=== PATIENT | female | born 1955 | race Caucasian/White ===

== ENCOUNTER 2019-02-06 11:51 | Inpatient (IN) | payer MEDICARE, MEDICAID ==
[~2019-02-06] VITALS: Ht 152.4 cm; Wt 55.0 kg
[2019-02-06 11:56] VITALS: Ht 152.4 cm; Wt 55.0 kg
[2019-02-06] MEDS ORDERED: ASPIRIN 325 MG TAB PO ONE (13:30)
[2019-02-06] MEDS ORDERED: ONDANSETRON 4 MG INJ IV PRN ×2 (14:00→16:00)
[2019-02-06] MEDS ORDERED: ACETAMINOPHEN 325 MG TAB PO PRN ×2 (14:00→16:00)
[2019-02-06] MEDS ORDERED: INSULIN LISPRO 100 UNIT/ML VIAL SC ONE (14:00)
--- NOTE | 2019-02-06 14:09 | ERD ---
ER Documentation Chief Complaint Chief Complaint lt arm weakness x 2 days h/o previous stroke with lt side weakness HPI Patient is a 64-year-old female with stroke, hypertension, and diabetes who presents with left arm weakness. She started with new left arm weakness which started yesterday morning at 7 AM. The symptoms have been constant. She denies pain. She has no fevers. She says that she does have a primary doctor. She has had no treatment as of yet. Upon review of old medical records this is the patient's first visit to the emergency department. ROS All systems reviewed and are negative except as per history of present illness. Allergies Allergies: Coded Allergies: No Known Allergy (Unverified , 02/06/19) PMhx/Soc History of Surgery: No Anesthesia Reaction: No Hx Neurological Disorder: No Hx Respiratory Disorders: No Hx Cardiac Disorders: Yes (HTN) Hx Psychiatric Problems: No Hx Miscellaneous Medical Probl: Yes (DM) Hx Alcohol Use: No Hx Substance Use: No Hx Tobacco Use: No Smoking Status: Never smoker FmHx Family History: diabetes Physical Exam Vitals Vital Signs Date Temp Pulse Resp B/P (MAP) Pulse Ox O2 O2 Flow FiO2 Time Delivery Rate 02/06/19 98.1 86 18 189/74 98 11:56 (112) Physical Exam Const: No acute distress Head: Atraumatic Eyes: Normal Conjunctiva ENT: Normal External Ears, Nose and Mouth. Neck: Full range of motion. No meningismus. Resp: Clear to auscultation bilaterally Cardio: Regular rate and rhythm, no murmurs Abd: Soft, non tender, non distended. Normal bowel sounds Skin: No petechiae or rashes Back: No midline or flank tenderness Ext: No cyanosis, or edema Neur: Awake and alert, left arm weakness with pronator drift, unable to broodmare barn groom on the left compared to the right, cranial nerves II through XII are intact, no slurred speech Psych: Normal Mood and Affect Result Diagram: 02/06/19 1244 02/06/19 1244 Results 24 hrs Laboratory Tests Test 02/06/19 12:44 White Blood Count 5.4 10^3/ul Red Blood Count 4.43 10^6/ul Hemoglobin 13.9 g/dl Hematocrit 39.6 % Mean Corpuscular Volume 89.4 fl Mean Corpuscular Hemoglobin 31.4 pg Mean Corpuscular Hemoglobin Concent 35.1 g/dl Red Cell Distribution Width 12.4 % Platelet Count 179 10^3/UL Mean Platelet Volume 10.4 fl Immature Granulocytes % 0.200 % Neutrophils % 60.0 % Lymphocytes % 31.6 % Monocytes % 6.3 % Eosinophils % 1.3 % Basophils % 0.6 % Nucleated Red Blood Cells % 0.0 /100WBC Immature Granulocytes # 0.010 10^3/ul Neutrophils # 3.3 10^3/ul Lymphocytes # 1.7 10^3/ul Monocytes # 0.3 10^3/ul Eosinophils # 0.1 10^3/ul Basophils # 0.0 10^3/ul Nucleated Red Blood Cells # 0.0 10^3/ul Prothrombin Time 12.5 Sec Prothrombin Time Ratio 1.0 INR International Normalized Ratio 0.92 Activated Partial Thromboplast Time 26.9 Sec Sodium Level 135 mmol/L Potassium Level 4.7 mmol/L Chloride Level 100 mmol/L Carbon Dioxide Level 27 mmol/L Anion Gap 8 Blood Urea Nitrogen 23 mg/dl Creatinine 0.76 mg/dl Est Glomerular Filtrat Rate mL/min > 60 mL/min Glucose Level 572 mg/dl Hemoglobin A1c 13.9 % Calcium Level 10.0 mg/dl Troponin I 0.043 ng/ml Triglycerides Level 328 mg/dl Cholesterol Level 243 mg/dl LDL Cholesterol, Calculated 129 mg/dl HDL Cholesterol 48 mg/dl Cholesterol/HDL Ratio 5.0 RATIO Current Medications Medications Dose Sig/More[place] Start Time Status Last (Trade) Ordered Route PRN Stop Time Admin Dose Reason Admin Aspirin 325 mg ONCE ONCE 02/06/19 DC 02/06/19 (Aspirin) PO 13:30 02/06/19 13:25 13:31 Insulin 20 unit ONCE ONCE 02/06/19 DC Human SC 14:00 02/06/19 Lispro 14:02 (Humalog) Ondansetron 4 mg ER BRIDGE 02/06/19 HCl (Zofran PRN IV 14:00 02/07/19 Inj) NAUSEA/VOMITI 13:59 NG 650 mg ER BRIDGE 02/06/19 Acetaminophen PRN PO 14:00 02/07/19 (Tylenol .MILD PAIN 13:59 Tab) 1-3 OR TEMP Procedures/MDM EKG, MONITORS, & DIAGNOSTIC IMAGING: EKG: I reviewed and interpreted a 12-lead EKG. Rhythm: Normal sinus rhythm Ectopy: None Arrhythmia: None Intervals: No abnormalities ST segments: No elevations or depressions T waves: No contiguous inversions Interpretation: No acute cardiac ischemia Chest x-ray: I reviewed and interpreted a 1 view of the chest Mediastinum: No enlargement Cardiac silhouette: No cardiomegaly Airspace: Clear lung tomlin bilaterally without evidence of pneumothorax Bones: No evidence of fracture Interpretation: No acute cardiopulmonary process CT Brain: Study was read by radiology LAB INTERPRETATION: Showed hyperglycemia but no signs of diabetic ketoacidosis. The patient was given Humalog subcu. MEDICAL DECISION MAKING: Patient is a 64-year-old female who presents with acute stroke. She is outside the window for TPA as her symptoms started yesterday morning at 7 AM. She is outside the window for interventional procedure as her symptoms are more than 24 hours old. The patient will be given aspirin after she passes a swallow evaluation. The patient will be admitted to the panel team. Stroke assessment and timing: Last Known Well Time (LKWT): 7 AM yesterday February 05 NIHSS: Performed by nursing TPA decision-making: Not a TPA candidate as the patient is more then 24 hours from onset of symptoms Interventional decision-making: Not an interventional candidate as the patient is greater than 24 hours from onset of symptoms Critical Care Note: Total time: 35 excluding all billable procedures. Indication/Organ System Threat: Acute neurologic deficit and stroke code activation that requires emergent evaluation and assessment to prevent neurologic compromising collapse. I spent the above amount of critical care time with the patient, not including billable procedures. This included chart review, consultations, repeat bedside evaluations, and titration of appropriate medications to prevent cardiopulmonary or respiratory collapse. I kept the patient and/or family informed of laboratory and diagnostic imaging results throughout the emergency room course. DISPOSITION PLAN: Admit to team as the patient is self-pay. Departure Diagnosis: Primary Impression: Stroke CVA mechanism: unspecified Qualified Codes: I63.9 - Cerebral infarction, unspecified Additional Impressions: Acute weakness Hyperglycemia Condition: FELI Renae MD Feb 06, 2019 14:09
[2019-02-06] MEDS ORDERED: GLUCAGON 1 MG INJ IM PRN (16:00)
[2019-02-06] MEDS ORDERED: GLUCOSE GEL 15 GRAM TUBE PO PRN ×2 (16:00)
[2019-02-06] MEDS ORDERED: GLUCOSE GEL 15 GRAM TUBE BUCCAL PRN (16:00)
[2019-02-06] MEDS ORDERED: NACL 0.9% 3 ML SYG IV SCH (16:00)
[2019-02-06] MEDS ORDERED: DEXTROSE 50% 50 ML SYRINGE IV PRN ×2 (16:00)
--- NOTE | 2019-02-06 16:05 | HP ---
Date/Time of Note Date/Time of Note DATE: 02/06/19 TIME: 15:47 Assessment/Plan VTE Prophylaxis SCD applied (from Nsg): Yes Pharmacological prophylaxis: NA/contraindicated Pharm contraindication: low risk/ambulating Lines/Catheters IV Catheter Type (from Nrsg): [place] Assessment/Plan Assessment/Plan 64 yo woman with insulin-dependent diabetes and HTN presents with acute stroke #Acute stroke - It's concerning that she had a stroke so soon after stroke in January 15. - Will get records from [facility] - For now, repeat MRI brain + MRA head and neck and carotid duplex. - RPR, TSH, lipid panel - Cont aspirin and statin. - Will try to determine which neurologist saw her at [facility]. Otherwise will consult Dr. Cerda - , PT, OT. - Permissive HTN 48 hours after stroke then tomorrow will start her losartan. #HTN - Permissive HTN 48 hours after stroke then tomorrow will start her losartan. #IDDM - Was on insulin until a month ago, then stopped and placed on metformin and glipizide. - Will start ISS and glargine, titrate as needed. DVT: SCDs GI: None Result Diagram: 02/06/19 1244 02/06/19 1244 HPI/ROS Admit Date/Time Admit Date/Time 06 February 2019 Hx of Present Illness Ms. Cuello is a pleasant 64 yo woman who presents with acute onset L arm weakness and L sided facial droop. She was in her usual state of health until January 15, when she had R sided facial droop and difficulty speaking. Presented to [facility] where she was diagnosed with acute stroke. Started on aspirin and atorvastatin. She had been on insulin for diabetes but this was stopped and switched to metformin. She was told there was a blockage in one of the arteries in her neck which caused the stroke. Symptoms normalized and she was discharged. Then, yesterday at 7 am, 1 day prior to admission, she woke up with severe L arm weakness. She was unable to wash her face or hold her toothbrush. Unclear why she waited so long to present to the hospital. Her sister also noticed mild L facial droop (previously was R sided). The patient reports compliance with all medications. In the ED, patient was hypertensive to 189/74, otherwise vitals unremarkable. Labs notable for hyperglycemia to [address] to 135. CT head showed multiple R sided infarcts. ROS She denies fever, chills, night sweats, weight loss, fatigue, recent acute vision changes, headaches, dysphagia, odynophagia, neck pain, chest p ain/pressure/palpitations, dyspnea, cough, nausea, vomiting, abdominal pain, diarrhea, constipation, melena, dysuria, hematuria. PMH/Family/Social Past Medical History Stroke in January 2019 Insulin-dependent diabetes (off insulin for 1 month) Medications Current Medications Ondansetron HCl (Zofran Inj) 4 mg ER BRIDGE PRN IV NAUSEA/VOMITING; Start 02/06/19 at 14:00; Stop 02/07/19 at 13:59 Acetaminophen (Tylenol Tab) 650 mg ER BRIDGE PRN PO .MILD PAIN 1-3 OR TEMP; Start 02/06/19 at 14:00; Stop 02/07/19 at 13:59 IV Flush (NS 3 ml) 3 ml PER PROTOCOL IV ; Start 02/06/19 at 16:00 Ondansetron HCl (Zofran Inj) 4 mg Q6H PRN IV NAUSEA/VOMITING; Start 02/06/19 at 16:00 Acetaminophen (Tylenol Tab) 650 mg Q6H PRN PO .PAIN 1-3 OR TEMP; Start 02/06/19 at 16:00 Atorvastatin Calcium (Lipitor) 40 mg HS PO ; Start 02/06/19 at 21:00; Status UNV Aspirin (Aspirin) 81 mg DAILY PO ; Start 02/07/19 at 09:00; Status UNV Coded Allergies: No Known Allergy (Unverified , 02/06/19) Social History Alcohol Use: none Smoking Status: Current every day smoker (2 cigs per day for 18 years. ) Drug Use: none Exam/Review of Systems Vital Signs Vitals Vital Signs Date Temp Pulse Resp B/P (MAP) Pulse Ox O2 O2 Flow FiO2 Time Delivery Rate 02/06/19 98.1 86 18 189/74 98 11:56 (112) Exam Exam Gen: Well developed elderly woman in no acute distress. Eyes: PERRL, EOMI, no icterus HEENT: Moist mucous membranes, clear oropharynx Neck: Supple, no lymphadenopathy Card: Regular rate and rhythm, no murmurs Chest: nontender Pulm: Clear to auscultation bilaterally Abd: Soft, nontender, nondistended. No palpable hepatosplenomegaly Ext: No cyanosis/clubbing/edema. Good peripheral pulses. NEURO CN: Mild left mouth droop and flatting L nasolabial fold. L eye unaffected. No dysarthria or hoarseness. Tongue midline. Sensation to light touch equal bilaterally. Hearing to finger rub intact bilaterally. Head turn and shoulder shrug equal bilaterally. Motor: L shoulder abduction and adduction both 3/5. L elbow flexion 5/5, extension 4/5. Biotech Production Specialist strength is 3/5. R arm and both lower extremities are 5/5 strength throughout. Sensation: L arm diminished sensation to light touch. Coordination: not assessed Gait: Not assessed. JULIANA FRAUSTO MD Feb 06, 2019 16:01
[2019-02-06 16:30] VITALS: PULSE 81
[2019-02-06 17:44] VITALS: BP 160/74; PULSE 80; RESP 18
[2019-02-06] MEDS: INSULIN ASPART [NOVOLOG] 3 ML PEN SC SCH ×2 (17:55→21:00)
[2019-02-06 19:52] VITALS: BP 147/66; PULSE 80; RESP 18
[2019-02-06] MEDS ORDERED: INSULIN GLARGINE [LANTus] (100 UNITS/ML) SYG SC SCH (20:00)
[2019-02-06 20:08] VITALS: PULSE 79
[2019-02-06 23:28] VITALS: BP 145/62; RESP 18
[2019-02-06] MEDS: ATORVASTATIN 40 MG TAB PO SCH (23:44)
[2019-02-07] VITALS (12 sets, daily range): BP systolic 142–166; BP diastolic 67–82; PULSE 77–86; RESP 18–20
[2019-02-07] MEDS: ACCU-CHEK XX SCH (02:00)
[2019-02-07] MEDS: ASPIRIN 81 MG TAB PO SCH (08:09)
[2019-02-07] MEDS: INSULIN ASPART [NOVOLOG] 3 ML PEN SC SCH ×4 (08:28→21:10)
--- NOTE | 2019-02-07 14:49 | PN ---
Date/Time of Note Date/Time of Note DATE: 02/07/19 TIME: 14:31 Assessment/Plan VTE Prophylaxis Risk score (from [facility]0 risk: 3 SCD applied (from [facility]): Yes Pharmacological prophylaxis: heparin Lines/Catheters IV Catheter Type (from [facility]): Peripheral IV Assessment/Plan Assessment/Plan 1. Patchy infarcts involving the right centrum semiovale/echevarria radiata white matter, and right parietal / occipital lobes, aspirin, lipitor, PT/OT, neurology consult, order echo 2. DM, HbA1c 13, increase lantus, ISS 3. HTN 4. DVT prophylaxis: heparin Result Diagram: 02/07/19 0634 02/07/19 0634 Results 24hrs Laboratory Tests Test 02/06/19 14:54 02/06/19 15:10 02/06/19 15:42 02/06/19 17:30 Bedside Glucose 539 *H 460 *H 133 Urine Color YELLOW Urine Clarity SLIGHTLY CLOUDY A Urine pH 6.0 Urine Specific 1.020 [place] Urine Ketones NEGATIVE Urine Nitrite NEGATIVE Urine Bilirubin NEGATIVE Urine Urobilinogen NEGATIVE Urine Leukocyte TRACE A Esterase Urine Microscopic 2 RBC Urine Microscopic 11 H WBC Urine Squamous FEW Epithelial Cells Urine Bacteria FEW A Urine Hemoglobin NEGATIVE Urine Glucose 3+ H Urine Total NEGATIVE Protein Test 02/06/19 21:15 02/07/19 02:51 02/07/19 06:34 02/07/19 06:52 Bedside Glucose 142 393 H 310 H White Blood Count 6.4 Red Blood Count 3.78 L Hemoglobin 11.7 L Hematocrit 33.4 L Mean Corpuscular 88.4 Volume Mean Corpuscular 31.0 Hemoglobin Mean Corpuscular 35.0 Hemoglobin Concent Red Cell 12.2 Distribution Width Platelet Count 154 Mean Platelet 10.6 H Volume Immature 0.200 Granulocytes % Neutrophils % 57.7 Lymphocytes % 33.3 Monocytes % 7.2 Eosinophils % 1.3 Basophils % 0.3 Nucleated Red 0.0 Blood Cells % Immature 0.010 Granulocytes # Neutrophils # 3.7 Lymphocytes # 2.1 Monocytes # 0.5 Eosinophils # 0.1 Basophils # 0.0 Nucleated Red 0.0 Blood Cells # Sodium Level 136 Potassium Level 4.1 Chloride Level 102 Carbon Dioxide 29 Level Anion Gap 5 Blood Urea 26 H Nitrogen Creatinine 0.85 Est Glomerular > 60 Filtrat Rate mL/min Glucose Level 280 #H Calcium Level 9.6 Phosphorus Level 3.8 Magnesium Level 1.9 Total Bilirubin 0.5 Direct Bilirubin 0.00 Indirect Bilirubin 0.5 Aspartate Amino 24 Transf (AST/SGOT) Alanine 18 Aminotransferase ( ALT/SGPT) Alkaline 78 Phosphatase Total Protein 6.0 L Albumin 3.2 L Globulin 2.80 Albumin/Globulin 1.14 Ratio Triglycerides 227 H Level Cholesterol Level 200 LDL Cholesterol, 115 Calculated HDL Cholesterol 40 Cholesterol/HDL 5.0 Ratio Thyroid 1.150 Stimulating Hormone (TSH) Test 02/07/19 08:08 02/07/19 11:42 Bedside Glucose 283 H 293 H Exam/Review of Systems Exam Vitals Vital Signs Date Temp Pulse Resp B/P (MAP) Pulse Ox O2 O2 Flow FiO2 Time Delivery Rate 02/07/19 77 12:01 02/07/19 98.1 20 162/72 93 Room Air 11:52 (102) Intake and Output 02/06/19 02/06/19 02/07/19 1414:59 22:59 06:59 IntakeIntake Total 300 ml BalanceBalance 300 ml Constitutional: alert, oriented, well developed Psych: no complaints, nl mood/affect Head: normocephalic, atraumatic Eyes: nl conjunctiva, EOMI, nl lids ENMT: nl external ears & nose, nl lips & teeth, nl nasal mucosa & septum Neck: supple, non-tender Respiratory: clear to auscultation, normal air movement; No congested cough, No crackles/rales, No diminished breath sounds, No intercostal retraction, No labored breathing, No respirations, No tactile fremitus, No wheezing, No other Cardiovascular: regular rate and rhythm, nl pulses Gastrointestinal: soft, nl liver, spleen, non-tender Musculoskeletal: nl extremities to inspection Extremities: normal pulses; No calf tenderness, No cyanosis, No clubbing, No edema, No pitting pedal edema, No palpable cord, No tenderness, No other Neurological: EXTRUDER OPERATOR II-XII intact, nl mental status, nl speech, other (LUE 4/5) Results Results 24hrs Laboratory Tests Test 02/06/19 14:54 02/06/19 15:10 02/06/19 15:42 02/06/19 17:30 Bedside Glucose 539 *H 460 *H 133 Urine Color YELLOW Urine Clarity SLIGHTLY CLOUDY A Urine pH 6.0 Urine Specific 1.020 [place] Urine Ketones NEGATIVE Urine Nitrite NEGATIVE Urine Bilirubin NEGATIVE Urine Urobilinogen NEGATIVE Urine Leukocyte TRACE A Esterase Urine Microscopic 2 RBC Urine Microscopic 11 H WBC Urine Squamous FEW Epithelial Cells Urine Bacteria FEW A Urine Hemoglobin NEGATIVE Urine Glucose 3+ H Urine Total NEGATIVE Protein Test 02/06/19 21:15 02/07/19 02:51 02/07/19 06:34 02/07/19 06:52 Bedside Glucose 142 393 H 310 H White Blood Count 6.4 Red Blood Count 3.78 L Hemoglobin 11.7 L Hematocrit 33.4 L Mean Corpuscular 88.4 Volume Mean Corpuscular 31.0 Hemoglobin Mean Corpuscular 35.0 Hemoglobin Concent Red Cell 12.2 Distribution Width Platelet Count 154 Mean Platelet 10.6 H Volume Immature 0.200 Granulocytes % Neutrophils % 57.7 Lymphocytes % 33.3 Monocytes % 7.2 Eosinophils % 1.3 Basophils % 0.3 Nucleated Red 0.0 Blood Cells % Immature 0.010 Granulocytes # Neutrophils # 3.7 Lymphocytes # 2.1 Monocytes # 0.5 Eosinophils # 0.1 Basophils # 0.0 Nucleated Red 0.0 Blood Cells # Sodium Level 136 Potassium Level 4.1 Chloride Level 102 Carbon Dioxide 29 Level Anion Gap 5 Blood Urea 26 H Nitrogen Creatinine 0.85 Est Glomerular > 60 Filtrat Rate mL/min Glucose Level 280 #H Calcium Level 9.6 Phosphorus Level 3.8 Magnesium Level 1.9 Total Bilirubin 0.5 Direct Bilirubin 0.00 Indirect Bilirubin 0.5 Aspartate Amino 24 Transf (AST/SGOT) Alanine 18 Aminotransferase ( ALT/SGPT) Alkaline 78 Phosphatase Total Protein 6.0 L Albumin 3.2 L Globulin 2.80 Albumin/Globulin 1.14 Ratio Triglycerides 227 H Level Cholesterol Level 200 LDL Cholesterol, 115 Calculated HDL Cholesterol 40 Cholesterol/HDL 5.0 Ratio Thyroid 1.150 Stimulating Hormone (TSH) Test 02/07/19 08:08 02/07/19 11:42 Bedside Glucose 283 H 293 H Medications Medication Current Medications IV Flush (NS 3 ml) 3 ml PER PROTOCOL IV ; Start 02/06/19 at 16:00 Ondansetron HCl (Zofran Inj) 4 mg Q6H PRN IV NAUSEA/VOMITING; Start 02/06/19 at 16:00 Acetaminophen (Tylenol Tab) 650 mg Q6H PRN PO .PAIN 1-3 OR TEMP; Start 02/06/19 at 16:00 Atorvastatin Calcium (Lipitor) 40 mg HS PO Last administered on 02/06/19at 23:44; Admin Dose 40 MG; Start 02/06/19 at 21:00 Aspirin (Aspirin) 81 mg DAILY PO Last administered on 02/07/19at 08:09; Admin Dose 81 MG; Start 02/07/19 at 09:00 Diagnostic Test (Pha) (Accu-Chek) 1 ea 02 XX ; Start 02/07/19 at 02:00 Insulin Glargine (Lantus) 15 units DAILY@2000 SC Last administered on 02/07/19at 01:45; Admin Dose 15 UNITS; Start 02/06/19 at 20:00 Insulin Aspart (Novolog Insulin Pen) NOVOLOG *MODERATE* ALGORITHM WITH MEALS BEDTIME SC Last administered on 02/07/19at 11:46; Admin Dose 8 UNIT; Start 02/06/19 at 17:55 Miscellaneous Information 1 ea NOTE XX ; Start 02/06/19 at 16:00 Glucose (Glutose) 15 gm Q15M PRN PO DECREASED GLUCOSE; Start 02/06/19 at 16:00 Glucose (Glutose) 22.5 gm Q15M PRN PO DECREASED GLUCOSE; Start 02/06/19 at 16:00 Dextrose (D50w Syringe) 25 ml Q15M PRN IV DECREASED GLUCOSE; Start 02/06/19 at 16:00 Dextrose (D50w Syringe) 50 ml Q15M PRN IV DECREASED GLUCOSE; Start 02/06/19 at 16:00 Glucagon (Glucagen) 1 mg Q15M PRN IM DECREASED GLUCOSE; Start 02/06/19 at 16:00 Glucose (Glutose) 15 gm Q15M PRN BUCCAL DECREASED GLUCOSE; Start 02/06/19 at 16:00 JULIUS HO MD Feb 07, 2019 14:41
--- NOTE | 2019-02-07 15:13 | CONS ---
Assessment/Plan Assessment/Plan Hospital Course 64 F c/ recent R hemispheric strokes and multiple cerebrovascular risk factors including severe R ICA stenosis...who presents for evaluation of L hemiparesis. She presented identically to [facility] weeks ago...but was lost to vascular surgical followup and noncompliant w/ medical management in the interval.. MRI brain is notable for enhancing R hemispheric infarcts...suggesting subacute disease.. P: Resume asa, plavix and lipitor for secondary prevention Vascular surgery follow up Medical management and supportive care per primary Will follow Consultation Date/Type/Reason Admit Date/Time 06 February 2019 Type of Consult Neurology Reason for Consultation L facial/L sided weakness Requesting Provider: JULIUS HO MD Date/Time of Note DATE: 02/07/19 TIME: 14:58 Hx of Present Illness 64 yo F with hx of recent stroke in 01/2019, HTN, DM, and multiple other comorbidities who presented to the ED for evaluation of L arm weakness/L facial droop. History was obtained from pt, HCP, chart review and medical records from [facility]. The pt previously presented to [facility] on 01/15/19 for evaluation of L sided weakness. She was noted to have a L facial droop at the time, which she was unaware of. During the course of her hospitalization, her L sided symptoms completely resolved. Her medical workup at the time (see imaging reports in objective section) revealed extensive R hemispheric infarcts, and severe R ICA/CCA stenosis. She was seen by a vascular surgeon at the time who recommended a R CEA 7-10 days post-hospitalization. She was then discharged from the hospital on ASA/Plavix/Lipitor. She now presents again for evaluation of L arm weakness and L facial droop. States that the sx have been going on x 1 week. She endorses L face/arm weakness. Denies other sx currently. She states that she has been noncompliant with her medications following [facility] as she could not afford them. Also has not been checking her blood sugar at home. Did not follow up with the vascular surgeon regarding plans for CEA. It is additionally elsewhere noted: Hx of Present Illness Ms. Cuello is a pleasant 64 yo woman who presents with acute onset L arm weakness and L sided facial droop. She was in her usual state of health until January 15, when she had R sided facial droop and difficulty speaking. Presented to [facility] where she was diagnosed with acute stroke. Started on aspirin and atorvastatin. She had been on insulin for diabetes but this was stopped and switched to metformin. She was told there was a blockage in one of the arteries in her neck which caused the stroke. Symptoms normalized and she was discharged. Then, yesterday at 7 am, 1 day prior to admission, she woke up with severe L arm weakness. She was unable to wash her face or hold her toothbrush. Unclear why she waited so long to present to the hospital. Her sister also noticed mild L facial droop (previously was R sided). The patient reports compliance with all medications. In the ED, patient was hypertensive to 189/74, otherwise vitals unremarkable. Labs notable for hyperglycemia to [address] hypon[address] to 135. CT head showed multiple R sided infarcts. Exam/Review of Systems Exam Vitals Vital Signs Date Temp Pulse Resp B/P (MAP) Pulse Ox O2 O2 Flow FiO2 Time Delivery Rate 02/07/19 77 12:01 02/07/19 98.1 20 162/72 93 Room Air 11:52 (102) Intake and Output 02/06/19 02/06/19 02/07/19 1414:59 22:59 06:59 IntakeIntake Total 300 ml BalanceBalance 300 ml Exam PE: Gen Appearance: No Apparent Distress HEENT: Normocephalic Cardiovascular: Regular rate Lungs: Clear bilaterally Abdomen: Soft Extremities: Dry NE: The patient was alert and oriented. Language was normal. Fund of knowledge was normal. Pupils were equal and reactive to light. There was no afferent pupillary defect. Visual tomlin were normal. Funduscopic examination was limited. Extra-ocular movements were full. Ptosis was absent. There was no nystagmus. Facial sensation was normal. Face was asymmetric with diminished activation on the L. Hearing was intact. Palate movements were normal. Neck strength was normal. Shoulder strength was weak on the L There was normal tongue bulk and speed of movement. Tone was normal. Muscle bulk was normal. I did not see fasciculations. Arms and legs were weak on the L Vibration sensation was normal. Temperature and pinprick sensation was normal. Rapid alternating movements were normal. There was no dysmetria. There was no intention tremor. Gait was deferred due to bedrest. Arm and leg reflexes were 2+ and symmetric. Lockwood's sign was absent. Plantar responses were flexor. Results Result Diagram: 02/07/19 0634 02/07/19 0634 Results 24hrs Laboratory Tests Test 02/06/19 15:10 02/06/19 15:42 02/06/19 17:30 02/06/19 21:15 Urine Color YELLOW Urine Clarity SLIGHTLY CLOUDY A Urine pH 6.0 Urine Specific 1.020 [place] Urine Ketones NEGATIVE Urine Nitrite NEGATIVE Urine Bilirubin NEGATIVE Urine Urobilinogen NEGATIVE Urine Leukocyte TRACE A Esterase Urine Microscopic 2 RBC Urine Microscopic 11 H WBC Urine Squamous FEW Epithelial Cells Urine Bacteria FEW A Urine Hemoglobin NEGATIVE Urine Glucose 3+ H Urine Total NEGATIVE Protein Bedside Glucose 460 *H 133 142 Test 02/07/19 02:51 02/07/19 06:34 02/07/19 06:52 02/07/19 08:08 Bedside Glucose 393 H 310 H 283 H White Blood Count 6.4 Red Blood Count 3.78 L Hemoglobin 11.7 L Hematocrit 33.4 L Mean Corpuscular 88.4 Volume Mean Corpuscular 31.0 Hemoglobin Mean Corpuscular 35.0 Hemoglobin Concent Red Cell 12.2 Distribution Width Platelet Count 154 Mean Platelet 10.6 H Volume Immature 0.200 Granulocytes % Neutrophils % 57.7 Lymphocytes % 33.3 Monocytes % 7.2 Eosinophils % 1.3 Basophils % 0.3 Nucleated Red 0.0 Blood Cells % Immature 0.010 Granulocytes # Neutrophils # 3.7 Lymphocytes # 2.1 Monocytes # 0.5 Eosinophils # 0.1 Basophils # 0.0 Nucleated Red 0.0 Blood Cells # Sodium Level 136 Potassium Level 4.1 Chloride Level 102 Carbon Dioxide 29 Level Anion Gap 5 Blood Urea 26 H Nitrogen Creatinine 0.85 Est Glomerular > 60 Filtrat Rate mL/min Glucose Level 280 #H Calcium Level 9.6 Phosphorus Level 3.8 Magnesium Level 1.9 Total Bilirubin 0.5 Direct Bilirubin 0.00 Indirect Bilirubin 0.5 Aspartate Amino 24 Transf (AST/SGOT) Alanine 18 Aminotransferase ( ALT/SGPT) Alkaline 78 Phosphatase Total Protein 6.0 L Albumin 3.2 L Globulin 2.80 Albumin/Globulin 1.14 Ratio Triglycerides 227 H Level Cholesterol Level 200 LDL Cholesterol, 115 Calculated HDL Cholesterol 40 Cholesterol/HDL 5.0 Ratio Thyroid 1.150 Stimulating Hormone (TSH) Test 02/07/19 11:42 Bedside Glucose 293 H Imaging Imaging MRI brain (3/11/19, [facility]): IMPRESSION: 1. Redemonstrated early subacute right gangliocapsular lacunar infarct involving the anterior caudate body with mild local mass effect partly effacing the right lateral ventricle. 2. Redemonstrated adjacent early subacute infarct involving the right posterior frontal cortex, subcortical white matter and echevarria radiata in MCA branch distribution. 3. Multiple additional scattered punctate acute/early subacute infarcts involving the right frontal, parietal and occipital cortex as well as the right frontal and parietal periventricular and deep white matter in MCA distribution. 4. Otherwise mild chronic small vessel ischemic changes. 5. No midline shift nor herniation. CTA H/N (01/16/19, [facility]): IMPRESSION: 1. Moderate atherosclerotic calcification involving the posterior right carotid bulb/proximal ICA with 60-70% luminal narrowing by NASCET criteria. 2. Otherwise, normal CTA of the neck. No evidence of aneurysm, hemodynamically significant stenosis or dissection. 3. Moderate to severe stenosis involving the proximal right M1 segment with 70- 80% luminal narrowing, with associated multiple collateral vessels. There is filling of the M2 and 3 branches within the right sylvian fissure. No focal occlusion is seen at this time. 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 4. Moderate atherosclerotic calcification of the supraclinoid right internal carotid artery with 50-60% luminal narrowing in this region. 5. No evidence of filling defect, aneurysm or vascular malformation. 6. No acute intracranial abnormality. No intracranial hemorrhage, mass lesion or hydrocephalous. Number 7. Stable well-circumscribed hypodensity involving the right caudate/sub insular white matter, which may be related to infarct, age indeterminate. MRI is recommended for further evaluation. Echocardiogram (01/15/19; [facility]): Conclusion: 1. Normal left ventricular systolic function. 2. Ejection fraction 55%. 3. Trace mitral regurgitation. 4. Large A wave consistent with diastolic dysfunction. 5. Normal pulmonary pressure at 25 MRI, MRA H/N (02/07/19; [facility]): IMPRESSION: 1. Patchy areas of infarction involving the right MCA distribution, with patchy infarcts involving the right centrum semiovale/echevarria radiata white matter, a prominent wedge-shaped infarct in the right parietal lobe measuring 3.8 x 0.8 cm and patchy infarcts in the right parietal / occipital lobes. No evidence of hemorrhagic conversion at this time. There is enhancement of the infarcts, suggesting a late acute/early subacute age of infarcts. Given the distribution of findings, this may be related to a combination of thromboembolic infarcts with possible superimposed watershed distribution infarcts. 2. Moderate thrombus/atherosclerotic plaque involving the proximal right M1 segment, with trace amount of contrast seen traversing the thrombosed segment, with concern raised for high-grade stenosis in this region. Correlation with cerebral angiogram is recommended. 3. No intracranial hemorrhage, enhancing mass lesion or hydrocephalous. 4. Normal MRA of the neck with and without contrast. No aneurysm, dissection or hemodynamically significant stenosis. 5. Baseline of mild peripheral and central cerebral volume loss. 6. Baseline of mild to moderate punctate and patchy periventricular and subcortical white matter lesions, likely related to chronic microangiopathic changes. 7. 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 Medications Medication Current Medications IV Flush (NS 3 ml) 3 ml PER PROTOCOL IV ; Start 02/06/19 at 16:00 Ondansetron HCl (Zofran Inj) 4 mg Q6H PRN IV NAUSEA/VOMITING; Start 02/06/19 at 16:00 Acetaminophen (Tylenol Tab) 650 mg Q6H PRN PO .PAIN 1-3 OR TEMP; Start 02/06/19 at 16:00 Atorvastatin Calcium (Lipitor) 40 mg HS PO Last administered on 02/06/19at 23:44; Admin Dose 40 MG; Start 02/06/19 at 21:00 Aspirin (Aspirin) 81 mg DAILY PO Last administered on 02/07/19at 08:09; Admin Dose 81 MG; Start 02/07/19 at 09:00 Diagnostic Test (Pha) (Accu-Chek) 1 ea 02 XX ; Start 02/07/19 at 02:00 Insulin Aspart (Novolog Insulin Pen) NOVOLOG *MODERATE* ALGORITHM WITH MEALS BEDTIME SC Last administered on 02/07/19at 11:46; Admin Dose 8 UNIT; Start 02/06/19 at 17:55 Miscellaneous Information 1 ea NOTE XX ; Start 02/06/19 at 16:00 Glucose (Glutose) 15 gm Q15M PRN PO DECREASED GLUCOSE; Start 02/06/19 at 16:00 Glucose (Glutose) 22.5 gm Q15M PRN PO DECREASED GLUCOSE; Start 02/06/19 at 16:00 Dextrose (D50w Syringe) 25 ml Q15M PRN IV DECREASED GLUCOSE; Start 02/06/19 at 16:00 Dextrose (D50w Syringe) 50 ml Q15M PRN IV DECREASED GLUCOSE; Start 02/06/19 at 16:00 Glucagon (Glucagen) 1 mg Q15M PRN IM DECREASED GLUCOSE; Start 02/06/19 at 16:00 Glucose (Glutose) 15 gm Q15M PRN BUCCAL DECREASED GLUCOSE; Start 02/06/19 at 16:00 Insulin Glargine (Lantus) 18 units DAILY@2000 SC ; Start 02/07/19 at 20:00 Heparin Sodium (Porcine) (Heparin (5000 Units/1ml)) 5,000 unit BID SC ; Start 02/07/19 at 16:00 Past Medical History reviewed Home Meds Unable to Obtain Active Prescriptions or Reported Meds Medications Current Medications IV Flush (NS 3 ml) 3 ml PER PROTOCOL IV ; Start 02/06/19 at 16:00 Ondansetron HCl (Zofran Inj) 4 mg Q6H PRN IV NAUSEA/VOMITING; Start 02/06/19 at 16:00 Acetaminophen (Tylenol Tab) 650 mg Q6H PRN PO .PAIN 1-3 OR TEMP; Start 02/06/19 at 16:00 Atorvastatin Calcium (Lipitor) 40 mg HS PO Last administered on 02/06/19at 23:44; Admin Dose 40 MG; Start 02/06/19 at 21:00 Aspirin (Aspirin) 81 mg DAILY PO Last administered on 02/07/19at 08:09; Admin Dose 81 MG; Start 02/07/19 at 09:00 Diagnostic Test (Pha) (Accu-Chek) 1 ea 02 XX ; Start 02/07/19 at 02:00 Insulin Aspart (Novolog Insulin Pen) NOVOLOG *MODERATE* ALGORITHM WITH MEALS BEDTIME SC Last administered on 02/07/19at 11:46; Admin Dose 8 UNIT; Start 02/06/19 at 17:55 Miscellaneous Information 1 ea NOTE XX ; Start 02/06/19 at 16:00 Glucose (Glutose) 15 gm Q15M PRN PO DECREASED GLUCOSE; Start 02/06/19 at 16:00 Glucose (Glutose) 22.5 gm Q15M PRN PO DECREASED GLUCOSE; Start 02/06/19 at 16:00 Dextrose (D50w Syringe) 25 ml Q15M PRN IV DECREASED GLUCOSE; Start 02/06/19 at 16:00 Dextrose (D50w Syringe) 50 ml Q15M PRN IV DECREASED GLUCOSE; Start 02/06/19 at 16:00 Glucagon (Glucagen) 1 mg Q15M PRN IM DECREASED GLUCOSE; Start 02/06/19 at 16:00 Glucose (Glutose) 15 gm Q15M PRN BUCCAL DECREASED GLUCOSE; Start 02/06/19 at 16:00 Insulin Glargine (Lantus) 18 units DAILY@2000 SC ; Start 02/07/19 at 20:00 Heparin Sodium (Porcine) (Heparin (5000 Units/1ml)) 5,000 unit BID SC ; Start 02/07/19 at 16:00 Allergies: Coded Allergies: No Known Allergy (Unverified , 02/06/19) Past Surgical History reviewed Social History reviewed Alcohol Use: none Smoking Status: Former smoker Drug Use: none NOAH RODARTE NP Feb 07, 2019 15:09 YULI FLORES Feb 07, 2019 16:57
[2019-02-07] MEDS: HEPARIN 5,000 UNIT/1 ML VIAL SC SCH (16:45)
[2019-02-07] MEDS ORDERED: INSULIN GLARGINE [LANTus] (100 UNITS/ML) SYG SC SCH (20:00)
[2019-02-07] MEDS: ATORVASTATIN 40 MG TAB PO SCH (21:08)
[2019-02-08] VITALS (12 sets, daily range): BP systolic 109–186; BP diastolic 55–79; PULSE 71–82; RESP 16–20
[2019-02-08] MEDS: HEPARIN 5,000 UNIT/1 ML VIAL SC SCH ×3 (01:08→20:32)
[2019-02-08] MEDS: ACCU-CHEK XX SCH (02:00)
--- NOTE | 2019-02-08 07:15 | CONS ---
Assessment/Plan Assessment/Plan Hospital Course 64 F c/ recent R hemispheric strokes and multiple cerebrovascular risk factors including severe R ICA stenosis...who presents for evaluation of L hemiparesis. She presented identically to [facility] weeks ago...but was lost to vascular surgical followup and noncompliant w/ medical management in the interval.. MRI brain is notable for enhancing R hemispheric infarcts...suggesting subacute disease.. P: Resume asa, plavix and lipitor for secondary prevention Vascular surgery follow up Medical management and supportive care per primary Will follow Consultation Date/Type/Reason Admit Date/Time Feb 06, 2019 at 14:01 Type of Consult Neurology Reason for Consultation weakness Requesting Provider: JULIUS HO MD Date/Time of Note DATE: 02/08/19 TIME: 07:15 24 HR Interval Summary Free Text/Dictation Continues acute care Exam Vital Signs Vitals Vital Signs Date Temp Pulse Resp B/P (MAP) Pulse Ox O2 O2 Flow FiO2 Time Delivery Rate 02/08/19 71 04:28 02/08/19 98.3 18 152/75 97 03:35 (100) 02/07/19 Room Air 16:11 Intake and Output 02/07/19 02/07/19 02/08/19 1515:00 23:00 07:00 IntakeIntake Total 600 ml BalanceBalance 600 ml Exam PE: Gen Appearance: No Apparent Distress HEENT: Normocephalic Cardiovascular: Regular rate Abdomen: Soft Extremities: Dry NE: The patient was alert and oriented. Language was normal. Fund of knowledge was adequate. Pupils were equal and reactive to light. There was no afferent pupillary defect. Visual tomlin were normal. Funduscopic examination was limited. Extra-ocular movements were full. Ptosis was absent. There was no nystagmus. Facial sensation was normal. Face was symmetric with normal strength. Hearing was intact. Palate movements were normal. Neck strength was normal. There was normal tongue bulk and speed of movement. Tone was normal. Muscle bulk was normal. I did not see fasciculations. Arms and legs were mildly weak in the right arm > leg Vibration sensation was normal. Temperature and pinprick sensation was normal. Rapid alternating movements were normal. There was no dysmetria. There was no intention tremor. Gait was deferred due to bedrest. Arm and leg reflexes were symmetric. Lockwood's sign was absent. Plantar responses were flexor. YULI FLORES Feb 08, 2019 07:15
[2019-02-08] MEDS: INSULIN ASPART [NOVOLOG] 3 ML PEN SC SCH ×4 (07:59→20:32)
[2019-02-08] MEDS: ASPIRIN 81 MG TAB PO SCH (08:37)
--- NOTE | 2019-02-08 16:10 | PN ---
Date/Time of Note Date/Time of Note DATE: 02/08/19 TIME: 16:06 Assessment/Plan VTE Prophylaxis Risk score (from Ns)>0 risk: 4 SCD applied (from Ns): Yes Pharmacological prophylaxis: heparin Lines/Catheters IV [facility] [place] Assessment/Plan Assessment/Plan 1. Patchy infarcts involving the right centrum semiovale/echevarria radiata white matter, and right parietal / occipital lobes, aspirin, lipitor, PT/OT, neurology consult, order echo 2. DM, HbA1c 13, increase lantus, ISS 3. HTN, lisinopril 4. DVT prophylaxis: heparin 5. Acute rehab eval Result Diagram: 02/08/19 0732 02/08/19 0732 Results 24hrs Laboratory Tests Test 02/07/19 16:41 02/07/19 20:15 02/08/19 01:55 02/08/19 07:32 Bedside Glucose 243 H 233 H 158 White Blood Count 6.3 Red Blood Count 3.90 L Hemoglobin 12.3 Hematocrit 34.4 L Mean Corpuscular Volume 88.2 Mean Corpuscular 31.5 Hemoglobin Mean Corpuscular 35.8 Hemoglobin Concent Red Cell Distribution 12.3 Width Platelet Count 168 Mean Platelet Volume 11.0 H Immature Granulocytes % 0.200 Neutrophils % 51.1 Lymphocytes % 39.1 Monocytes % 7.7 Eosinophils % 1.3 Basophils % 0.6 Nucleated Red Blood 0.0 Cells % Immature Granulocytes # 0.010 Neutrophils # 3.2 Lymphocytes # 2.5 Monocytes # 0.5 Eosinophils # 0.1 Basophils # 0.0 Nucleated Red Blood 0.0 Cells # Sodium Level 137 Potassium Level 3.7 Chloride Level 100 Carbon Dioxide Level 29 Anion Gap 8 Blood Urea Nitrogen 25 H Creatinine 0.89 Est Glomerular Filtrat > 60 Rate mL/min Glucose Level 170 # Calcium Level 9.4 Test 02/08/19 07:56 02/08/19 11:32 Bedside Glucose 194 246 H Subjective 24 Hr Interval Summary Free Text/Dictation left arm stronger Exam/Review of Systems Exam Vitals Vital Signs Date Temp Pulse Resp B/P (MAP) Pulse Ox O2 O2 Flow FiO2 Time Delivery Rate 02/08/19 98.7 82 20 186/79 97 Room Air 15:15 (114) Intake and Output 02/07/19 02/07/19 02/08/19 1515:00 23:00 07:00 IntakeIntake Total 600 ml BalanceBalance 600 ml Constitutional: alert, oriented, well developed Psych: no complaints, nl mood/affect Head: normocephalic, atraumatic Eyes: nl conjunctiva, EOMI, nl lids, PERRL ENMT: nl external ears & nose, nl lips & teeth, nl nasal mucosa & septum Neck: supple, non-tender Respiratory: clear to auscultation, normal air movement; No congested cough, No crackles/rales, No diminished breath sounds, No intercostal retraction, No labored breathing, No respirations, No tactile fremitus, No wheezing, No other Cardiovascular: regular rate and rhythm, nl pulses; No bruits, No diastolic murmur, No edema, No gallop, No irregular rhythm, No jugular venous distention (JVD), No murmurs/extra sounds, No rub, No systolic murmur, No S3, No S4, No other Gastrointestinal: soft, nl liver, spleen, non-tender; No ascites, No bowel sounds, No distended, No firm, No hepatomegaly, No mass, No rebound or guarding, No splenomegaly, No surgical scars, No tender, No other Musculoskeletal: nl extremities to inspection Extremities: normal pulses; No calf tenderness, No cyanosis, No clubbing, No edema, No pitting pedal edema, No palpable cord, No tenderness, No other Neurological: MOLDING PLASTERER II-XII intact, nl mental status, nl speech Skin: other (LUE 3/5) Results Results 24hrs Laboratory Tests Test 02/07/19 16:41 02/07/19 20:15 02/08/19 01:55 02/08/19 07:32 Bedside Glucose 243 H 233 H 158 White Blood Count 6.3 Red Blood Count 3.90 L Hemoglobin 12.3 Hematocrit 34.4 L Mean Corpuscular Volume 88.2 Mean Corpuscular 31.5 Hemoglobin Mean Corpuscular 35.8 Hemoglobin Concent Red Cell Distribution 12.3 Width Platelet Count 168 Mean Platelet Volume 11.0 H Immature Granulocytes % 0.200 Neutrophils % 51.1 Lymphocytes % 39.1 Monocytes % 7.7 Eosinophils % 1.3 Basophils % 0.6 Nucleated Red Blood 0.0 Cells % Immature Granulocytes # 0.010 Neutrophils # 3.2 Lymphocytes # 2.5 Monocytes # 0.5 Eosinophils # 0.1 Basophils # 0.0 Nucleated Red Blood 0.0 Cells # Sodium Level 137 Potassium Level 3.7 Chloride Level 100 Carbon Dioxide Level 29 Anion Gap 8 Blood Urea Nitrogen 25 H Creatinine 0.89 Est Glomerular Filtrat > 60 Rate mL/min Glucose Level 170 # Calcium Level 9.4 Test 02/08/19 07:56 02/08/19 11:32 Bedside Glucose 194 246 H Medications Medication Current Medications IV Flush (NS 3 ml) 3 ml PER PROTOCOL IV ; Start 02/06/19 at 16:00 Ondansetron HCl (Zofran Inj) 4 mg Q6H PRN IV NAUSEA/VOMITING; Start 02/06/19 at 16:00 Acetaminophen (Tylenol Tab) 650 mg Q6H PRN PO .PAIN 1-3 OR TEMP; Start 02/06/19 at 16:00 Atorvastatin Calcium (Lipitor) 40 mg HS PO Last administered on 02/07/19at 21:08; Admin Dose 40 MG; Start 02/06/19 at 21:00 Aspirin (Aspirin) 81 mg DAILY PO Last administered on 02/08/19at 08:37; Admin Dose 81 MG; Start 02/07/19 at 09:00 Diagnostic Test (Pha) (Accu-Chek) 1 ea 02 XX ; Start 02/07/19 at 02:00 Insulin Aspart (Novolog Insulin Pen) NOVOLOG *MODERATE* ALGORITHM WITH MEALS BEDTIME SC Last administered on 02/08/19at 11:36; Admin Dose 6 UNIT; Start 02/06/19 at 17:55 Miscellaneous Information 1 ea NOTE XX ; Start 02/06/19 at 16:00 Glucose (Glutose) 15 gm Q15M PRN PO DECREASED GLUCOSE; Start 02/06/19 at 16:00 Glucose (Glutose) 22.5 gm Q15M PRN PO DECREASED GLUCOSE; Start 02/06/19 at 16:00 Dextrose (D50w Syringe) 25 ml Q15M PRN IV DECREASED GLUCOSE; Start 02/06/19 at 16:00 Dextrose (D50w Syringe) 50 ml Q15M PRN IV DECREASED GLUCOSE; Start 02/06/19 at 16:00 Glucagon (Glucagen) 1 mg Q15M PRN IM DECREASED GLUCOSE; Start 02/06/19 at 16:00 Glucose (Glutose) 15 gm Q15M PRN BUCCAL DECREASED GLUCOSE; Start 02/06/19 at 16:00 Insulin Glargine (Lantus) 18 units DAILY@2000 SC Last administered on 02/07/19at 20:00; Admin Dose 18 UNITS; Start 02/07/19 at 20:00 Heparin Sodium (Porcine) (Heparin (5000 Units/1ml)) 5,000 unit BID SC Last administered on 02/08/19at 08:47; Admin Dose 5,000 UNIT; Start 02/07/19 at 16:00 Lisinopril (Zestril) 20 mg DAILY PO ; Start 02/08/19 at 16:30; Status JULIUS DOAN MD Feb 08, 2019 16:10
[2019-02-08] MEDS: CLOPIDOGREL 75 MG TAB PO SCH (16:25)
[2019-02-08] MEDS: LISINOPRIL 20 MG TAB PO SCH (16:25)
[2019-02-08] MEDS: ATORVASTATIN 40 MG TAB PO SCH (20:19)
--- NOTE | 2019-02-08 20:23 | RADRPT ---
Echocardiogram Report Patient Name: TAYLOR MCNEIL LUZPatient ID: [id number] : 1955 (64y 1m)Study Date: 02/08/2019 8:39:31 AM Gender: FAccession #: [id number] Tech: Camden Mello [facility] Location: 509-A Ref.Physician: JULIUS HO Height(Cm): BSA: Weight(Kg): Quality: AdequateAccount #: Procedures: Echocardiographic Report: Transthoracic echocardiogram with complete 2D, M-Mode, and doppler examination. Indications: Stroke. Measurements: 2D/M Mode Doppler Measurement Value Normal Range Measurement Value Normal Range LVIDd 2D 3.8 [ 3.8 - 5.2 ] cm AV Peak Noah 1.2 [ 100.0 - 170.0 ] cm/sec LVIDs 2D 2.6 [ 2.2 - 3.5 ] cm AV Peak PG 6.0 [ 2.0 - 9.0 ] mmHg LVPWd 2D 1.1 [ 0.6 - 0.9 ] cm LVOT Peak Noah 0.8 [ 70.0 - 110.0 ] cm/sec IVSd 2D 1.1 [ 0.6 - 0.9 ] cm LVOT Peak PG 3.0 [ 2.0 - 6.0 ] mmHg AoR Diam 2D 2.5 [ 2.3 - 3.1 ] cm MV E Peak Noah 0.8 [ 60.0 - 130.0 ] cm/sec EDV 2D 63.9 [ 46.0 - 106.0 ] ml MV A Peak Noah 1.0 [ 100.0 - 120.0 ] cm/sec ESV 2D 25.3 [ 14.0 - 42.0 ] ml MV E/A 0.7 [ 0.8 - 1.5 ] ratio EF 2D 60.4 [ 54.0 - 74.0 ] percent MV Decel Time 176 [ 104 - 258 ] msec LA Dimen 2D 2.7 [ 2.7 - 3.8 ] cm Lat E` Noah 0.1 [ 10.0 - 15.0 ] cm/sec Lateral E/E` 12.4 [ 1.0 - 2.0 ] ratio MV E/A 0.7 [ 0.8 - 1.5 ] ratio TR Peak Noah 2.0 [ 100.0 - 280.0 ] cm/sec TR Peak PG 16.0 mmHg RVSP 19.0 [ 10.0 - 36.0 ] mmHg Findings: Left Ventricle: Normal left ventricular systolic function. Normal left ventricular cavity size. Left ventricular wall thickness upper limits of normal. Ejection fraction is visually estimated at 60 %. Tissue Doppler/Mitral Doppler indices are consistent with impaired relaxation (Stage I diastolic dysfunction). Right Ventricle: Normal right ventricular size. Normal right ventricular systolic function. Left Atrium: The left atrium is normal in size. Right Atrium: The right atrium is normal in size. Mitral Valve: Mild mitral leaflet calcification. Mild mitral annular calcification. Trace mitral regurgitation. Aortic Valve: No hemodynamically significant aortic stenosis by doppler. Aortic cusps appear mildly calcified. Tricuspid Valve: Normal appearance of the tricuspid valve. Estimated peak PA systolic pressure 19 mmHg. There is trace tricuspid regurgitation. Pulmonic Valve: Pulmonic valve not well visualized. Pericardium: Normal pericardium with no significant pericardial effusion. Aorta: Normal aortic root. IVC: Normal size and normal respiratory collapse consistent with normal right atrial pressure. Conclusions: Borderline left ventricular hypertrophy with normal systolic function. Grade 1 diastolic dysfunction. Trace mitral and tricuspid regurgitation with normal pulmonary pressures. Electronically Signed By: Radha Low 2019-02-08 20:21:48 PDT
[2019-02-08] MEDS: INSULIN GLARGINE [LANTus] (100 UNITS/ML) SYG SC SCH (20:32)
[2019-02-09] VITALS (11 sets, daily range): BP systolic 127–191; BP diastolic 58–81; PULSE 71–85; RESP 16–22
[2019-02-09] MEDS: ACCU-CHEK XX SCH (02:00)
--- NOTE | 2019-02-09 07:00 | CONS ---
Assessment/Plan Assessment/Plan Hospital Course 64 F c/ recent R hemispheric strokes and multiple cerebrovascular risk factors including severe R ICA stenosis...who presents for evaluation of L hemiparesis. She presented identically to [facility] weeks ago...but was lost to vascular surgical followup and noncompliant w/ medical management in the interval.. MRI brain is notable for enhancing R hemispheric infarcts...suggesting subacute disease.. P: Resume asa, plavix and lipitor for secondary prevention Vascular surgery follow up when able Medical management and supportive care per primary Will follow clinically Consultation Date/Type/Reason Admit Date/Time Feb 06, 2019 at 14:01 Type of Consult Neurology Reason for Consultation weakness Requesting Provider: JULIUS HO MD Date/Time of Note DATE: 02/09/19 TIME: 07:00 24 HR Interval Summary Free Text/Dictation Continues acute care Exam Vital Signs Vitals Vital Signs Date Temp Pulse Resp B/P (MAP) Pulse Ox O2 O2 Flow FiO2 Time Delivery Rate 02/09/19 71 04:00 02/09/19 97.6 16 128/58 95 03:20 (81) 02/08/19 Room Air 15:15 Intake and Output 02/08/19 02/08/19 02/09/19 1515:00 23:00 07:00 IntakeIntake Total 800 ml 200 ml BalanceBalance 800 ml 200 ml Exam PE: Gen Appearance: No Apparent Distress HEENT: Normocephalic Cardiovascular: Regular rate Abdomen: Soft Extremities: Dry NE: The patient was alert and oriented. Language was normal. Fund of knowledge was adequate. Pupils were equal and reactive to light. There was no afferent pupillary defect. Visual tomlin were normal. Funduscopic examination was limited. Extra-ocular movements were full. Ptosis was absent. There was no nystagmus. Facial sensation was normal. Face was symmetric with normal strength. Hearing was intact. Palate movements were normal. Neck strength was normal. There was normal tongue bulk and speed of movement. Tone was normal. Muscle bulk was normal. I did not see fasciculations. Arms and legs were mildly weak in the right arm and leg Vibration sensation was normal. Temperature and pinprick sensation was normal. Rapid alternating movements were normal. There was no dysmetria. There was no intention tremor. Gait was deferred due to bedrest. Arm and leg reflexes were symmetric. Lockwood's sign was absent. Plantar responses were flexor. YULI FLORES Feb 09, 2019 07:00 NOAH RODARTE NP Feb 09, 2019 14:58
[2019-02-09] MEDS: INSULIN ASPART [NOVOLOG] 3 ML PEN SC SCH ×4 (07:58→20:46)
[2019-02-09] MEDS: ASPIRIN 81 MG TAB PO SCH (08:23)
[2019-02-09] MEDS: CLOPIDOGREL 75 MG TAB PO SCH (08:23)
[2019-02-09] MEDS: LISINOPRIL 20 MG TAB PO SCH (08:23)
[2019-02-09] MEDS: HEPARIN 5,000 UNIT/1 ML VIAL SC SCH ×2 (08:27→20:46)
[2019-02-09] MEDS: AMLODIPINE 10 MG TAB PO SCH (11:56)
[2019-02-09] MEDS ORDERED: INSULIN GLARGINE [LANTus] (100 UNITS/ML) SYG SC ONE (12:00)
--- NOTE | 2019-02-09 13:02 | PN ---
Date/Time of Note Date/Time of Note DATE: 02/09/19 TIME: 12:58 Assessment/Plan VTE Prophylaxis Risk score (from Ns)>0 risk: 3 SCD applied (from Ns): Yes Pharmacological prophylaxis: heparin Lines/Catheters IV [facility] [place] Assessment/Plan Assessment/Plan 1. Patchy infarcts involving the right centrum semiovale/echevarria radiata white matter, and right parietal / occipital lobes, aspirin, lipitor, PT/OT, neurosurgery consult 2. DM, HbA1c 13, increase lantus 3. HTN, lisinopril, increase norvasc 4. DVT prophylaxis: heparin Result Diagram: 02/09/19 0735 02/09/19 0735 Results 24hrs Laboratory Tests Test 02/08/19 17:05 02/08/19 20:17 02/09/19 01:53 02/09/19 07:35 Bedside Glucose 264 H 214 159 White Blood Count 5.6 Red Blood Count 3.82 L Hemoglobin 11.9 L Hematocrit 34.2 L Mean Corpuscular Volume 89.5 Mean Corpuscular 31.2 Hemoglobin Mean Corpuscular 34.8 Hemoglobin Concent Red Cell Distribution 12.2 Width Platelet Count 165 Mean Platelet Volume 10.9 H Immature Granulocytes % 0.200 Neutrophils % 47.5 Lymphocytes % 42.6 Monocytes % 7.8 Eosinophils % 1.4 Basophils % 0.5 Nucleated Red Blood 0.0 Cells % Immature Granulocytes # 0.010 Neutrophils # 2.7 Lymphocytes # 2.4 Monocytes # 0.4 Eosinophils # 0.1 Basophils # 0.0 Nucleated Red Blood 0.0 Cells # Sodium Level 137 Potassium Level 3.8 Chloride Level 104 Carbon Dioxide Level 28 Anion Gap 5 Blood Urea Nitrogen 27 H Creatinine 0.74 Est Glomerular Filtrat > 60 Rate mL/min Glucose Level 169 Calcium Level 9.5 Test 02/09/19 07:52 02/09/19 11:25 Bedside Glucose 192 262 H Subjective 24 Hr Interval Summary Free Text/Dictation left arm weakness Exam/Review of Systems Exam Vitals Vital Signs Date Temp Pulse Resp B/P (MAP) Pulse Ox O2 O2 Flow FiO2 Time Delivery Rate 02/09/19 81 12:51 02/09/19 175/78 12:50 (110) 02/09/19 98.6 22 96 Room Air 11:34 Intake and Output 02/08/19 02/08/19 02/09/19 1414:59 22:59 06:59 IntakeIntake Total 800 ml 200 ml BalanceBalance 800 ml 200 ml Constitutional: alert, oriented, well developed Psych: no complaints, nl mood/affect Head: normocephalic, atraumatic Eyes: nl conjunctiva, EOMI, nl lids ENMT: nl external ears & nose, nl lips & teeth, nl nasal mucosa & septum Neck: supple, non-tender Respiratory: clear to auscultation, normal air movement; No congested cough, No crackles/rales, No diminished breath sounds, No intercostal retraction, No labored breathing, No respirations, No tactile fremitus, No wheezing, No other Cardiovascular: regular rate and rhythm, nl pulses; No bruits, No diastolic murmur, No edema, No gallop, No irregular rhythm, No jugular venous distention (JVD), No murmurs/extra sounds, No rub, No systolic murmur, No S3, No S4, No other Gastrointestinal: soft, nl liver, spleen, non-tender Musculoskeletal: nl extremities to inspection Extremities: normal pulses; No calf tenderness, No cyanosis, No clubbing, No edema, No pitting pedal edema, No palpable cord, No tenderness, No other Neurological: RETORT LOAD EXPEDITER II-XII intact, nl mental status, nl speech, other (RUE 3/5) Results Results 24hrs Laboratory Tests Test 02/08/19 17:05 02/08/19 20:17 02/09/19 01:53 02/09/19 07:35 Bedside Glucose 264 H 214 159 White Blood Count 5.6 Red Blood Count 3.82 L Hemoglobin 11.9 L Hematocrit 34.2 L Mean Corpuscular Volume 89.5 Mean Corpuscular 31.2 Hemoglobin Mean Corpuscular 34.8 Hemoglobin Concent Red Cell Distribution 12.2 Width Platelet Count 165 Mean Platelet Volume 10.9 H Immature Granulocytes % 0.200 Neutrophils % 47.5 Lymphocytes % 42.6 Monocytes % 7.8 Eosinophils % 1.4 Basophils % 0.5 Nucleated Red Blood 0.0 Cells % Immature Granulocytes # 0.010 Neutrophils # 2.7 Lymphocytes # 2.4 Monocytes # 0.4 Eosinophils # 0.1 Basophils # 0.0 Nucleated Red Blood 0.0 Cells # Sodium Level 137 Potassium Level 3.8 Chloride Level 104 Carbon Dioxide Level 28 Anion Gap 5 Blood Urea Nitrogen 27 H Creatinine 0.74 Est Glomerular Filtrat > 60 Rate mL/min Glucose Level 169 Calcium Level 9.5 Test 02/09/19 07:52 02/09/19 11:25 Bedside Glucose 192 262 H Medications Medication Current Medications IV Flush (NS 3 ml) 3 ml PER PROTOCOL IV ; Start 02/06/19 at 16:00 Ondansetron HCl (Zofran Inj) 4 mg Q6H PRN IV NAUSEA/VOMITING; Start 02/06/19 at 16:00 Acetaminophen (Tylenol Tab) 650 mg Q6H PRN PO .PAIN 1-3 OR TEMP; Start 02/06/19 at 16:00 Atorvastatin Calcium (Lipitor) 40 mg HS PO Last administered on 02/08/19at 20:19; Admin Dose 40 MG; Start 02/06/19 at 21:00 Aspirin (Aspirin) 81 mg DAILY PO Last administered on 02/09/19at 08:23; Admin Dose 81 MG; Start 02/07/19 at 09:00 Diagnostic Test (Pha) (Accu-Chek) 1 ea 02 XX ; Start 02/07/19 at 02:00 Insulin Aspart (Novolog Insulin Pen) NOVOLOG *MODERATE* ALGORITHM WITH MEALS BEDTIME SC Last administered on 02/09/19at 11:34; Admin Dose 8 UNIT; Start 02/06/19 at 17:55 Miscellaneous Information 1 ea NOTE XX ; Start 02/06/19 at 16:00 Glucose (Glutose) 15 gm Q15M PRN PO DECREASED GLUCOSE; Start 02/06/19 at 16:00 Glucose (Glutose) 22.5 gm Q15M PRN PO DECREASED GLUCOSE; Start 02/06/19 at 16:00 Dextrose (D50w Syringe) 25 ml Q15M PRN IV DECREASED GLUCOSE; Start 02/06/19 at 16:00 Dextrose (D50w Syringe) 50 ml Q15M PRN IV DECREASED GLUCOSE; Start 02/06/19 at 16:00 Glucagon (Glucagen) 1 mg Q15M PRN IM DECREASED GLUCOSE; Start 02/06/19 at 16:00 Glucose (Glutose) 15 gm Q15M PRN BUCCAL DECREASED GLUCOSE; Start 02/06/19 at 16:00 Heparin Sodium (Porcine) (Heparin (5000 Units/1ml)) 5,000 unit BID SC Last administered on 02/09/19 08:27; Admin Dose 5,000 UNIT; Start 02/07/19 at 16:00 Lisinopril (Zestril) 20 mg DAILY PO Last administered on 02/09/19 08:23; Admin Dose 20 MG; Start 02/08/19 at 16:30 Insulin Glargine (Lantus) 22 units DAILY@2000 SC Last administered on 02/08/19at 20:32; Admin Dose 22 UNITS; Start 02/08/19 at 20:00 Clopidogrel Bisulfate (plaVIX) 75 mg DAILY PO Last administered on 02/09/19 08:23; Admin Dose 75 MG; Start 02/08/19 at 16:30 Amlodipine Besylate (Norvasc) 10 mg DAILY PO Last administered on 02/09/19 11:56; Admin Dose 10 MG; Start 02/09/19 at 12:00 JULIUS HO MD Feb 09, 2019 13:02
--- NOTE | 2019-02-09 15:25 | CONS ---
DATE OF ADMISSION: 02/06/2019 DATE OF CONSULTATION: 02/09/2019 TYPE OF CONSULTATION: Vascular. REFERRING PHYSICIAN: Brian Ho MD REASON FOR CONSULTATION: Evaluate for carotid stenosis and recent stroke. HISTORY OF PRESENT ILLNESS: This is a very pleasant 64-year-old woman. She is a current smoker. Mariela barakat is hypertensive and diabetic. She was transferred from [facility] several days ago with a stroke. She had a previous stroke about a month prior. She had imaging workup. She has a right intracranial internal carotid stenosis, not in the extracranial stenosis and an M1 branch, but otherw ise the extracranial carotids are widely patent. She is still smoking. She came in with left arm we akness, a little bit of expressive aphasia and left-sided facial droop. She has been on aspirin and atorvastatin. She has no trouble with lower extremity weakness or discoordination. She is able to w alk. Dr. Ho asked me to evaluate her from vascular standpoint. PAST MEDICAL HISTORY: Significant for diabetes, hypertension, recurrent stroke. MEDICATIONS: Consist of: 1. Amlodipine. 2. Insulin. 3. Zestril. 4. Plavix. 5. Lantus. 6. Subcutaneous heparin. 7. Aspirin. 8. Lipitor. 9. NovoLog. 10. Zofran. 11. Tylenol. PAST SURGICAL HISTORY: She denies having any surgeries in the past. SOCIAL HISTORY: She is a current every day smoker. She denies any alcohol or drug abuse. FAMILY HISTORY: Negative for history of stroke. REVIEW OF SYSTEMS: She currently denies any chest pain, shortness of breath, nausea, vomiting, diarr hea. No fever, no chills, no recent weight gain or weight loss. She complains of weakness in the le ft arm. She does have some trouble finding words. She understands everything and is able to talk bu t slowly. She responds appropriately, but she definitely has some expressive aphasia. PHYSICAL EXAMINATION: GENERAL: She is an elderly woman. She speaks [place] fluently. VITAL SIGNS: She has been afebrile. She has been hypertensive permissively. Her blood pressure is 175/78, heart rate 85, respiratory rate 22, she is 96% sat on room air. PERIPHERAL VASCULAR: She has 2+ carotid, radial and brachial pulses bilaterally. LUNGS: Clear. HEART: Regular rate and rhythm. ABDOMEN: Soft, nontender, nondistended. EXTREMITIES: She has 2+ femoral, popliteal and DP pulses bilaterally. Feet are warm, pink and well perfused. IMAGING STUDIES: I reviewed all of her imaging studies. She had carotid duplex scan and MRA of the neck and intracranial. There is no extracranial disease whatsoever. They are widely patent by duple x and on MRA. There is severe stenosis in the right M1 segment of the intracranial carotid. This is not a surgical lesion. There is no bleed. There is clear evidence of stroke in the right brain. IMPRESSION AND PLAN: She was sent from [place] with report of having had an extracranial caroti d stenosis. I do not see that on this neck MRA or the carotid duplex. She clearly has had a stroke. Given this history, I am going to order CT angiogram of the neck just to make sure we are not dandre ng something. She clearly had a stroke. She clearly has some clot up in the brain. Neurology has s een her, but so far from this imaging, I do not see anything that would be accessible surgically. I am going to order a CT angiogram to be done today and I will follow up afterwards. There is signific ant carotid stenosis and she would certainly be a candidate for carotid endarterectomy. I will discu ss that with her after the CT angiogram. Dictated By: JULIANA DEE/ELISE Conf#: [id number] DID#: [id number] CC: YULI FLORES; JULIANA FRAUSTO MD; JULIOCESAR GALLO MD; CHERRI EMERY; KIMBERLY MENSAH MD; BRIAN HO MD; NELY OSWALD MD;*EndCC*
[2019-02-09] MEDS: ATORVASTATIN 40 MG TAB PO SCH (20:39)
[2019-02-09] MEDS: INSULIN GLARGINE [LANTus] (100 UNITS/ML) SYG SC SCH (20:46)
[2019-02-10] VITALS (10 sets, daily range): BP systolic 102–162; BP diastolic 52–71; PULSE 83–99; RESP 18–22
[2019-02-10] MEDS: ACCU-CHEK XX SCH (02:00)
--- NOTE | 2019-02-10 07:48 | CONS ---
Assessment/Plan Assessment/Plan Hospital Course 64 F c/ recent R hemispheric strokes and multiple cerebrovascular risk factors including severe R ICA stenosis...who presents for evaluation of L hemiparesis. She presented identically to [facility] weeks ago...but was lost to vascular surgical followup and noncompliant w/ medical management in the interval.. MRI brain is notable for enhancing R hemispheric infarcts...suggesting subacute disease.. Moderate to severe R cervical ICA stenosis noted on OSH CTA imaging is not appreciated on current MRA neck/CTA neck P: Appreciate vascular surgery impression Continue asa, plavix and lipitor for secondary prevention for 3 months, with plan to transition to plavix and lipitor daily thereafter Other medical management and supportive care per primary Neurologically cleared for discharge Consultation Date/Type/Reason Admit Date/Time Feb 06, 2019 at 14:01 Type of Consult Neurology Reason for Consultation weakness Requesting Provider: JULIUS HO MD Date/Time of Note DATE: 02/10/19 TIME: 07:46 24 HR Interval Summary Free Text/Dictation Continues acute care. Exam Vital Signs Vitals Vital Signs Date Temp Pulse Resp B/P (MAP) Pulse Ox O2 O2 Flow FiO2 Time Delivery Rate 02/10/19 97.8 89 22 102/53 96 Room Air 07:18 (69) Intake and Output 02/09/19 02/09/19 02/10/19 1515:00 23:00 07:00 IntakeIntake Total 830 ml 750 ml BalanceBalance 830 ml 750 ml Exam PE: Gen Appearance: No Apparent Distress HEENT: Normocephalic Cardiovascular: Regular rate Abdomen: Soft Extremities: Dry NE: The patient was alert and oriented. Language was normal. Fund of knowledge was adequate. Pupils were equal and reactive to light. There was no afferent pupillary defect. Visual tomlin were normal. Funduscopic examination was limited. Extra-ocular movements were full. Ptosis was absent. There was no nystagmus. Facial sensation was normal. Face was symmetric with normal strength. Hearing was intact. Palate movements were normal. Neck strength was normal. There was normal tongue bulk and speed of movement. Tone was normal. Muscle bulk was normal. I did not see fasciculations. Arms and legs were mildly weak in the right arm and leg Vibration sensation was normal. Temperature and pinprick sensation was normal. Rapid alternating movements were normal. There was no dysmetria. There was no intention tremor. Gait was deferred due to bedrest. Arm and leg reflexes were symmetric. Lockwood's sign was absent. Plantar respons es were flexor. YULI FLORES Feb 10, 2019 07:48 NOAH RODARTE NP Feb 10, 2019 12:37
[2019-02-10] MEDS: INSULIN ASPART [NOVOLOG] 3 ML PEN SC SCH ×2 (07:55→12:00)
--- NOTE | 2019-02-10 08:05 | QN ---
Documentation Comment CTA neck reviewed - there is no significant extracranial carotid stenosis despite previous outside report, R proximal ICA < 50% calcified plaque with no ulceration or irregularity. No indication for surgical intervention at this time. She has intracranial carotid disease - medical management with ASA /Plavix and high dose statin is warranted. I counseled her regarding the need for smoking cessation. She would benefit from acute rehab if available. - I am available if there are any further vascular issues - she can f/u with me in the office to follow the R ICA disease with carotid duplex scan again in 6 months JULIANA HERR MD Feb 10, 2019 08:05
[2019-02-10] MEDS: LISINOPRIL 20 MG TAB PO SCH (08:08)
[2019-02-10] MEDS: ASPIRIN 81 MG TAB PO SCH (08:09)
[2019-02-10] MEDS: CLOPIDOGREL 75 MG TAB PO SCH (08:09)
[2019-02-10] MEDS: AMLODIPINE 10 MG TAB PO SCH (08:09)
[2019-02-10] MEDS: HEPARIN 5,000 UNIT/1 ML VIAL SC SCH (08:18)
[2019-02-10] MEDS ORDERED: Insulin Glargine SC (14:04)
[2019-02-10] MEDS ORDERED: LISI-471 PO (14:04)
[2019-02-10] MEDS ORDERED: ATOR40TA68 PO (14:04)
[2019-02-10] MEDS ORDERED: NOVO3I SC (14:04)
[2019-02-10] MEDS ORDERED: AMLO-147 PO (14:04)
[2019-02-10] MEDS ORDERED: CLOP75TA28 PO (14:04)
[2019-02-10] MEDS ORDERED: ASPI-831 PO (14:04)
--- NOTE | 2019-02-10 14:14 | DS ---
Date/Time of Note Date/Time of Note DATE: 02/10/19 TIME: 14:05 Discharge Summary Admission/Discharge Info Admit Date/Time Feb 06, 2019 at 14:01 Discharge Date/Time Discharge Diagnosis 1. Patchy infarcts involving the right centrum semiovale/echevarria radiata white m atter, and right parietal / occipital lobes, aspirin, lipitor, PT/OT 2. DM, HbA1c 13, better controlled on insulins 3. HTN, controlled 4. Less and 50% stenosis origin right ICA, 50 - 69% stenosis distal supraclinoid right ICA, and Short segmental greater than 70% stenosis proximal right M1 segment, aggressive medical management Patient Condition: Stable Procedures PROCEDURE: MR Brain with and without contrast, MRA brain with and without contrast, MRA neck with and without contrast. CLINICAL INDICATION: Altered mental status, suspected infarct TECHNIQUE: An MRI of the brain was performed with and without contrast utilizing the following sequences: Sagittal T1 weighted, sagittal FLAIR, axial T1, axial FLAIR, axial T2 weighted, axial diffusion weighted (EPI technique [id number]), axial ADC mapping, and post contrast axial and coronal T1 weighted, and axial FLAIR. MRA head: 3-D [id number] imaging through the cerebral vasculature with and without contrast utilizing MIP reconstructions. MRA neck: An MRA of the major cervical arteries was performed with and without contrast utilizing axial 2D time of flight. Source and MIPPED images were reviewed. 10 cc of ProHance was given intravenously without complication. Images were reviewed on a high-resolution PACS workstation. DICOM Images are available. COMPARISON: CT head 02/06/2019 FINDINGS: MRI brain: Diffusion weighted sequences demonstrate patchy areas of infarction involving the paramedian right centrum semiovale white matter. There is a prominent diffusion restriction involving the right parietal lobe measuring 3.8 x 0.82 cm. There are smaller punctate areas of diffusion restriction in the right parietal / occipital lobes. Postcontrast images demonstrate enhancement involving the regions of diffusion restriction, suggesting late acute/early subacute infarcts. There is The patchy infarcts involving the right centrum semiovale white matter may be due to a combination of thromboembolic and watershed infarcts. There is no evidence of hemorrhagic conversion on the GRE/T1 sequences at this time. The left cerebral hemisphere and brainstem demonstrate no evidence of infarct. There is no intracranial hemorrhage, extra-axial fluid collection, mass lesion, midline shift or hydrocephalous. There is a baseline of mild prominence of the cerebral sulci, lateral and third ventricles. There is a baseline of mild to moderate punctate and patchy periventricular and subcortical T2 / FLAIR signal hyperintensities, likely re lated to chronic microangiopathic changes. Normal flow voids are visible the proximal intracranial arteries and dural sinuses, indicating patency. The midline structures are intact. No abnormal contrast enhancement is seen in the left cerebral hemisphere or brainstem. The paranasal sinuses, mastoid air cells and middle ear cavities are normally aerated. The orbits, calvarium and extracranial soft tissues are normal in appearance. MRA head: Anterior circulation: The petrous and cavernous segments of the internal carotid arteries are normal in appearance. The supraclinoid internal carotid arteries are normal in appearance. There is a moderate amount of atherosclerotic plaque/thrombus at the origin of the right middle cerebral artery with moderate to severe luminal narrowing and a trace amount of contrast seen within the central portion of the thrombus (axial series image 135), with flow seen into the distal M1 segment. The left middle and bilateral anterior cerebral arteries as well as their branches are normal. The anterior communicating artery is patent. 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 Posterior circulation: The left vertebral artery is dominant. The basilar artery and its branches are normal in appearance. The posterior cerebral arteries are normal in appearance. There is no aneurysm, hemodynamically significant stenosis or vascular malformation. MRA neck: The common carotid arteries are patent and normal in caliber. The carotid bulbs appear normal, and no hemodynamically significant stenosis is evident within either internal carotid artery. The cervical segments of the internal carotid arteries are normal in appearance. The vertebral arteries are patent and normal in caliber bilaterally. The left vertebral artery is dominant. There is no evidence of vascular stenosis, dissection, aneurysm or occlusion. The visualized neck soft tissues are unremarkable. IMPRESSION: 1. Patchy areas of infarction involving the right MCA distribution, with patchy infarcts involving the right centrum semiovale/echevarria radiata white matter, a prominent wedge-shaped infarct in the right parietal lobe measuring 3.8 x 0.8 cm and patchy infarcts in the right parietal / occipital lobes. No evidence of h emorrhagic conversion at this time. There is enhancement of the infarcts, suggesting a late acute/early subacute age of infarcts. Given the distribution of findings, this may be related to a combination of thromboembolic infarcts with possible superimposed watershed distribution infarcts. 2. Moderate thrombus/atherosclerotic plaque involving the proximal right M1 segment, with trace amount of contrast seen traversing the thrombosed segment, with concern raised for high-grade stenosis in this region. Correlation with cerebral angiogram is recommended. 3. No intracranial hemorrhage, enhancing mass lesion or hydrocephalous. 4. Normal MRA of the neck with and without contrast. No aneurysm, dissection or hemodynamically significant stenosis. 5. Baseline of mild peripheral and central cerebral volume loss. 6. Baseline of mild to moderate punctate and patchy periventricular and subco rtical white matter lesions, likely related to chronic microangiopathic changes. 7. 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 The above findings were discussed with Patient's Nurse Missy by telephone on 02/07/2019 10:06:51 AM, who will inform the physician. Measurements of cervical internal carotid artery stenosis were performed according to NASCET criteria, using distal ICA diameter as the denominator for stenosis measurement. RPTAT: [id number] .Ellis Melton MD, MD Date Time Electronically viewed and signed by .Ellis Melton MD, MD on 02/07/2019 10:17 .S/ CC: JULIANA FRAUSTO MD PROCEDURE: CTA Neck. CLINICAL INDICATION: 64 ml female. Stroke. Carotid stenosis. TECHNIQUE: The study was performed utilizing a multi-slice multidetector CT scanner. Direct spiral 0.625 mm high resolution axial sections were obtained through the neck with the use of nonionic intravenous contrast material. Coronal and sagittal as well as maximal intensity projection reformations were obtained. 3-D images were made. NASCET criteria were utilized and measuring stenoses. One or more the following does reduction techniques were utilized: Automated exposure control, adjustment of the mA/ or kV according to patient's size, or use of iterative reconstruction technique. The images were reviewed on a PACS workstation. The CTDIvol is 31.08 mGy and the DLP is 318.82 mGycm. CONTRAST: 95 cc Omnipaque 350 IV COMPARISON: MR brain 02/06/2019. MR angiogram neck 02/06/2019. Carotid Doppler 02/06/2019. FINDINGS: Aortic arch and great vessels: The aortic arch and great vessel origins are not included in the field of view. Normal right common carotid artery origin. Anterior circulation: Contrast opacifies the left and right common, internal and external carotid arteries. Less than 50% stenosis origin right ICA due to calcified plaque. Right internal carotid artery measures 3.8 mm. Left internal carotid artery measures 3.3 mm. Posterior circulation: Contrast opacifies the left and right vertebral renaldo alfredo. The left vertebral artery is dominant.. No hemodynamically significant stenosis at the vertebral artery origins. No dissection flap identified. Additional findings: 50 - 69% stenosis distal supraclinoid right ICA due to calcified plaque. Short segmental greater than 70% stenosis proximal right M1 segment. IMPRESSION: 1. Less and 50% stenosis origin right ICA. 2. 50 - 69% stenosis distal supraclinoid right ICA. 3. Short segmental greater than 70% stenosis proximal right M1 segment. Findings discussed with the patient's nurse, Valente, at [facility] by the undersigned at 1840 hours P S T. RPTAT: HLRS Physician Deven Date Time Electronically viewed and signed by Physician Deven on 02/09/2019 18:42 RS/ CC: JULIANA HERR MD [phone] Echocardiogram Report Patient Name: TAYLOR MCNEIL LUZ : 4 (64y 1m) Study Date: 02/08/2019 8:39:31 AM Gender: F Tech: Camden Mello [facility] Location: 509 Ref.Physician: JULIUS HO Height(Cm): BSA: Weight(Kg): Quality: Adequate Account #: Procedures: Echocardiographic Report: Transthoracic echocardiogram with complete 2D, M-Mode, and doppler examination. Indications: Stroke. Measurements: 2D/M Mode Doppler Measurement Value Normal Range Measurement Value Normal Range LVIDd 2D 3.8 [ 3.8 - 5.2 ] cm AV Peak Noah 1.2 [ 100.0 - 170.0 ] cm/sec LVIDs 2D 2.6 [ 2.2 - 3.5 ] cm AV Peak PG 6.0 [ 2.0 - 9.0 ] mmHg LVPWd 2D 1.1 [ 0.6 - 0.9 ] cm LVOT Peak Noah 0.8 [ 70.0 - 110.0 ] cm/sec IVSd 2D 1.1 [ 0.6 - 0.9 ] cm LVOT Peak PG 3.0 [ 2.0 - 6.0 ] mmHg AoR Diam 2D 2.5 [ 2.3 - 3.1 ] cm MV E Peak Noah 0.8 [ 60.0 - 130.0 ] cm/sec EDV 2D 63.9 [ 46.0 - 106.0 ] ml MV A Peak Noah 1.0 [ 100.0 - 120.0 ] cm/sec ESV 2D 25.3 [ 14.0 - 42.0 ] ml MV E/A 0.7 [ 0.8 - 1.5 ] ratio EF 2D 60.4 [ 54.0 - 74.0 ] percent MV Decel Time 176 [ 104 - 258 ] msec LA Dimen 2D 2.7 [ 2.7 - 3.8 ] cm Lat E` Noah 0.1 [ 10.0 - 15.0 ] cm/sec Lateral E/E` 12.4 [ 1.0 - 2.0 ] ratio MV E/A 0.7 [ 0.8 - 1.5 ] ratio TR Peak Noah 2.0 [ 100.0 - 280.0 ] cm/sec TR Peak PG 16.0 mmHg RVSP 19.0 [ 10.0 - 36.0 ] mmHg Findings: Left Ventricle: Normal left ventricular systolic function. Normal left ventricular cavity size. Left ventricular wall thickness upper limits of normal. Ejection fraction is visually estimated at 60 %. Tissue Doppler/Mitral Doppler indices are consistent with impaired relaxation (Stage I diastolic dysfunction). Right Ventricle: Normal right ventricular size. Normal right ventricular systolic function. Left Atrium: The left atrium is normal in size. Right Atrium: The right atrium is normal in size. Mitral Valve: Mild mitral leaflet calcification. Mild mitral annular calcification. Trace mitral regurgitation. Aortic Valve: No hemodynamically significant aortic stenosis by doppler. Aortic cusps appear mildly calcified. Tricuspid Valve: Normal appearance of the tricuspid valve. Estimated peak PA systolic pressure 19 mmHg. There is trace tricuspid regurgitation. Pulmonic Valve: Pulmonic valve not well visualized. Pericardium: Normal pericardium with no significant pericardial effusion. Aorta: Normal aortic root. IVC: Normal size and normal respiratory collapse consistent with normal right atrial pressure. Conclusions: Borderline left ventricular hypertrophy with normal systolic function. Grade 1 diastolic dysfunction. Trace mitral and tricuspid regurgitation with normal pulmonary pressures. Electronically Signed By: Radha Low 2019-02-08 20:21:48 PDT Hospital Course 64 yo F with hx of recent stroke in 01/2019, HTN, DM, and multiple other comorbidities who presented to the ED for evaluation of L arm weakness/L facial droop. The pt previously presented to [facility] on 01/15/19 for evaluation of L sided weakness. She was noted to have a L facial droop at the time, which she was unaware of. During the course of her hospitalization, her L sided symptoms completely resolved. Her medical workup at the time (see imaging reports in objective section) revealed extensive R hemispheric infarcts, and severe R ICA/CCA stenosis. She was seen by a vascular surgeon at the time who recommended a R CEA 7-10 days post-hospitalization. She was then discharged from the hospital on ASA/Plavix/Lipitor. She now presents again for evaluation of L arm weakness and L facial droop. S tates that the sx have been going on x 1 week. She endorses L face/arm weakness. Denies other sx currently. She states that she has been noncompliant with her medications following discharge as she could not afford them. Also has not been checking her blood sugar at home. The weakness on left upper extremity and facial drooping on left are slightly improving. Patient will follow up with PT and OT. MRI brain and MRA brain with Patchy areas of infarction involving the right MCA distribution, with patchy infarcts involving the right centrum semiovale/echevarria radiata white matter, a prominent wedge-shaped infarct in the right parietal lobe measuring 3.8 x 0.8 cm and patchy infarcts in the right parietal / occipital lobes. No evidence of hemorrhagic conversion at this time. There is enhancement of the infarcts, suggesting a late acute/early subacute age of infarcts. Given the distribution of findings, this may be related to a combination of thromboembolic infarcts with possible superimposed watershed distribution infarcts. There is moderate thrombus/atherosclerotic plaque involving the proximal right M1 segment, with trace amount of contrast seen traversing the thrombosed segment, with concern raised for high-grade stenosis in this region. CTA neck reported as less and 50% stenosis origin right ICA. 50 - 69% stenosis distal supraclinoid right ICA. Short segmental greater than 70% stenosis proximal right M1 segment. No vascular intervention needed per vascular surgeon. Patient is getting aggressive medical management. Home Meds Active Scripts Insulin Aspart* (Novolog Insulin Pen*) 100 Unit/Ml Soln, 0 UNIT SC WITH MEALS BEDTIME for 30 Days Prov:JULIUS HO MD 02/10/19 [Insulin Glargine] 100 UNITS/ML SOLN No Conflict Check, 22 UNITS SC DAILY@1999 for 30 Days Prov:JULIUS HO MD 02/10/19 Aspirin (Aspirin) 81 Mg Chew, 81 MG PO DAILY for 30 Days, TAB Prov:JULIUS HO MD 02/10/19 Lisinopril* (Lisinopril*) 20 Mg Tablet, 20 MG PO DAILY for 30 Days, TAB Prov:JULIUS HO MD 02/10/19 Atorvastatin* (Atorvastatin*) 40 Mg Tablet, 40 MG PO HS for 30 Days, TAB Prov:JULIUS HO MD 02/10/19 Amlodipine Besylate* (Amlodipine Besylate*) 10 Mg Tablet, 10 MG PO DAILY for 30 Days, TAB Prov:JULIUS HO MD 02/10/19 Clopidogrel Bisulfate (Clopidogrel) 75 Mg Tablet, 75 MG PO DAILY for 30 Days, TAB Prov:JULIUS HO MD 02/10/19 Follow-up Plan PCP and neurology in one week Primary Care Provider Di Perez Pending Labs Laboratory Tests Test 02/09/19 17:37 02/09/19 20:21 02/10/19 02:08 02/10/19 08:08 Bedside 184 198 131 75 Glucose mg/dL (70-220) mg/dL (70-220) mg/dL (70-220) mg/dL (70-220) Test 02/10/19 11:56 Bedside 194 Glucose mg/dL (70-220) JULIUS HO MD Feb 10, 2019 14:14
== END 2019-02-10 17:15 | DRG 65 ==
LOC: E/R 11:51 → TEL 14:01 → VRC 02-10 17:15
PROVIDERS: ADMIT Internal Medicine; ATTEND Internal Medicine
DX: I63.9 Cerebral infarction, unspecified (principal); G81.94 Hemiplegia, unspecified affecting left nondominant side; E11.65 Type 2 diabetes mellitus with hyperglycemia; I10 Essential (primary) hypertension; I65.21 Occlusion and stenosis of right carotid artery; R29.810 Facial weakness; F17.210 Nicotine dependence, cigarettes, uncomplicated; Z79.82 Long term (current) use of aspirin; Z79.4 Long term (current) use of insulin; Z79.02 Long term (current) use of antithrombotics/antiplatelets; Z91.14 Patient's other noncompliance with medication regimen; Z86.73 Personal history of transient ischemic attack (TIA), and cerebral infarction without residual deficits
CPT/HCPCS: 36415; 70450; 70498; 70546; 70549; 70553; 71045; 80048; 80053; 80061; 80307; 81001; 82962; 83036; 83735; 84100; 84443; 84484; 85025; 85610; 85730; 86592; 92610; 93005; 93306; 93880; 97110; 97162; 97167; 97530; 97535; J1644; J1815

== ENCOUNTER 2019-02-10 17:17 | Inpatient (IN) | payer MEDICARE, MEDICAID ==
[~2019-02-10] VITALS: Ht 152.4 cm; Wt 58.6 kg
[~2019-02-10 17:17] MED LIST: AMLO-147 PO; ASPI-831 PO; ATOR40TA68 PO; CLOP75TA28 PO; Insulin Glargine SC; LISI-471 PO; NOVO3I SC
[2019-02-10 17:30] VITALS: BP 124/57; PULSE 95; RESP 18
[2019-02-10 18:23] VITALS: Ht 152.4 cm; Wt 58.6 kg
[2019-02-10] MEDS ORDERED: PENDING SANTYL ORDER FOR WOUND CARE XX PRN (18:30)
[2019-02-10] MEDS ORDERED: ACETAMINOPHEN 325 MG TAB PO PRN ×2 (18:30→20:30)
[2019-02-10] MEDS ORDERED: BISACODYL 10 MG SUPP PR PRN (18:30)
[2019-02-10] MEDS ORDERED: LACTULOSE 30ML CUP PO PRN (18:30)
[2019-02-10] MEDS ORDERED: MAGNESIUM HYDROXIDE 30ML CUP PO PRN (18:30)
[2019-02-10 19:33] VITALS: BP 169/70; PULSE 94; RESP 18
[2019-02-10] MEDS ORDERED: GLUCAGON 1 MG INJ IM PRN (21:00)
[2019-02-10] MEDS ORDERED: GLUCOSE GEL 15 GRAM TUBE PO PRN ×2 (21:00)
[2019-02-10] MEDS ORDERED: DEXTROSE 50% 50 ML SYRINGE IV PRN ×2 (21:00)
[2019-02-10] MEDS ORDERED: ATORVASTATIN 40 MG TAB PO SCH (21:00)
[2019-02-10] MEDS ORDERED: GLUCOSE GEL 15 GRAM TUBE BUCCAL PRN (21:00)
[2019-02-10] MEDS: Insulin NOVOLOG SS MODERATE Algorithm (SS with meals and bedtime) SC SCH (21:55)
[2019-02-10] MEDS: SENNA TAB PO SCH (21:57)
[2019-02-10] MEDS: DOCUSATE SODIUM 100 MG CAP PO SCH (21:57)
[2019-02-10] MEDS: INSULIN GLARGINE [LANTus] (100 UNITS/ML) SYG SC SCH (21:57)
[2019-02-11 02:00] VITALS: BP 132/68; PULSE 88; RESP 18
[2019-02-11] MEDS: ACCUCHECK AT 2AM (Patients on SS coverage) XX SCH (02:00)
[2019-02-11] MEDS ORDERED: ACCU-CHEK XX SCH (02:00)
[2019-02-11 07:00] VITALS: BP 157/67; PULSE 54; RESP 16
[2019-02-11] MEDS: Insulin NOVOLOG SS MODERATE Algorithm (SS with meals and bedtime) SC SCH ×4 (07:35→20:31)
[2019-02-11] MEDS ORDERED: LISINOPRIL 20 MG TAB PO SCH (09:00)
[2019-02-11] MEDS: DOCUSATE SODIUM 100 MG CAP PO SCH ×2 (09:34→20:30)
[2019-02-11] MEDS: CLOPIDOGREL 75 MG TAB PO SCH (09:34)
[2019-02-11] MEDS: ASPIRIN 81 MG TAB PO SCH (09:34)
[2019-02-11] MEDS: AMLODIPINE 10 MG TAB PO SCH (09:35)
--- NOTE | 2019-02-11 10:47 | HP ---
Date/Time of Note Date/Time of Note DATE: 02/11/19 TIME: 10:41 Assessment/Plan VTE Prophylaxis Risk score (from Ns)>0 risk: 3 SCD applied (from Ns): Yes Pharmacological prophylaxis: heparin Assessment/Plan Problems: (1) Acute CVA (cerebrovascular accident) Onset Date: ~ 02/06/2019 Status: Acute Comment: Recuperating nicely and going through the right acute rehabilitation protocol starting now. Maximal preventive medical therapy including antiplatelet agents (2) Essential hypertension Status: Chronic Comment: For the diabetes increase the dosing on the MONIKA inhibitor. If she develops cough will transition to an angiotensin II receptor donta (3) Grade I diastolic dysfunction Status: Chronic Comment: Under control blood pressure (4) Hyperlipidemia Status: Chronic Comment: Maximal dose statin therapy and use fish oil also Qualifiers: Hyperlipidemia type: mixed hyperlipidemia Qualified Codes: E78.2 - Mixed hyperlipidemia (5) Diabetes mellitus type 2 in nonobese Status: Chronic Comment: Purely insulin based protocol she actually has very good glycemic con trol. Keep a careful eye on this. (6) Tobacco abuse Status: Chronic Comment: Strongly counseled (7) Stenosis of intracranial portions of right internal carotid artery Status: Chronic Comment: Noted. Result Diagram: 02/11/1981802/11/19818 Results 24hrs Laboratory Tests Test 02/10/19 21:53 02/11/19 02:25 02/11/19 04:40 02/11/19 08:17 Bedside Glucose 294 H 146 80 Urine Color YELLOW Urine Clarity CLOUDY A Urine pH 5.0 Urine Specific [place] 1.011 Urine Ketones NEGATIVE Urine Nitrite NEGATIVE Urine Bilirubin NEGATIVE Urine Urobilinogen NEGATIVE Urine Leukocyte Esterase 3+ H Urine Microscopic RBC 8 H Urine Microscopic WBC 54 H Urine Squamous FEW Epithelial Cells Urine Bacteria FEW A Urine Mucus MANY A Urine Yeast (Budding) FEW A Urine Hemoglobin 1+ H Urine Glucose 3+ H Urine Total Protein NEGATIVE Test 02/11/19 08:19 White Blood Count 6.3 Red Blood Count 4.04 L Hemoglobin 12.6 Hematocrit 35.9 L Mean Corpuscular Volume 88.9 Mean Corpuscular 31.2 Hemoglobin Mean Corpuscular 35.1 Hemoglobin Concent Red Cell Distribution 12.4 Width Platelet Count 174 Mean Platelet Volume 10.4 Immature Granulocytes % 0.200 Neutrophils % 47.7 Lymphocytes % 41.1 Monocytes % 9.8 Eosinophils % 0.6 Basophils % 0.6 Nucleated Red Blood 0.0 Cells % Immature Granulocytes # 0.010 Neutrophils # 3.0 Lymphocytes # 2.6 Monocytes # 0.6 Eosinophils # 0.0 Basophils # 0.0 Nucleated Red Blood 0.0 Cells # Sodium Level 138 Potassium Level 3.8 Chloride Level 100 Carbon Dioxide Level 31 Anion Gap 7 Blood Urea Nitrogen 18 Creatinine 0.75 Est Glomerular Filtrat > 60 Rate mL/min Glucose Level 78 Calcium Level 10.1 Total Bilirubin 0.8 Direct Bilirubin 0.00 Indirect Bilirubin 0.8 Aspartate Amino 36 Transf (AST/SGOT) Alanine 25 Aminotransferase (ALT/SG PT) Alkaline Phosphatase 93 Total Protein 7.1 Albumin 3.7 Globulin 3.40 H Albumin/Globulin Ratio 1.08 CC: JULIANA HERR MD; JULIOCESAR GALLO; YULI FLORES ; HPI/ROS Admit Date/Time Admit Date/Time Feb 10, 2019 at 17:37 Hx of Present Illness 64-year-old female admitted to the acute rehabilitation unit after recurrent CVA. Has risk factors for vascular disease which include mixed hyperlipidemia; essential hypertension; diabetes mellitus type 2 of 25 years duration; and smoking. Apparently she had had a cerebrovascular issue January 15 at [facility]. She was discharged but readmitted here on February 06 for a new event. Workup is demonstrated some atherosclerotic disease of the carotid arteries of the neck but the primary issue is intracranial. Because of this vascular surgery recommends maximal medical therapy. She is stable at L transferred to the acute rehabilitation unit. Please note her A1c at the time of admission was above 13. ROS Constitutional: no complaints (No fevers chills or sweats) Eyes: no complaints (A recent ophthalmologic evaluation) ENT: no complaints Respiratory: no complaints Cardiovascular: no complaints Gastrointestinal: no complaints Genitourinary: no complaints Musculoskeletal: no complaints Neurologic: other (Recent weakness) Endocrine: no complaints (Polyuria has resolved) PMH/Family/Social Past Medical History Medical History: diabetes (Type II previously on oral agents), high cholesterol (Hyperlipidemia), hypertension, other (Cerebrovascular accidents x2) Medications Outpatient medications prior to admission included glipizide; metformin; atorvastatin; losartan. She reports that she did not ever have a medicine that induce a cough Current Medications Docusate Sodium (Colace) 100 mg BID PO Last administered on 02/11/19at 09:34; Admin Dose 100 MG; Start 02/10/19 at 21:00 Senna (Senokot) 1 tab HS PO Last administered on 02/10/19 21:57; Admin Dose 1 TAB; Start 02/10/19 at 21:00 Magnesium Hydroxide (Milk Of Mag) 30 ml BID PRN PO CONSTIPATION; Start 02/10/19 at 18:30 Lactulose (Enulose) 20 gm DAILY PRN PO CONSTIPATION; Start 02/10/19 at 18:30 Bisacodyl (Dulcolax Supp) 10 mg DAILY PRN GA CONSTIPATION; Start 02/10/19 at 18:30 Acetaminophen (Tylenol Tab) 650 mg Q4H PRN PO PAIN; Start 02/10/19 at 18:30 Miscellaneous Information (Pending [facility] Order For Wound Care) This patient priest... PRN PRN XX WOUND CARE; Start 02/10/19 at 18:30 Acetaminophen (Tylenol Tab) 650 mg Q6H PRN PO .PAIN 1-3 OR TEMP; Start 02/10/19 at 20:30 Atorvastatin Calcium (Lipitor) 40 mg HS PO Last administered on 02/10/19 21:57; Admin Dose 40 MG; Start 02/10/19 at 21:00 Aspirin (Aspirin) 81 mg DAILY PO Last administered on 02/11/19 09:34; Admin Dose 81 MG; Start 02/11/19 at 09:00 Clopidogrel Bisulfate (plaVIX) 75 mg DAILY PO Last administered on 02/11/19 09:34; Admin Dose 75 MG; Start 02/11/19 at 09:00 Amlodipine Besylate (Norvasc) 10 mg DAILY PO Last administered on 02/11/19 09:35; Admin Dose 10 MG; Start 02/11/19 at 09:00 Insulin Aspart (Novolog Insulin Pen) (Adult SC Insulin - Moder... WITH MEALS BEDTIME SC Last administered on 02/10/19 21:55; Admin Dose 3 UNIT; Start 02/10/19 at 21:00 Diagnostic Test (Pha) (Accu-Chek) 1 ea 02 XX ; Start 02/11/19 at 02:00 Insulin Glargine (Lantus) 22 units DAILY@2000 SC Last administered on 02/10/19 21:57; Admin Dose 22 UNITS; Start 02/10/19 at 21:30 Lisinopril (Zestril) 20 mg DAILY PO Last administered on 02/11/19at 09:37; Admin Dose 20 MG; Start 02/11/19 at 09:00 Miscellaneous Information 1 ea NOTE XX ; Start 02/10/19 at 21:00 Glucose (Glutose) 15 gm Q15M PRN PO DECREASED GLUCOSE; Start 02/10/19 at 21:00 Glucose (Glutose) 22.5 gm Q15M PRN PO DECREASED GLUCOSE; Start 02/10/19 at 21:00 Dextrose (D50w Syringe) 25 ml Q15M PRN IV DECREASED GLUCOSE; Start 02/10/19 at 21:00 Dextrose (D50w Syringe) 50 ml Q15M PRN IV DECREASED GLUCOSE; Start 02/10/19 at 21:00 Glucagon (Glucagen) 1 mg Q15M PRN IM DECREASED GLUCOSE; Start 02/10/19 at 21:00 Glucose (Glutose) 15 gm Q15M PRN BUCCAL DECREASED GLUCOSE; Start 02/10/19 at 2 1:00 Coded Allergies: No Known Allergy (Unverified , 02/06/19) Past Surgical History Past Surgical Hx: other (Status post bilateral cataract extraction) Family History Significant Family History: diabetes, hypertension Social History Alcohol Use: none Smoking Status: Former smoker (Quit when she was admitted to the hospital for the stroke) Drug Use: none Exam/Review of Systems Vital Signs Vitals Vital Signs Date Temp Pulse Resp B/P (MAP) Pulse Ox O2 O2 Flow FiO2 Time Delivery Rate 02/11/19 98.5 54 16 157/67 96 Room Air 07:00 (97) Intake and Output 02/10/19 02/10/19 02/11/19 1515:00 23:00 07:00 IntakeIntake Total 200 ml 550 ml BalanceBalance 200 ml 550 ml Exam Constitutional: alert, oriented Head: normocephalic, atraumatic Eyes: nl conjunctiva, EOMI, nl lids, nl sclera, PERRL Neck: supple, non-tender Respiratory: clear to auscultation, normal air movement Cardiovascular: regular rate and rhythm, nl pulses Gastrointestinal: soft, nl liver, spleen, non-tender Extremities: normal pulses Skin: nl EBONY Ivey MD Feb 11, 2019 10:47
--- NOTE | 2019-02-11 11:15 | HP ---
DATE OF ADMISSION: 02/10/2019 REFERRING PHYSICIAN: Dr. Lay, internal medicine. CONSULTANTS: Dr. Herr, vascular surgery, Dr. Cerda, neurology. CHIEF COMPLAINT: Left-sided weakness, difficulty walking. HISTORY OF PRESENT ILLNESS: This patient is a 64-year-old right-handed female who presented t o [facility] on 02/06/2019 for progressive left-sided weakness. Of note, the patie nt was at outside facility [facility] on 01/15/2019 where she was seen for some left-sided weakness. Sensory and neurological symptoms resolved. She was found to have some significant cereb rovascular stenosis. She was actually being considered for a right carotid endarterectomy. She was discharged on aspirin and Plavix and she represents to [facility] on 02/06/2019 wit h progressive left-sided weakness once again. The patient has had vascular studies, showing a right M1 segment thrombosis/plaque along with significant stenosis and also right internal carotid artery s tenosis. The patient has been seen by Dr. Herr, vascular surgery. She likely will be a candidate f or right carotid endarterectomy in the near term. The patient is currently on Plavix along with aspi rin. She denies any changes in her speech. She says her left-sided strength is slowly improving. H er arm is weaker than her leg. Other issues include, on admission she had a blood sugar greater than 500. Her blood sugars have slowly been under control; being followed by internal medicine. She is on scheduled insulin sliding scale. Patient was completely independent prior to recent events withou t the use of assistive equipment, living with family. She was initiated on out of bed activities on the medical/surgical unit and found to have a significant decline in her premorbid functional level. She was evaluated for acute rehab, deemed an appropriate candidate, meeting all CMS guidelines. She is now transferred for definitive rehabilitation procedures. It should be noted, her MRI of the bra in showed multiple right-sided ischemic infarcts, including the parietal occipital lobes. FUNCTIONAL HISTORY: Prior to recent events, she was independent with all mobility and ADLs without t he use of assistive equipment. PAST MEDICAL HISTORY: Type 2 diabetes, hypertension, osteoarthritis, obesity. CURRENT MEDICATIONS: 1. Aspirin. 2. Plavix. 3. Norvasc. 4. Zestril. 5. Lantus insulin. 6. Colace. 7. Senokot. 8. Lipitor. 9. Insulin sliding scale. 10. MOM p.r.n. 11. Tylenol p.r.n. SOCIAL HISTORY: The patient lives with family, single level residence couple of stairs. The initial plan is to return back home with family. REVIEW OF SYSTEMS: CARDIOVASCULAR: Denies chest pain, palpitations. PULMONARY: No shortness of breath, cough. MUSCULOSKELETAL: She has arthralgias in bilateral shoulders, hips, knees. GASTROINTESTINAL: Denies constipation, diarrhea. GENITOURINARY: Denies dysuria or frequency. NEUROLOGIC: She states she has some left-sided weakness, arm greater than leg. She has had some imp rovement. FAMILY HISTORY: Noncontributory. PHYSICAL EXAMINATION: VITAL SIGNS: Temperature is 98.5, respirations 18, pulse is 88, BP 132/68. LUNGS: Clear to auscultation bilaterally. COR: Normal heart sounds. No murmurs, rubs, or gallops. ABDOMEN: Soft, nontender. EXTREMITIES: No clubbing, cyanosis, edema. Homans test is negative. NEUROLOGIC: Cranial nerves II through XII she has a left central facial droop. Her speech is fluent . She follows simple multistep commands. She is alert and oriented x3. Motor strength right upper and lower extremity 5-/5, left upper extremity, elbow and shoulder approximately 4- to 4/5. Distally wrist 1 to 2/5, dental professional is trace to 1/5. Left lower extremity appears to be at least 4- to 4/5. Dynamic balance is poor. CURRENT FUNCTIONAL LEVEL: Upper extremity dressing, minimal assistance lower extremity dressing, max imal assistance bed mobility, transfers and gait are at supervised/ minimum assist levels with use of a front-wheel walker. LAB RESULTS: Urinalysis came back with 54 WBCs, a few bacteria. REHAB IMPAIRMENT CATEGORY: Neurological disorder/stroke. ETIOLOGIC DIAGNOSIS: Right CVA, ischemic infarct involving the parietal occipital lobes in a right-h anded patient. MEDICAL AND REHABILITATION COMORBIDITIES: 1. 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 2. Type 2 diabetes. 3. Hypertension. 4. Right-sided cerebrovascular stenosis. 5. Hypertension. 6. Osteoarthritis. 7. Urinary tract infection. 8. Obesity. FUNCTIONAL DEFICITS: 1. Impaired mobility including bed mobility, transfers, sitting balance, standing balance, endurance , strength, gait, stairs. 2. Impaired ADLs including self-care activities, bathing, dressing, hygiene, toileting. 3. Impaired bowel and bladder status. 4. Impaired functional endurance, strength and safety. POTENTIAL REHABILITATION AND MEDICAL COMPLICATIONS: 1. Extension of stroke. 2. Deep venous thrombosis. 3. Urinary retention. 4. Postural hypotension. 5. Decubitus ulcer. 6. Falls. 7. Diabetes out of control. 8. Urinary retention. 9. Postural hypertension. FUNCTIONAL BARRIERS TO DISCHARGE: 1. Impaired mobility. 2. Impaired ADLs. 3. Impaired safety. 4. Impaired bowel and bladder status. RECOMMENDATIONS AND DISCUSSION: This patient had a significant decline in functional skills, status post right cerebrovascular accident with left hemiparesis, impaired mobility, ADLs, bowel and bladder . She does indeed meet acute inpatient rehabilitation criteria including able to tolerate 3 hours of therapy a day, 5 days per week with a reasonable prognosis for significant functional recovery in a reasonable time frame. Given the patient's global functional deficits, she requires the intensity of an acute rehabilitation program to optimize her function, decrease her length of stay and increase h er likelihood of returning home. Also given the patient's multiple medical comorbidities, she is at risk for medical complications outlined above. Given these circumstances, my opinion as a board-cert ified physical medicine rehabilitation construction specialist, it is reasonable and necessary for this patient's rehabilitation procedures to be performed on an acute rehabilitation unit for daily physician oversig ht, management and care. These needs cannot be met safely at a lower level of care such an extended care facility. This patient will benefit from interdisciplinary coronary rehabilitation program here at [facility] under the care, supervision, direction, daily oversight by board-cer tified physical medicine rehabilitation construction specialist for the followin. Therapeutic interventions of good physical therapy, occupational therapy 5 days per week for a to henry of 900 minutes per week for the following: Physical therapy, bed mobility, transfers, sitting ba manuel, standing balance, endurance, strength, gait, stairs. Occupational therapy, ADLs, adaptive equi pment needs, energy conservation techniques, body mechanics, safety, endurance. 2. 24-hour rehabilitation nursing care for carryover of all mobility and ADL skills, facilitate out of bed to a chair as much as possible, maintain cardiopulmonary compliance, rehabilitation nursing al so for bowel and bladder training, maintain skin integrity, optimize p.o. intake. 3. Rehabilitation social worker school support, adjustment counseling, disposition planning. 4. Continue close medical management for the following: A. Stroke prophylaxis with aspirin and Plavix. B. Right-sided significant cerebrovascular stenosis, was seen by Dr. Herr, vascular surgery. Wi ll likely need a carotid endarterectomy in the near term. C. Type 2 diabetes. She had some diabetes out of control prior to admission. We will continue w ith likely glycemic agents. Continue to monitor the patient's blood sugar. Continue diabetic diet. D. Urinary tract infection. Start the patient on p.o. Cipro 500 mg p.o. q.12 hours x7 days. FUNCTIONAL GOALS: 1. Modified independent in mobility skills including bed mobility, transfers, gait, gait with use of a single-point cane. 2. Supervise all ADL skills including bathing, dressing, hygiene, toileting. 3. Increase functional endurance, strength and safety. 4. Continent of bowel and bladder. 5. Family training with all therapeutic disciplines. DISPOSITION PLAN: Back home. ESTIMATED LENGTH OF STAY FOR PROCEDURES: Will be 14 days post acute rehabilitation needs will likely include home health physical therapy, occupational therapy and nursing. REHABILITATION PROGNOSIS: Good. Please note I personally performed this patient's rehabilitation history and physical status post adm ission evaluation. Patient with a reasonable prognosis for significant functional recovery in a reas onable time frame, agreeable to participate with acute rehabilitation program. Since initial screeni ng, the patient's functional levels and medical status are essentially unchanged. Dictated By: DOROTEO MCKEON MD RG/NTS Conf#: [id number] DID#: [id number] CC: JULIANA HERR MD; MINDI MCKEON MD; YULI CERDA;*EndCC*
[2019-02-11] MEDS: CIPROFLOXACIN 500 MG TAB GTB SCH ×2 (12:55→18:06)
[2019-02-11 14:00] VITALS: BP 140/64; PULSE 81; RESP 18
[2019-02-11] MEDS: ATORVASTATIN 40 MG TAB PO SCH (20:31)
[2019-02-11] MEDS: INSULIN GLARGINE [LANTus] (100 UNITS/ML) SYG SC SCH (20:32)
[2019-02-11] MEDS: FISH OIL 1,000 MG CAP PO SCH (20:32)
[2019-02-11] MEDS: SENNA TAB PO SCH (20:38)
[2019-02-11 20:42] VITALS: BP 149/69; PULSE 85; RESP 18
[2019-02-11] MEDS: LISINOPRIL 20 MG TAB PO SCH (20:43)
[2019-02-12] MEDS: ACCUCHECK AT 2AM (Patients on SS coverage) XX SCH (01:58)
[2019-02-12 02:56] VITALS: BP 96/52; PULSE 73; RESP 18
[2019-02-12] MEDS: CIPROFLOXACIN 500 MG TAB GTB SCH ×2 (06:12→17:55)
[2019-02-12 07:00] VITALS: BP 104/52; PULSE 65; RESP 17
[2019-02-12] MEDS: Insulin NOVOLOG SS MODERATE Algorithm (SS with meals and bedtime) SC SCH ×4 (07:51→21:22)
--- NOTE | 2019-02-12 08:11 | PN ---
Date/Time of Note Date/Time of Note DATE: 02/12/19 TIME: 08:09 Subjective AWAKE ALERT, GREAT FIRST DAY ON REHAB Objective Vital Signs Date Temp Pulse Resp B/P (MAP) Pulse Ox O2 O2 Flow FiO2 Time Delivery Rate 02/12/19 98.5 73 18 96/52 (67) 94 Room Air 02:56 Intake and Output 02/11/19 02/11/19 02/12/19 1414:59 22:59 06:59 IntakeIntake Total 740 ml OutputOutput Total 200 ml 200 ml BalanceBalance 540 ml -200 ml Exam LUNGS CTA COR RRR LUE PROX 02/10, DISTAL 1-2/5, LLE /5 CLOF XT AND GIAT MIN A Results/Medications Result Diagram: 02/11/1981802/11/19818 Results 24 hrs Laboratory Tests Test 02/11/19 08:17 02/11/19 08:19 02/11/19 12:18 02/11/19 18:05 Bedside Glucose 80 272 H 189 White Blood Count 6.3 Red Blood Count 4.04 L Hemoglobin 12.6 Hematocrit 35.9 L Mean Corpuscular Volume 88.9 Mean Corpuscular 31.2 Hemoglobin Mean Corpuscular 35.1 Hemoglobin Concent Red Cell Distribution 12.4 Width Platelet Count 174 Mean Platelet Volume 10.4 Immature Granulocytes % 0.200 Neutrophils % 47.7 Lymphocytes % 41.1 Monocytes % 9.8 Eosinophils % 0.6 Basophils % 0.6 Nucleated Red Blood 0.0 Cells % Immature Granulocytes # 0.010 Neutrophils # 3.0 Lymphocytes # 2.6 Monocytes # 0.6 Eosinophils # 0.0 Basophils # 0.0 Nucleated Red Blood 0.0 Cells # Sodium Level 138 Potassium Level 3.8 Chloride Level 100 Carbon Dioxide Level 31 Anion Gap 7 Blood Urea Nitrogen 18 Creatinine 0.75 Est Glomerular Filtrat > 60 Rate mL/min Glucose Level 78 Calcium Level 10.1 Total Bilirubin 0.8 Direct Bilirubin 0.00 Indirect Bilirubin 0.8 Aspartate Amino 36 Transf (AST/SGOT) Alanine 25 Aminotransferase (ALT/SG PT) Alkaline Phosphatase 93 Total Protein 7.1 Albumin 3.7 Globulin 3.40 H Albumin/Globulin Ratio 1.08 Test 02/11/19 20:27 02/12/19 01:56 02/12/19 07:40 Bedside Glucose 214 149 143 Medications Current Medications Docusate Sodium (Colace) 100 mg BID PO Last administered on 02/11/19 20:30; Admin Dose 100 MG; Start 02/10/19 at 21:00 Senna (Senokot) 1 tab HS PO Last administered on 02/11/19 20:38; Admin Dose 1 TAB; Start 02/10/19 at 21:00 Magnesium Hydroxide (Milk Of Mag) 30 ml BID PRN PO CONSTIPATION; Start 02/10/19 at 18:30 Lactulose (Enulose) 20 gm DAILY PRN PO CONSTIPATION; Start 02/10/19 at 18:30 Bisacodyl (Dulcolax Supp) 10 mg DAILY PRN ID CONSTIPATION; Start 02/10/19 at 18:30 Acetaminophen (Tylenol Tab) 650 mg Q4H PRN PO PAIN; Start 02/10/19 at 18:30 Miscellaneous Information (Pending [facility] Order For Wound Care) This patient priest... PRN PRN XX WOUND CARE; Start 02/10/19 at 18:30 Acetaminophen (Tylenol Tab) 650 mg Q6H PRN PO .PAIN 1-3 OR TEMP; Start 02/10/19 at 20:30 Aspirin (Aspirin) 81 mg DAILY PO Last administered on 02/11/19 09:34; Admin Dose 81 MG; Start 02/11/19 at 09:00 Clopidogrel Bisulfate (plaVIX) 75 mg DAILY PO Last administered on 02/11/19 09:34; Admin Dose 75 MG; Start 02/11/19 at 09:00 Amlodipine Besylate (Norvasc) 10 mg DAILY PO Last administered on 02/11/19 09:35; Admin Dose 10 MG; Start 02/11/19 at 09:00 Insulin Aspart (Novolog Insulin Pen) (Adult SC Insulin - Moder... WITH MEALS BEDTIME SC Last administered on 02/12/19 07:51; Admin Dose 2 UNIT; Start 02/10/19 at 21:00 Diagnostic Test (Pha) (Accu-Chek) 1 ea 02 XX ; Start 02/11/19 at 02:00 Insulin Glargine (Lantus) 22 units DAILY@2000 SC Last administered on 02/11/19at 20:32; Admin Dose 22 UNITS; Start 02/10/19 at 21:30 Miscellaneous Information 1 ea NOTE XX ; Start 02/10/19 at 21:00 Glucose (Glutose) 15 gm Q15M PRN PO DECREASED GLUCOSE; Start 02/10/19 at 21:00 Glucose (Glutose) 22.5 gm Q15M PRN PO DECREASED GLUCOSE; Start 02/10/19 at 21:00 Dextrose (D50w Syringe) 25 ml Q15M PRN IV DECREASED GLUCOSE; Start 02/10/19 at 21:00 Dextrose (D50w Syringe) 50 ml Q15M PRN IV DECREASED GLUCOSE; Start 02/10/19 at 21:00 Glucagon (Glucagen) 1 mg Q15M PRN IM DECREASED GLUCOSE; Start 02/10/19 at 21:00 Glucose (Glutose) 15 gm Q15M PRN BUCCAL DECREASED GLUCOSE; Start 02/10/19 at 21:00 Atorvastatin Calcium (Lipitor) 80 mg HS PO Last administered on 02/11/19at 20:31; Admin Dose 80 MG; Start 02/11/19 at 21:00 Lisinopril (Zestril) 20 mg BID PO Last administered on 02/11/19at 20:43; Admin Dose 20 MG; Start 02/11/19 at 21:00 Fish Oil (Fish Oil) 2,000 mg BID PO Last administered on 02/11/19at 20:32; Admin Dose 2,000 MG; Start 02/11/19 at 21:00 Ciprofloxacin (Cipro) 500 mg BID@18 GTB Last administered on 02/12/19at 06:12; Admin Dose 500 MG; Start 02/11/19 at 12:00; Stop 02/18/19 at 18:01 Assessment/Plan Additional Assessment/Plan 1. Ischemic right CVA involving parietal occipital lobes.CONT PLAVIX/ASA. CONT THERAPEUTIC INTERVENTIONS 2. Type 2 diabetes. 3. Hypertension.MAINTAIN SBP 130-160 POST CVA 4. Right-sided cerebrovascular stenosis. 5. Hypertension. 6. Osteoarthritis. 7. Urinary tract infection.DAY 2/7 OF PO CIPRO 8. Obesity. DOROTEO MCKEON MD Feb 12, 2019 08:11
[2019-02-12] MEDS: DOCUSATE SODIUM 100 MG CAP PO SCH ×2 (08:39→21:18)
[2019-02-12] MEDS: LISINOPRIL 20 MG TAB PO SCH ×2 (08:40→21:19)
[2019-02-12] MEDS: AMLODIPINE 10 MG TAB PO SCH (08:40)
[2019-02-12] MEDS: CLOPIDOGREL 75 MG TAB PO SCH (08:40)
[2019-02-12] MEDS: FISH OIL 1,000 MG CAP PO SCH ×2 (08:40→21:18)
[2019-02-12] MEDS: ASPIRIN 81 MG TAB PO SCH (08:40)
--- NOTE | 2019-02-12 12:45 | PN ---
Date/Time of Note Date/Time of Note DATE: 02/12/19 TIME: 12:42 Assessment/Plan VTE Prophylaxis Risk score (from Ns)>0 risk: 3 SCD applied (from [facility]): No SCD contraindicated: low risk/ambulating Pharmacological prophylaxis: heparin Lines/Catheters Urinary Cath still in place: No Assessment/Plan Problems: (1) Acute CVA (cerebrovascular accident) Onset Date: ~ 02/06/2019 Status: Acute Comment: Going through the acute rehabilitation protocol and progressing slowly (2) CVA (cerebral vascular accident) Onset Date: ~ 01/15/2019 Status: Chronic Comment: Stable at this time. Qualifiers: CVA mechanism: stenosis Precerebral and cerebral artery: middle cerebral artery Laterality of affected vessel: right Qualified Codes: I63.511 - Cerebral infarction due to unspecified occlusion or stenosis of right middle cerebral artery (3) Stenosis of intracranial portions of right internal carotid artery Status: Chronic Comment: As above. Maximum risk factor modification (4) Diabetes mellitus type 2 in nonobese Status: Chronic Comment: In a controlled setting with a controlled diet and controlled administration of the medications the patient has reasonable blood sugar control. We will try and simplify the regimen to make this move there especially for postprandial control. (5) Essential hypertension Status: Chronic Comment: Patient is tolerating the higher dose of the MONIKA inhibitor. This allows us to reduce the dosage of the dihydropyridine calcium channel donta which is not as beneficial in this setting. The goal here is to try and get her off of that and use more MONIKA inhibitor (6) Grade I diastolic dysfunction Status: Chronic Comment: Adequate blood pressure control (7) Hyperlipidemia Status: Chronic Comment: Dose statin therapy Qualifiers: Hyperlipidemia type: mixed hyperlipidemia Qualified Codes: E78.2 - Mixed hyperlipidemia Result Diagram: 02/11/19 0819 02/11/19 0819 Results 24hrs Laboratory Tests Test 02/11/19 18:05 02/11/19 20:27 02/12/19 01:56 02/12/19 07:40 Bedside Glucose 189 214 149 143 Test 02/12/19 11:57 Bedside Glucose 207 Subjective 24 Hr Interval Summary Free Text/Dictation She reports she is doing about the same. Constitutional: no complaints Respiratory: no complaints Cardiovascular: no complaints Gastrointestinal: no complaints Neurologic: other (Eft arm weakness) Exam/Review of Systems Exam Vitals Vital Signs Date Temp Pulse Resp B/P (MAP) Pulse Ox O2 O2 Flow FiO2 Time Delivery Rate 02/12/19 98.0 65 17 104/52 97 Room Air 07:00 (69) Intake and Output 02/11/19 02/11/19 02/12/19 1515:00 23:00 07:00 IntakeIntake Total 740 ml OutputOutput Total 200 ml 200 ml BalanceBalance 540 ml -200 ml Exam That her blood pressure prior to receiving the dose of amlodipine is 145/68. The nurse did not give today's dosage of amlodipine as were adjusting the dosage. Constitutional: alert, oriented Neck: supple, non-tender Respiratory: clear to auscultation, normal air movement Cardiovascular: regular rate and rhythm, nl pulses Results Results 24hrs Laboratory Tests Test 02/11/19 18:05 02/11/19 20:27 02/12/19 01:56 02/12/19 07:40 Bedside Glucose 189 214 149 143 Test 02/12/19 11:57 Bedside Glucose 207 Medications Medication Current Medications Docusate Sodium (Colace) 100 mg BID PO Last administered on 02/12/19at 08:39; Admin Dose 100 MG; Start 02/10/19 at 21:00 Senna (Senokot) 1 tab HS PO Last administered on 02/11/19at 20:38; Admin Dose 1 TAB; Start 02/10/19 at 21:00 Magnesium Hydroxide (Milk Of Mag) 30 ml BID PRN PO CONSTIPATION; Start 02/10/19 at 18:30 Lactulose (Enulose) 20 gm DAILY PRN PO CONSTIPATION; Start 02/10/19 at 18:30 Bisacodyl (Dulcolax Supp) 10 mg DAILY PRN DE CONSTIPATION; Start 02/10/19 at 18:30 Acetaminophen (Tylenol Tab) 650 mg Q4H PRN PO PAIN; Start 02/10/19 at 18:30 Miscellaneous Information (Pending [facility] Order For Wound Care) This patient priest... PRN PRN XX WOUND CARE; Start 02/10/19 at 18:30 Acetaminophen (Tylenol Tab) 650 mg Q6H PRN PO .PAIN 1-3 OR TEMP; Start 02/10/19 at 20:30 Aspirin (Aspirin) 81 mg DAILY PO Last administered on 02/12/19at 08:40; Admin Dose 81 MG; Start 02/11/19 at 09:00 Clopidogrel Bisulfate (plaVIX) 75 mg DAILY PO Last administered on 02/12/19at 08:40; Admin Dose 75 MG; Start 02/11/19 at 09:00 Insulin Aspart (Novolog Insulin Pen) (Adult SC Insulin - Moder... WITH MEALS BEDTIME SC Last administered on 02/12/19at 12:03; Admin Dose 4 UNIT; Start 02/10/19 at 21:00 Diagnostic Test (Pha) (Accu-Chek) 1 ea 02 XX ; Start 02/11/19 at 02:00 Miscellaneous Information 1 ea NOTE XX ; Start 02/10/19 at 21:00 Glucose (Glutose) 15 gm Q15M PRN PO DECREASED GLUCOSE; Start 02/10/19 at 21:00 Glucose (Glutose) 22.5 gm Q15M PRN PO DECREASED GLUCOSE; Start 02/10/19 at 21:00 Dextrose (D50w Syringe) 25 ml Q15M PRN IV DECREASED GLUCOSE; Start 02/10/19 at 21:00 Dextrose (D50w Syringe) 50 ml Q15M PRN IV DECREASED GLUCOSE; Start 02/10/19 at 21:00 Glucagon (Glucagen) 1 mg Q15M PRN IM DECREASED GLUCOSE; Start 02/10/19 at 21:00 Glucose (Glutose) 15 gm Q15M PRN BUCCAL DECREASED GLUCOSE; Start 02/10/19 at 21:00 Atorvastatin Calcium (Lipitor) 80 mg HS PO Last administered on 02/11/19at 20:31; Admin Dose 80 MG; Start 02/11/19 at 21:00 Lisinopril (Zestril) 20 mg BID PO Last administered on 02/12/19at 08:40; Admin Dose 20 MG; Start 02/11/19 at 21:00 Fish Oil (Fish Oil) 2,000 mg BID PO Last administered on 02/12/19at 08:40; Admin Dose 2,000 MG; Start 02/11/19 at 21:00 Ciprofloxacin (Cipro) 500 mg BID@18 GTB Last administered on 02/12/19at 06:12; Admin Dose 500 MG; Start 02/11/19 at 12:00; Stop 02/18/19 at 11:59 Amlodipine Besylate (Norvasc) 2.5 mg DAILY PO ; Start 02/13/19 at 09:00; Status UNV Insulin Glargine (Lantus) 20 units DAILY@2000 SC ; Start 02/12/19 at 20:00; Status UNV Metformin HCl (Glucophage) 500 mg WITH DINNER PO ; Start 02/12/19 at 17:35; Status UNV Diagnostic Test (Pha) (Accu-Chek) 1 ea AC MEALS AND BEDTIME XX ; Start 02/12/19 at 17:05; Status UNV EBONY SU MD Feb 12, 2019 12:45
[2019-02-12 14:00] VITALS: BP 128/58; PULSE 84; RESP 18
[2019-02-12] MEDS: metFORMIN 500 MG TAB PO SCH (17:54)
[2019-02-12] MEDS: ACCU-CHEK XX SCH ×2 (17:59→21:00)
[2019-02-12 20:00] VITALS: BP 121/58; PULSE 85; RESP 18
[2019-02-12] MEDS: SENNA TAB PO SCH (21:18)
[2019-02-12] MEDS: ATORVASTATIN 40 MG TAB PO SCH (21:18)
[2019-02-12] MEDS: INSULIN GLARGINE [LANTus] (100 UNITS/ML) SYG SC SCH (21:20)
[2019-02-13 02:00] VITALS: BP 114/65; PULSE 72; RESP 18
[2019-02-13] MEDS: ACCUCHECK AT 2AM (Patients on SS coverage) XX SCH (02:00)
[2019-02-13] MEDS: CIPROFLOXACIN 500 MG TAB GTB SCH (06:30)
[2019-02-13 07:00] VITALS: BP 112/61; PULSE 91; RESP 18
[2019-02-13] MEDS: ACCU-CHEK XX SCH ×4 (07:59→21:55)
[2019-02-13] MEDS: Insulin NOVOLOG SS MODERATE Algorithm (SS with meals and bedtime) SC SCH ×4 (07:59→20:24)
[2019-02-13] MEDS ORDERED: AMLODIPINE 10 MG TAB PO SCH (09:00)
[2019-02-13] MEDS: FISH OIL 1,000 MG CAP PO SCH ×2 (09:00→20:24)
[2019-02-13] MEDS: CLOPIDOGREL 75 MG TAB PO SCH (09:56)
[2019-02-13] MEDS: LISINOPRIL 20 MG TAB PO SCH ×2 (09:56→20:25)
[2019-02-13] MEDS: ASPIRIN 81 MG TAB PO SCH (09:57)
[2019-02-13] MEDS: DOCUSATE SODIUM 100 MG CAP PO SCH ×2 (09:57→20:24)
[2019-02-13 14:00] VITALS: BP 126/59; PULSE 87; RESP 18
--- NOTE | 2019-02-13 15:00 | PN ---
Date/Time of Note Date/Time of Note DATE: 02/13/19 TIME: 14:59 Assessment/Plan VTE Prophylaxis Risk score (from Ns)>0 risk: 3 SCD applied (from [facility] [place]): Yes Pharmacological prophylaxis: NA/contraindicated Pharm contraindication: low risk/ambulating, other (on asa/plavix) Lines/Catheters Urinary Cath still in place: No Assessment/Plan Hospital Course SUBJECTIVE:Doing well...No acute distress.. no fevers or chills overnight. OBJECTIVE: Vital signs-see below PHYSICAL EXAM: Constitutional: Well-developed, well-nourished, not in acute distress. HEENT: Head atraumatic and normocephalic. Eyes: Extraocular muscles intact. Anicteric sclerae. Pupils equal bilaterally, reactive to light. NECK: Supple without lymph node. CHEST: Clear and good breath sounds equally. No wheezing. No rhonchi. HEART: S1, S2. Regular rate and rhythm. ABDOMEN: Soft, nontender. Bowel sounds were present. EXTREMITIES: Full range of motion in all the extremities. No cyanosis, clubbing or edema. NEUROLOGIC: Alert and oriented x3. No focal deficit. No sensory deficit. PSYCHOSOCIAL: In a good mood. No signs of depression. INTEGUMENTARY: Moist mucous membranes. Good skin turgor, intact. ASSESSMENT AND PLAN: 1. Acute CVA (cerebrovascular accident) -Continue rehabilitation -Aspirin/statin 2. Stenosis of intracranial portions of right internal carotid artery =As above. Maximum risk factor modification 3.Diabetes mellitus type 2 in nonobese -Stable. Continue current management. 4.Essential hypertension -Blood pressure well controlled on ingrid inhibitors. At this time, discontinue amlodipine to prevent hypotension. 5.Hyperlipidemia -On statin therapy 6. E. coli UTI. -Discontinue Cipro as this is resistant to the organism. Will treat with 7 days of Macrobid. DVT prophylaxis: On aspirin/Plavix. SCDs while in bed. Patient was seen in collaboration with Dr. Loya Result Diagram: 02/11/1981802/11/19818 Results 24hrs Laboratory Tests Test 02/12/19 17:52 02/12/19 21:15 02/13/19 01:59 02/13/19 05:55 Bedside Glucose 270 H 235 H 178 Hemoglobin A1c 12.9 H Test 02/13/19 07:56 02/13/19 12:19 Bedside Glucose 156 204 Exam/Review of Systems Exam Vitals Vital Signs Date Temp Pulse Resp B/P (MAP) Pulse Ox O2 O2 Flow FiO2 Time Delivery Rate 02/13/19 98.0 91 18 112/61 97 Room Air 07:00 (78) Intake and Output 02/12/19 02/12/19 02/13/19 1515:00 23:00 07:00 IntakeIntake Total 600 ml 200 ml BalanceBalance 600 ml 200 ml Results Results 24hrs Laboratory Tests Test 02/12/19 17:52 02/12/19 21:15 02/13/19 01:59 02/13/19 05:55 Bedside Glucose 270 H 235 H 178 Hemoglobin A1c 12.9 H Test 02/13/19 07:56 02/13/19 12:19 Bedside Glucose 156 204 Medications Medication Current Medications Docusate Sodium (Colace) 100 mg BID PO Last administered on 02/13/19 09:57; Admin Dose 100 MG; Start 02/10/19 at 21:00 Senna (Senokot) 1 tab HS PO Last administered on 02/12/19at 21:18; Admin Dose 1 TAB; Start 02/10/19 at 21:00 Magnesium Hydroxide (Milk Of Mag) 30 ml BID PRN PO CONSTIPATION; Start 02/10/19 at 18:30 Lactulose (Enulose) 20 gm DAILY PRN PO CONSTIPATION; Start 02/10/19 at 18:30 Bisacodyl (Dulcolax Supp) 10 mg DAILY PRN [place] CONSTIPATION; Start 02/10/19 at 18:30 Acetaminophen (Tylenol Tab) 650 mg Q4H PRN PO PAIN; Start 02/10/19 at 18:30 [facility] This patient priest... PRN PRN XX WOUND CARE; Start 02/10/19 at 18:30 Acetaminophen (Tylenol Tab) 650 mg Q6H PRN PO .PAIN 1-3 OR TEMP; Start 02/10/19 at 20:30 Aspirin (Aspirin) 81 mg DAILY PO Last administered on 02/13/19at 09:57; Admin Dose 81 MG; Start 02/11/19 at 09:00 Clopidogrel Bisulfate (plaVIX) 75 mg DAILY PO Last administered on 02/13/19at 09:56; Admin Dose 75 MG; Start 02/11/19 at 09:00 Insulin Aspart (Novolog Insulin Pen) (Adult SC Insulin - Moder... WITH MEALS BEDTIME SC Last administered on 02/13/19at 12:20; Admin Dose 4 UNIT; Start 02/10/19 at 21:00 Diagnostic Test (Pha) (Accu-Chek) 1 ea 02 XX ; Start 02/11/19 at 02:00 Miscellaneous Information 1 ea NOTE XX ; Start 02/10/19 at 21:00 Glucose (Glutose) 15 gm Q15M PRN PO DECREASED GLUCOSE; Start 02/10/19 at 21:00 Glucose (Glutose) 22.5 gm Q15M PRN PO DECREASED GLUCOSE; Start 02/10/19 at 21:00 Dextrose (D50w Syringe) 25 ml Q15M PRN IV DECREASED GLUCOSE; Start 02/10/19 at 21:00 Dextrose (D50w Syringe) 50 ml Q15M PRN IV DECREASED GLUCOSE; Start 02/10/19 at 21:00 Glucagon (Glucagen) 1 mg Q15M PRN IM DECREASED GLUCOSE; Start 02/10/19 at 21:00 Glucose (Glutose) 15 gm Q15M PRN BUCCAL DECREASED GLUCOSE; Start 02/10/19 at 21:00 Atorvastatin Calcium (Lipitor) 80 mg HS PO Last administered on 02/12/19at 21:18; Admin Dose 80 MG; Start 02/11/19 at 21:00 Lisinopril (Zestril) 20 mg BID PO Last administered on 02/13/19 09:56; Admin Dose 20 MG; Start 02/11/19 at 21:00 Fish Oil (Fish Oil) 2,000 mg BID PO Last administered on 02/12/19 21:18; Admin Dose 2,000 MG; Start 02/11/19 at 21:00 Ciprofloxacin (Cipro) 500 mg BID@ GTB Last administered on 02/13/19 06:30; Admin Dose 500 MG; Start 02/11/19 at 12:00; Stop 02/18/19 at 11:59 Amlodipine Besylate (Norvasc) 2.5 mg DAILY PO Last administered on 02/13/19 09:57; Admin Dose 2.5 MG; Start 02/13/19 at 09:00 Insulin Glargine (Lantus) 20 units DAILY@2000 SC Last administered on 02/12/19at 21:20; Admin Dose 20 UNITS; Start 02/12/19 at 20:00 Metformin HCl (Glucophage) 500 mg WITH DINNER PO Last administered on 02/12/19at 17:54; Admin Dose 500 MG; Start 02/12/19 at 17:35 Diagnostic Test (Pha) (Accu-Chek) 1 ea AC MEALS AND BEDTIME XX Last administered on 02/13/19at 12:22; Admin Dose 1 EA; Start 02/12/19 at 17:05 NANCY GLEASON NP Feb 13, 2019 15:00
[2019-02-13] MEDS: metFORMIN 500 MG TAB PO SCH (17:32)
[2019-02-13] MEDS: INSULIN GLARGINE [LANTus] (100 UNITS/ML) SYG SC SCH (20:23)
[2019-02-13] MEDS: NITROFURANTOIN (SR) 100 MG CAP PO SCH (20:24)
[2019-02-13] MEDS: SENNA TAB PO SCH (20:24)
[2019-02-13] MEDS: ATORVASTATIN 40 MG TAB PO SCH (20:25)
[2019-02-13 20:34] VITALS: BP 141/61; PULSE 83; RESP 18
[2019-02-14 02:00] VITALS: BP 136/63; PULSE 83; RESP 18
[2019-02-14] MEDS: ACCUCHECK AT 2AM (Patients on SS coverage) XX SCH (02:43)
[2019-02-14 07:30] VITALS: BP 109/55; PULSE 89; RESP 20
[2019-02-14] MEDS: Insulin NOVOLOG SS MODERATE Algorithm (SS with meals and bedtime) SC SCH ×4 (07:35→21:51)
[2019-02-14] MEDS: ACCU-CHEK XX SCH ×4 (07:46→21:53)
[2019-02-14] MEDS: NITROFURANTOIN (SR) 100 MG CAP PO SCH ×2 (08:45→21:52)
[2019-02-14] MEDS: CLOPIDOGREL 75 MG TAB PO SCH (08:46)
[2019-02-14] MEDS: DOCUSATE SODIUM 100 MG CAP PO SCH ×2 (08:46→21:52)
[2019-02-14] MEDS: FISH OIL 1,000 MG CAP PO SCH ×2 (08:46→21:52)
[2019-02-14] MEDS: LISINOPRIL 20 MG TAB PO SCH ×2 (08:46→21:53)
[2019-02-14] MEDS: ASPIRIN 81 MG TAB PO SCH (08:47)
[2019-02-14 14:00] VITALS: BP 142/67; PULSE 88; RESP 18
--- NOTE | 2019-02-14 14:04 | PN ---
Date/Time of Note Date/Time of Note DATE: 02/14/19 TIME: 14:04 Objective Vital Signs Date Temp Pulse Resp B/P (MAP) Pulse Ox O2 O2 Flow FiO2 Time Delivery Rate 02/14/19 98.4 89 20 109/55 97 Room Air 07:30 (73) Intake and Output 02/13/19 02/13/19 02/14/19 1515:00 23:00 07:00 IntakeIntake Total 800 ml OutputOutput Total 600 ml 600 ml 300 ml BalanceBalance -600 ml 200 ml -300 ml Exam INTERDISCIPLINARY TEAM CONFERENCE Physical Exam: Pulm-cta Abd-soft BOWEL- Cont BLADDER-Cont SKIN- intact OT- DRESSING-min BATHING-min TOILETING-min PT- BED MOBILITY-min TRANSFERS-min AMBULATION-min 100 feet SPEECH- COGNITION-sba A/P- Interdisciplinary team conference held today. Please see interdisciplinary sheet. Working toward d.c. on 02/22 with post discharge follow up of physical therapy, occupational therapy. Results/Medications Result Diagram: 02/11/1981802/11/19818 Results 24 hrs Laboratory Tests Test 02/13/19 17:12 02/13/19 20:17 02/14/19 02:11 02/14/19 07:45 Bedside Glucose 216 231 H 136 98 Test 02/14/19 11:59 Bedside Glucose 182 Medications Current Medications Docusate Sodium (Colace) 100 mg BID PO Last administered on 02/14/19at 08:46; Admin Dose 100 MG; Start 02/10/19 at 21:00 Senna (Senokot) 1 tab HS PO Last administered on 02/13/19at 20:24; Admin Dose 1 TAB; Start 02/10/19 at 21:00 Magnesium Hydroxide (Milk Of Mag) 30 ml BID PRN PO CONSTIPATION; Start 02/10/19 at 18:30 Lactulose (Enulose) 20 gm DAILY PRN PO CONSTIPATION; Start 02/10/19 at 18:30 Bisacodyl (Dulcolax Supp) 10 mg DAILY PRN [place] CONSTIPATION; Start 02/10/19 at 18:30 Acetaminophen (Tylenol Tab) 650 mg Q4H PRN PO PAIN; Start 02/10/19 at 18:30 Miscellaneous Information (Pending [facility] Order For Wound Care) This patient priest... PRN PRN XX WOUND CARE; Start 02/10/19 at 18:30 Acetaminophen (Tylenol Tab) 650 mg Q6H PRN PO .PAIN 1-3 OR TEMP; Start 02/10/19 at 20:30 Aspirin (Aspirin) 81 mg DAILY PO Last administered on 02/14/19at 08:47; Admin Dose 81 MG; Start 02/11/19 at 09:00 Clopidogrel Bisulfate (plaVIX) 75 mg DAILY PO Last administered on 02/14/19 08 :46; Admin Dose 75 MG; Start 02/11/19 at 09:00 Insulin Aspart (Novolog Insulin Pen) (Adult SC Insulin - Moder... WITH MEALS BEDTIME SC Last administered on 02/14/19 12:03; Admin Dose 4 UNIT; Start at 21:00 Diagnostic Test (Pha) (Accu-Chek) 1 ea 02 XX Last administered on 02/14/19at 02:43; Admin Dose 1 EA; Start 02/11/19 at 02:00 Miscellaneous Information 1 ea NOTE XX ; Start 02/10/19 at 21:00 Glucose (Glutose) 15 gm Q15M PRN PO DECREASED GLUCOSE; Start 02/10/19 at 21:00 Glucose (Glutose) 22.5 gm Q15M PRN PO DECREASED GLUCOSE; Start 02/10/19 at 21:00 Dextrose (D50w Syringe) 25 ml Q15M PRN IV DECREASED GLUCOSE; Start 02/10/19 at 21:00 Dextrose (D50w Syringe) 50 ml Q15M PRN IV DECREASED GLUCOSE; Start 02/10/19 at 21:00 Glucagon (Glucagen) 1 mg Q15M PRN IM DECREASED GLUCOSE; Start 02/10/19 at 21:00 Glucose (Glutose) 15 gm Q15M PRN BUCCAL DECREASED GLUCOSE; Start 02/10/19 at 21:00 Atorvastatin Calcium (Lipitor) 80 mg HS PO Last administered on 02/13/19at 20:25; Admin Dose 80 MG; Start 02/11/19 at 21:00 Lisinopril (Zestril) 20 mg BID PO Last administered on 02/14/19 08:46; Admin Dose 20 MG; Start 02/11/19 at 21:00 Fish Oil (Fish Oil) 2,000 mg BID PO Last administered on 02/14/19 08:46; Admin Dose 2,000 MG; Start 02/11/19 at 21:00 Insulin Glargine (Lantus) 20 units DAILY@2000 SC Last administered on 02/13/19 20:23; Admin Dose 20 UNITS; Start 02/12/19 at 20:00 Metformin HCl (Glucophage) 500 mg WITH DINNER PO Last administered on 02/13/19 17:32; Admin Dose 500 MG; Start 02/12/19 at 17:35 Diagnostic Test (Pha) (Accu-Chek) 1 ea AC MEALS AND BEDTIME XX Last administered on 02/14/19 12:00; Admin Dose 1 EA; Start 02/12/19 at 17:05 Nitrofurantoin Macrocrystals (Macrobid) 100 mg BID PO Last administered on 02/14/19 08:45; Admin Dose 100 MG; Start 02/13/19 at 21:00; Stop 02/20/19 at 20:59 Ondansetron HCl (Zofran Odt) 8 mg Q6H PRN ODT NAUSEA; Start 02/14/19 at 11:30 MINDI MCKEON MD Feb 14, 2019 14:04
--- NOTE | 2019-02-14 14:12 | PN ---
Date/Time of Note Date/Time of Note DATE: 02/14/19 TIME: 14:10 Assessment/Plan VTE Prophylaxis Risk score (from Nsg)>0 risk: 3 SCD applied (from Ns): Yes Pharmacological prophylaxis: NA/contraindicated Pharm contraindication: low risk/ambulating Lines/Catheters Urinary Cath still in place: No Assessment/Plan Hospital Course SUBJECTIVE:no acute distress.had some nausea this morning which is now improved. OBJECTIVE: Vital signs-see below PHYSICAL EXAM: Constitutional: Well-developed, well-nourished, not in acute distress. HEENT: Head atraumatic and normocephalic. Eyes: Extraocular muscles intact. Anicteric sclerae. Pupils equal bilaterally, reactive to light. NECK: Supple without lymph node. CHEST: Clear and good breath sounds equally. No wheezing. No rhonchi. HEART: S1, S2. Regular rate and rhythm. ABDOMEN: Soft, nontender. Bowel sounds were present. EXTREMITIES: Full range of motion in all the extremities. No cyanosis, clubbing or edema. NEUROLOGIC: Alert and oriented x3. No focal deficit. No sensory deficit. PSYCHOSOCIAL: In a good mood. No signs of depression. INTEGUMENTARY: Moist mucous membranes. Good skin turgor, intact. ASSESSMENT AND PLAN: 1. Acute CVA (cerebrovascular accident) -Continue rehabilitation -Aspirin/statin 2. 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 Maximum risk factor modification 3.Diabetes mellitus type 2 in nonobese -Stable. Continue current management. 4.Essential hypertension -Blood pressure well controlled on ingrid inhibitors. At this time, discontinue amlodipine to prevent hypotension. 5.Hyperlipidemia -On statin therapy 6. E. coli UTI. -on appropriate agent DVT prophylaxis: On aspirin/Plavix. SCDs while in bed. Patient was seen in collaboration with Dr. Loya Result Diagram: 02/11/1981802/11/19818 Results 24hrs Laboratory Tests Test 02/13/19 17:12 02/13/19 20:17 02/14/19 02:11 02/14/19 07:45 Bedside Glucose 216 231 H 136 98 Test 02/14/19 11:59 Bedside Glucose 182 Exam/Review of Systems Exam Vitals Vital Signs Date Temp Pulse Resp B/P (MAP) Pulse Ox O2 O2 Flow FiO2 Time Delivery Rate 02/14/19 98.4 89 20 109/55 97 Room Air 07:30 (73) Intake and Output 02/13/19 02/13/19 02/14/19 1515:00 23:00 07:00 IntakeIntake Total 800 ml OutputOutput Total 600 ml 600 ml 300 ml BalanceBalance -600 ml 200 ml -300 ml Results Results 24hrs Laboratory Tests Test 02/13/19 17:12 02/13/19 20:17 02/14/19 02:11 02/14/19 07:45 Bedside Glucose 216 231 H 136 98 Test 02/14/19 11:59 Bedside Glucose 182 Medications Medication Current Medications Docusate Sodium (Colace) 100 mg BID PO Last administered on 02/14/19 08:46; Admin Dose 100 MG; Start 02/10/19 at 21:00 Senna (Senokot) 1 tab HS PO Last administered on 02/13/19 20:24; Admin Dose 1 TAB; Start 02/10/19 at 21:00 Magnesium Hydroxide (Milk Of Mag) 30 ml BID PRN PO CONSTIPATION; Start 02/10/19 at 18:30 Lactulose (Enulose) 20 gm DAILY PRN PO CONSTIPATION; Start 02/10/19 at 18:30 Bisacodyl (Dulcolax Supp) 10 mg DAILY PRN [place] CONSTIPATION; Start 02/10/19 at 18:30 Acetaminophen (Tylenol Tab) 650 mg Q4H PRN PO PAIN; Start 02/10/19 at 18:30 [facility]isc[facility] Information [facility] This patient priest... PRN PRN XX WOUND CARE; Start 02/10/19 at 18:30 Acetaminophen (Tylenol Tab) 650 mg Q6H PRN PO .PAIN 1-3 OR TEMP; Start 02/10/19 at 20:30 Aspirin (Aspirin) 81 mg DAILY PO Last administered on 02/14/19at 08:47; Admin Dose 81 MG; Start 02/11/19 at 09:00 Clopidogrel Bisulfate (plaVIX) 75 mg DAILY PO Last administered on 02/14/19 08:46; Admin Dose 75 MG; Start 02/11/19 at 09:00 Insulin Aspart (Novolog Insulin Pen) (Adult SC Insulin - Moder... WITH MEALS BEDTIME SC Last administered on 02/14/19at 12:03; Admin Dose 4 UNIT; Start 02/10/19 at 21:00 Diagnostic Test (Pha) (Accu-Chek) 1 ea 02 XX Last administered on 02/14/19at 02:43; Admin Dose 1 EA; Start 02/11/19 at 02:00 Miscellaneous Information 1 ea NOTE XX ; Start 02/10/19 at 21:00 Glucose (Glutose) 15 gm Q15M PRN PO DECREASED GLUCOSE; Start 02/10/19 at 21:00 Glucose (Glutose) 22.5 gm Q15M PRN PO DECREASED GLUCOSE; Start 02/10/19 at 21:00 Dextrose (D50w Syringe) 25 ml Q15M PRN IV DECREASED GLUCOSE; Start 02/10/19 at 21:00 Dextrose (D50w Syringe) 50 ml Q15M PRN IV DECREASED GLUCOSE; Start 02/10/19 at 21:00 Glucagon (Glucagen) 1 mg Q15M PRN IM DECREASED GLUCOSE; Start 02/10/19 at 21:00 Glucose (Glutose) 15 gm Q15M PRN BUCCAL DECREASED GLUCOSE; Start 02/10/19 at 21:00 Atorvastatin Calcium (Lipitor) 80 mg HS PO Last administered on 02/13/19 20:25; Admin Dose 80 MG; Start 02/11/19 at 21:00 Lisinopril (Zestril) 20 mg BID PO Last administered on 02/14/19 08:46; Admin Dose 20 MG; Start 02/11/19 at 21:00 Fish Oil (Fish Oil) 2,000 mg BID PO Last administered on 02/14/19 08:46; Admin Dose 2,000 MG; Start 02/11/19 at 21:00 Insulin Glargine (Lantus) 20 units DAILY@2000 SC Last administered on 02/13/19 20:23; Admin Dose 20 UNITS; Start 02/12/19 at 20:00 Metformin HCl (Glucophage) 500 mg WITH DINNER PO Last administered on 02/13/19 17:32; Admin Dose 500 MG; Start 02/12/19 at 17:35 Diagnostic Test (Pha) (Accu-Chek) 1 ea AC MEALS AND BEDTIME XX Last adminis tered on 02/14/19at 12:00; Admin Dose 1 EA; Start 02/12/19 at 17:05 Nitrofurantoin Macrocrystals (Macrobid) 100 mg BID PO Last administered on 02/14/19at 08:45; Admin Dose 100 MG; Start 02/13/19 at 21:00; Stop 02/20/19 at 20:59 Ondansetron HCl (Zofran Odt) 8 mg Q6H PRN ODT NAUSEA; Start 02/14/19 at 11:30 NANCY GLEASON NP Feb 14, 2019 14:12
[2019-02-14] MEDS: metFORMIN 500 MG TAB PO SCH (17:23)
[2019-02-14 20:00] VITALS: BP 139/63; PULSE 85; RESP 18
[2019-02-14] MEDS: INSULIN GLARGINE [LANTus] (100 UNITS/ML) SYG SC SCH (21:49)
[2019-02-14] MEDS: SENNA TAB PO SCH (21:52)
[2019-02-14] MEDS: ATORVASTATIN 40 MG TAB PO SCH (21:52)
[2019-02-15 02:00] VITALS: BP 136/68; PULSE 78; RESP 18
[2019-02-15] MEDS: ACCUCHECK AT 2AM (Patients on SS coverage) XX SCH (02:21)
[2019-02-15 07:30] VITALS: BP 158/72; PULSE 84; RESP 20
[2019-02-15] MEDS: Insulin NOVOLOG SS MODERATE Algorithm (SS with meals and bedtime) SC SCH ×4 (07:35→21:00)
[2019-02-15] MEDS: ACCU-CHEK XX SCH ×4 (07:45→21:00)
[2019-02-15] MEDS: ONDANSETRON (ODT) 4 MG TAB ODT PRN (08:42)
[2019-02-15] MEDS: FISH OIL 1,000 MG CAP PO SCH ×2 (08:43→20:36)
[2019-02-15] MEDS: NITROFURANTOIN (SR) 100 MG CAP PO SCH ×2 (08:43→20:35)
[2019-02-15] MEDS: LISINOPRIL 20 MG TAB PO SCH ×2 (08:43→20:36)
[2019-02-15] MEDS: ASPIRIN 81 MG TAB PO SCH (08:43)
[2019-02-15] MEDS: CLOPIDOGREL 75 MG TAB PO SCH (08:43)
[2019-02-15] MEDS: DOCUSATE SODIUM 100 MG CAP PO SCH ×2 (08:43→20:36)
--- NOTE | 2019-02-15 12:39 | PN ---
Date/Time of Note Date/Time of Note DATE: 02/15/19 TIME: 12:38 Assessment/Plan VTE Prophylaxis Risk score (from Nsg)>0 risk: 3 SCD applied (from Ns): Yes Pharmacological prophylaxis: NA/contraindicated Pharm contraindication: low risk/ambulating, other (asa/plavix) Lines/Catheters Urinary Cath still in place: No Assessment/Plan Hospital Course SUBJECTIVE:no acute distress. OBJECTIVE: Vital signs-see below PHYSICAL EXAM: Constitutional: Well-developed, well-nourished, not in acute distress. HEENT: Head atraumatic and normocephalic. Eyes: Extraocular muscles intact. Anicteric sclerae. Pupils equal bilaterally, reactive to light. NECK: Supple without lymph node. CHEST: Clear and good breath sounds equally. No wheezing. No rhonchi. HEART: S1, S2. Regular rate and rhythm. ABDOMEN: Soft, nontender. Bowel sounds were present. EXTREMITIES: Full range of motion in all the extremities. No cyanosis, clubbing or edema. NEUROLOGIC: Alert and oriented x3. No focal deficit. No sensory deficit. PSYCHOSOCIAL: In a good mood. No signs of depression. INTEGUMENTARY: Moist mucous membranes. Good skin turgor, intact. ASSESSMENT AND PLAN: 1. Acute CVA (cerebrovascular accident) -Continue rehabilitation -Aspirin/statin 2. 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 Maximum risk factor modification 3.Diabetes mellitus type 2 in nonobese -Stable. Continue current management. 4.Essential hypertension -Blood pressure well controlled on ingrid inhibitors. At this time, discontinue amlodipine to prevent hypotension. 5.Hyperlipidemia -On statin therapy 6. E. coli UTI. -on appropriate agent DVT prophylaxis: On aspirin/Plavix. SCDs while in bed. Patient was seen in collaboration with Dr. Loya Result Diagram: 02/11/1981802/11/19818 Results 24hrs Laboratory Tests Test 02/14/19 17:20 02/14/19 21:49 02/15/19 02:17 02/15/19 07:43 Bedside Glucose 177 250 H 139 106 Test 02/15/19 11:57 Bedside Glucose 140 Exam/Review of Systems Exam Vitals Vital Signs Date Temp Pulse Resp B/P (MAP) Pulse Ox O2 O2 Flow FiO2 Time Delivery Rate 02/15/19 98.5 84 20 158/72 96 Room Air 07:30 (100) Intake and Output 02/14/19 02/14/19 02/15/19 1515:00 23:00 07:00 IntakeIntake Total 200 ml 760 ml BalanceBalance 200 ml 760 ml Results Results 24hrs Laboratory Tests Test 02/14/19 17:20 02/14/19 21:49 02/15/19 02:17 02/15/19 07:43 Bedside Glucose 177 250 H 139 106 Test 02/15/19 11:57 Bedside Glucose 140 Medications Medication Current Medications Docusate Sodium (Colace) 100 mg BID PO Last administered on 02/15/19 08:43; Admin Dose 100 MG; Start 02/10/19 at 21:00 Senna (Senokot) 1 tab HS PO Last administered on 02/14/19 21:52; Admin Dose 1 TAB; Start 02/10/19 at 21:00 Magnesium Hydroxide (Milk Of Mag) 30 ml BID PRN PO CONSTIPATION; Start 02/10/19 at 18:30 Lactulose (Enulose) 20 gm DAILY PRN PO CONSTIPATION; Start 02/10/19 at 18:30 Bisacodyl (Dulcolax Supp) 10 mg DAILY PRN [place] CONSTIPATION; Start 02/10/19 at 18:30 Acetaminophen (Tylenol Tab) 650 mg Q4H PRN PO PAIN; Start 02/10/19 at 18:30 Miscellaneous Information (Pending [facility] Order For Wound Care) This patient priest... PRN PRN XX WOUND CARE; Start 02/10/19 at 18:30 Acetaminophen (Tylenol Tab) 650 mg Q6H PRN PO .PAIN 1-3 OR TEMP; Start 02/10/19 at 20:30 Aspirin (Aspirin) 81 mg DAILY PO Last administered on 02/15/19 08:43; Admin Dose 81 MG; Start 02/11/19 at 09:00 Clopidogrel Bisulfate (plaVIX) 75 mg DAILY PO Last administered on 02/15/19 08:43; Admin Dose 75 MG; Start 02/11/19 at 09:00 Insulin Aspart (Novolog Insulin Pen) (Adult SC Insulin - Moder... WITH MEALS BEDTIME SC Last administered on 02/14/19at 21:51; Admin Dose 2 UNIT; Start 02/10/19 at 21:00 Diagnostic Test (Pha) (Accu-Chek) 1 ea 02 XX Last administered on 02/15/19at 02:21; Admin Dose 1 EA; Start 02/11/19 at 02:00 Miscellaneous Information 1 ea NOTE XX ; Start 02/10/19 at 21:00 Glucose (Glutose) 15 gm Q15M PRN PO DECREASED GLUCOSE; Start 02/10/19 at 21:00 Glucose (Glutose) 22.5 gm Q15M PRN PO DECREASED GLUCOSE; Start 02/10/19 at 21:00 Dextrose (D50w Syringe) 25 ml Q15M PRN IV DECREASED GLUCOSE; Start 02/10/19 at 21:00 Dextrose (D50w Syringe) 50 ml Q15M PRN IV DECREASED GLUCOSE; Start 02/10/19 at 21:00 Glucagon (Glucagen) 1 mg Q15M PRN IM DECREASED GLUCOSE; Start 02/10/19 at 21:00 Glucose (Glutose) 15 gm Q15M PRN BUCCAL DECREASED GLUCOSE; Start 02/10/19 at 21:00 Atorvastatin Calcium (Lipitor) 80 mg HS PO Last administered on 02/14/19at 21:52; Admin Dose 80 MG; Start 02/11/19 at 21:00 Lisinopril (Zestril) 20 mg BID PO Last administered on 02/15/19 08:43; Admin Dose 20 MG; Start 02/11/19 at 21:00 Fish Oil (Fish Oil) 2,000 mg BID PO Last administered on 02/15/19 08:43; Admin Dose 2,000 MG; Start 02/11/19 at 21:00 Insulin Glargine (Lantus) 20 units DAILY@2000 SC Last administered on 02/14/19 21:49; Admin Dose 20 UNITS; Start 02/12/19 at 20:00 Metformin HCl (Glucophage) 500 mg WITH DINNER PO Last administered on 02/14/19 17:23; Admin Dose 500 MG; Start 02/12/19 at 17:35 Diagnostic Test (Pha) (Accu-Chek) 1 ea AC MEALS AND BEDTIME XX Last administered on 02/15/19 11:59; Admin Dose 1 EA; Start 02/12/19 at 17:05 Nitrofurantoin Macrocrystals (Macrobid) 100 mg BID PO Last administered on 02/15/19 08:43; Admin Dose 100 MG; Start 02/13/19 at 21:00; Stop 02/20/19 at 20:59 Ondansetron HCl (Zofran Odt) 8 mg Q6H PRN ODT NAUSEA Last administered on 02/15/19 08:42; Admin Dose 8 MG; Start 02/14/19 at 11:30 NANCY GLEASON NP Feb 15, 2019 12:39
--- NOTE | 2019-02-15 13:52 | PN ---
Date/Time of Note Date/Time of Note DATE: 02/15/19 TIME: 13:52 Subjective Doing well Objective Vital Signs Date Temp Pulse Resp B/P (MAP) Pulse Ox O2 O2 Flow FiO2 Time Delivery Rate 02/15/19 98.5 84 20 158/72 96 Room Air 07:30 (100) Intake and Output 02/14/19 02/14/19 02/15/19 1414:59 22:59 06:59 IntakeIntake Total 200 ml 760 ml BalanceBalance 200 ml 760 ml Exam pulm-cta cga ambulation 100 feet Results/Medications Result Diagram: 02/11/1981802/11/19818 Results 24 hrs Laboratory Tests Test 02/14/19 17:20 02/14/19 21:49 02/15/19 02:17 02/15/19 07:43 Bedside Glucose 177 250 H 139 106 Test 02/15/19 11:57 Bedside Glucose 140 Medications Current Medications Docusate Sodium (Colace) 100 mg BID PO Last administered on 02/15/19at 08:43; Admin Dose 100 MG; Start 02/10/19 at 21:00 Senna (Senokot) 1 tab HS PO Last administered on 02/14/19at 21:52; Admin Dose 1 TAB; Start 02/10/19 at 21:00 Magnesium Hydroxide (Milk Of Mag) 30 ml BID PRN PO CONSTIPATION; Start 02/10/19 at 18:30 Lactulose (Enulose) 20 gm DAILY PRN PO CONSTIPATION; Start 02/10/19 at 18:30 Bisacodyl (Dulcolax Supp) 10 mg DAILY PRN [place] CONSTIPATION; Start 02/10/19 at 18:30 Acetaminophen (Tylenol Tab) 650 mg Q4H PRN PO PAIN; Start 02/10/19 at 18:30 Miscellaneous Information (Pending Santyl Order For Wound Care) This patient priest... PRN PRN XX WOUND CARE; Start 02/10/19 at 18:30 Acetaminophen (Tylenol Tab) 650 mg Q6H PRN PO .PAIN 1-3 OR TEMP; Start 02/10/19 at 20:30 Aspirin (Aspirin) 81 mg DAILY PO Last administered on 02/15/19at 08:43; Admin Dose 81 MG; Start 02/11/19 at 09:00 Clopidogrel Bisulfate (plaVIX) 75 mg DAILY PO Last administered on 02/15/19 08:43; Admin Dose 75 MG; Start 02/11/19 at 09:00 Insulin Aspart (Novolog Insulin Pen) (Adult SC Insulin - Moder... WITH MEALS BEDTIME SC Last administered on 02/14/19 21:51; Admin Dose 2 UNIT; Start 02/10/19 at 21:00 Diagnostic Test (Pha) (Accu-Chek) 1 ea 02 XX Last administered on 02/15/19 02:21; Admin Dose 1 EA; Start 02/11/19 at 02:00 Miscellaneous Information 1 ea NOTE XX ; Start 02/10/19 at 21:00 Glucose (Glutose) 15 gm Q15M PRN PO DECREASED GLUCOSE; Start 02/10/19 at 21:00 Glucose (Glutose) 22.5 gm Q15M PRN PO DECREASED GLUCOSE; Start 02/10/19 at 21:00 Dextrose (D50w Syringe) 25 ml Q15M PRN IV DECREASED GLUCOSE; Start 02/10/19 at 21:00 Dextrose (D50w Syringe) 50 ml Q15M PRN IV DECREASED GLUCOSE; Start 02/10/19 at 21:00 Glucagon (Glucagen) 1 mg Q15M PRN IM DECREASED GLUCOSE; Start 02/10/19 at 21:00 Glucose (Glutose) 15 gm Q15M PRN BUCCAL DECREASED GLUCOSE; Start 02/10/19 at 21 :00 Atorvastatin Calcium (Lipitor) 80 mg HS PO Last administered on 02/14/19 21:52; Admin Dose 80 MG; Start 02/11/19 at 21:00 Lisinopril (Zestril) 20 mg BID PO Last administered on 02/15/19 08:43; Admin Dose 20 MG; Start 02/11/19 at 21:00 Fish Oil (Fish Oil) 2,000 mg BID PO Last administered on 02/15/19 08:43; Admin Dose 2,000 MG; Start 02/11/19 at 21:00 Insulin Glargine (Lantus) 20 units DAILY@2000 SC Last administered on 02/14/19 21:49; Admin Dose 20 UNITS; Start 02/12/19 at 20:00 Metformin HCl (Glucophage) 500 mg WITH DINNER PO Last administered on 02/14/19 17:23; Admin Dose 500 MG; Start 02/12/19 at 17:35 Diagnostic Test (Pha) (Accu-Chek) 1 ea AC MEALS AND BEDTIME XX Last administer ed on 02/15/19at 11:59; Admin Dose 1 EA; Start 02/12/19 at 17:05 Nitrofurantoin Macrocrystals (Macrobid) 100 mg BID PO Last administered on 02/15/19at 08:43; Admin Dose 100 MG; Start 02/13/19 at 21:00; Stop 02/20/19 at 20:59 Ondansetron HCl (Zofran Odt) 8 mg Q6H PRN ODT NAUSEA Last administered on 02/06 at 08:42; Admin Dose 8 MG; Start 02/14/19 at 11:30 Assessment/Plan Additional Assessment/Plan Rehab- 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 Continue interdisciplinary rehab Type 2 diabetes. Hypertension. Right-sided cerebrovascular stenosis. Hypertension. Osteoarthritis. Urinary tract infection. Obesity. MINDI MCKEON MD Feb 15, 2019 13:52
[2019-02-15 14:00] VITALS: BP 150/66; PULSE 84; RESP 20
[2019-02-15] MEDS: metFORMIN 500 MG TAB PO SCH (17:24)
[2019-02-15 20:01] VITALS: BP 138/67; PULSE 88; RESP 18
[2019-02-15] MEDS: SENNA TAB PO SCH (20:36)
[2019-02-15] MEDS: ATORVASTATIN 40 MG TAB PO SCH (20:36)
[2019-02-15] MEDS: INSULIN GLARGINE [LANTus] (100 UNITS/ML) SYG SC SCH (20:37)
--- NOTE | 2019-02-15 22:43 | CONS ---
DATE OF ADMISSION: 02/10/2019 DATE OF CONSULTATION: 02/15/2019 TYPE OF CONSULTATION: Psychological. REFERRING PHYSICIAN: Mindi Perez MD CONSULTING PSYCHOLOGIST: Stephen Rico, PhD REASON FOR CONSULTATION: This consultation was requested by Dr. Hiren Perez in order to evaluate t he cognitive and emotional functioning of this patient related to her present medical condition. HISTORY OF PRESENT ILLNESS: The patient is a 64-year-old female. She presented to the hospital on 0 02/06/2019 for progressive left-sided weakness. The patient was found to have some significant cerebr ovascular stenosis. The patient has had a vascular study showing a right NM segment thrombosis/plaqu e along with significant stenosis in the right internal carotid arteries. Overall, the patient was t hen cleared medically and [facility] The patient's MRI of the brain did show multiple right-sided ischemic infarcts within the par ietal occipital lobe. FAMILY AND SOCIAL HISTORY: The patient lives in an apartment with her daughter, her son-in-law, her grandson; other goal, the patient does want to return there after discharge. MEDICATIONS: The patient is currently not on any psychotropic medications. SUBSTANCE USE: The patient reports that she does not smoke. The patient reports that she does not u se alcohol or other drugs. MENTAL STATUS EXAMINATION: APPEARANCE: The patient was seen in her wheelchair. She appears to be of average height and weight. The patient did state that she was left-handed. Report chart stated she is right-handed. It is no t clear exactly which hand she uses most. BEHAVIOR: The patient was cooperative during the consultation. The patient speaks mainly [place], a nd consultation was completed mainly in [place], although she did speak some [place] and with a combi nation of [place] and [place]. MOOD AND AFFECT: The patient's mood appeared to be slightly depressed. Affect does appear to be sli ghtly anxious. PERCEPTION: The patient reports no hallucinations or delusions. The patient was alert to person, pl ingrid, situation and time. MEMORY AND COGNITION: The patient's memory and cognition appear to be basically intact, able to marcus mber recent and remote events. She was able to name the hospital. The patient was able to say the m onth and the year. The patient was able to say the president of [place] does not remember is, cannot remember who the governor is, but she did say the mayor of the city is. The patient was able to spell the word "bert" go backwards accurately. The patient was able to do 1 serial-7 subtraction from 100 and made an error and could not correct. Overall, given her present medical situation, her cognitive abilities appear to be adequate at the present time. INTELLIGENCE: Intelligence appears to fall in the average range. INSIGHT: Fair. JUDGMENT: Fair. THOUGHT CONTENT: The patient is concerned about her present medical condition. The patient does wan t to recover and return to her previous level of functioning. DISCUSSION: The patient can likely benefit from some cognitive/behavioral psychotherapy while she is on the unit. Psychotherapy would focus on her underlying level of anxiety about her medical problem s as well as her overall mood. 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 Thank you very much, Dr. Hiren Perez, for referring this individual. Please do not hesitate to janie jaffe if you have additional questions. Dictated By: STEPHEN RICO PHD RK/ELISE Conf#: [id number] DID#: [id number] CC: MINDI PEREZ MD;*EndCC*
[2019-02-16] MEDS: ACCUCHECK AT 2AM (Patients on SS coverage) XX SCH (02:00)
[2019-02-16 02:08] VITALS: BP 127/70; PULSE 77; RESP 18
[2019-02-16 07:00] VITALS: BP 162/67; PULSE 80; RESP 18
[2019-02-16] MEDS: Insulin NOVOLOG SS MODERATE Algorithm (SS with meals and bedtime) SC SCH ×4 (07:35→21:19)
[2019-02-16] MEDS: ACCU-CHEK XX SCH ×4 (07:56→21:21)
[2019-02-16] MEDS: ASPIRIN 81 MG TAB PO SCH (08:39)
[2019-02-16] MEDS: CLOPIDOGREL 75 MG TAB PO SCH (08:39)
[2019-02-16] MEDS: DOCUSATE SODIUM 100 MG CAP PO SCH ×2 (08:39→21:20)
[2019-02-16] MEDS: NITROFURANTOIN (SR) 100 MG CAP PO SCH ×2 (08:39→21:20)
[2019-02-16] MEDS: LISINOPRIL 20 MG TAB PO SCH ×2 (08:42→21:20)
[2019-02-16] MEDS: FISH OIL 1,000 MG CAP PO SCH ×2 (08:42→21:20)
--- NOTE | 2019-02-16 10:49 | PN ---
Date/Time of Note Date/Time of Note DATE: 02/16/19 TIME: 10:48 Subjective No new complaints Objective Vital Signs Date Temp Pulse Resp B/P (MAP) Pulse Ox O2 O2 Flow FiO2 Time Delivery Rate 02/16/19 97.5 80 18 162/67 98 Room Air 07:00 (98) Intake and Output 02/15/19 02/15/19 02/16/19 1515:00 23:00 07:00 IntakeIntake Total 200 ml 460 ml 180 ml BalanceBalance 200 ml 460 ml 180 ml Exam pulm-cta sba 150 feet Results/Medications Results 24 hrs Laboratory Tests Test 02/15/19 11:57 02/15/19 17:22 02/15/19 20:34 02/16/19 07:56 Bedside Glucose 140 205 155 80 Medications Current Medications Docusate Sodium (Colace) 100 mg BID PO Last administered on 02/16/19 08:39; Admin Dose 100 MG; Start 02/10/19 at 21:00 Senna (Senokot) 1 tab HS PO Last administered on 02/15/19at 20:36; Admin Dose 1 TAB; Start 02/10/19 at 21:00 Magnesium Hydroxide (Milk Of Mag) 30 ml BID PRN PO CONSTIPATION; Start 02/10/19 at 18:30 Lactulose (Enulose) 20 gm DAILY PRN PO CONSTIPATION; Start 02/10/19 at 18:30 Bisacodyl (Dulcolax Supp) 10 mg DAILY PRN [place] CONSTIPATION; Start 02/10/19 at 18:30 Acetaminophen (Tylenol Tab) 650 mg Q4H PRN PO PAIN; Start 02/10/19 at 18:30 Miscellaneous Information (Pending Santyl Order For Wound Care) This patient priest... PRN PRN XX WOUND CARE; Start 02/10/19 at 18:30 Acetaminophen (Tylenol Tab) 650 mg Q6H PRN PO .PAIN 1-3 OR TEMP; Start 02/10/19 at 20:30 Aspirin (Aspirin) 81 mg DAILY PO Last administered on 02/16/19at 08:39; Admin Dose 81 MG; Start 02/11/19 at 09:00 Clopidogrel Bisulfate (plaVIX) 75 mg DAILY PO Last administered on 02/16/19 08:39; Admin Dose 75 MG; Start 02/11/19 at 09:00 Insulin Aspart (Novolog Insulin Pen) (Adult SC Insulin - Moder... WITH MEALS BEDTIME SC Last administered on 02/15/19 17:29; Admin Dose 4 UNIT; Start 02/10/19 at 21:00 Diagnostic Test (Pha) (Accu-Chek) 1 ea 02 XX Last administered on 02/15/19 02:21; Admin Dose 1 EA; Start 02/11/19 at 02:00 Miscellaneous Information 1 ea NOTE XX ; Start 02/10/19 at 21:00 Glucose (Glutose) 15 gm Q15M PRN PO DECREASED GLUCOSE; Start 02/10/19 at 21:00 Glucose (Glutose) 22.5 gm Q15M PRN PO DECREASED GLUCOSE; Start 02/10/19 at 21:00 Dextrose (D50w Syringe) 25 ml Q15M PRN IV DECREASED GLUCOSE; Start 02/10/19 at 21:00 Dextrose (D50w Syringe) 50 ml Q15M PRN IV DECREASED GLUCOSE; Start 02/10/19 at 21:00 Glucagon (Glucagen) 1 mg Q15M PRN IM DECREASED GLUCOSE; Start 02/10/19 at 21:00 Glucose (Glutose) 15 gm Q15M PRN BUCCAL DECREASED GLUCOSE; Start 02/10/19 at 21:00 Atorvastatin Calcium (Lipitor) 80 mg HS PO Last administered on 02/15/19 20:36; Admin Dose 80 MG; Start 02/11/19 at 21:00 Lisinopril (Zestril) 20 mg BID PO Last administered on 02/16/19 08:42; Admin Dose 20 MG; Start 02/11/19 at 21:00 Fish Oil (Fish Oil) 2,000 mg BID PO Last administered on 02/16/19 08:42; Admin Dose 2,000 MG; Start 02/11/19 at 21:00 Insulin Glargine (Lantus) 20 units DAILY@2000 SC Last administered on 02/15/19 20:37; Admin Dose 20 UNITS; Start 02/12/19 at 20:00 Metformin HCl (Glucophage) 500 mg WITH DINNER PO Last administered on 02/15/19 17:24; Admin Dose 500 MG; Start 02/12/19 at 17:35 Diagnostic Test (Pha) (Accu-Chek) 1 ea AC MEALS AND BEDTIME XX Last administered on 02/16/19at 07:56; Admin Dose 1 EA; Start 02/12/19 at 17:05 Nitrofurantoin Macrocrystals (Macrobid) 100 mg BID PO Last administered on 02/16/19at 08:39; Admin Dose 100 MG; Start 02/13/19 at 21:00; Stop 02/20/19 at 20:59 Ondansetron HCl (Zofran Odt) 8 mg Q6H PRN ODT NAUSEA Last administered on 02/15/19at 08:42; Admin Dose 8 MG; Start 02/14/19 at 11:30 Assessment/Plan Additional Assessment/Plan Rehab- 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 Steady functional gains, continue rehab Type 2 diabetes. Hypertension. Right-sided cerebrovascular stenosis. Hypertension. Osteoarthritis. Urinary tract infection. Obesity. MINDI MCKEON MD Feb 16, 2019 10:49
--- NOTE | 2019-02-16 13:04 | PN ---
Date/Time of Note Date/Time of Note DATE: 02/16/19 TIME: 13:03 Assessment/Plan VTE Prophylaxis Risk score (from Nsg)>0 risk: 3 SCD applied (from Ns): Yes Pharmacological prophylaxis: NA/contraindicated Pharm contraindication: low risk/ambulating Lines/Catheters Urinary Cath still in place: No Assessment/Plan Hospital Course SUBJECTIVE:no acute distress. OBJECTIVE: Vital signs-see below PHYSICAL EXAM: Constitutional: Well-developed, well-nourished, not in acute distress. HEENT: Head atraumatic and normocephalic. Eyes: Extraocular muscles intact. Anicteric sclerae. Pupils equal bilaterally, reactive to light. NECK: Supple without lymph node. CHEST: Clear and good breath sounds equally. No wheezing. No rhonchi. HEART: S1, S2. Regular rate and rhythm. ABDOMEN: Soft, nontender. Bowel sounds were present. EXTREMITIES: Full range of motion in all the extremities. No cyanosis, clubbing or edema. NEUROLOGIC: Alert and oriented x3. No focal deficit. No sensory deficit. PSYCHOSOCIAL: In a good mood. No signs of depression. INTEGUMENTARY: Moist mucous membranes. Good skin turgor, intact. ASSESSMENT AND PLAN: 1. Acute CVA (cerebrovascular accident) -Continue rehabilitation -Aspirin/statin 2. 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 Maximum risk factor modification 3.Diabetes mellitus type 2 in nonobese -Stable. Continue current management. 4.Essential hypertension -Needs more control. Continue MONIKA inhibitors and will add low-dose amlodipine. 5.Hyperlipidemia -On statin therapy 6. E. coli UTI. -on appropriate agent DVT prophylaxis: On aspirin/Plavix. SCDs while in bed. Patient was seen in collaboration with Dr. Loya Results 24hrs Laboratory Tests Test 02/15/19 17:22 02/15/19 20:34 02/16/19 07:56 02/16/19 12:00 Bedside Glucose 205 155 80 219 Exam/Review of Systems Exam Vitals Vital Signs Date Temp Pulse Resp B/P (MAP) Pulse Ox O2 O2 Flow FiO2 Time Delivery Rate 02/16/19 97.5 80 18 162/67 98 Room Air 07:00 (98) Intake and Output 02/15/19 02/15/19 02/16/19 1515:00 23:00 07:00 IntakeIntake Total 200 ml 460 ml 180 ml BalanceBalance 200 ml 460 ml 180 ml Results Results 24hrs Laboratory Tests Test 02/15/19 17:22 02/15/19 20:34 02/16/19 07:56 02/16/19 12:00 Bedside Glucose 205 155 80 219 Medications Medication Current Medications Docusate Sodium (Colace) 100 mg BID PO Last administered on 02/16/19 08:39; Admin Dose 100 MG; Start 02/10/19 at 21:00 Senna (Senokot) 1 tab HS PO Last administered on 02/15/19 20:36; Admin Dose 1 TAB; Start 02/10/19 at 21:00 Magnesium Hydroxide (Milk Of Mag) 30 ml BID PRN PO CONSTIPATION; Start 02/10/19 at 18:30 Lactulose (Enulose) 20 gm DAILY PRN PO CONSTIPATION; Start 02/10/19 at 18:30 Bisacodyl (Dulcolax Supp) 10 mg DAILY PRN [place] CONSTIPATION; Start 02/10/19 at 18:30 Acetaminophen (Tylenol Tab) 650 mg Q4H PRN PO PAIN; Start 02/10/19 at 18:30 Miscellaneous Information (Pending [facility] Order For Wound Care) This patient priest... PRN PRN XX WOUND CARE; Start 02/10/19 at 18:30 Acetaminophen (Tylenol Tab) 650 mg Q6H PRN PO .PAIN 1-3 OR TEMP; Start 02/10/19 at 20:30 Aspirin (Aspirin) 81 mg DAILY PO Last administered on 02/16/19 08:39; Admin Dose 81 MG; Start 02/11/19 at 09:00 Clopidogrel Bisulfate (plaVIX) 75 mg DAILY PO Last administered on 02/16/19 08:39; Admin Dose 75 MG; Start 02/11/19 at 09:00 Insulin Aspart (Novolog Insulin Pen) (Adult SC Insulin - Moder... WITH MEALS BEDTIME SC Last administered on 02/16/19 12:14; Admin Dose 4 UNIT; Start at 21:00 Diagnostic Test (Pha) (Accu-Chek) 1 ea 02 XX Last administered on 02/15/19 02:21; Admin Dose 1 EA; Start 02/11/19 at 02:00 Miscellaneous Information 1 ea NOTE XX ; Start 02/10/19 at 21:00 Glucose (Glutose) 15 gm Q15M PRN PO DECREASED GLUCOSE; Start 02/10/19 at 21:00 Glucose (Glutose) 22.5 gm Q15M PRN PO DECREASED GLUCOSE; Start 02/10/19 at 21:00 Dextrose (D50w Syringe) 25 ml Q15M PRN IV DECREASED GLUCOSE; Start 02/10/19 at 21:00 Dextrose (D50w Syringe) 50 ml Q15M PRN IV DECREASED GLUCOSE; Start 02/10/19 at 21:00 Glucagon (Glucagen) 1 mg Q15M PRN IM DECREASED GLUCOSE; Start 02/10/19 at 21:00 Glucose (Glutose) 15 gm Q15M PRN BUCCAL DECREASED GLUCOSE; Start 02/10/19 at 21:00 Atorvastatin Calcium (Lipitor) 80 mg HS PO Last administered on 02/15/19 20:36; Admin Dose 80 MG; Start 02/11/19 at 21:00 Lisinopril (Zestril) 20 mg BID PO Last administered on 02/16/19 08:42; Admin Dose 20 MG; Start 02/11/19 at 21:00 Fish Oil (Fish Oil) 2,000 mg BID PO Last administered on 02/16/19 08:42; Admin Dose 2,000 MG; Start 02/11/19 at 21:00 Insulin Glargine (Lantus) 20 units DAILY@2000 SC Last administered on 02/15/19 20:37; Admin Dose 20 UNITS; Start 02/12/19 at 20:00 Metformin HCl (Glucophage) 500 mg WITH DINNER PO Last administered on 02/15/19 17:24; Admin Dose 500 MG; Start 02/12/19 at 17:35 Diagnostic Test (Pha) (Accu-Chek) 1 ea AC MEALS AND BEDTIME XX Last administered on 02/16/19 12:17; Admin Dose 1 EA; Start 02/12/19 at 17:05 Nitrofurantoin Macrocrystals (Macrobid) 100 mg BID PO Last administered on 08:39; Admin Dose 100 MG; Start 02/13/19 at 21:00; Stop 02/20/19 at 20:59 Ondansetron HCl (Zofran Odt) 8 mg Q6H PRN ODT NAUSEA Last administered on 02/15/19at 08:42; Admin Dose 8 MG; Start 02/14/19 at 11:30 NANCY GLEASON NP Feb 16, 2019 13:04
[2019-02-16] MEDS: AMLODIPINE 2.5 MG TAB PO SCH (13:54)
[2019-02-16 13:57] VITALS: BP 161/91; PULSE 84
[2019-02-16 14:00] VITALS: BP 177/90; PULSE 82; RESP 18
[2019-02-16] MEDS: metFORMIN 500 MG TAB PO SCH (17:38)
[2019-02-16 20:43] VITALS: BP 138/66; PULSE 85; RESP 18
[2019-02-16] MEDS: INSULIN GLARGINE [LANTus] (100 UNITS/ML) SYG SC SCH (21:19)
[2019-02-16] MEDS: SENNA TAB PO SCH (21:20)
[2019-02-16] MEDS: ATORVASTATIN 40 MG TAB PO SCH (21:20)
[2019-02-17] MEDS: ACCUCHECK AT 2AM (Patients on SS coverage) XX SCH (02:29)
[2019-02-17 03:00] VITALS: BP 139/66; PULSE 79; RESP 18
[2019-02-17 07:00] VITALS: BP 147/69; PULSE 69; RESP 18
[2019-02-17] MEDS: Insulin NOVOLOG SS MODERATE Algorithm (SS with meals and bedtime) SC SCH ×4 (07:35→20:55)
[2019-02-17] MEDS: ACCU-CHEK XX SCH ×4 (08:13→21:04)
[2019-02-17] MEDS: FISH OIL 1,000 MG CAP PO SCH ×2 (09:36→20:55)
[2019-02-17] MEDS: ASPIRIN 81 MG TAB PO SCH (09:36)
[2019-02-17] MEDS: NITROFURANTOIN (SR) 100 MG CAP PO SCH ×2 (09:36→20:54)
[2019-02-17] MEDS: DOCUSATE SODIUM 100 MG CAP PO SCH ×2 (09:36→20:55)
[2019-02-17] MEDS: CLOPIDOGREL 75 MG TAB PO SCH (09:36)
[2019-02-17] MEDS: LISINOPRIL 20 MG TAB PO SCH ×2 (09:37→20:57)
[2019-02-17] MEDS: AMLODIPINE 2.5 MG TAB PO SCH (09:38)
--- NOTE | 2019-02-17 10:56 | PN ---
Date/Time of Note Date/Time of Note DATE: 02/17/19 TIME: 10:55 Subjective Patient comfortable Objective Vital Signs Date Temp Pulse Resp B/P (MAP) Pulse Ox O2 O2 Flow FiO2 Time Delivery Rate 02/17/19 98.7 69 18 147/69 98 Room Air 07:00 (95) Intake and Output 02/16/19 02/16/19 02/17/19 1515:00 23:00 07:00 IntakeIntake Total 1200 ml 240 ml OutputOutput Total 600 ml 250 ml BalanceBalance 600 ml -10 ml Exam pulm-cta cga ambulation Results/Medications Results 24 hrs Laboratory Tests Test 02/16/19 12:00 02/16/19 17:37 02/16/19 21:16 02/17/19 02:26 Bedside Glucose 219 230 H 224 H 121 Test 02/17/19 08:12 Bedside Glucose 128 Medications Current Medications Docusate Sodium (Colace) 100 mg BID PO Last administered on 02/17/19at 09:36; Admin Dose 100 MG; Start 02/10/19 at 21:00 Senna (Senokot) 1 tab HS PO Last administered on 02/16/19at 21:20; Admin Dose 1 TAB; Start 02/10/19 at 21:00 Magnesium Hydroxide (Milk Of Mag) 30 ml BID PRN PO CONSTIPATION; Start 02/10/19 at 18:30 Lactulose (Enulose) 20 gm DAILY PRN PO CONSTIPATION; Start 02/10/19 at 18:30 Bisacodyl (Dulcolax Supp) 10 mg DAILY PRN [place] CONSTIPATION; Start 02/10/19 at 1 8:30 Acetaminophen (Tylenol Tab) 650 mg Q4H PRN PO PAIN; Start 02/10/19 at 18:30 Miscellaneous Information (Pending Santyl Order For Wound Care) This patient priest... PRN PRN XX WOUND CARE; Start 02/10/19 at 18:30 Acetaminophen (Tylenol Tab) 650 mg Q6H PRN PO .PAIN 1-3 OR TEMP; Start 02/10/19 at 20:30 Aspirin (Aspirin) 81 mg DAILY PO Last administered on 02/17/19at 09:36; Admin Dose 81 MG; Start 02/11/19 at 09:00 Clopidogrel Bisulfate (plaVIX) 75 mg DAILY PO Last administered on 02/17/19at 09:36; Admin Dose 75 MG; Start 02/11/19 at 09:00 Insulin Aspart (Novolog Insulin Pen) (Adult SC Insulin - Moder... WITH MEALS BEDTIME SC Last administered on 02/16/19 21:19; Admin Dose 2 UNIT; Start 02/10/19 at 21:00 Diagnostic Test (Pha) (Accu-Chek) 1 ea 02 XX Last administered on 02/17/19at 02:29; Admin Dose 1 EA; Start 02/11/19 at 02:00 Miscellaneous Information 1 ea NOTE XX ; Start 02/10/19 at 21:00 Glucose (Glutose) 15 gm Q15M PRN PO DECREASED GLUCOSE; Start 02/10/19 at 21:00 Glucose (Glutose) 22.5 gm Q15M PRN PO DECREASED GLUCOSE; Start 02/10/19 at 21:00 Dextrose (D50w Syringe) 25 ml Q15M PRN IV DECREASED GLUCOSE; Start 02/10/19 at 21:00 Dextrose (D50w Syringe) 50 ml Q15M PRN IV DECREASED GLUCOSE; Start 02/10/19 at 21:00 Glucagon (Glucagen) 1 mg Q15M PRN IM DECREASED GLUCOSE; Start 02/10/19 at 21:00 Glucose (Glutose) 15 gm Q15M PRN BUCCAL DECREASED GLUCOSE; Start 02/10/19 at 21:00 Atorvastatin Calcium (Lipitor) 80 mg HS PO Last administered on 02/16/19at 21:20; Admin Dose 80 MG; Start 02/11/19 at 21:00 Lisinopril (Zestril) 20 mg BID PO Last administered on 02/17/19 09:37; Admin Dose 20 MG; Start 02/11/19 at 21:00 Fish Oil (Fish Oil) 2,000 mg BID PO Last administered on 02/17/19 09:36; Admin Dose 2,000 MG; Start 02/11/19 at 21:00 Insulin Glargine (Lantus) 20 units DAILY@2000 SC Last administered on 02/16/19 21:19; Admin Dose 20 UNITS; Start 02/12/19 at 20:00 Metformin HCl (Glucophage) 500 mg WITH DINNER PO Last administered on 02/16/19at 17:38; Admin Dose 500 MG; Start 4/7/19 at 17:35 Diagnostic Test (Pha) (Accu-Chek) 1 ea AC MEALS AND BEDTIME XX Last administered on 02/17/19 08:13; Admin Dose 1 EA; Start 02/12/19 at 17:05 Nitrofurantoin Macrocrystals (Macrobid) 100 mg BID PO Last administered on 02/17/19 09:36; Admin Dose 100 MG; Start 02/13/19 at 21:00; Stop 02/20/19 at 20:59 Ondansetron HCl (Zofran Odt) 8 mg Q6H PRN ODT NAUSEA Last administered on 02/15/19 08:42; Admin Dose 8 MG; Start 02/14/19 at 11:30 Amlodipine Besylate (Norvasc) 2.5 mg DAILY PO Last administered on 02/17/19 09:38; Admin Dose 2.5 MG; Start 02/16/19 at 13:30 Assessment/Plan Additional Assessment/Plan Rehab- 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 Continue rehab treatment plan Type 2 diabetes. Hypertension. Right-sided cerebrovascular stenosis. Hypertension. Osteoarthritis. Urinary tract infection. Obesity. MINDI MCKEON MD Feb 17, 2019 10:56
--- NOTE | 2019-02-17 10:57 | PN ---
Date/Time of Note Date/Time of Note DATE: 02/17/19 TIME: 10:56 Subjective Patient comfortable Objective Vital Signs Date Temp Pulse Resp B/P (MAP) Pulse Ox O2 O2 Flow FiO2 Time Delivery Rate 02/17/19 98.7 69 18 147/69 98 Room Air 07:00 (95) Intake and Output 02/16/19 02/16/19 02/17/19 1515:00 23:00 07:00 IntakeIntake Total 1200 ml 240 ml OutputOutput Total 600 ml 250 ml BalanceBalance 600 ml -10 ml Exam pulm-cta abd-soft cga ambulation Results/Medications Results 24 hrs Laboratory Tests Test 02/16/19 12:00 02/16/19 17:37 02/16/19 21:16 02/17/19 02:26 Bedside Glucose 219 230 H 224 H 121 Test 02/17/19 08:12 Bedside Glucose 128 Medications Current Medications Docusate Sodium (Colace) 100 mg BID PO Last administered on 02/17/19at 09:36; A dmin Dose 100 MG; Start 02/10/19 at 21:00 Senna (Senokot) 1 tab HS PO Last administered on 02/16/19at 21:20; Admin Dose 1 TAB; Start 02/10/19 at 21:00 Magnesium Hydroxide (Milk Of Mag) 30 ml BID PRN PO CONSTIPATION; Start 02/10/19 at 18:30 Lactulose (Enulose) 20 gm DAILY PRN PO CONSTIPATION; Start 02/10/19 at 18:30 Bisacodyl (Dulcolax Supp) 10 mg DAILY PRN [place] CONSTIPATION; Start 02/10/19 at 18:30 Acetaminophen (Tylenol Tab) 650 mg Q4H PRN PO PAIN; Start 02/10/19 at 18:30 Miscellaneous Information (Pending [facility] Order For Wound Care) This patient priest... PRN PRN XX WOUND CARE; Start 02/10/19 at 18:30 Acetaminophen (Tylenol Tab) 650 mg Q6H PRN PO .PAIN 1-3 OR TEMP; Start 02/10/19 at 20:30 Aspirin (Aspirin) 81 mg DAILY PO Last administered on 02/17/19at 09:36; Admin Dose 81 MG; Start 02/11/19 at 09:00 Clopidogrel Bisulfate (plaVIX) 75 mg DAILY PO Last administered on 02/17/19 09:36; Admin Dose 75 MG; Start 02/11/19 at 09:00 Insulin Aspart (Novolog Insulin Pen) (Adult SC Insulin - Moder... WITH MEALS BEDTIME SC Last administered on 02/16/19 21:19; Admin Dose 2 UNIT; Start 02/10/19 at 21:00 Diagnostic Test (Pha) (Accu-Chek) 1 ea 02 XX Last administered on 02/17/19at 02:29; Admin Dose 1 EA; Start 02/11/19 at 02:00 Miscellaneous Information 1 ea NOTE XX ; Start 02/10/19 at 21:00 Glucose (Glutose) 15 gm Q15M PRN PO DECREASED GLUCOSE; Start 02/10/19 at 21:00 Glucose (Glutose) 22.5 gm Q15M PRN PO DECREASED GLUCOSE; Start 02/10/19 at 21:00 Dextrose (D50w Syringe) 25 ml Q15M PRN IV DECREASED GLUCOSE; Start 02/10/19 at 21:00 Dextrose (D50w Syringe) 50 ml Q15M PRN IV DECREASED GLUCOSE; Start 02/10/19 at 21:00 Glucagon (Glucagen) 1 mg Q15M PRN IM DECREASED GLUCOSE; Start 02/10/19 at 21:00 Glucose (Glutose) 15 gm Q15M PRN BUCCAL DECREASED GLUCOSE; Start 02/10/19 at 21:00 Atorvastatin Calcium (Lipitor) 80 mg HS PO Last administered on 02/16/19at 21:20; Admin Dose 80 MG; Start 02/11/19 at 21:00 Lisinopril (Zestril) 20 mg BID PO Last administered on 02/17/19 09:37; Admin Dose 20 MG; Start 02/11/19 at 21:00 Fish Oil (Fish Oil) 2,000 mg BID PO Last administered on 02/17/19 09:36; Admin Dose 2,000 MG; Start 02/11/19 at 21:00 Insulin Glargine (Lantus) 20 units DAILY@2000 SC Last administered on 02/16/19 21:19; Admin Dose 20 UNITS; Start 02/12/19 at 20:00 Metformin HCl (Glucophage) 500 mg WITH DINNER PO Last administered on 02/16/19at 17:38; Admin Dose 500 MG; Start 02/12/19 at 17:35 Diagnostic Test (Pha) (Accu-Chek) 1 ea AC MEALS AND BEDTIME XX Last administered on 02/17/19at 08:13; Admin Dose 1 EA; Start 02/12/19 at 17:05 Nitrofurantoin Macrocrystals (Macrobid) 100 mg BID PO Last administered on 02/17/19at 09:36; Admin Dose 100 MG; Start 02/13/19 at 21:00; Stop 02/20/19 at 20:59 Ondansetron HCl (Zofran Odt) 8 mg Q6H PRN ODT NAUSEA Last administered on 02/15/19at 08:42; Admin Dose 8 MG; Start 02/14/19 at 11:30 Amlodipine Besylate (Norvasc) 2.5 mg DAILY PO Last administered on 02/17/19at 09:38; Admin Dose 2.5 MG; Start 02/16/19 at 13:30 Assessment/Plan Additional Assessment/Plan Rehab- 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 Continue rehab therapies Type 2 diabetes. Hypertension. Right-sided cerebrovascular stenosis. Hypertension. Osteoarthritis. Urinary tract infection. Obesity. MINDI MCKEON MD Feb 17, 2019 10:57
[2019-02-17 14:00] VITALS: BP 166/72; PULSE 84; RESP 18
--- NOTE | 2019-02-17 14:15 | PN ---
Date/Time of Note Date/Time of Note DATE: 02/17/19 TIME: 14:14 Assessment/Plan VTE Prophylaxis Risk score (from Ns)>0 risk: 3 SCD applied (from Ns): Yes Pharmacological prophylaxis: NA/contraindicated Pharm contraindication: other (ASA/PLAVIX) Lines/Catheters Urinary Cath still in place: No Assessment/Plan Hospital Course SUBJECTIVE:no acute distress. OBJECTIVE: Vital signs-see below PHYSICAL EXAM: Constitutional: Well-developed, well-nourished, not in acute distress. HEENT: Head atraumatic and normocephalic. Eyes: Extraocular muscles intact. Anicteric sclerae. Pupils equal bilaterally, reactive to light. NECK: Supple without lymph node. CHEST: Clear and good breath sounds equally. No wheezing. No rhonchi. HEART: S1, S2. Regular rate and rhythm. ABDOMEN: Soft, nontender. Bowel sounds were present. EXTREMITIES: Full range of motion in all the extremities. No cyanosis, clubbing or edema. NEUROLOGIC: Alert and oriented x3. No focal deficit. No sensory deficit. PSYCHOSOCIAL: In a good mood. No signs of depression. INTEGUMENTARY: Moist mucous membranes. Good skin turgor, intact. ASSESSMENT AND PLAN: 1. Acute CVA (cerebrovascular accident) -Continue rehabilitation -Aspirin/statin 2. 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 Maximum risk factor modification 3.Diabetes mellitus type 2 in nonobese -Stable. Continue current management. 4.Essential hypertension -Needs more control. Continue MONIKA inhibitors and will add low-dose amlodipine. 5.Hyperlipidemia -On statin therapy 6. E. coli UTI. -On appropriate regimen with stop date placed. DVT prophylaxis: On aspirin/Plavix. SCDs while in bed. Patient was seen in collaboration with Dr. Loya Results 24hrs Laboratory Tests Test 02/16/19 17:37 02/16/19 21:16 02/17/19 02:26 02/17/19 08:12 Bedside Glucose 230 H 224 H 121 128 Test 02/17/19 11:52 Bedside Glucose 141 Exam/Review of Systems Exam Vitals Vital Signs Date Temp Pulse Resp B/P (MAP) Pulse Ox O2 O2 Flow FiO2 Time Delivery Rate 02/17/19 98.7 69 18 147/69 98 Room Air 07:00 (95) Intake and Output 02/16/19 02/16/19 02/17/19 1515:00 23:00 07:00 IntakeIntake Total 1200 ml 240 ml OutputOutput Total 600 ml 250 ml BalanceBalance 600 ml -10 ml Results Results 24hrs Laboratory Tests Test 02/16/19 17:37 02/16/19 21:16 02/17/19 02:26 02/17/19 08:12 Bedside Glucose 230 H 224 H 121 128 Test 02/17/19 11:52 Bedside Glucose 141 Medications Medication Current Medications Docusate Sodium (Colace) 100 mg BID PO Last administered on 02/17/19 09:36; Admin Dose 100 MG; Start 02/10/19 at 21:00 Senna (Senokot) 1 tab HS PO Last administered on 02/16/19 21:20; Admin Dose 1 TAB; Start 02/10/19 at 21:00 Magnesium Hydroxide (Milk Of Mag) 30 ml BID PRN PO CONSTIPATION; Start 02/10/19 at 18:30 Lactulose (Enulose) 20 gm DAILY PRN PO CONSTIPATION; Start 02/10/19 at 18:30 Bisacodyl (Dulcolax Supp) 10 mg DAILY PRN [place] CONSTIPATION; Start 02/10/19 at 18:30 Acetaminophen (Tylenol Tab) 650 mg Q4H PRN PO PAIN; Start 02/10/19 at 18:30 Miscellaneous Information (Pending [facility] Order For Wound Care) This patient priest... PRN PRN XX WOUND CARE; Start 02/10/19 at 18:30 Acetaminophen (Tylenol Tab) 650 mg Q6H PRN PO .PAIN 1-3 OR TEMP; Start 02/10/19 at 20:30 Aspirin (Aspirin) 81 mg DAILY PO Last administered on 02/17/19 09:36; Admin Dose 81 MG; Start 02/11/19 at 09:00 Clopidogrel Bisulfate (plaVIX) 75 mg DAILY PO Last administered on 02/17/19 09:36; Admin Dose 75 MG; Start 02/11/19 at 09:00 Insulin Aspart (Novolog Insulin Pen) (Adult SC Insulin - Moder... WITH MEALS BEDTIME SC Last administered on 02/17/19at 11:58; Admin Dose 2 UNIT; Start 02/10/19 at 21:00 Diagnostic Test (Pha) (Accu-Chek) 1 ea 02 XX Last administered on 02/17/19 02:29; Admin Dose 1 EA; Start 02/11/19 at 02:00 Miscellaneous Information 1 ea NOTE XX ; Start 02/10/19 at 21:00 Glucose (Glutose) 15 gm Q15M PRN PO DECREASED GLUCOSE; Start 02/10/19 at 21:00 Glucose (Glutose) 22.5 gm Q15M PRN PO DECREASED GLUCOSE; Start 02/10/19 at 21:00 Dextrose (D50w Syringe) 25 ml Q15M PRN IV DECREASED GLUCOSE; Start 02/10/19 at 21:00 Dextrose (D50w Syringe) 50 ml Q15M PRN IV DECREASED GLUCOSE; Start 02/10/19 at 21:00 Glucagon (Glucagen) 1 mg Q15M PRN IM DECREASED GLUCOSE; Start 02/10/19 at 21:00 Glucose (Glutose) 15 gm Q15M PRN BUCCAL DECREASED GLUCOSE; Start 02/10/19 at 21:00 Atorvastatin Calcium (Lipitor) 80 mg HS PO Last administered on 02/16/19 21:20; Admin Dose 80 MG; Start 02/11/19 at 21:00 Lisinopril (Zestril) 20 mg BID PO Last administered on 02/17/19 09:37; Admin Dose 20 MG; Start 02/11/19 at 21:00 Fish Oil (Fish Oil) 2,000 mg BID PO Last administered on 02/17/19 09:36; Admin Dose 2,000 MG; Start 02/11/19 at 21:00 Insulin Glargine (Lantus) 20 units DAILY@2000 SC Last administered on 02/16/19 21:19; Admin Dose 20 UNITS; Start 02/12/19 at 20:00 Metformin HCl (Glucophage) 500 mg WITH DINNER PO Last administered on 02/16/19 17:38; Admin Dose 500 MG; Start 02/12/19 at 17:35 Diagnostic Test (Pha) (Accu-Chek) 1 ea AC MEALS AND BEDTIME XX Last administered on 02/17/19 11:59; Admin Dose 1 EA; Start 02/12/19 at 17:05 Nitrofurantoin Macrocrystals (Macrobid) 100 mg BID PO Last administered on 02/17/19 09:36; Admin Dose 100 MG; Start 02/13/19 at 21:00; Stop 02/20/19 at 20:59 Ondansetron HCl (Zofran Odt) 8 mg Q6H PRN ODT NAUSEA Last administered on 02/15/19at 08:42; Admin Dose 8 MG; Start 02/14/19 at 11:30 Amlodipine Besylate (Norvasc) 2.5 mg DAILY PO Last administered on 02/17/19at 09:38; Admin Dose 2.5 MG; Start 02/16/19 at 13:30 NANCY GLEASON NP Feb 17, 2019 14:15
[2019-02-17] MEDS: metFORMIN 500 MG TAB PO SCH (17:33)
[2019-02-17 20:00] VITALS: BP 166/73; PULSE 83; RESP 18
[2019-02-17] MEDS: ATORVASTATIN 40 MG TAB PO SCH (20:53)
[2019-02-17] MEDS: SENNA TAB PO SCH (20:55)
[2019-02-17] MEDS: INSULIN GLARGINE [LANTus] (100 UNITS/ML) SYG SC SCH (21:04)
[2019-02-18 02:00] VITALS: BP 142/68; PULSE 78; RESP 18
[2019-02-18] MEDS: ACCUCHECK AT 2AM (Patients on SS coverage) XX SCH (02:00)
[2019-02-18] MEDS: Insulin NOVOLOG SS MODERATE Algorithm (SS with meals and bedtime) SC SCH ×4 (07:35→20:18)
[2019-02-18 07:55] VITALS: BP 147/81; PULSE 81; RESP 18
[2019-02-18] MEDS: ACCU-CHEK XX SCH ×4 (07:59→20:26)
[2019-02-18] MEDS: FISH OIL 1,000 MG CAP PO SCH ×2 (08:43→20:25)
[2019-02-18] MEDS: DOCUSATE SODIUM 100 MG CAP PO SCH ×2 (08:44→20:25)
[2019-02-18] MEDS: NITROFURANTOIN (SR) 100 MG CAP PO SCH ×2 (08:44→20:26)
[2019-02-18] MEDS: CLOPIDOGREL 75 MG TAB PO SCH (08:44)
[2019-02-18] MEDS: ASPIRIN 81 MG TAB PO SCH (08:44)
[2019-02-18] MEDS: LISINOPRIL 20 MG TAB PO SCH ×2 (08:45→20:26)
[2019-02-18] MEDS: AMLODIPINE 2.5 MG TAB PO SCH (08:45)
--- NOTE | 2019-02-18 09:09 | PN ---
Date/Time of Note Date/Time of Note DATE: 02/18/19 TIME: 09:08 Assessment/Plan VTE Prophylaxis Risk score (from Nsg)>0 risk: 3 SCD applied (from Ns): Yes Pharmacological prophylaxis: NA/contraindicated Pharm contraindication: low risk/ambulating, other (asa/plavix) Lines/Catheters Urinary Cath still in place: No Assessment/Plan Hospital Course SUBJECTIVE:no acute distress. OBJECTIVE: Vital signs-see below PHYSICAL EXAM: Constitutional: Well-developed, well-nourished, not in acute distress. HEENT: Head atraumatic and normocephalic. Eyes: Extraocular muscles intact. Anicteric sclerae. Pupils equal bilaterally, reactive to light. NECK: Supple without lymph node. CHEST: Clear and good breath sounds equally. No wheezing. No rhonchi. HEART: S1, S2. Regular rate and rhythm. ABDOMEN: Soft, nontender. Bowel sounds were present. EXTREMITIES: Full range of motion in all the extremities. No cyanosis, clubbing or edema. NEUROLOGIC: Alert and oriented x3. No focal deficit. No sensory deficit. PSYCHOSOCIAL: In a good mood. No signs of depression. INTEGUMENTARY: Moist mucous membranes. Good skin turgor, intact. ASSESSMENT AND PLAN: 1. Acute CVA (cerebrovascular accident) -Continue rehabilitation -Aspirin/statin 2. 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 Maximum risk factor modification 3.Diabetes mellitus type 2 in nonobese -Stable. Continue current management. 4.Essential hypertension -Now stable -Cont.amlodipine/ACEi 5.Hyperlipidemia -On statin therapy 6. E. coli UTI. -On appropriate regimen with stop date placed. DVT prophylaxis: On aspirin/Plavix. SCDs while in bed. Patient was seen in collaboration with Dr. Loya Results 24hrs Laboratory Tests Test 02/17/19 11:52 02/17/19 17:31 02/17/19 20:53 02/18/19 01:56 Bedside Glucose 141 112 194 68 L Test 02/18/19 02:18 02/18/19 02:53 02/18/19 03:23 02/18/19 07:59 Bedside Glucose 74 106 149 90 Exam/Review of Systems Exam Vitals Vital Signs Date Temp Pulse Resp B/P (MAP) Pulse Ox O2 O2 Flow FiO2 Time Delivery Rate 02/18/19 98.1 81 18 147/81 97 Room Air 07:55 (103) Intake and Output 02/17/19 02/17/19 02/18/19 1515:00 23:00 07:00 IntakeIntake Total 1200 ml 750 ml OutputOutput Total 600 ml BalanceBalance 600 ml 750 ml Results Results 24hrs Laboratory Tests Test 02/17/19 11:52 02/17/19 17:31 02/17/19 20:53 02/18/19 01:56 Bedside Glucose 141 112 194 68 L Test 02/18/19 02:18 02/18/19 02:53 02/18/19 03:23 02/18/19 07:59 Bedside Glucose 74 106 149 90 Medications Medication Current Medications Docusate Sodium (Colace) 100 mg BID PO Last administered on 02/18/19at 08:44; Admin Dose 100 MG; Start 02/10/19 at 21:00 Senna (Senokot) 1 tab HS PO Last administered on 02/17/19at 20:55; Admin Dose 1 TAB; Start 02/10/19 at 21:00 Magnesium Hydroxide (Milk Of Mag) 30 ml BID PRN PO CONSTIPATION; Start 02/10/19 at 18:30 Lactulose (Enulose) 20 gm DAILY PRN PO CONSTIPATION; Start 02/10/19 at 18:30 Bisacodyl (Dulcolax Supp) 10 mg DAILY PRN [place] CONSTIPATION; Start 02/10/19 at 18:30 Acetaminophen (Tylenol Tab) 650 mg Q4H PRN PO PAIN; Start 02/10/19 at 18:30 Miscellaneous Information (Pending [facility] Order For Wound Care) This patient priest... PRN PRN XX WOUND CARE; Start 02/10/19 at 18:30 Acetaminophen (Tylenol Tab) 650 mg Q6H PRN PO .PAIN 1-3 OR TEMP; Start 02/10/19 at 20:30 Aspirin (Aspirin) 81 mg DAILY PO Last administered on 02/18/19at 08:44; Admin Dose 81 MG; Start 02/11/19 at 09:00 Clopidogrel Bisulfate (plaVIX) 75 mg DAILY PO Last administered on 02/18/19at 08:44; Admin Dose 75 MG; Start 02/11/19 at 09:00 Insulin Aspart (Novolog Insulin Pen) (Adult SC Insulin - Moder... WITH MEALS BEDTIME SC Last administered on 02/17/19 20:55; Admin Dose 1 UNIT; Start 02/10/19 at 21:00 Diagnostic Test (Pha) (Accu-Chek) 1 ea 02 XX Last administered on 02/17/19 02:29; Admin Dose 1 EA; Start 02/11/19 at 02:00 Miscellaneous Information 1 ea NOTE XX ; Start 02/10/19 at 21:00 Glucose (Glutose) 15 gm Q15M PRN PO DECREASED GLUCOSE; Start 02/10/19 at 21:00 Glucose (Glutose) 22.5 gm Q15M PRN PO DECREASED GLUCOSE; Start 02/10/19 at 21:00 Dextrose (D50w Syringe) 25 ml Q15M PRN IV DECREASED GLUCOSE; Start 02/10/19 at 21:00 Dextrose (D50w Syringe) 50 ml Q15M PRN IV DECREASED GLUCOSE; Start 02/10/19 at 21:00 Glucagon (Glucagen) 1 mg Q15M PRN IM DECREASED GLUCOSE; Start 02/10/19 at 21:00 Glucose (Glutose) 15 gm Q15M PRN BUCCAL DECREASED GLUCOSE; Start 02/10/19 at 21:00 Atorvastatin Calcium (Lipitor) 80 mg HS PO Last administered on 02/17/19 20:53; Admin Dose 80 MG; Start 02/11/19 at 21:00 Lisinopril (Zestril) 20 mg BID PO Last administered on 02/18/19 08:45; Admin Dose 20 MG; Start 02/11/19 at 21:00 Fish Oil (Fish Oil) 2,000 mg BID PO Last administered on 02/18/19 08:43; Admin Dose 2,000 MG; Start 02/11/19 at 21:00 Insulin Glargine (Lantus) 20 units DAILY@2000 SC Last administered on 02/17/19 21:04; Admin Dose 20 UNITS; Start 02/12/19 at 20:00 Metformin HCl (Glucophage) 500 mg WITH DINNER PO Last administered on 02/17/19 17:33; Admin Dose 500 MG; Start 02/12/19 at 17:35 Diagnostic Test (Pha) (Accu-Chek) 1 ea AC MEALS AND BEDTIME XX Last administered on 02/18/19 07:59; Admin Dose 1 EA; Start 02/12/19 at 17:05 Nitrofurantoin Macrocrystals (Macrobid) 100 mg BID PO Last administered on 02/18/19at 08:44; Admin Dose 100 MG; Start 02/13/19 at 21:00; Stop 02/20/19 at 20:59 Ondansetron HCl (Zofran Odt) 8 mg Q6H PRN ODT NAUSEA Last administered on at 08:42; Admin Dose 8 MG; Start 02/14/19 at 11:30 Amlodipine Besylate (Norvasc) 2.5 mg DAILY PO Last administered on 02/18/19at 08:45; Admin Dose 2.5 MG; Start 02/16/19 at 13:30 NANCY GLEASON NP Feb 18, 2019 09:09
--- NOTE | 2019-02-18 10:47 | PN ---
Date/Time of Note Date/Time of Note DATE: 02/18/19 TIME: 10:46 Subjective Motivated Objective Vital Signs Date Temp Pulse Resp B/P (MAP) Pulse Ox O2 O2 Flow FiO2 Time Delivery Rate 02/18/19 98.1 81 18 147/81 97 Room Air 07:55 (103) Intake and Output 02/17/19 02/17/19 02/18/19 1515:00 23:00 07:00 IntakeIntake Total 1200 ml 750 ml OutputOutput Total 600 ml BalanceBalance 600 ml 750 ml Exam pulm-cta sba/cga ambulation Results/Medications Results 24 hrs Laboratory Tests Test 02/17/19 11:52 02/17/19 17:31 02/17/19 20:53 02/18/19 01:56 Bedside Glucose 141 112 194 68 L Test 02/18/19 02:18 02/18/19 02:53 02/18/19 03:23 02/18/19 07:59 Bedside Glucose 74 106 149 90 Medications Current Medications Docusate Sodium (Colace) 100 mg BID PO Last administered on 02/18/19at 08:44; Admin Dose 100 MG; Start 02/10/19 at 21:00 Senna (Senokot) 1 tab HS PO Last administered on 02/17/19at 20:55; Admin Dose 1 TAB; Start 02/10/19 at 21:00 Magnesium Hydroxide (Milk Of Mag) 30 ml BID PRN PO CONSTIPATION; Start 02/10/19 at 18:30 Lactulose (Enulose) 20 gm DAILY PRN PO CONSTIPATION; Start 02/10/19 at 18:30 Bisacodyl (Dulcolax Supp) 10 mg DAILY PRN [place] CONSTIPATION; Start 02/10/19 at 18:30 Acetaminophen (Tylenol Tab) 650 mg Q4H PRN PO PAIN; Start 02/10/19 at 18:30 Miscellaneous Information ([facility]) This patient priest... PRN PRN XX WOUND CARE; Start 02/10/19 at 18:30 Acetaminophen (Tylenol Tab) 650 mg Q6H PRN PO .PAIN 1-3 OR TEMP; Start 02/10/19 at 20:30 Aspirin (Aspirin) 81 mg DAILY PO Last administered on 02/18/19at 08:44; Admin Dose 81 MG; Start 02/11/19 at 09:00 Clopidogrel Bisulfate (plaVIX) 75 mg DAILY PO Last administered on 02/18/19 08:44; Admin Dose 75 MG; Start 02/11/19 at 09:00 Insulin Aspart (Novolog Insulin Pen) (Adult SC Insulin - Moder... WITH MEALS BEDTIME SC Last administered on 02/17/19 20:55; Admin Dose 1 UNIT; Start 02/10/19 at 21:00 Diagnostic Test (Pha) (Accu-Chek) 1 ea 02 XX Last administered on 02/17/19 02:29; Admin Dose 1 EA; Start 02/11/19 at 02:00 Miscellaneous Information 1 ea NOTE XX ; Start 02/10/19 at 21:00 Glucose (Glutose) 15 gm Q15M PRN PO DECREASED GLUCOSE; Start 02/10/19 at 21:00 Glucose (Glutose) 22.5 gm Q15M PRN PO DECREASED GLUCOSE; Start 02/10/19 at 21:00 Dextrose (D50w Syringe) 25 ml Q15M PRN IV DECREASED GLUCOSE; Start 02/10/19 at 21:00 Dextrose (D50w Syringe) 50 ml Q15M PRN IV DECREASED GLUCOSE; Start 02/10/19 at 21:00 Glucagon (Glucagen) 1 mg Q15M PRN IM DECREASED GLUCOSE; Start 02/10/19 at 21:00 Glucose (Glutose) 15 gm Q15M PRN BUCCAL DECREASED GLUCOSE; Start 02/10/19 at 21:00 Atorvastatin Calcium (Lipitor) 80 mg HS PO Last administered on 02/17/19 20:53; Admin Dose 80 MG; Start 02/11/19 at 21:00 Lisinopril (Zestril) 20 mg BID PO Last administered on 02/18/19 08:45; Admin Dose 20 MG; Start 02/11/19 at 21:00 Fish Oil (Fish Oil) 2,000 mg BID PO Last administered on 02/18/19 08:43; Admin Dose 2,000 MG; Start 02/11/19 at 21:00 Insulin Glargine (Lantus) 20 units DAILY@2000 SC Last administered on 02/17/19 21:04; Admin Dose 20 UNITS; Start 02/12/19 at 20:00 Metformin HCl (Glucophage) 500 mg WITH DINNER PO Last administered on 02/17/19 17:33; Admin Dose 500 MG; Start 02/12/19 at 17:35 Diagnostic Test (Pha) (Accu-Chek) 1 ea AC MEALS AND BEDTIME XX Last administered on 02/18/19 07:59; Admin Dose 1 EA; Start 02/12/19 at 17:05 Nitrofurantoin Macrocrystals (Macrobid) 100 mg BID PO Last administered on 02/18/19 08:44; Admin Dose 100 MG; Start 02/13/19 at 21:00; Stop 02/20/19 at 20:59 Ondansetron HCl (Zofran Odt) 8 mg Q6H PRN ODT NAUSEA Last administered on 02/15/19 08:42; Admin Dose 8 MG; Start 02/14/19 at 11:30 Amlodipine Besylate (Norvasc) 2.5 mg DAILY PO Last administered on 02/18/19 08:45; Admin Dose 2.5 MG; Start 02/16/19 at 13:30 Assessment/Plan Additional Assessment/Plan Rehab- 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 Continue rehab therapies Type 2 diabetes. Hypertension. Right-sided cerebrovascular stenosis. Hypertension. Osteoarthritis. Urinary tract infection. Obesity. MINDI MCKEON MD Feb 18, 2019 10:47
[2019-02-18 14:00] VITALS: BP 164/75; PULSE 86; RESP 18
[2019-02-18] MEDS: metFORMIN 500 MG TAB PO SCH (17:34)
[2019-02-18 20:16] VITALS: BP 141/65; PULSE 82; RESP 18
[2019-02-18] MEDS: INSULIN GLARGINE [LANTus] (100 UNITS/ML) SYG SC SCH (20:17)
[2019-02-18] MEDS: ATORVASTATIN 40 MG TAB PO SCH (20:25)
[2019-02-18] MEDS: SENNA TAB PO SCH (20:25)
[2019-02-19 02:00] VITALS: BP 134/70; PULSE 76; RESP 18
[2019-02-19] MEDS: ACCUCHECK AT 2AM (Patients on SS coverage) XX SCH (02:30)
[2019-02-19 07:00] VITALS: BP 133/64; PULSE 77; RESP 18
[2019-02-19] MEDS: ACCU-CHEK XX SCH ×4 (07:05→21:07)
[2019-02-19] MEDS: Insulin NOVOLOG SS MODERATE Algorithm (SS with meals and bedtime) SC SCH ×4 (07:35→21:06)
[2019-02-19 08:00] VITALS: BP 170/80; PULSE 83; RESP 19
[2019-02-19] MEDS: NITROFURANTOIN (SR) 100 MG CAP PO SCH ×2 (08:38→20:59)
[2019-02-19] MEDS: CLOPIDOGREL 75 MG TAB PO SCH (08:39)
[2019-02-19] MEDS: FISH OIL 1,000 MG CAP PO SCH ×2 (08:40→20:59)
[2019-02-19] MEDS: AMLODIPINE 2.5 MG TAB PO SCH (08:44)
[2019-02-19] MEDS: ASPIRIN 81 MG TAB PO SCH (08:45)
[2019-02-19] MEDS: DOCUSATE SODIUM 100 MG CAP PO SCH ×2 (08:45→20:59)
[2019-02-19] MEDS: LISINOPRIL 20 MG TAB PO SCH ×2 (08:46→21:00)
--- NOTE | 2019-02-19 13:19 | PN ---
Date/Time of Note Date/Time of Note DATE: 02/19/19 TIME: : Assessment/Plan VTE Prophylaxis Risk score (from Nsg)>0 risk: 3 SCD applied (from Ns): Yes Pharmacological prophylaxis: NA/contraindicated Pharm contraindication: low risk/ambulating, other (ASA/PLAVIX) Lines/Catheters Urinary Cath still in place: No Assessment/Plan Hospital Course SUBJECTIVE:no acute distress. OBJECTIVE: Vital signs-see below PHYSICAL EXAM: Constitutional: Well-developed, well-nourished, not in acute distress. HEENT: Head atraumatic and normocephalic. Eyes: Extraocular muscles intact. Anicteric sclerae. Pupils equal bilaterally, reactive to light. NECK: Supple without lymph node. CHEST: Clear and good breath sounds equally. No wheezing. No rhonchi. HEART: S1, S2. Regular rate and rhythm. ABDOMEN: Soft, nontender. Bowel sounds were present. EXTREMITIES: Full range of motion in all the extremities. No cyanosis, clubbing or edema. NEUROLOGIC: Alert and oriented x3. No focal deficit. No sensory deficit. PSYCHOSOCIAL: In a good mood. No signs of depression. INTEGUMENTARY: Moist mucous membranes. Good skin turgor, intact. ASSESSMENT AND PLAN: 1. Acute CVA (cerebrovascular accident) -Continue rehabilitation -Aspirin/statin 2. 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 Maximum risk factor modification 3.Diabetes mellitus type 2 in nonobese -Stable. Continue current management. 4.Essential hypertension -Now stable -Cont.amlodipine/ACEi 5.Hyperlipidemia -On statin therapy 6. E. coli UTI. -On appropriate regimen with stop date placed. DVT prophylaxis: On aspirin/Plavix. SCDs while in bed. Patient was seen in collaboration with Dr. Loya Results 24hrs Laboratory Tests Test 02/18/19 17:32 02/18/19 20:12 02/19/19 02:23 02/19/19 08:00 Bedside Glucose 150 228 H 101 70 Test 02/19/19 12:06 Bedside Glucose 212 Exam/Review of Systems Exam Vitals Vital Signs Date Temp Pulse Resp B/P (MAP) Pulse Ox O2 O2 Flow FiO2 Time Delivery Rate 02/19/19 98.4 77 18 133/64 97 Room Air 07:00 (87) Intake and Output 02/18/19 02/18/19 02/19/19 1414:59 22:59 06:59 IntakeIntake Total 560 ml 200 ml 550 ml BalanceBalance 560 ml 200 ml 550 ml Results Results 24hrs Laboratory Tests Test 02/18/19 17:32 02/18/19 20:12 02/19/19 02:23 02/19/19 08:00 Bedside Glucose 150 228 H 101 70 Test 02/19/19 12:06 Bedside Glucose 212 Medications Medication Current Medications Docusate Sodium (Colace) 100 mg BID PO Last administered on 02/19/19at 08:45; Admin Dose 100 MG; Start 02/10/19 at 21:00 Senna (Senokot) 1 tab HS PO Last administered on 02/18/19at 20:25; Admin Dose 1 TAB; Start 02/10/19 at 21:00 Magnesium Hydroxide (Milk Of Mag) 30 ml BID PRN PO CONSTIPATION; Start 02/10/19 at 18:30 Lactulose (Enulose) 20 gm DAILY PRN PO CONSTIPATION; Start 02/10/19 at 18:30 Bisacodyl (Dulcolax Supp) 10 mg DAILY PRN [place] CONSTIPATION; Start 02/10/19 at 18:30 Acetaminophen (Tylenol Tab) 650 mg Q4H PRN PO PAIN; Start 02/10/19 at 18:30 Miscellaneous Information (Pending [facility] Order For Wound Care) This patient priest... PRN PRN XX WOUND CARE; Start 02/10/19 at 18:30 Acetaminophen (Tylenol Tab) 650 mg Q6H PRN PO .PAIN 1-3 OR TEMP; Start 02/10/19 at 20:30 Aspirin (Aspirin) 81 mg DAILY PO Last administered on 02/19/19at 08:45; Admin Dose 81 MG; Start 02/11/19 at 09:00 Clopidogrel Bisulfate (plaVIX) 75 mg DAILY PO Last administered on 02/19/19at 08:39; Admin Dose 75 MG; Start 02/11/19 at 09:00 Insulin Aspart (Novolog Insulin Pen) (Adult SC Insulin - Moder... WITH MEALS BEDTIME SC Last administered on 02/19/19at 12:11; Admin Dose 4 UNIT; Start 02/10/19 at 21:00 Diagnostic Test (Pha) (Accu-Chek) 1 ea 02 XX Last administered on 02/19/19 02:30; Admin Dose 1 EA; Start 02/11/19 at 02:00 Miscellaneous Information 1 ea NOTE XX ; Start 02/10/19 at 21:00 Glucose (Glutose) 15 gm Q15M PRN PO DECREASED GLUCOSE; Start 02/10/19 at 21:00 Glucose (Glutose) 22.5 gm Q15M PRN PO DECREASED GLUCOSE; Start 02/10/19 at 21:00 Dextrose (D50w Syringe) 25 ml Q15M PRN IV DECREASED GLUCOSE; Start 02/10/19 at 21:00 Dextrose (D50w Syringe) 50 ml Q15M PRN IV DECREASED GLUCOSE; Start 02/10/19 at 21:00 Glucagon (Glucagen) 1 mg Q15M PRN IM DECREASED GLUCOSE; Start 02/10/19 at 21:00 Glucose (Glutose) 15 gm Q15M PRN BUCCAL DECREASED GLUCOSE; Start 02/10/19 at 21:00 Atorvastatin Calcium (Lipitor) 80 mg HS PO Last administered on 02/18/19at 20:25; Admin Dose 80 MG; Start 02/11/19 at 21:00 Lisinopril (Zestril) 20 mg BID PO Last administered on 02/19/19 08:46; Admin Dose 20 MG; Start 02/11/19 at 21:00 Fish Oil (Fish Oil) 2,000 mg BID PO Last administered on 02/19/19 08:40; Admin Dose 2,000 MG; Start 02/11/19 at 21:00 Insulin Glargine (Lantus) 20 units DAILY@2000 SC Last administered on 02/18/19 20:17; Admin Dose 20 UNITS; Start 02/12/19 at 20:00 Metformin HCl (Glucophage) 500 mg WITH DINNER PO Last administered on 02/18/19 17:34; Admin Dose 500 MG; Start 02/12/19 at 17:35 Diagnostic Test (Pha) (Accu-Chek) 1 ea AC MEALS AND BEDTIME XX Last administered on 02/19/19 12:08; Admin Dose 1 EA; Start 02/12/19 at 17:05 Nitrofurantoin Macrocrystals (Macrobid) 100 mg BID PO Last administered on 02/19/19 08:38; Admin Dose 100 MG; Start 02/13/19 at 21:00; Stop 02/20/19 at 20:59 Ondansetron HCl (Zofran Odt) 8 mg Q6H PRN ODT NAUSEA Last administered on 02/15/19at 08:42; Admin Dose 8 MG; Start 02/14/19 at 11:30 Amlodipine Besylate (Norvasc) 2.5 mg DAILY PO Last administered on 02/19/19at 08:44; Admin Dose 2.5 MG; Start 02/16/19 at 13:30 NANCY GLEASON V. DIRECTOR OF INSTRUCTIONAL TECHNOLOGY Feb 19, 2019 13:19
[2019-02-19 14:00] VITALS: BP 175/79; PULSE 87; RESP 18
[2019-02-19] MEDS: metFORMIN 500 MG TAB PO SCH (17:44)
[2019-02-19 20:00] VITALS: BP 130/60; PULSE 85; RESP 18
[2019-02-19] MEDS: SENNA TAB PO SCH (20:59)
[2019-02-19] MEDS: ATORVASTATIN 40 MG TAB PO SCH (20:59)
[2019-02-19] MEDS: INSULIN GLARGINE [LANTus] (100 UNITS/ML) SYG SC SCH (21:07)
[2019-02-19] MEDS: ONDANSETRON (ODT) 4 MG TAB ODT PRN (22:59)
[2019-02-20 02:21] VITALS: BP 143/65; PULSE 86; RESP 18
[2019-02-20] MEDS: ACCUCHECK AT 2AM (Patients on SS coverage) XX SCH (02:56)
[2019-02-20 07:00] VITALS: BP 133/76; PULSE 89; RESP 18
[2019-02-20] MEDS: Insulin NOVOLOG SS MODERATE Algorithm (SS with meals and bedtime) SC SCH ×4 (07:35→20:53)
[2019-02-20] MEDS: ACCU-CHEK XX SCH ×4 (07:46→21:01)
[2019-02-20] MEDS: CLOPIDOGREL 75 MG TAB PO SCH (08:40)
[2019-02-20] MEDS: ASPIRIN 81 MG TAB PO SCH (08:40)
[2019-02-20] MEDS: DOCUSATE SODIUM 100 MG CAP PO SCH ×2 (08:40→20:18)
[2019-02-20] MEDS: LISINOPRIL 20 MG TAB PO SCH ×2 (08:41→20:19)
[2019-02-20] MEDS: NITROFURANTOIN (SR) 100 MG CAP PO SCH (08:42)
[2019-02-20] MEDS: FISH OIL 1,000 MG CAP PO SCH ×2 (08:42→20:18)
[2019-02-20] MEDS: AMLODIPINE 2.5 MG TAB PO SCH (08:42)
--- NOTE | 2019-02-20 12:59 | PN ---
Date/Time of Note Date/Time of Note DATE: 02/20/19 TIME: 12:59 Objective Vital Signs Date Temp Pulse Resp B/P (MAP) Pulse Ox O2 O2 Flow FiO2 Time Delivery Rate 02/20/19 98.2 89 18 133/76 98 Room Air 07:00 (95) Intake and Output 02/19/19 02/19/19 02/20/19 1515:00 23:00 07:00 IntakeIntake Total 100 ml 1040 ml 300 ml BalanceBalance 100 ml 1040 ml 300 ml Exam INTERDISCIPLINARY TEAM CONFERENCE Attended by PT, OT, ST, Production Line Operator, Social Work, Rehabilitation Nursing, Agriculture Instructor and Co Founder And DirectorSenior Analytic Consultant Exam: Pulm- cta Abd- soft BOWEL- Cont BLADDER-Cont SKIN- intact OT- DRESSING- cga BATHING-cga TOILETING-cga PT- BED MOBILITY- sba TRANSFERS-cga AMBULATION-cga 100 feet SPEECH- COGNITION- doing well with functional cognitive tasks A/P- Interdisciplinary team conference held today. Please see interdisciplinary sheet. Working toward d.c. on 02/22 with post discharge follow up of physical therapy, occupational therapy. Results/Medications Results 24 hrs Laboratory Tests Test 02/19/19 17:37 02/19/19 20:55 02/20/19 03:01 02/20/19 07:46 Bedside Glucose 175 262 H 177 119 Test 02/20/19 11:58 Bedside Glucose 306 H Medications Current Medications Docusate Sodium (Colace) 100 mg BID PO Last administered on 02/20/19at 08:40; Admin Dose 100 MG; Start 02/10/19 at 21:00 Senna (Senokot) 1 tab HS PO Last administered on 02/19/19at 20:59; Admin Dose 1 TAB; Start 02/10/19 at 21:00 Magnesium Hydroxide (Milk Of Mag) 30 ml BID PRN PO CONSTIPATION; Start 02/10/19 at 18:30 Lactulose (Enulose) 20 gm DAILY PRN PO CONSTIPATION; Start 02/10/19 at 18:30 Bisacodyl (Dulcolax Supp) 10 mg DAILY PRN [place] CONSTIPATION; Start 02/10/19 at 18:30 Acetaminophen (Tylenol Tab) 650 mg Q4H PRN PO PAIN; Start 02/10/19 at 18:30 Miscellaneous Information (Pending [facility] Order For Wound Care) This patient priest... PRN PRN XX WOUND CARE; Start 02/10/19 at 18:30 Acetaminophen (Tylenol Tab) 650 mg Q6H PRN PO .PAIN 1-3 OR TEMP; Start 02/10/19 at 20:30 Aspirin (Aspirin) 81 mg DAILY PO Last administered on 02/20/19at 08:40; Admin Dose 81 MG; Start 02/11/19 at 09:00 Clopidogrel Bisulfate (plaVIX) 75 mg DAILY PO Last administered on 02/20/19at 08:40; Admin Dose 75 MG; Start 02/11/19 at 09:00 Insulin Aspart (Novolog Insulin Pen) (Adult SC Insulin - Moder... WITH MEALS BEDTIME SC Last administered on 02/20/19 12:01; Admin Dose 10 UNIT; Start 02/10/19 at 21:00 Diagnostic Test (Pha) (Accu-Chek) 1 ea 02 XX Last administered on 02/20/19at 02:56; Admin Dose 1 EA; Start 02/11/19 at 02:00 Miscellaneous Information 1 ea NOTE XX ; Start 02/10/19 at 21:00 Glucose (Glutose) 15 gm Q15M PRN PO DECREASED GLUCOSE; Start 02/10/19 at 21:00 Glucose (Glutose) 22.5 gm Q15M PRN PO DECREASED GLUCOSE; Start 02/10/19 at 21:00 Dextrose (D50w Syringe) 25 ml Q15M PRN IV DECREASED GLUCOSE; Start 02/10/19 at 21:00 Dextrose (D50w Syringe) 50 ml Q15M PRN IV DECREASED GLUCOSE; Start 02/10/19 at 21:00 Glucagon (Glucagen) 1 mg Q15M PRN IM DECREASED GLUCOSE; Start 02/10/19 at 21:00 Glucose (Glutose) 15 gm Q15M PRN BUCCAL DECREASED GLUCOSE; Start 02/10/19 at 21:00 Atorvastatin Calcium (Lipitor) 80 mg HS PO Last administered on 02/19/19at 20:59; Admin Dose 80 MG; Start 02/11/19 at 21:00 Lisinopril (Zestril) 20 mg BID PO Last administered on 02/20/19 08:41; Admin Dose 20 MG; Start 02/11/19 at 21:00 Fish Oil (Fish Oil) 2,000 mg BID PO Last administered on 02/20/19 08:42; Admin Dose 2,000 MG; Start 02/11/19 at 21:00 Insulin Glargine (Lantus) 20 units DAILY@2000 SC Last administered on 02/19/19 21:07; Admin Dose 20 UNITS; Start 02/12/19 at 20:00 Metformin HCl (Glucophage) 500 mg WITH DINNER PO Last administered on 02/19/19 17:44; Admin Dose 500 MG; Start 02/12/19 at 17:35 Diagnostic Test (Pha) (Accu-Chek) 1 ea AC MEALS AND BEDTIME XX Last administered on 02/20/19 12:01; Admin Dose 1 EA; Start 02/12/19 at 17:05 Nitrofurantoin Macrocrystals (Macrobid) 100 mg BID PO Last administered on 02/20/19 08:42; Admin Dose 100 MG; Start 02/13/19 at 21:00; Stop 02/20/19 at 20:59 Ondansetron HCl (Zofran Odt) 8 mg Q6H PRN ODT NAUSEA Last administered on 02/19/19 22:59; Admin Dose 8 MG; Start 02/14/19 at 11:30 Amlodipine Besylate (Norvasc) 2.5 mg DAILY PO Last administered on 02/20/19 08:42; Admin Dose 2.5 MG; Start 02/16/19 at 13:30 MINDI MCKEON MD Feb 20, 2019 12:59
--- NOTE | 2019-02-20 13:57 | PN ---
Date/Time of Note Date/Time of Note DATE: 02/20/19 TIME: 13:55 Assessment/Plan VTE Prophylaxis Risk score (from Nsg)>0 risk: 3 SCD applied (from Ns): Yes Pharmacological prophylaxis: NA/contraindicated Pharm contraindication: low risk/ambulating, other (asa/plavix) Lines/Catheters Urinary Cath still in place: No Assessment/Plan Hospital Course SUBJECTIVE:no acute distress. OBJECTIVE: Vital signs-see below PHYSICAL EXAM: Constitutional: Well-developed, well-nourished, not in acute distress. HEENT: Head atraumatic and normocephalic. Eyes: Extraocular muscles intact. Anicteric sclerae. Pupils equal bilaterally, reactive to light. NECK: Supple without lymph node. CHEST: Clear and good breath sounds equally. No wheezing. No rhonchi. HEART: S1, S2. Regular rate and rhythm. ABDOMEN: Soft, nontender. Bowel sounds were present. EXTREMITIES: Full range of motion in all the extremities. No cyanosis, clubbing or edema. NEUROLOGIC: Alert and oriented x3. No focal deficit. No sensory deficit. PSYCHOSOCIAL: In a good mood. No signs of depression. INTEGUMENTARY: Moist mucous membranes. Good skin turgor, intact. ASSESSMENT AND PLAN: 1. Acute CVA (cerebrovascular accident) -Continue rehabilitation -Aspirin/statin 2. 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 Maximum risk factor modification 3.Diabetes mellitus type 2 in nonobese -One episode BS 306-pt eat home food.-Staff to educate pt - Continue current management. 4.Essential hypertension -Now stable -Cont.amlodipine/ACEi 5.Hyperlipidemia -On statin therapy 6. E. coli UTI. -s/p abx completion DVT prophylaxis: On aspirin/Plavix. SCDs while in bed. Patient was seen in collaboration with Dr. Loya Results 24hrs Laboratory Tests Test 02/19/19 17:37 02/19/19 20:55 02/20/19 03:01 02/20/19 07:46 Bedside Glucose 175 262 H 177 119 Test 02/20/19 11:58 Bedside Glucose 306 H Exam/Review of Systems Exam Vitals Vital Signs Date Temp Pulse Resp B/P (MAP) Pulse Ox O2 O2 Flow FiO2 Time Delivery Rate 02/20/19 98.2 89 18 133/76 98 Room Air 07:00 (95) Intake and Output 02/19/19 02/19/19 02/20/19 1414:59 22:59 06:59 IntakeIntake Total 100 ml 1040 ml 300 ml BalanceBalance 100 ml 1040 ml 300 ml Results Results 24hrs Laboratory Tests Test 02/19/19 17:37 02/19/19 20:55 02/20/19 03:01 02/20/19 07:46 Bedside Glucose 175 262 H 177 119 Test 02/20/19 11:58 Bedside Glucose 306 H Medications Medication Current Medications Docusate Sodium (Colace) 100 mg BID PO Last administered on 02/20/19 08:40; Admin Dose 100 MG; Start 02/10/19 at 21:00 Senna (Senokot) 1 tab HS PO Last administered on 02/19/19at 20:59; Admin Dose 1 TAB; Start 02/10/19 at 21:00 Magnesium Hydroxide (Milk Of Mag) 30 ml BID PRN PO CONSTIPATION; Start 02/10/19 at 18:30 Lactulose (Enulose) 20 gm DAILY PRN PO CONSTIPATION; Start 02/10/19 at 18:30 Bisacodyl (Dulcolax Supp) 10 mg DAILY PRN [place] CONSTIPATION; Start 02/10/19 at 18:30 Acetaminophen (Tylenol Tab) 650 mg Q4H PRN PO PAIN; Start 02/10/19 at 18:30 Miscellaneous Information (Pending [facility] Order For Wound Care) This patient priest... PRN PRN XX WOUND CARE; Start 02/10/19 at 18:30 Acetaminophen (Tylenol Tab) 650 mg Q6H PRN PO .PAIN 1-3 OR TEMP; Start 02/10/19 at 20:30 Aspirin (Aspirin) 81 mg DAILY PO Last administered on 02/20/19at 08:40; Admin Dose 81 MG; Start 02/11/19 at 09:00 Clopidogrel Bisulfate (plaVIX) 75 mg DAILY PO Last administered on 02/20/19at 08:40; Admin Dose 75 MG; Start 02/11/19 at 09:00 Insulin Aspart (Novolog Insulin Pen) (Adult SC Insulin - Moder... WITH MEALS BEDTIME SC Last administered on 02/20/19at 12:01; Admin Dose 10 UNIT; Start 02/10/19 at 21:00 Diagnostic Test (Pha) (Accu-Chek) 1 ea 02 XX Last administered on 02/20/19at 02:56; Admin Dose 1 EA; Start 02/11/19 at 02:00 Miscellaneous Information 1 ea NOTE XX ; Start 02/10/19 at 21:00 Glucose (Glutose) 15 gm Q15M PRN PO DECREASED GLUCOSE; Start 02/10/19 at 21:00 Glucose (Glutose) 22.5 gm Q15M PRN PO DECREASED GLUCOSE; Start 02/10/19 at 21:00 Dextrose (D50w Syringe) 25 ml Q15M PRN IV DECREASED GLUCOSE; Start 02/10/19 at 21:00 Dextrose (D50w Syringe) 50 ml Q15M PRN IV DECREASED GLUCOSE; Start 02/10/19 at 21:00 Glucagon (Glucagen) 1 mg Q15M PRN IM DECREASED GLUCOSE; Start 02/10/19 at 21:00 Glucose (Glutose) 15 gm Q15M PRN BUCCAL DECREASED GLUCOSE; Start 02/10/19 at 21:00 Atorvastatin Calcium (Lipitor) 80 mg HS PO Last administered on 02/19/19at 20:59; Admin Dose 80 MG; Start 02/11/19 at 21:00 Lisinopril (Zestril) 20 mg BID PO Last administered on 02/20/19 08:41; Admin Dose 20 MG; Start 02/11/19 at 21:00 Fish Oil (Fish Oil) 2,000 mg BID PO Last administered on 02/20/19 08:42; Admin Dose 2,000 MG; Start 02/11/19 at 21:00 Insulin Glargine (Lantus) 20 units DAILY@2000 SC Last administered on 02/19/19at 21:07; Admin Dose 20 UNITS; Start 02/12/19 at 20:00 Metformin HCl (Glucophage) 500 mg WITH DINNER PO Last administered on 02/19/19 17:44; Admin Dose 500 MG; Start 02/12/19 at 17:35 Diagnostic Test (Pha) (Accu-Chek) 1 ea AC MEALS AND BEDTIME XX Last administer ed on 02/20/19at 12:01; Admin Dose 1 EA; Start 02/12/19 at 17:05 Nitrofurantoin Macrocrystals (Macrobid) 100 mg BID PO Last administered on 02/20/19 08:42; Admin Dose 100 MG; Start 02/13/19 at 21:00; Stop 02/20/19 at 20:59 Ondansetron HCl (Zofran Odt) 8 mg Q6H PRN ODT NAUSEA Last administered on 02/19/19 22:59; Admin Dose 8 MG; Start 02/14/19 at 11:30 Amlodipine Besylate (Norvasc) 2.5 mg DAILY PO Last administered on 02/20/19 08:42; Admin Dose 2.5 MG; Start 02/16/19 at 13:30 NANCY GLEASON NP Feb 20, 2019 13:57
[2019-02-20 14:00] VITALS: BP 139/63; PULSE 86; RESP 18
[2019-02-20] MEDS: metFORMIN 500 MG TAB PO SCH (17:20)
[2019-02-20] MEDS: SENNA TAB PO SCH (20:18)
[2019-02-20] MEDS: ATORVASTATIN 40 MG TAB PO SCH (20:18)
[2019-02-20 20:27] VITALS: BP 140/67; PULSE 88; RESP 18
[2019-02-20] MEDS: INSULIN GLARGINE [LANTus] (100 UNITS/ML) SYG SC SCH (20:53)
[2019-02-21 02:00] VITALS: BP 134/72; PULSE 82; RESP 18
[2019-02-21] MEDS: ACCUCHECK AT 2AM (Patients on SS coverage) XX SCH (02:07)
[2019-02-21 07:00] VITALS: BP 139/66; PULSE 91; RESP 18
[2019-02-21] MEDS: ACCU-CHEK XX SCH ×4 (07:05→20:43)
[2019-02-21] MEDS: Insulin NOVOLOG SS MODERATE Algorithm (SS with meals and bedtime) SC SCH ×4 (07:35→20:39)
[2019-02-21] MEDS: AMLODIPINE 2.5 MG TAB PO SCH (08:43)
[2019-02-21] MEDS: FISH OIL 1,000 MG CAP PO SCH ×2 (08:43→20:42)
[2019-02-21] MEDS: LISINOPRIL 20 MG TAB PO SCH ×2 (08:43→20:43)
[2019-02-21] MEDS: ASPIRIN 81 MG TAB PO SCH (08:43)
[2019-02-21] MEDS: DOCUSATE SODIUM 100 MG CAP PO SCH ×2 (08:43→20:42)
[2019-02-21] MEDS: CLOPIDOGREL 75 MG TAB PO SCH (08:43)
--- NOTE | 2019-02-21 10:57 | PN ---
Date/Time of Note Date/Time of Note DATE: 02/21/19 TIME: 10:56 Subjective No new complaints Objective Vital Signs Date Temp Pulse Resp B/P (MAP) Pulse Ox O2 O2 Flow FiO2 Time Delivery Rate 02/21/19 98.0 91 18 139/66 97 Room Air 07:00 (90) Intake and Output 02/20/19 02/20/19 02/21/19 1515:00 23:00 07:00 IntakeIntake Total 1400 ml 850 ml OutputOutput Total 600 ml BalanceBalance 800 ml 850 ml Exam pulm-cta sba ambulation Results/Medications Results 24 hrs Laboratory Tests Test 02/20/19 11:58 02/20/19 17:11 02/20/19 20:15 02/21/19 01:54 Bedside Glucose 306 H 144 223 H 84 Test 02/21/19 08:37 Bedside Glucose 83 Medications Current Medications Docusate Sodium (Colace) 100 mg BID PO Last administered on 02/21/19at 08:43; Admin Dose 100 MG; Start 02/10/19 at 21:00 Senna (Senokot) 1 tab HS PO Last administered on 02/20/19at 20:18; Admin Dose 1 TAB; Start 02/10/19 at 21:00 Magnesium Hydroxide (Milk Of Mag) 30 ml BID PRN PO CONSTIPATION Last administered on 02/21/19at 06:24; Admin Dose 30 ML; Start 02/10/19 at 18:30 Lactulose (Enulose) 20 gm DAILY PRN PO CONSTIPATION; Start 02/10/19 at 18:30 Bisacodyl (Dulcolax Supp) 10 mg DAILY PRN [place] CONSTIPATION; Start 02/10/19 at 18:30 Acetaminophen (Tylenol Tab) 650 mg Q4H PRN PO PAIN; Start 02/10/19 at 18:30 Miscellaneous Information (Pending [facility] Order For Wound Care) This patient priest... PRN PRN XX WOUND CARE; Start 02/10/19 at 18:30 Acetaminophen (Tylenol Tab) 650 mg Q6H PRN PO .PAIN 1-3 OR TEMP; Start 02/10/19 at 20:30 Aspirin (Aspirin) 81 mg DAILY PO Last administered on 02/21/19at 08:43; Admin Dose 81 MG; Start 02/11/19 at 09:00 Clopidogrel Bisulfate (plaVIX) 75 mg DAILY PO Last administered on 02/21/19 08:43; Admin Dose 75 MG; Start 02/11/19 at 09:00 Insulin Aspart (Novolog Insulin Pen) (Adult SC Insulin - Moder... WITH MEALS BEDTIME SC Last administered on 02/20/19 20:53; Admin Dose 2 UNIT; Start 02/10/19 at 21:00 Diagnostic Test (Pha) (Accu-Chek) 1 ea 02 XX Last administered on 02/21/19 02:07; Admin Dose 1 EA; Start 02/11/19 at 02:00 Miscellaneous Information 1 ea NOTE XX ; Start 02/10/19 at 21:00 Glucose (Glutose) 15 gm Q15M PRN PO DECREASED GLUCOSE; Start 02/10/19 at 21:00 Glucose (Glutose) 22.5 gm Q15M PRN PO DECREASED GLUCOSE; Start 02/10/19 at 21:00 Dextrose (D50w Syringe) 25 ml Q15M PRN IV DECREASED GLUCOSE; Start 02/10/19 at 21:00 Dextrose (D50w Syringe) 50 ml Q15M PRN IV DECREASED GLUCOSE; Start 02/10/19 at 21:00 Glucagon (Glucagen) 1 mg Q15M PRN IM DECREASED GLUCOSE; Start 02/10/19 at 21:00 Glucose (Glutose) 15 gm Q15M PRN BUCCAL DECREASED GLUCOSE; Start 02/10/19 at 21:00 Atorvastatin Calcium (Lipitor) 80 mg HS PO Last administered on 02/20/19 20:18; Admin Dose 80 MG; Start 02/11/19 at 21:00 Lisinopril (Zestril) 20 mg BID PO Last administered on 02/21/19 08:43; Admin Dose 20 MG; Start 02/11/19 at 21:00 Fish Oil (Fish Oil) 2,000 mg BID PO Last administered on 02/21/19 08:43; Admin Dose 2,000 MG; Start 02/11/19 at 21:00 Insulin Glargine (Lantus) 20 units DAILY@2000 SC Last administered on 02/20/19 20:53; Admin Dose 20 UNITS; Start 02/12/19 at 20:00 Metformin HCl (Glucophage) 500 mg WITH DINNER PO Last administered on 4/15/19at 17:20; Admin Dose 500 MG; Start 02/12/19 at 17:35 Diagnostic Test (Pha) (Accu-Chek) 1 ea AC MEALS AND BEDTIME XX Last administered on 02/21/19at 07:05; Admin Dose 1 EA; Start 02/12/19 at 17:05 Ondansetron HCl (Zofran Odt) 8 mg Q6H PRN ODT NAUSEA Last administered on 02/19/19at 22:59; Admin Dose 8 MG; Start 02/14/19 at 11:30 Amlodipine Besylate (Norvasc) 2.5 mg DAILY PO Last administered on 02/21/19at 08:43; Admin Dose 2.5 MG; Start 02/16/19 at 13:30 Assessment/Plan Additional Assessment/Plan Rehab- Ischemic right CVA involving parietal occipital lobes. Continue rehab therapies, anticipate home with family tomorrow Type 2 diabetes. Hypertension. Right-sided cerebrovascular stenosis. Hypertension. Osteoarthritis. Urinary tract infection. Obesity. MINDI MCKEON MD Feb 21, 2019 10:57
[2019-02-21 14:00] VITALS: BP 165/71; PULSE 91; RESP 18
--- NOTE | 2019-02-21 14:12 | PN ---
Date/Time of Note Date/Time of Note DATE: 02/21/19 TIME: 14:11 Assessment/Plan VTE Prophylaxis Risk score (from Nsg)>0 risk: 3 SCD applied (from Ns): Yes Pharmacological prophylaxis: NA/contraindicated Pharm contraindication: low risk/ambulating, other (asa/plavix) Lines/Catheters Urinary Cath still in place: No Assessment/Plan Hospital Course SUBJECTIVE:no acute distress. OBJECTIVE: Vital signs-see below PHYSICAL EXAM: Constitutional: Well-developed, well-nourished, not in acute distress. HEENT: Head atraumatic and normocephalic. Eyes: Extraocular muscles intact. Anicteric sclerae. Pupils equal bilaterally, reactive to light. NECK: Supple without lymph node. CHEST: Clear and good breath sounds equally. No wheezing. No rhonchi. HEART: S1, S2. Regular rate and rhythm. ABDOMEN: Soft, nontender. Bowel sounds were present. EXTREMITIES: Full range of motion in all the extremities. No cyanosis, clubbing or edema. NEUROLOGIC: Alert and oriented x3. No focal deficit. No sensory deficit. PSYCHOSOCIAL: In a good mood. No signs of depression. INTEGUMENTARY: Moist mucous membranes. Good skin turgor, intact. ASSESSMENT AND PLAN: 1. Acute CVA (cerebrovascular accident) -Continue rehabilitation -Aspirin/statin 2. 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 Maximum risk factor modification 3.Diabetes mellitus type 2 in nonobese -One episode BS 306-pt eat home food.-Staff to educate pt - Continue current management. 4.Essential hypertension -Now stable -Cont.amlodipine/ACEi 5.Hyperlipidemia -On statin therapy 6. E. coli UTI. -treated w/a full course abx -stable DVT prophylaxis: On aspirin/Plavix. SCDs while in bed. Patient was seen in collaboration with Dr. Loya Results 24hrs Laboratory Tests Test 02/20/19 17:11 02/20/19 20:15 02/21/19 01:54 02/21/19 08:37 Bedside Glucose 144 223 H 84 83 Test 02/21/19 12:14 Bedside Glucose 194 Exam/Review of Systems Exam Vitals Vital Signs Date Temp Pulse Resp B/P (MAP) Pulse Ox O2 O2 Flow FiO2 Time Delivery Rate 02/21/19 98.0 91 18 139/66 97 Room Air 07:00 (90) Intake and Output 02/20/19 02/20/19 02/21/19 1515:00 23:00 07:00 IntakeIntake Total 1400 ml 850 ml OutputOutput Total 600 ml BalanceBalance 800 ml 850 ml Results Results 24hrs Laboratory Tests Test 02/20/19 17:11 02/20/19 20:15 02/21/19 01:54 02/21/19 08:37 Bedside Glucose 144 223 H 84 83 Test 02/21/19 12:14 Bedside Glucose 194 Medications Medication Current Medications Docusate Sodium (Colace) 100 mg BID PO Last administered on 02/21/19 08:43; Admin Dose 100 MG; Start 02/10/19 at 21:00 Senna (Senokot) 1 tab HS PO Last administered on 02/20/19 20:18; Admin Dose 1 TAB; Start 02/10/19 at 21:00 Magnesium Hydroxide (Milk Of Mag) 30 ml BID PRN PO CONSTIPATION Last administered on 02/21/19 06:24; Admin Dose 30 ML; Start 02/10/19 at 18:30 Lactulose (Enulose) 20 gm DAILY PRN PO CONSTIPATION; Start 02/10/19 at 18:30 Bisacodyl (Dulcolax Supp) 10 mg DAILY PRN [place] CONSTIPATION; Start 02/10/19 at 18:30 Acetaminophen (Tylenol Tab) 650 mg Q4H PRN PO PAIN; Start 02/10/19 at 18:30 [facility] This patient priest... PRN PRN XX WOUND CARE; Start 02/10/19 at 18:30 Acetaminophen (Tylenol Tab) 650 mg Q6H PRN PO .PAIN 1-3 OR TEMP; Start 02/10/19 at 20:30 Aspirin (Aspirin) 81 mg DAILY PO Last administered on 02/21/19 08:43; Admin Dose 81 MG; Start 02/11/19 at 09:00 Clopidogrel Bisulfate (plaVIX) 75 mg DAILY PO Last administered on 02/21/19 08:43; Admin Dose 75 MG; Start 02/11/19 at 09:00 Insulin Aspart (Novolog Insulin Pen) (Adult SC Insulin - Moder... WITH MEALS BEDTIME SC Last administered on 4/16/19at 12:23; Admin Dose 4 UNIT; Start 02/10/19 at 21:00 Diagnostic Test (Pha) (Accu-Chek) 1 ea 02 XX Last administered on 02/21/19 02:07; Admin Dose 1 EA; Start 02/11/19 at 02:00 Miscellaneous Information 1 ea NOTE XX ; Start 02/10/19 at 21:00 Glucose (Glutose) 15 gm Q15M PRN PO DECREASED GLUCOSE; Start 02/10/19 at 21:00 Glucose (Glutose) 22.5 gm Q15M PRN PO DECREASED GLUCOSE; Start 02/10/19 at 21:00 Dextrose (D50w Syringe) 25 ml Q15M PRN IV DECREASED GLUCOSE; Start 02/10/19 at 21:00 Dextrose (D50w Syringe) 50 ml Q15M PRN IV DECREASED GLUCOSE; Start 02/10/19 at 21:00 Glucagon (Glucagen) 1 mg Q15M PRN IM DECREASED GLUCOSE; Start 02/10/19 at 21:00 Glucose (Glutose) 15 gm Q15M PRN BUCCAL DECREASED GLUCOSE; Start 02/10/19 at 21:00 Atorvastatin Calcium (Lipitor) 80 mg HS PO Last administered on 02/20/19 20:18; Admin Dose 80 MG; Start 02/11/19 at 21:00 Lisinopril (Zestril) 20 mg BID PO Last administered on 02/21/19 08:43; Admin Dose 20 MG; Start 02/11/19 at 21:00 Fish Oil (Fish Oil) 2,000 mg BID PO Last administered on 02/21/19 08:43; Admin Dose 2,000 MG; Start 02/11/19 at 21:00 Insulin Glargine (Lantus) 20 units DAILY@2000 SC Last administered on 02/20/19 20:53; Admin Dose 20 UNITS; Start 02/12/19 at 20:00 Metformin HCl (Glucophage) 500 mg WITH DINNER PO Last administered on 02/20/19 17:20; Admin Dose 500 MG; Start 02/12/19 at 17:35 Diagnostic Test (Pha) (Accu-Chek) 1 ea AC MEALS AND BEDTIME XX Last administered on 02/21/19 12:23; Admin Dose 1 EA; Start 02/12/19 at 17:05 Ondansetron HCl (Zofran Odt) 8 mg Q6H PRN ODT NAUSEA Last administered on 02/19/19at 22:59; Admin Dose 8 MG; Start 02/14/19 at 11:30 Amlodipine Besylate (Norvasc) 2.5 mg DAILY PO Last administered on 02/21/19at 08:43; Admin Dose 2.5 MG; Start 02/16/19 at 13:30 NANCY GLEASON NP Feb 21, 2019 14:12
[2019-02-21] MEDS: metFORMIN 500 MG TAB PO SCH (17:27)
[2019-02-21] MEDS: INSULIN GLARGINE [LANTus] (100 UNITS/ML) SYG SC SCH (20:38)
[2019-02-21] MEDS: SENNA TAB PO SCH (20:42)
[2019-02-21] MEDS: ATORVASTATIN 40 MG TAB PO SCH (20:43)
[2019-02-21 21:16] VITALS: BP 140/74; PULSE 104; RESP 18
[2019-02-22] MEDS: ACCUCHECK AT 2AM (Patients on SS coverage) XX SCH (02:00)
[2019-02-22 04:24] VITALS: BP 138/72; PULSE 96; RESP 18
[2019-02-22] MEDS: ACCU-CHEK XX SCH ×3 (07:05→12:27)
[2019-02-22 07:12] VITALS: BP 177/78; PULSE 87; RESP 18
[2019-02-22] MEDS: Insulin NOVOLOG SS MODERATE Algorithm (SS with meals and bedtime) SC SCH ×2 (07:35→12:25)
[2019-02-22 08:00] VITALS: BP 189/75; PULSE 79; RESP 16
[2019-02-22] MEDS: FISH OIL 1,000 MG CAP PO SCH (09:36)
[2019-02-22] MEDS: CLOPIDOGREL 75 MG TAB PO SCH (09:37)
[2019-02-22] MEDS: DOCUSATE SODIUM 100 MG CAP PO SCH (09:38)
[2019-02-22] MEDS: LISINOPRIL 20 MG TAB PO SCH (09:42)
[2019-02-22] MEDS: AMLODIPINE 2.5 MG TAB PO SCH (09:43)
[2019-02-22] MEDS: ASPIRIN 81 MG TAB PO SCH (09:44)
[2019-02-22 10:01] VITALS: BP 151/70
--- NOTE | 2019-02-22 12:29 | DS ---
Date/Time of Note Date/Time of Note DATE: 02/22/19 TIME: 12:28 Discharge Summary Admission/Discharge Info Admit Date/Time Feb 10, 2019 at 17:37 Discharge Date/Time Discharge Diagnosis 1. 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 2. Type 2 diabetes. 3. Hypertension. 4. Right-sided cerebrovascular stenosis. 5. Hypertension. 6. Osteoarthritis. 7. Urinary tract infection. 8. Obesity 9. Improvements in self care and mobility. Patient Condition: Good Hospital Course The patient was admitted for comprehensive interdisciplinary rehabilitation and made steady functional gains from a Min/cga level to a S/ MS level for self care tasks and mobility including ambulating over 150 feet with the use of a FWW. Patient is being discharged home with the recommendation of home health PT, OT and RN follow up. The DC meds are per the medication reconciliation sheet. The discharge equipment recommendations include: FWW, BSC, shower chair. The patient will follow up with PMD upon DC. Home Meds Active Scripts Insulin Aspart* (Novolog Insulin Pen*) 100 Unit/Ml Soln, 0 UNIT SC WITH MEALS BEDTIME for 30 Days Prov:JULIUS HO MD 02/10/19 [Insulin Glargine] 100 UNITS/ML SOLN No Conflict Check, 22 UNITS SC DAILY@2000 for 30 Days Prov:JULIUS HO MD 02/10/19 Aspirin (Aspirin) 81 Mg Chew, 81 MG PO DAILY for 30 Days, TAB Prov:JULIUS HO MD 02/10/19 Lisinopril* (Lisinopril*) 20 Mg Tablet, 20 MG PO DAILY for 30 Days, TAB Prov:JUILUS HO MD 02/10/19 Atorvastatin* (Atorvastatin*) 40 Mg Tablet, 40 MG PO HS for 30 Days, TAB Prov:JULIUS HO MD 02/10/19 Amlodipine Besylate* (Amlodipine Besylate*) 10 Mg Tablet, 10 MG PO DAILY for 30 Days, TAB Prov:JULIUS HO MD 02/10/19 Clopidogrel Bisulfate (Clopidogrel) 75 Mg Tablet, 75 MG PO DAILY for 30 Days, TAB Prov:JULIUS HO MD 02/10/19 Primary Care Provider Di Perez Pending Labs Laboratory Tests Test 02/21/19 17:26 02/21/19 20:34 02/22/19 03:29 02/22/19 08:05 Bedside 238 216 137 75 Glucose mg/dL (70-220) mg/dL (70-220) mg/dL (70-220) mg/dL (70-220) Test 02/22/19 12:19 Bedside 167 Glucose mg/dL (70-220) MINDI MCKEON MD Feb 22, 2019 12:29
--- NOTE | 2019-02-22 14:55 | PN ---
Date/Time of Note Date/Time of Note DATE: 02/22/19 TIME: 14:52 Assessment/Plan VTE Prophylaxis Risk score (from Ns)>0 risk: 3 SCD applied (from Ns): Yes Pharmacological prophylaxis: NA/contraindicated Pharm contraindication: other (asa/plavix) Lines/Catheters Urinary Cath still in place: No Assessment/Plan Hospital Course SUBJECTIVE:no acute distress. For discharge today OBJECTIVE: Vital signs-see below PHYSICAL EXAM: Constitutional: Well-developed, well-nourished, not in acute distress. HEENT: Head atraumatic and normocephalic. Eyes: Extraocular muscles intact. Anicteric sclerae. Pupils equal bilaterally, reactive to light. NECK: Supple without lymph node. CHEST: Clear and good breath sounds equally. No wheezing. No rhonchi. HEART: S1, S2. Regular rate and rhythm. ABDOMEN: Soft, nontender. Bowel sounds were present. EXTREMITIES: Full range of motion in all the extremities. No cyanosis, clubbing or edema. NEUROLOGIC: Alert and oriented x3. No focal deficit. No sensory deficit. PSYCHOSOCIAL: In a good mood. No signs of depression. INTEGUMENTARY: Moist mucous membranes. Good skin turgor, intact. ASSESSMENT AND PLAN: 1. Acute CVA (cerebrovascular accident) -Continue rehabilitation -Aspirin/statin 2. 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 Maximum risk factor modification 3.Diabetes mellitus type 2 in nonobese -stable -Continue current management. 4.Essential hypertension -Now stable -Cont.amlodipine/ACEi 5.Hyperlipidemia -On statin therapy 6. E. coli UTI. -treated w/a full course abx -stable DVT prophylaxis: On aspirin/Plavix. SCDs while in bed. Agree with discharge planning on current medications Patient was seen in collaboration with Dr. Loya Results 24hrs Laboratory Tests Test 02/21/19 17:26 02/21/19 20:34 02/22/19 03:29 02/22/19 08:05 Bedside Glucose 238 H 216 137 75 Test 02/22/19 12:19 Bedside Glucose 167 Exam/Review of Systems Exam Vitals Vital Signs Date Temp Pulse Resp B/P (MAP) Pulse Ox O2 O2 Flow FiO2 Time Delivery Rate 02/22/19 151/70 10:01 (97) 02/22/19 98.7 79 16 99 Room Air 08:00 Intake and Output 02/21/19 02/21/19 02/22/19 1515:00 23:00 07:00 IntakeIntake Total 1200 ml 800 ml OutputOutput Total 800 ml 500 ml BalanceBalance 400 ml 300 ml Results Results 24hrs Laboratory Tests Test 02/21/19 17:26 02/21/19 20:34 02/22/19 03:29 02/22/19 08:05 Bedside Glucose 238 H 216 137 75 Test 02/22/19 12:19 Bedside Glucose 167 Medications Medication Current Medications Docusate Sodium (Colace) 100 mg BID PO Last administered on 02/22/19 09:38; Admin Dose 100 MG; Start 02/10/19 at 21:00 Senna (Senokot) 1 tab HS PO Last administered on 02/21/19at 20:42; Admin Dose 1 TAB; Start 02/10/19 at 21:00 Magnesium Hydroxide (Milk Of Mag) 30 ml BID PRN PO CONSTIPATION Last administered on 02/21/19at 06:24; Admin Dose 30 ML; Start 02/10/19 at 18:30 Lactulose (Enulose) 20 gm DAILY PRN PO CONSTIPATION; Start 02/10/19 at 18:30 Bisacodyl (Dulcolax Supp) 10 mg DAILY PRN [place] CONSTIPATION; Start 02/10/19 at 18:30 Acetaminophen (Tylenol Tab) 650 mg Q4H PRN PO PAIN; Start 02/10/19 at 18:30 [facility] This patient priest... PRN PRN XX WOUND CARE; Start 02/10/19 at 18:30 Acetaminophen (Tylenol Tab) 650 mg Q6H PRN PO .PAIN 1-3 OR TEMP; Start 02/10/19 at 20:30 Aspirin (Aspirin) 81 mg DAILY PO Last administered on 02/22/19at 09:44; Admin Dose 81 MG; Start 02/11/19 at 09:00 Clopidogrel Bisulfate (plaVIX) 75 mg DAILY PO Last administered on 02/22/19at 09:37; Admin Dose 75 MG; Start 02/11/19 at 09:00 Insulin Aspart (Novolog Insulin Pen) (Adult SC Insulin - Moder... WITH MEALS BEDTIME SC Last administered on 02/22/19at 12:25; Admin Dose 2 UNIT; Start at 21:00 Diagnostic Test (Pha) (Accu-Chek) 1 ea 02 XX Last administered on 02/22/19at 02:00; Admin Dose 1 EA; Start 02/11/19 at 02:00 Miscellaneous Information 1 ea NOTE XX ; Start 02/10/19 at 21:00 Glucose (Glutose) 15 gm Q15M PRN PO DECREASED GLUCOSE; Start 02/10/19 at 21:00 Glucose (Glutose) 22.5 gm Q15M PRN PO DECREASED GLUCOSE; Start 02/10/19 at 21:00 Dextrose (D50w Syringe) 25 ml Q15M PRN IV DECREASED GLUCOSE; Start 02/10/19 at 21:00 Dextrose (D50w Syringe) 50 ml Q15M PRN IV DECREASED GLUCOSE; Start 02/10/19 at 21:00 Glucagon (Glucagen) 1 mg Q15M PRN IM DECREASED GLUCOSE; Start 02/10/19 at 21:00 Glucose (Glutose) 15 gm Q15M PRN BUCCAL DECREASED GLUCOSE; Start 02/10/19 at 21:00 Atorvastatin Calcium (Lipitor) 80 mg HS PO Last administered on 02/21/19at 20:43; Admin Dose 80 MG; Start 02/11/19 at 21:00 Lisinopril (Zestril) 20 mg BID PO Last administered on 02/22/19at 09:42; Admin D ose 20 MG; Start 02/11/19 at 21:00 Fish Oil (Fish Oil) 2,000 mg BID PO Last administered on 02/22/19at 09:36; Admin Dose 2,000 MG; Start 02/11/19 at 21:00 Insulin Glargine (Lantus) 20 units DAILY@2000 SC Last administered on 02/21/19at 20:38; Admin Dose 20 UNITS; Start 02/12/19 at 20:00 Metformin HCl (Glucophage) 500 mg WITH DINNER PO Last administered on 02/21/19 17:27; Admin Dose 500 MG; Start 02/12/19 at 17:35 Diagnostic Test (Pha) (Accu-Chek) 1 ea AC MEALS AND BEDTIME XX Last administered on 02/21/19at 20:43; Admin Dose 1 EA; Start 02/12/19 at 17:05 Ondansetron HCl (Zofran Odt) 8 mg Q6H PRN ODT NAUSEA Last administered on 02/19/19at 22:59; Admin Dose 8 MG; Start 02/14/19 at 11:30 Amlodipine Besylate (Norvasc) 2.5 mg DAILY PO Last administered on 02/22/19at 09:43; Admin Dose 2.5 MG; Start 02/16/19 at 13:30 NANCY GLEASON V. [employer] Feb 22, 2019 14:55
== END 2019-02-22 16:15 | disposition home health service (06) | DRG 57 ==
LOC: VRC 17:37
PROVIDERS: ADMIT Physical Medicine & Rehabilitation; ATTEND Internal Medicine Pulmonary Disease
PROC: F07Z9FZ Gait Training/Functional Ambulation Treatment using Assistive, Adaptive, Supportive or Protective Equipment (ICD-10-PCS; principal; 2019-02-10)
PROC: F07Z8FZ Transfer Training Treatment using Assistive, Adaptive, Supportive or Protective Equipment (ICD-10-PCS; 2019-02-10)
PROC: F07Z5FZ Bed Mobility Treatment using Assistive, Adaptive, Supportive or Protective Equipment (ICD-10-PCS; 2019-02-10)
PROC: F08Z2FZ Grooming/Personal Hygiene Treatment using Assistive, Adaptive, Supportive or Protective Equipment (ICD-10-PCS; 2019-02-10)
PROC: F08Z0FZ Bathing/Showering Techniques Treatment using Assistive, Adaptive, Supportive or Protective Equipment (ICD-10-PCS; 2019-02-10)
PROC: F08Z1FZ Dressing Techniques Treatment using Assistive, Adaptive, Supportive or Protective Equipment (ICD-10-PCS; 2019-02-10)
DX: I69.354 Hemiplegia and hemiparesis following cerebral infarction affecting left non-dominant side (principal); N39.0 Urinary tract infection, site not specified; I50.32 Chronic diastolic (congestive) heart failure; F06.31 Mood disorder due to known physiological condition with depressive features; I11.0 Hypertensive heart disease with heart failure; M19.91 Primary osteoarthritis, unspecified site; I65.21 Occlusion and stenosis of right carotid artery; E78.2 Mixed hyperlipidemia; F17.200 Nicotine dependence, unspecified, uncomplicated; B96.20 Unspecified Escherichia coli [E. coli] as the cause of diseases classified elsewhere; E11.9 Type 2 diabetes mellitus without complications; Z79.82 Long term (current) use of aspirin; Z79.02 Long term (current) use of antithrombotics/antiplatelets; Z79.4 Long term (current) use of insulin
CPT/HCPCS: 80053; 81001; 82962; 83036; 85025; 87081; 87086; 97110; 97112; 97116; 97150; 97163; 97167; 97530; 97535; J1815

== ENCOUNTER 2019-03-21 15:47 | Inpatient (IN) | payer MEDICARE, MEDICAID ==
[~2019-03-21] VITALS: Ht 152.4 cm; Wt 54.6 kg
--- NOTE | 2019-03-21 18:17 | ERD ---
ER Documentation Chief Complaint Chief Complaint CVA 1 1/2 MOS AGO. HAS RIGHT SIDE WEAKNESS, TODAY SLEEPY, HAS HIGH BS HPI History provided by family member. This is a 64-year-old female history of insulin-dependent diabetes, stroke 1-1/2 months ago with residual left upper extremity weakness. The patient has not been herself today. There is an intermittent episode where the patient had garbled speech similar to when she had her stroke. This is since resolved. Blood sugar was noted to be elevated despite compliance with medication regimen. Currently the patient denies any headache chest pain or shortness of breath. She has no difficulty speaking. She has baseline neurologic deficits from prior stroke. No acute changes. ROS All systems reviewed and are negative except as per history of present illness. Medications Home Meds Active Scripts Insulin Aspart* (Novolog Insulin Pen*) 100 Unit/Ml Soln, 0 UNIT SC WITH MEALS BEDTIME for 30 Days Prov:JULIUS HO MD 02/10/19 [Insulin Glargine] 100 UNITS/ML SOLN No Conflict Check, 22 UNITS SC DAILY@1999 for 30 Days Prov:JULIUS HO MD 02/10/19 Aspirin (Aspirin) 81 Mg Chew, 81 MG PO DAILY for 30 Days, TAB Prov:JULIUS HO MD 02/10/19 Lisinopril* (Lisinopril*) 20 Mg Tablet, 20 MG PO DAILY for 30 Days, TAB Prov:JULIUS HO MD 02/10/19 Atorvastatin* (Atorvastatin*) 40 Mg Tablet, 40 MG PO HS for 30 Days, TAB Prov:JULIUS HO MD 02/10/19 Amlodipine Besylate* (Amlodipine Besylate*) 10 Mg Tablet, 10 MG PO DAILY for 30 Days, TAB Prov:JULIUS HO MD 02/10/19 Clopidogrel Bisulfate (Clopidogrel) 75 Mg Tablet, 75 MG PO DAILY for 30 Days, TAB Prov:JULIUS HO MD 02/10/19 Allergies Allergies: Coded Allergies: No Known Allergy (Unverified , 02/06/19) PMhx/Soc History of Surgery: No Anesthesia Reaction: No Hx Neurological Disorder: Yes (Stroke with left sided weakness) Hx Respiratory Disorders: No Hx Cardiac Disorders: Yes (HTN) Hx Psychiatric Problems: No Hx Miscellaneous Medical Probl: No Hx Alcohol Use: No Hx Substance Use: No Hx Tobacco Use: Yes FmHx Family History: diabetes Physical Exam Vitals Vital Signs Date Temp Pulse Resp B/P (MAP) Pulse Ox O2 O2 Flow FiO2 Time Delivery Rate 03/21/19 97.8 90 18 148/65 99 16:01 (92) Physical Exam General: Well developed, well nourished, no acute distress Head: Normocephalic, atraumatic. Eyes: Pupils equally reactive, EOM intact ENT: Moist mucous membranes Neck: Supple, no lymphadenopathy Respiratory: Lungs clear bilaterally, no distress Cardiovascular: RRR, no murmurs, rubs, or gallops Abdominal: Soft, non-tender, non-distended, no peritoneal signs : Deferred MSK: No edema, no unilateral swelling, some weakness and motor deficit to the left upper extremity that is reported to be baseline Neurologic: Alert and oriented, moving all extremities baseline left upper extremity weakness, normal speech, no acute changes from prior stroke no acute s troke changes Skin: No rash Psych: Normal mood Result Diagram: 03/21/197 03/21/191856 Results 24 hrs Laboratory Tests Test 03/21/19 18:57 White Blood Count 5.5 10^3/ul Red Blood Count 4.28 10^6/ul Hemoglobin 13.2 g/dl Hematocrit 38.0 % Mean Corpuscular Volume 88.8 fl Mean Corpuscular Hemoglobin 30.8 pg Mean Corpuscular Hemoglobin Concent 34.7 g/dl Red Cell Distribution Width 12.8 % Platelet Count 200 10^3/UL Mean Platelet Volume 10.3 fl Immature Granulocytes % 0.200 % Neutrophils % 47.1 % Lymphocytes % 42.3 % Monocytes % 8.2 % Eosinophils % 1.3 % Basophils % 0.9 % Nucleated Red Blood Cells % 0.0 /100WBC Immature Granulocytes # 0.010 10^3/ul Neutrophils # 2.6 10^3/ul Lymphocytes # 2.3 10^3/ul Monocytes # 0.5 10^3/ul Eosinophils # 0.1 10^3/ul Basophils # 0.1 10^3/ul Nucleated Red Blood Cells # 0.0 10^3/ul Sodium Level 139 mmol/L Potassium Level 4.1 mmol/L Chloride Level 103 mmol/L Carbon Dioxide Level 25 mmol/L Anion Gap 11 Blood Urea Nitrogen 22 mg/dl Creatinine 0.71 mg/dl Est Glomerular Filtrat Rate mL/min > 60 mL/min Glucose Level 432 mg/dl Calcium Level 9.9 mg/dl Phosphorus Level 3.3 mg/dl Magnesium Level 1.8 mg/dl Troponin I 0.054 ng/ml Current Medications Medications Dose Sig/Moreno Start Time Status Last (Trade) Ordered Route PRN Stop Time Admin Dose Reason Admin Sodium 580 ml @ ONCE ONCE 03/21/19 DC 03/21/19 Chloride 580 mls/hr IV 18:30 19:10 03/21/19 19:29 Insulin 8 unit ONCE ONCE 03/21/19 UNV Human SC 20:00 Lispro 03/21/19 20:01 (Humalog) Diagnostic 1 ea 2 HRS AFTER 03/21/19 UNV Test (Pha) HUMALOG ONCE 20:30 (Accu-Chek) XX 03/21/19 20:31 Procedures/MDM EKG, MONITORS, & DIAGNOSTIC IMAGING: EKG: I reviewed and interpreted a 12-lead EKG. Rhythm: Normal sinus rhythm Ectopy: None Arrhythmia: None Intervals: No abnormalities ST segments: No elevations or depressions T waves: No contiguous inversions Interpretation: No acute cardiac ischemia Chest x-ray: I reviewed and interpreted a 1 view of the chest Mediastinum: No enlargement Cardiac silhouette: No cardiomegaly Airspace: Clear lung tomlin bilaterally without evidence of pneumothorax Bones: No evidence of fracture Interpretation: No acute cardiopulmonary process CT Brain: IMPRESSION: 1. No evidence of acute intracranial pathology. 2. Mild diffuse atrophy. 3. There is mild microvascular ischemic disease in the periventricular and deep white matter. 4. Fairly chronic-appearing infarcts in the right basal ganglia, right frontal lobe and right parietal lobe, which have evolved since the prior studies. RPTAT: [facility] INTERPRETATION: Hyperglycemia without evidence of diabetic ketoacidosis MEDICAL DECISION MAKING: The patient presents with hyperglycemia, transient episode of garbled speech now back to her baseline from prior stroke. Patient's presentation is somewhat concerning for TIA. Patient is at a high risk for recurrence of stroke given recent stroke. Hyperglycemia needs to be ruled out for DKA. No other evidence of infection at this time. CT of the brain would be appropriate. The patient is hemodynamically stable. Given the patient is high risk for TIA and stroke inpatient hospitalization telemetry monitoring is appropriate. DKA screening initiated. TPA decision-making: The patient is not a TPA candidate given no focal neurologic deficits that are new from prior stroke. Interventional decision-making: The patient has a nonfocal exam from prior stroke. No acute neurologic deficits worse than baseline ER COURSE: * Patient continues to be well-appearing and asymptomatic in the emergency room setting. Hyperglycemia but no DKA. The patient received IV fluids and subcutaneous Humalog. * Aspirin provided. * The patient will be admitted for further monitoring and TIA screening DISPOSITION PLAN: Telemetry admission for management and evaluation of possible TIA Accepting care team and consultations: I discussed the current laboratory data, diagnostic imaging and emergency care provided. Admitting team: Dr. Perez, primary care physician Admitting team indication: Insurance directed Departure Diagnosis: Primary Impression: Hyperglycemia Additional Impressions: Transient ischemic attack History of stroke Condition: Stable BALA GABRIEL MD March 21, 2019 18:17
[2019-03-21] MEDS ORDERED: SOD CHLORIDE 0.9% 580 ML IV ONE (18:30)
[2019-03-21] MEDS ORDERED: INSULIN LISPRO 100 UNIT/ML VIAL SC ONE (20:00)
[2019-03-21] MEDS ORDERED: NACL 0.9% 3 ML SYG IV SCH (20:30)
[2019-03-21] MEDS ORDERED: DEXTROSE 50% 50 ML SYRINGE IV PRN ×2 (20:30)
[2019-03-21] MEDS ORDERED: GLUCOSE GEL 15 GRAM TUBE PO PRN ×2 (20:30)
[2019-03-21] MEDS ORDERED: GLUCAGON 1 MG INJ IM PRN (20:30)
[2019-03-21] MEDS ORDERED: ACETAMINOPHEN 325 MG TAB PO PRN ×2 (20:30)
[2019-03-21] MEDS ORDERED: ONDANSETRON 4 MG INJ IV PRN ×2 (20:30)
[2019-03-21] MEDS ORDERED: GLUCOSE GEL 15 GRAM TUBE BUCCAL PRN (20:30)
[2019-03-21] MEDS ORDERED: morphine 2 MG INJ IV PRN (20:30)
[2019-03-21] MEDS ORDERED: ACCU-CHEK XX ONE (20:30)
[2019-03-21] MEDS ORDERED: ASPIRIN 81 MG TAB PO ONE (20:30)
[2019-03-21] MEDS: FAMOTIDINE 20 MG INJ IV SCH (20:42)
[2019-03-21 21:59] VITALS: PULSE 84
[2019-03-21 22:00] VITALS: Ht 152.4 cm; Wt 54.6 kg
[2019-03-22] VITALS (10 sets, daily range): BP systolic 135–147; BP diastolic 63–69; PULSE 72–87; RESP 17–20
[2019-03-22] MEDS ORDERED: ACCU-CHEK XX SCH (02:00)
[2019-03-22] MEDS ORDERED: INSULIN ASPART [NOVOLOG] 3 ML PEN SC SCH ×2 (08:00)
[2019-03-22] MEDS: FAMOTIDINE 20 MG INJ IV SCH (09:00)
[2019-03-22] MEDS: ASPIRIN 81 MG TAB PO SCH (09:00)
[2019-03-22] MEDS ORDERED: ASPIRIN 81 MG TAB PO SCH (09:00)
[2019-03-22] MEDS: LISINOPRIL 20 MG TAB PO SCH (09:00)
[2019-03-22] MEDS: AMLODIPINE 10 MG TAB PO SCH (09:01)
[2019-03-22] MEDS: ENOXAPARIN 30 MG/0.3 ML SYG SC SCH (09:15)
--- NOTE | 2019-03-22 10:52 | HP ---
Date/Time of Note Date/Time of Note DATE: 03/22/19 TIME: 10:31 Assessment/Plan VTE Prophylaxis SCD applied (from Nsg): Yes Pharmacological prophylaxis: LMWH Lines/Catheters IV Catheter Type (from Nrsg): [place] Lock Urinary Cath still in place: No Assessment/Plan Assessment/Plan -TIA, ABCD2 score 6. Continue aspirin, Plavix. is asked to see patient in neurology consultation. Will obtain physical and occupational therapy. -Hyperglycemia in patient with diabetes mellitus type 2, will obtain hemoglobin A1c, continue Lantus and NovoLog. -UTI per UA, obtain urine culture, start Rocephin. -History of right RCA stenosis, patient was instructed to follow-up with Dr. Joseph, vascular surgery as an outpatient for follow-up carotid ultrasound in 6 months. -Hypertension Further recommendations based on clinical course. Plan of care discussed with Dr. Bruner. Result Diagram: 03/22/19 0534 03/22/19 0534 Results 24hrs Laboratory Tests Test 03/21/19 18:05 03/21/19 18:57 03/21/19 19:32 03/21/19 20:40 Blood Gas Blood venous Specimen Source Arterial Blood 03/21/2019 6:15:0 Date Drawn 4 PM Arterial Blood VENOUS LINE Gas Puncture Site Tu Test N/A Venous Blood pH 7.403 Venous Blood pCO2 45.3 H (Temp Corrected) Venous Blood pO2 35.1 H (Temp Corrected) Venous Blood HCO3 27.6 Venous Blood 64.8 Oxygen Saturation Venous Blood Base 2.3 Excess Venous Blood 14.1 Total Hemoglobin Venous Blood 64.5 Oxyhemoglobin Venous Blood 0.2 Methemoglobin Carboxyhemoglobin 0.3 Blood Gas 37.0 Temperature Blood Gas ROOM AIR Modality FiO2 21.0 Blood Gas RT Notified Whom Blood Gas 03/21/2019 6:22:4 Notified Time 9 PM White Blood Count 5.5 Red Blood Count 4.28 Hemoglobin 13.2 Hematocrit 38.0 Mean Corpuscular 88.8 Volume Mean Corpuscular 30.8 Hemoglobin Mean Corpuscular 34.7 Hemoglobin Concen t Red Cell 12.8 Distribution Width Platelet Count 200 Mean Platelet 10.3 Volume Immature 0.200 Granulocytes % Neutrophils % 47.1 Lymphocytes % 42.3 Monocytes % 8.2 Eosinophils % 1.3 Basophils % 0.9 Nucleated Red 0.0 Blood Cells % Immature 0.010 Granulocytes # Neutrophils # 2.6 Lymphocytes # 2.3 Monocytes # 0.5 Eosinophils # 0.1 Basophils # 0.1 Nucleated Red 0.0 Blood Cells # Sodium Level 139 Potassium Level 4.1 Chloride Level 103 Carbon Dioxide 25 Level Anion Gap 11 Blood Urea 22 H Nitrogen Creatinine 0.71 Est Glomerular > 60 Filtrat Rate mL/min Glucose Level 432 *H Calcium Level 9.9 Phosphorus Level 3.3 Magnesium Level 1.8 Troponin I 0.054 Urine Color YELLOW Urine Clarity CLOUDY A Urine pH 5.0 Urine Specific 1.021 [place] Urine Ketones NEGATIVE Urine Nitrite POSITIVE A Urine Bilirubin NEGATIVE Urine NEGATIVE Urobilinogen Urine Leukocyte 3+ H Esterase Urine Microscopic 4 RBC Urine Microscopic 18 H WBC Urine Squamous MODERATE Epithelial Cells Urine Bacteria MANY A Urine Mucus FEW A Urine Hemoglobin 1+ H Urine Glucose 3+ H Urine Total NEGATIVE Protein Bedside Glucose 344 H Test 03/21/19 22:14 03/22/19 05:34 03/22/19 07:38 Bedside Glucose 210 94 White Blood Count 5.8 Red Blood Count 3.60 L Hemoglobin 11.3 L Hematocrit 31.5 L Mean Corpuscular 87.5 Volume Mean Corpuscular 31.4 Hemoglobin Mean Corpuscular 35.9 Hemoglobin Concen t Red Cell 12.6 Distribution Width Platelet Count 173 Mean Platelet 10.5 H Volume Immature 0.200 Granulocytes % Neutrophils % 48.6 Lymphocytes % 41.1 Monocytes % 7.7 Eosinophils % 1.9 Basophils % 0.5 Nucleated Red 0.0 Blood Cells % Immature 0.010 Granulocytes # Neutrophils # 2.8 Lymphocytes # 2.4 Monocytes # 0.5 Eosinophils # 0.1 Basophils # 0.0 Nucleated Red 0.0 Blood Cells # Sodium Level 142 Potassium Level 3.4 L Chloride Level 108 Carbon Dioxide 28 Level Anion Gap 6 Blood Urea 19 Nitrogen Creatinine 0.58 Est Glomerular > 60 Filtrat Rate mL/min Glucose Level 87 # Hemoglobin A1c 10.3 H Calcium Level 9.1 Total Bilirubin 0.6 Direct Bilirubin 0.00 Indirect 0.6 Bilirubin Aspartate Amino 26 Transf (AST/SGOT) Alanine 32 Aminotransferase (ALT/SGPT) Alkaline 98 Phosphatase Total Protein 6.4 Albumin 3.2 L Globulin 3.20 Albumin/Globulin 1.00 Ratio HPI/ROS Admit Date/Time Admit Date/Time March 21, 2019 at 20:05 Hx of Present Illness The patient is 64-year-old female with history of stroke 1-1/2-month ago with a residual left upper extremity weakness, insulin-dependent diabetes mellitus, hypertension, and hyperlipidemia. Patient developed an intermittent episode of garbled speech and was brought by family members to the hospital. Her symptoms resolved and patient has no difficulty speaking, however patient has a high risk for recurrence of stroke given recent stroke. Patient is noted to have blood sugar of 430 on admission. Patient stated that she is been compliant with her metformin and Lantus at home. Patient denies any fever chills, denies shortness of breath, denies chest pain denies nausea vomiting diarrhea. CT of the brain does not reveal any acute stroke. Urinalysis was positive for nitrates and leukocyte esterase. Patient will be admitted for further evaluation and management. ROS 12 point review of system is negative except what mentioned in HPI PMH/Family/Social Past Medical History Medical History: diabetes, high cholesterol, hypertension Medications Current Medications IV Flush (NS 3 ml) 3 ml PER PROTOCOL IV ; Start 03/21/19 at 20:30 Ondansetron HCl (Zofran Inj) 4 mg Q6H PRN IV NAUSEA/VOMITING; Start 03/21/19 at 20:30 Aspirin (Aspirin) 81 mg DAILY PO Last administered on 03/22/19at 09:01; Admin Dose 81 MG; Start 03/22/19 at 09:00 Acetaminophen (Tylenol Tab) 650 mg Q6H PRN PO .PAIN 1-3 OR TEMP; Start 03/21/19 at 20:30 Morphine Sulfate (morphine) 2 mg Q4H PRN IV .PAIN 7-10; Start 03/21/19 at 20:30 Famotidine (Pepcid Iv) 20 mg Q12 IV Last administered on 03/22/19at 09:00; Admin Dose 20 MG; Start 03/21/19 at 21:00 Enoxaparin Sodium (Lovenox) 30 mg DAILY SC Last administered on 03/22/19at 09:15; Admin Dose 30 MG; Start 03/22/19 at 09:00 Diagnostic Test (Pha) (Accu-Chek) 1 ea 02 XX ; Start 03/22/19 at 02:00 Insulin Aspart (Novolog Insulin Pen) 4 unit WITH MEALS SC Last administered on 03/22/19at 09:15; Admin Dose 4 UNIT; Start 03/22/19 at 08:00 Miscellaneous Information 1 ea NOTE XX ; Start 03/21/19 at 20:30 Glucose (Glutose) 15 gm Q15M PRN PO DECREASED GLUCOSE; Start 03/21/19 at 20:30 Glucose (Glutose) 22.5 gm Q15M PRN PO DECREASED GLUCOSE; Start 03/21/19 at 20:30 Dextrose (D50w Syringe) 25 ml Q15M PRN IV DECREASED GLUCOSE; Start 03/21/19 at 20:30 Dextrose (D50w Syringe) 50 ml Q15M PRN IV DECREASED GLUCOSE; Start 03/21/19 at 20:30 Glucagon (Glucagen) 1 mg Q15M PRN IM DECREASED GLUCOSE; Start 03/21/19 at 20:30 Glucose (Glutose) 15 gm Q15M PRN BUCCAL DECREASED GLUCOSE; Start 03/21/19 at 20:30 Insulin Glargine (Lantus) 22 units DAILY@2000 SC ; Start 03/22/19 at 20:00 Amlodipine Besylate (Norvasc) 10 mg DAILY PO Last administered on 03/22/19at 09:01; Admin Dose 10 MG; Start 03/22/19 at 09:00 Aspirin (Aspirin) 81 mg DAILY PO ; Start 03/22/19 at 09:00 Atorvastatin Calcium (Lipitor) 40 mg HS PO ; Start 03/22/19 at 21:00 Lisinopril (Zestril) 20 mg DAILY PO Last administered on 03/22/19at 09:00; Admin Dose 20 MG; Start 03/22/19 at 09:00 Insulin Aspart (Novolog Insulin Pen) NOVOLOG *MODERATE* ALGORITHM WITH MEALS BEDTIME SC ; Start 03/22/19 at 08:00 Coded Allergies: No Known Allergy (Unverified , 02/06/19) Past Surgical History Past Surgical Hx: other (S/p bilateral cataract surgery 4 years ago) Family History Significant Family History: diabetes, hypertension Social History Alcohol Use: none Smoking Status: Former smoker (Smoked for 18 years) Drug Use: none Exam/Review of Systems Vital Signs Vitals Vital Signs Date Temp Pulse Resp B/P (MAP) Pulse Ox O2 O2 Flow FiO2 Time Delivery Rate 03/22/19 82 08:08 03/22/19 98.2 19 143/66 96 Room Air 07:07 (91) Exam Constitutional: alert, oriented Head: normocephalic Neck: supple Respiratory: clear to auscultation Cardiovascular: regular rate and rhythm Gastrointestinal: soft, non-tender Musculoskeletal: nl extremities to inspection Extremities: normal pulses JORGE TABOR March 22, 2019 10:42
[2019-03-22] MEDS ORDERED: AMLODIPINE 10 MG TAB PO SCH (11:00)
[2019-03-22] MEDS ORDERED: LISINOPRIL 20 MG TAB PO SCH (11:00)
[2019-03-22] MEDS: CEFTRIAXONE 1 GM/50 ML (PMX) 50 ML IVPB SCH (11:47)
[2019-03-22] MEDS: CLOPIDOGREL 75 MG TAB PO SCH (11:47)
[2019-03-22] MEDS: INSULIN ASPART [NOVOLOG] 3 ML PEN SC SCH ×5 (11:52→20:16)
--- NOTE | 2019-03-22 14:33 | CONS ---
Assessment/Plan Assessment/Plan Hospital Course 64 yo F with hx of stroke and other cerebrovascular risk factors who presents for evaluation of transient dysarthria. The clinical picture is most ominously concerning for TIA/recurrent stroke. An acute toxic-metabolic encephalopathy is additionally considered. HCT is without acute intracranial pathology, though notable for chronic R basal ganglia, frontal and parietal lobe infarcts. P: MRI brain without contrast for further characterization Permissive HTN for 24h pending the above Cont ASA/Plavix per ops for secondary stroke prevention Cont Lipitor for the same Add lipid panel. Cont medical management per primary PT/OT/ST as necessary Will follow clinically, to recommend neurologic studies, as necessary Consultation Date/Type/Reason Admit Date/Time March 21, 2019 at 20:05 Type of Consult Neurology Reason for Consultation dysarthria Requesting Provider: JORGE TABOR Date/Time of Note DATE: 03/22/19 TIME: 14:33 Hx of Present Illness 64 yo F with hx of recent stroke with residual LUE weakness, DM, HTN, HLD who presented to the ED for evaluation of slurred speech. History was obtained from pt and chart review. The pt states that she did not have slurred speech but came to the hospital because her blood sugars were "very high." She denies any headache, dizziness, lethargy, confusion, new weakness, vision or speech changes, numbness/tingling, gait instability. It is elsewhere noted: Hx of Present Illness The patient is 64-year-old female with history of stroke 1-1/2-month ago with a residual left upper extremity weakness, insulin-dependent diabetes mellitus, hypertension, and hyperlipidemia. Patient developed an intermittent episode of garbled speech and was brought by family members to the hospital. Her symptoms resolved and patient has no difficulty speaking, however patient has a high risk for recurrence of stroke given recent stroke. Patient is noted to have blood sugar of 430 on admission. Patient stated that she is been compliant with her metformin and Lantus at home. Patient denies any fever chills, denies shortness of breath, denies chest pain denies nausea vomiting diarrhea. CT of the brain does not reveal any acute stroke. Urinalysis was positive for nitrates and leukocyte esterase. Patient will be admitted for further evaluation and management. negative unless noted otherwise in HPI Exam/Review of Systems Exam Vitals Vital Signs Date Temp Pulse Resp B/P (MAP) Pulse Ox O2 O2 Flow FiO2 Time Delivery Rate 03/22/19 87 12:56 03/22/19 98.1 18 139/69 94 Room Air 11:15 (92) Exam PE: Gen Appearance: No Apparent Distress HEENT: Normocephalic Cardiovascular: Regular rate Lungs: Clear bilaterally Abdomen: Soft Extremities: Dry NE: The patient was alert and oriented. Language was normal. Fund of knowledge was normal. Pupils were equal and reactive to light. There was no afferent pupillary defect. Visual tomlin were normal. Funduscopic examination was limited. Extra-ocular movements were full. Ptosis was absent. There was no nystagmus. Facial sensation was normal. Face was symmetric with normal strength. Hearing was intact. Palate movements were normal. Neck strength was normal. There was normal tongue bulk and speed of movement. Tone was normal. Muscle bulk was normal. I did not see fasciculations. L arm was weak; legs were strong. Vibration sensation was normal. Temperature and pinprick sensation was normal. Rapid alternating movements were normal. There was no dysmetria. There was no intention tremor. Gait was deferred due to bedrest. Arm and leg reflexes were 2+ and symmetric. Lockwood's sign was absent. Plantar responses were flexor. Results Result Diagram: 03/22/19 0534 03/22/19 0534 Results 24hrs Laboratory Tests Test 03/21/19 18:05 03/21/19 18:57 03/21/19 19:32 03/21/19 20:40 Blood Gas Blood venous Specimen Source Arterial Blood 03/21/2019 6:15:0 Date Drawn 4 PM Arterial Blood VENOUS LINE Gas Puncture Site Tu Test N/A Venous Blood pH 7.403 Venous Blood pCO2 45.3 H (Temp Corrected) Venous Blood pO2 35.1 H (Temp Corrected) Venous Blood HCO3 27.6 Venous Blood 64.8 Oxygen Saturation Venous Blood Base 2.3 Excess Venous Blood 14.1 Total Hemoglobin Venous Blood 64.5 Oxyhemoglobin Venous Blood 0.2 Methemoglobin Carboxyhemoglobin 0.3 Blood Gas 37.0 Temperature Blood Gas ROOM AIR Modality FiO2 21.0 Blood Gas RT Notified Whom Blood Gas 03/21/2019 6:22:4 Notified Time 9 PM White Blood Count 5.5 Red Blood Count 4.28 Hemoglobin 13.2 Hematocrit 38.0 Mean Corpuscular 88.8 Volume Mean Corpuscular 30.8 Hemoglobin Mean Corpuscular 34.7 Hemoglobin Concen t Red Cell 12.8 Distribution Width Platelet Count 200 Mean Platelet 10.3 Volume Immature 0.200 Granulocytes % Neutrophils % 47.1 Lymphocytes % 42.3 Monocytes % 8.2 Eosinophils % 1.3 Basophils % 0.9 Nucleated Red 0.0 Blood Cells % Immature 0.010 Granulocytes # Neutrophils # 2.6 Lymphocytes # 2.3 Monocytes # 0.5 Eosinophils # 0.1 Basophils # 0.1 Nucleated Red 0.0 Blood Cells # Sodium Level 139 Potassium Level 4.1 Chloride Level 103 Carbon Dioxide 25 Level Anion Gap 11 Blood Urea 22 H Nitrogen Creatinine 0.71 Est Glomerular > 60 Filtrat Rate mL/min Glucose Level 432 *H Calcium Level 9.9 Phosphorus Level 3.3 Magnesium Level 1.8 Troponin I 0.054 Urine Color YELLOW Urine Clarity CLOUDY A Urine pH 5.0 Urine Specific 1.021 [place] Urine Ketones NEGATIVE Urine Nitrite POSITIVE A Urine Bilirubin NEGATIVE Urine NEGATIVE Urobilinogen Urine Leukocyte 3+ H Esterase Urine Microscopic 4 RBC Urine Microscopic 18 H WBC Urine Squamous MODERATE Epithelial Cells Urine Bacteria MANY A Urine Mucus FEW A Urine Hemoglobin 1+ H Urine Glucose 3+ H Urine Total NEGATIVE Protein Bedside Glucose 344 H Test 03/21/19 22:14 03/22/19 05:34 03/22/19 07:38 03/22/19 11:49 Bedside Glucose 210 94 155 White Blood Count 5.8 Red Blood Count 3.60 L Hemoglobin 11.3 L Hematocrit 31.5 L Mean Corpuscular 87.5 Volume Mean Corpuscular 31.4 Hemoglobin Mean Corpuscular 35.9 Hemoglobin Concen t Red Cell 12.6 Distribution Width Platelet Count 173 Mean Platelet 10.5 H Volume Immature 0.200 Granulocytes % Neutrophils % 48.6 Lymphocytes % 41.1 Monocytes % 7.7 Eosinophils % 1.9 Basophils % 0.5 Nucleated Red 0.0 Blood Cells % Immature 0.010 Granulocytes # Neutrophils # 2.8 Lymphocytes # 2.4 Monocytes # 0.5 Eosinophils # 0.1 Basophils # 0.0 Nucleated Red 0.0 Blood Cells # Sodium Level 142 Potassium Level 3.4 L Chloride Level 108 Carbon Dioxide 28 Level Anion Gap 6 Blood Urea 19 Nitrogen Creatinine 0.58 Est Glomerular > 60 Filtrat Rate mL/min Glucose Level 87 # Hemoglobin A1c 10.3 H Calcium Level 9.1 Total Bilirubin 0.6 Direct Bilirubin 0.00 Indirect 0.6 Bilirubin Aspartate Amino 26 Transf (AST/SGOT) Alanine 32 Aminotransferase (ALT/SGPT) Alkaline 98 Phosphatase Total Protein 6.4 Albumin 3.2 L Globulin 3.20 Albumin/Globulin 1.00 Ratio Medications Medication Current Medications IV Flush (NS 3 ml) 3 ml PER PROTOCOL IV ; Start 03/21/19 at 20:30 Ondansetron HCl (Zofran Inj) 4 mg Q6H PRN IV NAUSEA/VOMITING; Start 03/21/19 at 20:30 Acetaminophen (Tylenol Tab) 650 mg Q6H PRN PO .PAIN 1-3 OR TEMP; Start 03/21/19 at 20:30 Morphine Sulfate (morphine) 2 mg Q4H PRN IV .PAIN 7-10; Start 03/21/19 at 20:30 Famotidine (Pepcid Iv) 20 mg Q12 IV Last administered on 03/22/19at 09:00; Admin Dose 20 MG; Start 03/21/19 at 21:00 Enoxaparin Sodium (Lovenox) 30 mg DAILY SC Last administered on 03/22/19at 09:15; Admin Dose 30 MG; Start 03/22/19 at 09:00 Miscellaneous Information 1 ea NOTE XX ; Start 03/21/19 at 20:30 Glucose (Glutose) 15 gm Q15M PRN PO DECREASED GLUCOSE; Start 03/21/19 at 20:30 Glucose (Glutose) 22.5 gm Q15M PRN PO DECREASED GLUCOSE; Start 03/21/19 at 20:30 Dextrose (D50w Syringe) 25 ml Q15M PRN IV DECREASED GLUCOSE; Start 03/21/19 at 20:30 Dextrose (D50w Syringe) 50 ml Q15M PRN IV DECREASED GLUCOSE; Start 03/21/19 at 20:30 Glucagon (Glucagen) 1 mg Q15M PRN IM DECREASED GLUCOSE; Start 03/21/19 at 20:30 Glucose (Glutose) 15 gm Q15M PRN BUCCAL DECREASED GLUCOSE; Start 03/21/19 at 20:30 Amlodipine Besylate (Norvasc) 10 mg DAILY PO Last administered on 03/22/19at 09:01; Admin Dose 10 MG; Start 03/22/19 at 09:00 Aspirin (Aspirin) 81 mg DAILY PO ; Start 03/22/19 at 09:00 Atorvastatin Calcium (Lipitor) 40 mg HS PO ; Start 03/22/19 at 21:00 Lisinopril (Zestril) 20 mg DAILY PO Last administered on 03/22/19at 09:00; Admin Dose 20 MG; Start 03/22/19 at 09:00 Clopidogrel Bisulfate (plaVIX) 75 mg DAILY PO Last administered on 03/22/19at 11:47; Admin Dose 75 MG; Start 03/22/19 at 11:00 Diagnostic Test (Pha) (Accu-Chek) 1 ea 02 XX ; Start 03/23/19 at 02:00 Insulin Glargine (Lantus) 16 units DAILY@2000 SC ; Start 03/22/19 at 20:00 Insulin Aspart (Novolog Insulin Pen) 5 unit WITH MEALS SC Last administered on 03/22/19at 11:52; Admin Dose 5 UNIT; Start 03/22/19 at 12:00 Insulin Aspart (Novolog Insulin Pen) NOVOLOG *MILD* ALGORITHM WITH MEALS BEDTIME SC Last administered on 03/22/19at 11:53; Admin Dose 1 UNIT; Start 03/22/19 at 12:00 Ceftriaxone Sodium 50 ml @ 100 mls/hr Q24H IVPB Last administered on 03/22/19at 11:47; Admin Dose 100 MLS/HR; Start 03/22/19 at 11:30 Past Medical History reviewed Medical History: diabetes, high cholesterol, hypertension Home Meds Active Scripts Insulin Aspart* (Novolog Insulin Pen*) 100 Unit/Ml Soln, 0 UNIT SC WITH MEALS BEDTIME for 30 Days Prov:JULIUS HO MD 02/10/19 [Insulin Glargine] 100 UNITS/ML SOLN No Conflict Check, 22 UNITS SC DAILY@2000 for 30 Days Prov:JULIUS HO MD 02/10/19 Aspirin (Aspirin) 81 Mg Chew, 81 MG PO DAILY for 30 Days, TAB Prov:JULIUS HO MD 02/10/19 Lisinopril* (Lisinopril*) 20 Mg Tablet, 20 MG PO DAILY for 30 Days, TAB Prov:JULIUS HO MD 02/10/19 Atorvastatin* (Atorvastatin*) 40 Mg Tablet, 40 MG PO HS for 30 Days, TAB Prov:JULIUS HO MD 02/10/19 Amlodipine Besylate* (Amlodipine Besylate*) 10 Mg Tablet, 10 MG PO DAILY for 30 Days, TAB Prov:JULIUS HO MD 02/10/19 Clopidogrel Bisulfate (Clopidogrel) 75 Mg Tablet, 75 MG PO DAILY for 30 Days, TAB Prov:JULIUS HO MD 02/10/19 Medications Current Medications IV Flush (NS 3 ml) 3 ml PER PROTOCOL IV ; Start 03/21/19 at 20:30 Ondansetron HCl (Zofran Inj) 4 mg Q6H PRN IV NAUSEA/VOMITING; Start 03/21/19 at 20:30 Acetaminophen (Tylenol Tab) 650 mg Q6H PRN PO .PAIN 1-3 OR TEMP; Start 03/21/19 at 20:30 Morphine Sulfate (morphine) 2 mg Q4H PRN IV .PAIN 7-10; Start 03/21/19 at 20:30 Famotidine (Pepcid Iv) 20 mg Q12 IV Last administered on 03/22/19at 09:00; Admin Dose 20 MG; Start 03/21/19 at 21:00 Enoxaparin Sodium (Lovenox) 30 mg DAILY SC Last administered on 03/22/19at 09:15; Admin Dose 30 MG; Start 03/22/19 at 09:00 Miscellaneous Information 1 ea NOTE XX ; Start 03/21/19 at 20:30 Glucose (Glutose) 15 gm Q15M PRN PO DECREASED GLUCOSE; Start 03/21/19 at 20:30 Glucose (Glutose) 22.5 gm Q15M PRN PO DECREASED GLUCOSE; Start 03/21/19 at 20:30 Dextrose (D50w Syringe) 25 ml Q15M PRN IV DECREASED GLUCOSE; Start 03/21/19 at 20:30 Dextrose (D50w Syringe) 50 ml Q15M PRN IV DECREASED GLUCOSE; Start 03/21/19 at 20:30 Glucagon (Glucagen) 1 mg Q15M PRN IM DECREASED GLUCOSE; Start 03/21/19 at 20:30 Glucose (Glutose) 15 gm Q15M PRN BUCCAL DECREASED GLUCOSE; Start 03/21/19 at 20:30 Amlodipine Besylate (Norvasc) 10 mg DAILY PO Last administered on 03/22/19at 09:01; Admin Dose 10 MG; Start 03/22/19 at 09:00 Aspirin (Aspirin) 81 mg DAILY PO ; Start 03/22/19 at 09:00 Atorvastatin Calcium (Lipitor) 40 mg HS PO ; Start 03/22/19 at 21:00 Lisinopril (Zestril) 20 mg DAILY PO Last administered on 03/22/19 09:00; Admin Dose 20 MG; Start 03/22/19 at 09:00 Clopidogrel Bisulfate (plaVIX) 75 mg DAILY PO Last administered on 03/22/19 11:47; Admin Dose 75 MG; Start 03/22/19 at 11:00 Diagnostic Test (Pha) (Accu-Chek) 1 ea 02 XX ; Start 03/23/19 at 02:00 Insulin Glargine (Lantus) 16 units DAILY@2000 SC ; Start 03/22/19 at 20:00 Insulin Aspart (Novolog Insulin Pen) 5 unit WITH MEALS SC Last administered on 03/22/19 11:52; Admin Dose 5 UNIT; Start 03/22/19 at 12:00 Insulin Aspart (Novolog Insulin Pen) NOVOLOG *MILD* ALGORITHM WITH MEALS BEDTIME SC Last administered on 03/22/19 11:53; Admin Dose 1 UNIT; Start 03/22 at 12:00 Ceftriaxone Sodium 50 ml @ 100 mls/hr Q24H IVPB Last administered on 03/22/19 11:47; Admin Dose 100 MLS/HR; Start 03/22/19 at 11:30 Allergies: Coded Allergies: No Known Allergy (Unverified , 02/06/19) Past Surgical History reviewed Past Surgical Hx: other (S/p bilateral cataract surgery 4 years ago) Social History reviewed Alcohol Use: none Smoking Status: Former smoker (Smoked for 18 years) Drug Use: none NOAH RODARTE NP March 22, 2019 14:33
[2019-03-22] MEDS ORDERED: INSULIN GLARGINE [LANTus] (100 UNITS/ML) SYG SC SCH (20:00)
[2019-03-22] MEDS: ATORVASTATIN 40 MG TAB PO SCH (20:12)
[2019-03-22] MEDS: FAMOTIDINE 20 MG TAB PO SCH (20:13)
[2019-03-22] MEDS: INSULIN GLARGINE [LANTus] (100 UNITS/ML) SYG SC SCH (20:16)
[2019-03-22] MEDS ORDERED: ATORVASTATIN 40 MG TAB PO SCH (21:00)
[2019-03-23] VITALS (13 sets, daily range): BP systolic 106–142; BP diastolic 52–65; PULSE 62–86; RESP 16–19
[2019-03-23] MEDS: ACCU-CHEK XX SCH (03:07)
[2019-03-23] MEDS: INSULIN ASPART [NOVOLOG] 3 ML PEN SC SCH ×7 (08:00→20:15)
[2019-03-23] MEDS: FAMOTIDINE 20 MG TAB PO SCH ×2 (08:04→20:10)
[2019-03-23] MEDS: ASPIRIN 81 MG TAB PO SCH (08:04)
[2019-03-23] MEDS: CLOPIDOGREL 75 MG TAB PO SCH (08:04)
[2019-03-23] MEDS: AMLODIPINE 10 MG TAB PO SCH (08:05)
[2019-03-23] MEDS: LISINOPRIL 20 MG TAB PO SCH (08:05)
[2019-03-23] MEDS: ENOXAPARIN 30 MG/0.3 ML SYG SC SCH (08:19)
[2019-03-23] MEDS ORDERED: POTASSIUM CHLORIDE 20 MEQ POWDER FOR ORAL SOLN PO ONE (10:30)
--- NOTE | 2019-03-23 10:33 | PN ---
Date/Time of Note Date/Time of Note DATE: 03/23/19 TIME: 10:31 Assessment/Plan VTE Prophylaxis Risk score (from Nsg)>0 risk: 2 SCD applied (from Nsg): Yes Pharmacological prophylaxis: other Lines/Catheters IV Catheter Type (from Nrsg): Peripheral IV Urinary Cath still in place: No Assessment/Plan Hospital Course Pending MRI of the brain results, acute rehab eval. Assessment/Plan -TIA, ABCD2 score 6. Continue aspirin, Plavix. is following in neurology consultation. Pending MRI of the brain. Continue PT OT. -Hyperglycemia in patient with diabetes mellitus type 2, hemoglobin A1c is 10.3, continue Lantus and NovoLog. Diabetic education for diet and compliance. Dr. Dietz is asked to see patient in endocrinology consultation. -UTI per UA, continue Rocephin, follow-up on urine culture. -History of right RCA stenosis, patient was instructed to follow-up with Dr. Shila lynch, vascular surgery as an outpatient for follow-up carotid ultrasound in 6 months. -Hypertension Further recommendations based on clinical course. Plan of care discussed with Dr. Bruner. Result Diagram: 03/22/19 0534 03/23/19 0534 Results 24hrs Laboratory Tests Test 03/22/19 11:49 03/22/19 17:19 03/22/19 20:11 03/23/19 02:59 Bedside Glucose 155 207 195 180 Test 03/23/19 05:34 03/23/19 08:03 Sodium Level 140 Potassium Level 3.3 L Chloride Level 106 Carbon Dioxide Level 27 Anion Gap 7 Blood Urea Nitrogen 18 Creatinine 0.61 Est Glomerular > 60 Filtrat Rate mL/min Glucose Level 149 # Calcium Level 9.4 Triglycerides Level 117 Cholesterol Level 114 LDL Cholesterol, 46 Calculated HDL Cholesterol 45 Cholesterol/HDL 2.5 Ratio Bedside Glucose 138 Exam/Review of Systems Exam Vitals Vital Signs Date Temp Pulse Resp B/P (MAP) Pulse Ox O2 O2 Flow FiO2 Time Delivery Rate 03/23/19 80 08:00 03/23/19 97.4 18 137/65 98 Room Air 07:31 (89) Intake and Output 03/22/19 03/22/19 03/23/19 1515:00 23:00 07:00 IntakeIntake Total 120 ml 720 ml 400 ml BalanceBalance 120 ml 720 ml 400 ml Exam Constitutional: alert, oriented Respiratory: clear to auscultation Cardiovascular: regular rate and rhythm Gastrointestinal: soft, non-tender Musculoskeletal: nl extremities to inspection Extremities: normal pulses Results Results 24hrs Laboratory Tests Test 03/22/19 11:49 03/22/19 17:19 03/22/19 20:11 03/23/19 02:59 Bedside Glucose 155 207 195 180 Test 03/23/19 05:34 03/23/19 08:03 Sodium Level 140 Potassium Level 3.3 L Chloride Level 106 Carbon Dioxide Level 27 Anion Gap 7 Blood Urea Nitrogen 18 Creatinine 0.61 Est Glomerular > 60 Filtrat Rate mL/min Glucose Level 149 # Calcium Level 9.4 Triglycerides Level 117 Cholesterol Level 114 LDL Cholesterol, 46 Calculated HDL Cholesterol 45 Cholesterol/HDL 2.5 Ratio Bedside Glucose 138 Medications Medication Current Medications IV Flush (NS 3 ml) 3 ml PER PROTOCOL IV ; Start 03/21/19 at 20:30 Ondansetron HCl (Zofran Inj) 4 mg Q6H PRN IV NAUSEA/VOMITING; Start 03/21/19 at 20:30 Acetaminophen (Tylenol Tab) 650 mg Q6H PRN PO .PAIN 1-3 OR TEMP; Start 03/21/19 at 20:30 Morphine Sulfate (morphine) 2 mg Q4H PRN IV .PAIN 7-10; Start 03/21/19 at 20:30 Enoxaparin Sodium (Lovenox) 30 mg DAILY SC Last administered on 03/23/19at 08:19; Admin Dose 30 MG; Start 03/22/19 at 09:00 Miscellaneous Information 1 ea NOTE XX ; Start 03/21/19 at 20:30 Glucose (Glutose) 15 gm Q15M PRN PO DECREASED GLUCOSE; Start 03/21/19 at 20:30 Glucose (Glutose) 22.5 gm Q15M PRN PO DECREASED GLUCOSE; Start 03/21/19 at 20:3 0 Dextrose (D50w Syringe) 25 ml Q15M PRN IV DECREASED GLUCOSE; Start 03/21/19 at 20:30 Dextrose (D50w Syringe) 50 ml Q15M PRN IV DECREASED GLUCOSE; Start 03/21/19 at 20:30 Glucagon (Glucagen) 1 mg Q15M PRN IM DECREASED GLUCOSE; Start 03/21/19 at 20:30 Glucose (Glutose) 15 gm Q15M PRN BUCCAL DECREASED GLUCOSE; Start 03/21/19 at 20:30 Amlodipine Besylate (Norvasc) 10 mg DAILY PO Last administered on 03/23/19 08:05; Admin Dose 10 MG; Start 03/22/19 at 09:00 Aspirin (Aspirin) 81 mg DAILY PO Last administered on 03/23/19 08:04; Admin Dose 81 MG; Start 03/22/19 at 09:00 Atorvastatin Calcium (Lipitor) 40 mg HS PO Last administered on 03/22/19 20:12; Admin Dose 40 MG; Start 03/22/19 at 21:00 Lisinopril (Zestril) 20 mg DAILY PO Last administered on 03/23/19 08:05; Admin Dose 20 MG; Start 03/22/19 at 09:00 Clopidogrel Bisulfate (plaVIX) 75 mg DAILY PO Last administered on 03/23/19 08 :04; Admin Dose 75 MG; Start 03/22/19 at 11:00 Diagnostic Test (Pha) (Accu-Chek) 1 ea 02 XX Last administered on 03/23/19 03:07; Admin Dose 1 EA; Start 03/23/19 at 02:00 Insulin Glargine (Lantus) 16 units DAILY@2000 SC Last administered on 03/22/19 20:16; Admin Dose 16 UNITS; Start 03/22/19 at 20:00 Insulin Aspart (Novolog Insulin Pen) 5 unit WITH MEALS SC Last administered on 03/23/19 08:19; Admin Dose 5 UNIT; Start 03/22/19 at 12:00 Insulin Aspart (Novolog Insulin Pen) NOVOLOG *MILD* ALGORITHM WITH MEALS BEDTIME SC Last administered on 03/22/19 20:16; Admin Dose 1 UNIT; Start 03/22 at 12:00 Ceftriaxone Sodium 50 ml @ 100 mls/hr Q24H IVPB Last administered on 03/22/19 11:47; Admin Dose 100 MLS/HR; Start 03/22/19 at 11:30 Famotidine (Pepcid) 20 mg Q12 PO Last administered on 03/23/19 08:04; Admin Dose 20 MG; Start 03/22/19 at 21:00 Potassium Chloride (Potassium Chloride Pwd/Soln) 40 meq ONCE ONCE PO ; Start 03/23/19 at 10:30; Stop 03/23/19 at 10:31; Status DORONV JORGE ATBOR March 23, 2019 10:33
[2019-03-23] MEDS: CEFTRIAXONE 1 GM/50 ML (PMX) 50 ML IVPB SCH (11:43)
--- NOTE | 2019-03-23 15:15 | CONS ---
Assessment/Plan Assessment/Plan Hospital Course 64 yo F with hx of stroke and other cerebrovascular risk factors who presents for evaluation of transient dysarthria. The clinical picture is most ominously concerning for TIA/recurrent stroke. An acute toxic-metabolic encephalopathy is additionally considered. HCT is without acute intracranial pathology, though notable for chronic R basal ganglia, frontal and parietal lobe infarcts. P: Await MRI brain without contrast for further characterization Cont ASA/Plavix per ops for secondary stroke prevention; LDL is at goal Cont medical management per primary PT/OT/ST as necessary Will follow clinically, to recommend neurologic studies, as necessary Consultation Date/Type/Reason Admit Date/Time March 21, 2019 at 20:05 Type of Consult Neurology Reason for Consultation dysarthria Requesting Provider: JORGE TABOR Date/Time of Note DATE: 03/23/19 TIME: 15:14 24 HR Interval Summary Free Text/Dictation Continues acute care. Awaiting MRI Exam Vital Signs Vitals Vital Signs Date Temp Pulse Resp B/P (MAP) Pulse Ox O2 O2 Flow FiO2 Time Delivery Rate 03/23/19 97.7 82 16 134/63 98 Room Air 11:53 (86) Intake and Output 03/22/19 03/22/19 03/23/19 1414:59 22:59 06:59 IntakeIntake Total 120 ml 720 ml 400 ml BalanceBalance 120 ml 720 ml 400 ml Exam PE: Gen Appearance: No Apparent Distress HEENT: Normocephalic Cardiovascular: Regular rate Lungs: Clear bilaterally Abdomen: Soft Extremities: Dry NE: The patient was alert and oriented. Language was normal. Fund of knowledge was normal. Pupils were equal and reactive to light. There was no afferent pupillary defect. Visual tomlin were normal. Funduscopic examination was limited. Extra-ocular movements were full. Ptosis was absent. There was no nystagmus. Facial sensation was normal. Face was symmetric with normal strength. Hearing was intact. Palate movements were normal. Neck strength was normal. There was normal tongue bulk and speed of movement. Tone was normal. Muscle bulk was normal. I did not see fasciculations. L arm was weak; legs were strong. Vibration sensation was normal. Temperature and pinprick sensation was normal. Rapid alternating movements were normal. There was no dysmetria. There was no in tention tremor. Gait was deferred due to bedrest. Arm and leg reflexes were 2+ and symmetric. Lockwood's sign was absent. Plantar responses were flexor. NOAH RODARTE NP March 23, 2019 15:14 YULI FLORES March 24, 2019 15:21
--- NOTE | 2019-03-23 17:40 | QN ---
Documentation Comment As Physician Advisor I have reviewed the chart and have determined that as of today, this patient continues to receive medically necessary care required for the diagnosis and treatment of illness or injury. There has been no unreasonable delay in the rendering of medically necessary services, and medically necessary care has required a length of stay greater than two midnights. Additional information gained during the stay now suggests this patient should have been classified as an inpatient at the time of admission, and I will change the status to inpatient to reflect that medical judgment. Besides the notes from the medical providers, the following information was used in this determination: Advanced imaging (MRI) IV antibiotics Please call me at [phone] with questions. MELISSA KOCH MD March 23, 2019 17:40
--- NOTE | 2019-03-23 17:42 | CONS ---
Assessment/Plan Assessment/Plan Problems: (1) Diabetes mellitus type 2 in nonobese Status: Chronic Comment: BG uncontrolled today. Pt. on 16 units lantus and 5 units Novolog qac. Will increase Novolog only from 5 to 8 units but will add metformin 500 mg bid, tradjenta 5 mg daily, and jardiance 10 mg daily. Expect that these changes will bring pt. back to goal. Will follow and adjust insulin doses daily. Consultation Date/Type/Reason Admit Date/Time March 21, 2019 at 20:05 Date of Consultation: March 23, 2019 Type of Consult Endocrinology Reason for Consultation T2DM OOC Requesting Provider: JORGE TABOR Date/Time of Note DATE: 03/23/19 TIME: 17:36 Hx of Present Illness 64 y/o H F w/ h/o T2DM OOC x 25 y, HTN, hyperlipidemia, multiple CVA, in [facility] until 3 days ago when she had singular episode of garbled speech. Brought into [facility] where she was diagnosed w/ CVA. Admitted for obs. Symptoms have resolved spontaneously. Today BG elevated > 300 mg/dL and endo consulted. Constitutional: no complaints Eyes: no complaints ENT: no complaints Respiratory: no complaints Cardiovascular: no complaints Gastrointestinal: no complaints Genitourinary: no complaints Musculoskeletal: no complaints Neurologic: other (abnormal speech, transient) Past Medical History Medical History: diabetes, high cholesterol, hypertension, other (CVA) Home Meds Active Scripts Insulin Aspart* (Novolog Insulin Pen*) 100 Unit/Ml Soln, 0 UNIT SC WITH MEALS BEDTIME for 30 Days Prov:JULIUS HO MD 02/10/19 [Insulin Glargine] 100 UNITS/ML SOLN No Conflict Check, 22 UNITS SC DAILY@1999 for 30 Days Prov:JULIUS HO MD 02/10/19 Aspirin (Aspirin) 81 Mg Chew, 81 MG PO DAILY for 30 Days, TAB Prov:JULIUS HO MD 02/10/19 Lisinopril* (Lisinopril*) 20 Mg Tablet, 20 MG PO DAILY for 30 Days, TAB Prov:JULIUS HO MD 02/10/19 Atorvastatin* (Atorvastatin*) 40 Mg Tablet, 40 MG PO HS for 30 Days, TAB Prov:JULIUS HO MD 02/10/19 Amlodipine Besylate* (Amlodipine Besylate*) 10 Mg Tablet, 10 MG PO DAILY for 30 Days, TAB Prov:JULIUS HO MD 02/10/19 Clopidogrel Bisulfate (Clopidogrel) 75 Mg Tablet, 75 MG PO DAILY for 30 Days, TAB Prov:JULIUS HO MD 02/10/19 Medications Current Medications IV Flush (NS 3 ml) 3 ml PER PROTOCOL IV ; Start 03/21/19 at 20:30 Ondansetron HCl (Zofran Inj) 4 mg Q6H PRN IV NAUSEA/VOMITING; Start 03/21/19 at 20:30 Acetaminophen (Tylenol Tab) 650 mg Q6H PRN PO .PAIN 1-3 OR TEMP; Start 03/21/19 at 20:30 Morphine Sulfate (morphine) 2 mg Q4H PRN IV .PAIN 7-10; Start 03/21/19 at 20:30 Enoxaparin Sodium (Lovenox) 30 mg DAILY SC Last administered on 03/23/19at 08:19; Admin Dose 30 MG; Start 03/22/19 at 09:00 Miscellaneous Information 1 ea NOTE XX ; Start 03/21/19 at 20:30 Glucose (Glutose) 15 gm Q15M PRN PO DECREASED GLUCOSE; Start 03/21/19 at 20:30 Glucose (Glutose) 22.5 gm Q15M PRN PO DECREASED GLUCOSE; Start 03/21/19 at 20:30 Dextrose (D50w Syringe) 25 ml Q15M PRN IV DECREASED GLUCOSE; Start 03/21/19 at 20:30 Dextrose (D50w Syringe) 50 ml Q15M PRN IV DECREASED GLUCOSE; Start 03/21/19 at 20:30 Glucagon (Glucagen) 1 mg Q15M PRN IM DECREASED GLUCOSE; Start 03/21/19 at 20:30 Glucose (Glutose) 15 gm Q15M PRN BUCCAL DECREASED GLUCOSE; Start 03/21/19 at 20:30 Amlodipine Besylate (Norvasc) 10 mg DAILY PO Last administered on 03/23/19at 08:05; Admin Dose 10 MG; Start 03/22/19 at 09:00 Aspirin (Aspirin) 81 mg DAILY PO Last administered on 03/23/19at 08:04; Admin Dose 81 MG; Start 03/22/19 at 09:00 Atorvastatin Calcium (Lipitor) 40 mg HS PO Last administered on 03/22/19 20:12; Admin Dose 40 MG; Start 03/22/19 at 21:00 Lisinopril (Zestril) 20 mg DAILY PO Last administered on 03/23/19 08:05; Admin Dose 20 MG; Start 03/22/19 at 09:00 Clopidogrel Bisulfate (plaVIX) 75 mg DAILY PO Last administered on 03/23/19 08:04; Admin Dose 75 MG; Start 03/22/19 at 11:00 Diagnostic Test (Pha) (Accu-Chek) 1 ea 02 XX Last administered on 03/23/19at 03:07; Admin Dose 1 EA; Start 03/23/19 at 02:00 Insulin Glargine (Lantus) 16 units DAILY@2000 SC Last administered on 03/22/19 20:16; Admin Dose 16 UNITS; Start 03/22/19 at 20:00 Insulin Aspart (Novolog Insulin Pen) NOVOLOG *MILD* ALGORITHM WITH MEALS BEDTIME SC Last administered on 03/23/19 17:17; Admin Dose 5 UNIT; Start 03/22/19 at 12:00 Ceftriaxone Sodium 50 ml @ 100 mls/hr Q24H IVPB Last administered on 03/23/19at 11:43; Admin Dose 100 MLS/HR; Start 03/22/19 at 11:30 Famotidine (Pepcid) 20 mg Q12 PO Last administered on 03/23/19at 08:04; Admin Dose 20 MG; Start 03/22/19 at 21:00 Insulin Aspart (Novolog Insulin Pen) 8 unit WITH MEALS SC ; Start 03/23/19 at 18:00; Status UNV Metformin HCl (Glucophage) 500 mg BID WITH MEALS PO ; Start 03/23/19 at 18:00; Status UNV Linagliptin (Tradjenta) 5 mg DAILY PO ; Start 03/24/19 at 09:00; Status UNV Empaglifozin (Jardiance) 10 mg DAILY@08 PO ; Start 03/24/19 at 08:00; Status UNV Allergies: Coded Allergies: No Known Allergy (Unverified , 02/06/19) Past Surgical History Past Surgical Hx: other (S/p bilateral cataract surgery 4 years ago) Family History Significant Family History: diabetes, hypertension Social History Alcohol Use: none Smoking Status: Former smoker (Smoked for 18 years) Drug Use: none Exam/Review of Systems Exam Vitals VS - Last 72 Hours, by Label Date Temp Pulse Resp B/P (MAP) Pulse Ox O2 O2 Flow FiO2 Time Delivery Rate 03/23/19 98.1 79 18 115/63 98 Room Air 15:55 (80) 03/23/19 81 12:00 03/23/19 97.7 82 16 134/63 98 Room Air 11:53 (86) 03/23/19 80 08:00 03/23/19 97.4 79 18 137/65 98 Room Air 07:31 (89) 03/23/19 97.7 78 17 106/52 98 04:17 (70) 03/23/19 71 04:00 03/23/19 97.8 62 17 142/65 96 00:10 (90) 03/23/19 78 00:00 03/22/19 83 20:00 03/22/19 84 16:14 03/22/19 98.0 83 20 147/66 96 Room Air 15:01 (93) 03/22/19 87 12:56 03/22/19 98.1 87 18 139/69 94 Room Air 11:15 (92) 03/22/19 82 08:08 03/22/19 98.2 83 19 143/66 96 Room Air 07:07 (91) 03/22/19 97.9 77 17 135/66 98 04:23 (89) 03/22/19 72 04:00 03/22/19 98.0 82 17 138/63 98 00:00 (88) 03/22/19 79 00:00 03/21/19 84 21:59 03/21/19 78 16 126/58 98 Room Air 21:34 (80) 03/21/19 90 16 156/78 100 Room Air 20:30 (104) 03/21/19 92 18 172/90 100 Room Air 18:35 (117) 03/21/19 97.8 90 18 148/65 99 16:01 (92) Vital Signs Date Temp Pulse Resp B/P (MAP) Pulse Ox O2 O2 Flow FiO2 Time Delivery Rate 03/23/19 98.1 79 18 115/63 98 Room Air 15:55 (80) Intake and Output 03/22/19 03/22/19 03/23/19 1515:00 23:00 07:00 IntakeIntake Total 120 ml 720 ml 400 ml BalanceBalance 120 ml 720 ml 400 ml Constitutional: alert, oriented, well developed Psych: no complaints, nl mood/affect Eyes: nl conjunctiva, EOMI, nl lids, nl sclera, PERRL ENMT: nl external ears & nose, mucosa pink and moist Neck: supple, non-tender; No bruits, No masses, No thyromegaly Respiratory: clear to auscultation, normal air movement Cardiovascular: regular rate and rhythm, nl pulses; No edema, No murmurs/extra sounds, No rub Gastrointestinal: soft, nl liver, spleen, non-tender, bowel sounds; No mass, No rebound or guarding Musculoskeletal: nl extremities to inspection Extremities: normal pulses; No cyanosis, No clubbing, No edema Neurological: BRICK PITCHER II-XII intact, nl mental status, nl speech, nl strength Skin: other ((+) vitilligo) Additional Comments Bedside Glucose - 72 Hours Test 03/21/19 20:40 03/21/19 22:14 03/22/19 07:38 03/22/19 11:49 Bedside 344 210 94 155 Glucose mg/dL (70-220) mg/dL (70-220) mg/dL (70-220) mg/dL (70-220) H Test 03/22/19 17:19 03/22/19 20:11 03/23/19 02:59 03/23/19 08:03 Bedside 207 195 180 138 Glucose mg/dL (70-220) mg/dL (70-220) mg/dL (70-220) mg/dL (70-220) Test 03/23/19 11:46 03/23/19 17:07 Bedside 335 308 Glucose mg/dL (70-220) mg/dL (70-220) H H Results Result Diagram: 03/22/19 0534 03/23/19 0534 Results 24hrs Laboratory Tests Test 03/22/19 20:11 03/23/19 02:59 03/23/19 05:34 03/23/19 08:03 Bedside Glucose 195 180 138 Sodium Level 140 Potassium Level 3.3 L Chloride Level 106 Carbon Dioxide Level 27 Anion Gap 7 Blood Urea Nitrogen 18 Creatinine 0.61 Est Glomerular > 60 Filtrat Rate mL/min Glucose Level 149 # Calcium Level 9.4 Triglycerides Level 117 Cholesterol Level 114 LDL Cholesterol, 46 Calculated HDL Cholesterol 45 Cholesterol/HDL 2.5 Ratio Test 03/23/19 11:46 03/23/19 17:07 Bedside Glucose 335 H 308 H Medications Medication Current Medications IV Flush (NS 3 ml) 3 ml PER PROTOCOL IV ; Start 03/21/19 at 20:30 Ondansetron HCl (Zofran Inj) 4 mg Q6H PRN IV NAUSEA/VOMITING; Start 03/21/19 at 20:30 Acetaminophen (Tylenol Tab) 650 mg Q6H PRN PO .PAIN 1-3 OR TEMP; Start 03/21/19 at 20:30 Morphine Sulfate (morphine) 2 mg Q4H PRN IV .PAIN 7-10; Start 03/21/19 at 20:30 Enoxaparin Sodium (Lovenox) 30 mg DAILY SC Last administered on 03/23/19at 08:19; Admin Dose 30 MG; Start 03/22/19 at 09:00 Miscellaneous Information 1 ea NOTE XX ; Start 03/21/19 at 20:30 Glucose (Glutose) 15 gm Q15M PRN PO DECREASED GLUCOSE; Start 03/21/19 at 20:30 Glucose (Glutose) 22.5 gm Q15M PRN PO DECREASED GLUCOSE; Start 03/21/19 at 20:30 Dextrose (D50w Syringe) 25 ml Q15M PRN IV DECREASED GLUCOSE; Start 03/21/19 at 20:30 Dextrose (D50w Syringe) 50 ml Q15M PRN IV DECREASED GLUCOSE; Start 03/21/19 at 20:30 Glucagon (Glucagen) 1 mg Q15M PRN IM DECREASED GLUCOSE; Start 03/21/19 at 20:30 Glucose (Glutose) 15 gm Q15M PRN BUCCAL DECREASED GLUCOSE; Start 03/21/19 at 20:30 Amlodipine Besylate (Norvasc) 10 mg DAILY PO Last administered on 03/23/19at 08:05; Admin Dose 10 MG; Start 03/22/19 at 09:00 Aspirin (Aspirin) 81 mg DAILY PO Last administered on 03/23/19at 08:04; Admin Dose 81 MG; Start 03/22/19 at 09:00 Atorvastatin Calcium (Lipitor) 40 mg HS PO Last administered on 03/22/19at 20:12; Admin Dose 40 MG; Start 03/22/19 at 21:00 Lisinopril (Zestril) 20 mg DAILY PO Last administered on 03/23/19 08:05; Admin Dose 20 MG; Start 03/22/19 at 09:00 Clopidogrel Bisulfate (plaVIX) 75 mg DAILY PO Last administered on 03/23/19at 08:04; Admin Dose 75 MG; Start 03/22/19 at 11:00 Diagnostic Test (Pha) (Accu-Chek) 1 ea 02 XX Last administered on 03/23/19at 03:07; Admin Dose 1 EA; Start 03/23/19 at 02:00 Insulin Glargine (Lantus) 16 units DAILY@2000 SC Last administered on 03/22/19 20:16; Admin Dose 16 UNITS; Start 03/22/19 at 20:00 Insulin Aspart (Novolog Insulin Pen) NOVOLOG *MILD* ALGORITHM WITH MEALS BEDTIME SC Last administered on 03/23/19 17:17; Admin Dose 5 UNIT; Start 03/22/19 at 12:00 Ceftriaxone Sodium 50 ml @ 100 mls/hr Q24H IVPB Last administered on 03/23/19at 11:43; Admin Dose 100 MLS/HR; Start 03/22/19 at 11:30 Famotidine (Pepcid) 20 mg Q12 PO Last administered on 03/23/19at 08:04; Admin Dose 20 MG; Start 03/22/19 at 21:00 Insulin Aspart (Novolog Insulin Pen) 8 unit WITH MEALS SC ; Start 03/23/19 at 18:00; Status UNV Metformin HCl (Glucophage) 500 mg BID WITH MEALS PO ; Start 03/23/19 at 18:00; Status UNV Linagliptin (Tradjenta) 5 mg DAILY PO ; Start 03/24/19 at 09:00; Status UNV Empaglifozin (Jardiance) 10 mg DAILY@08 PO ; Start 03/24/19 at 08:00; Status UNV ADAN PARDO MD March 23, 2019 17:42
[2019-03-23] MEDS ORDERED: INSULIN ASPART [NOVOLOG] 3 ML PEN SC SCH ×2 (18:00)
[2019-03-23] MEDS: metFORMIN 500 MG TAB PO SCH (18:13)
[2019-03-23] MEDS: ATORVASTATIN 40 MG TAB PO SCH (20:10)
[2019-03-23] MEDS: INSULIN GLARGINE [LANTus] (100 UNITS/ML) SYG SC SCH (20:15)
[2019-03-24] VITALS (12 sets, daily range): BP systolic 110–133; BP diastolic 56–63; PULSE 70–93; RESP 17–21
[2019-03-24] MEDS: ACCU-CHEK XX SCH (02:35)
[2019-03-24] MEDS: metFORMIN 500 MG TAB PO SCH ×2 (07:45→17:17)
[2019-03-24] MEDS: EMPAGLIFLOZIN 10 MG TABLET PO SCH (07:46)
[2019-03-24] MEDS: INSULIN ASPART [NOVOLOG] 3 ML PEN SC SCH ×7 (07:54→20:12)
[2019-03-24] MEDS: FAMOTIDINE 20 MG TAB PO SCH ×2 (08:43→20:08)
[2019-03-24] MEDS: LINAGLIPTIN 5 MG TABLET PO SCH (08:43)
[2019-03-24] MEDS: ASPIRIN 81 MG TAB PO SCH (08:43)
[2019-03-24] MEDS: CLOPIDOGREL 75 MG TAB PO SCH (08:44)
[2019-03-24] MEDS: LISINOPRIL 20 MG TAB PO SCH (08:44)
[2019-03-24] MEDS: AMLODIPINE 10 MG TAB PO SCH (08:44)
[2019-03-24] MEDS: ENOXAPARIN 30 MG/0.3 ML SYG SC SCH (09:06)
--- NOTE | 2019-03-24 09:36 | PN ---
Date/Time of Note Date/Time of Note DATE: 03/24/19 TIME: 09:31 Assessment/Plan VTE Prophylaxis Risk score (from Ns)>0 risk: 2 SCD applied (from Ns): Yes SCD contraindicated: other Pharmacological prophylaxis: other Pharm contraindication: other Lines/Catheters IV Catheter Type (from [facility]): Peripheral IV Urinary Cath still in place: No Assessment/Plan Assessment/Plan -TIA, ABCD2 score 6. Continue aspirin, Plavix. - is following in neurology consultation. - MRI of the brain 1. Progression of radiographic evolution involving the scattered areas of subacute ischemic infarct in the right middle cerebral artery distribution involving the right echevarria radiata and lentiform nucleus as compared to the study of 02/06/2019 without evidence for mass effect. 2. There is no evidence for new intracranial abnormality or mass effect. 3. Generalized advanced cerebral atrophy for the patient's age. - Continue PT OT. -Hyperglycemia in patient with diabetes mellitus type 2. BS stable now - hemoglobin A1c is 10.3 - continue Lantus and NovoLog. - Diabetic education for diet and compliance. - Dr. Dietz is asked to see patient in endocrinology consultation. -UTI per UA, continue Rocephin, follow-up on urine culture. -History of right RCA stenosis, patient was instructed to follow-up with Dr. Joseph, vascular surgery as an outpatient for follow-up carotid ultrasound in 6 months. -Hypertension Further recommendations based on clinical course. Plan of care discussed with Dr. Bruner. Result Diagram: 03/22/19 0534 03/23/19 0534 Results 24hrs Laboratory Tests Test 03/23/19 11:46 03/23/19 17:07 03/23/19 20:09 03/24/19 01:44 Bedside Glucose 335 H 308 H 324 H 105 Test 03/24/19 07:43 Bedside Glucose 83 Subjective 24 Hr Interval Summary Free Text/Dictation - nad -resting; seems comfortable; able to answer "yes/No" -MRI of the brain results completed - pending acute rehab eval. Hyperglycemia- dr Allan was notified, bs stable. - Hypokalemia- replaced dw staff Eyes: no complaints ENT: no complaints Respiratory: no complaints Cardiovascular: no complaints Gastrointestinal: no complaints Genitourinary: no complaints Musculoskeletal: no complaints Skin: no complaints Neurologic: no complaints Endocrine: no complaints Exam/Review of Systems Exam Vitals Vital Signs Date Temp Pulse Resp B/P (MAP) Pulse Ox O2 O2 Flow FiO2 Time Delivery Rate 03/24/19 81 08:13 03/24/19 98.1 18 110/56 98 Room Air 07:08 (74) Intake and Output 03/23/19 03/23/19 03/24/19 1515:00 23:00 07:00 IntakeIntake Total 50 ml 1200 ml BalanceBalance 50 ml 1200 ml Constitutional: well developed Psych: nl mood/affect Eyes: nl lids ENMT: nl external ears & nose Neck: non-tender Respiratory: clear to auscultation Cardiovascular: nl pulses, other (s1s2) Gastrointestinal: soft, non-tender Musculoskeletal: nl extremities to inspection Extremities: normal pulses Skin: nl turgor Lymph: nontender Results Results 24hrs Laboratory Tests Test 03/23/19 11:46 03/23/19 17:07 03/23/19 20:09 03/24/19 01:44 Bedside Glucose 335 H 308 H 324 H 105 Test 03/24/19 07:43 Bedside Glucose 83 Medications Medication Current Medications IV Flush (NS 3 ml) 3 ml PER PROTOCOL IV ; Start 03/21/19 at 20:30 Ondansetron HCl (Zofran Inj) 4 mg Q6H PRN IV NAUSEA/VOMITING; Start 03/21/19 at 20:30 Acetaminophen (Tylenol Tab) 650 mg Q6H PRN PO .PAIN 1-3 OR TEMP; Start 03/21/19 at 20:30 Morphine Sulfate (morphine) 2 mg Q4H PRN IV .PAIN 7-10; Start 03/21/19 at 20:30 Enoxaparin Sodium (Lovenox) 30 mg DAILY SC Last administered on 03/24/19at 09:06; Admin Dose 30 MG; Start 03/22/19 at 09:00 Miscellaneous Information 1 ea NOTE XX ; Start 03/21/19 at 20:30 Glucose (Glutose) 15 gm Q15M PRN PO DECREASED GLUCOSE; Start 03/21/19 at 20:30 Glucose (Glutose) 22.5 gm Q15M PRN PO DECREASED GLUCOSE; Start 03/21/19 at 20:30 Dextrose (D50w Syringe) 25 ml Q15M PRN IV DECREASED GLUCOSE; Start 03/21/19 at 20:30 Dextrose (D50w Syringe) 50 ml Q15M PRN IV DECREASED GLUCOSE; Start 03/21/19 at 20:30 Glucagon (Glucagen) 1 mg Q15M PRN IM DECREASED GLUCOSE; Start 03/21/19 at 20:30 Glucose (Glutose) 15 gm Q15M PRN BUCCAL DECREASED GLUCOSE; Start 03/21/19 at 20:30 Amlodipine Besylate (Norvasc) 10 mg DAILY PO Last administered on 03/24/19 08:44; Admin Dose 10 MG; Start 03/22/19 at 09:00 Aspirin (Aspirin) 81 mg DAILY PO Last administered on 03/24/19 08:43; Admin Dose 81 MG; Start 03/22/19 at 09:00 Atorvastatin Calcium (Lipitor) 40 mg HS PO Last administered on 03/23/19 20:10; Admin Dose 40 MG; Start 03/22/19 at 21:00 Lisinopril (Zestril) 20 mg DAILY PO Last administered on 03/24/19 08:44; Admin Dose 20 MG; Start 03/22/19 at 09:00 Clopidogrel Bisulfate (plaVIX) 75 mg DAILY PO Last administered on 03/24/19 08:44; Admin Dose 75 MG; Start 03/22/19 at 11:00 Diagnostic Test (Pha) (Accu-Chek) 1 ea 02 XX Last administered on 03/24/19 02:35; Admin Dose 1 EA; Start 03/23/19 at 02:00 Insulin Glargine (Lantus) 16 units DAILY@2000 SC Last administered on 03/23/19 20:15; Admin Dose 16 UNITS; Start 03/22/19 at 20:00 Insulin Aspart (Novolog Insulin Pen) NOVOLOG *MILD* ALGORITHM WITH MEALS BEDTIME SC Last administered on 03/23/19 20:15; Admin Dose 4 UNIT; Start 03/22/19 at 12:00 Ceftriaxone Sodium 50 ml @ 100 mls/hr Q24H IVPB Last administered on 03/23/19 11:43; Admin Dose 100 MLS/HR; Start 03/22/19 at 11:30 Famotidine (Pepcid) 20 mg Q12 PO Last administered on 03/24/19 08:43; Admin Dose 20 MG; Start 03/22/19 at 21:00 Metformin HCl (Glucophage) 500 mg BID WITH MEALS PO Last administered on 03/24/19 07:45; Admin Dose 500 MG; Start 03/23/19 at 18:00 Linagliptin (Tradjenta) 5 mg DAILY PO Last administered on 03/24/19at 08:43; Admin Dose 5 MG; Start 03/24/19 at 09:00 Empaglifozin (Jardiance) 10 mg DAILY@08 PO Last administered on 03/24/19at 07:46; Admin Dose 10 MG; Start 03/24/19 at 08:00 Insulin Aspart (Novolog Insulin Pen) 8 unit WITH MEALS SC Last administered on 03/24/19at 07:54; Admin Dose 8 UNIT; Start 03/24/19 at 08:00 REKHA FLOREZ March 24, 2019 09:36
[2019-03-24] MEDS: CEFTRIAXONE 1 GM/50 ML (PMX) 50 ML IVPB SCH (11:47)
--- NOTE | 2019-03-24 14:49 | RADRPT ---
Vent Rate: 87 bpm RR Interval: 0 msec SD Interval: 160 msec QRS Duration: 74 msec QT Interval: 384 msec QTC Interval: 462 msec P-R-T Rebuck: 66 - 52 - 58 degrees Normal sinus rhythm Normal ECG Electronically Signed By: [facility]
--- NOTE | 2019-03-24 14:49 | RADRPT ---
Vent Rate: 87 bpm RR Interval: [address] Interval: 160 msec QRS Duration: 80 msec QT Interval: 392 msec QTC Interval: 471 msec P-R-T Given: 68 - 60 - 57 degrees Normal sinus rhythm Normal ECG Electronically Signed By: [facility]
--- NOTE | 2019-03-24 16:08 | CONS ---
Assessment/Plan Assessment/Plan Hospital Course 64 yo F with hx of stroke and other cerebrovascular risk factors who presents for evaluation of transient dysarthria. UA+ The clinical picture could be consistent with an acute toxic-metabolic encephalopathy. MRI is notable for an evolving R MCA territory infarction.. P: Cont ASA/Plavix per ops for secondary stroke prevention; LDL is at goal PT/OT/ST as necessary Other management and supportive care per primary Will follow clinically Consultation Date/Type/Reason Admit Date/Time March 23, 2019 at 15:18 Type of Consult Neurology Reason for Consultation dysarthria Requesting Provider: JORGE TABOR Date/Time of Note DATE: 03/24/19 TIME: 16:05 24 HR Interval Summary Free Text/Dictation Continues acute care Exam Vital Signs Vitals Vital Signs Date Temp Pulse Resp B/P (MAP) Pulse Ox O2 O2 Flow FiO2 Time Delivery Rate 03/24/19 98.2 92 18 130/62 99 Room Air 15:20 (84) Intake and Output 03/23/19 03/23/19 03/24/19 1515:00 23:00 07:00 IntakeIntake Total 50 ml 1200 ml BalanceBalance 50 ml 1200 ml YULI FLORES March 24, 2019 16:08
[2019-03-24] MEDS ORDERED: INSULIN ASPART [NOVOLOG] 3 ML PEN SC SCH (18:00)
--- NOTE | 2019-03-24 18:00 | CONS ---
Assessment/Plan Assessment/Plan Problems: (1) Diabetes mellitus type 2 in nonobese Status: Chronic Comment: Excellent glycemic control. Glucose actually below goal. Will decrease insulins slightly. Decrease lantus from 16 to 14 units qhs and Novolog from 8 to 7 units sq qac. Cont. all current oral meds. Will follow and adjust insulin doses as needed. Consultation Date/Type/Reason Admit Date/Time March 23, 2019 at 15:18 Initial Consult Date 03/23/19 Type of Consult Endocrinology Reason for Consultation [id number] Requesting Provider: JORGE TABOR Date/Time of Note DATE: 03/24/19 TIME: 17:57 24 HR Interval Summary Constitutional: no complaints, improved Detailed Summary Respiratory: no complaints Cardiovascular: no complaints Gastrointestinal: no complaints Genitourinary: no complaints Musculoskeletal: no complaints Neurologic: no complaints Exam/Review of Systems Exam Vitals VS - Last 72 Hours, by Label Date Temp Pulse Resp B/P (MAP) Pulse Ox O2 O2 Flow FiO2 Time Delivery Rate 03/24/19 92 16:12 03/24/19 98.2 92 18 130/62 99 Room Air 15:20 (84) 03/24/19 90 13:18 03/24/19 98.3 18 133/63 99 Room Air 11:19 (86) 03/24/19 81 08:13 03/24/19 98.1 82 18 110/56 98 Room Air 07:08 (74) 03/24/19 70 04:00 03/24/19 98.0 81 21 121/62 97 03:31 (81) 03/24/19 80 00:00 03/23/19 97.9 82 19 111/56 96 23:36 (74) 03/23/19 85 20:00 03/23/19 98.1 86 17 123/55 100 19:34 (77) 03/23/19 82 16:00 03/23/19 98.1 79 18 115/63 98 Room Air 15:55 (80) 03/23/19 81 12:00 03/23/19 97.7 82 16 134/63 98 Room Air 11:53 (86) 03/23/19 80 08:00 03/23/19 97.4 79 18 137/65 98 Room Air 07:31 (89) 03/23/19 97.7 78 17 106/52 98 04:17 (70) 03/23/19 71 04:00 03/23/19 97.8 62 17 142/65 96 00:10 (90) 03/23/19 78 00:00 03/22/19 83 20:00 03/22/19 84 16:14 03/22/19 98.0 83 20 147/66 96 Room Air 15:01 (93) 03/22/19 87 12:56 03/22/19 98.1 87 18 139/69 94 Room Air 11:15 (92) 03/22/19 82 08:08 03/22/19 98.2 83 19 143/66 96 Room Air 07:07 (91) 03/22/19 97.9 77 17 135/66 98 04:23 (89) 03/22/19 72 04:00 03/22/19 98.0 82 17 138/63 98 00:00 (88) 03/22/19 79 00:00 03/21/19 84 21:59 03/21/19 78 16 126/58 98 Room Air 21:34 (80) 03/21/19 90 16 156/78 100 Room Air 20:30 (104) 03/21/19 92 18 172/90 100 Room Air 18:35 (117) Vital Signs Date Temp Pulse Resp B/P (MAP) Pulse Ox O2 O2 Flow FiO2 Time Delivery Rate 03/24/19 92 16:12 03/24/19 98.2 18 130/62 99 Room Air 15:20 (84) Intake and Output 03/23/19 03/23/19 03/24/19 1515:00 23:00 07:00 IntakeIntake Total 50 ml 1200 ml BalanceBalance 50 ml 1200 ml Constitutional: alert, oriented, well developed Psych: no complaints, nl mood/affect Respiratory: clear to auscultation, normal air movement Cardiovascular: regular rate and rhythm, nl pulses; No edema, No murmurs/extra sounds, No rub Gastrointestinal: soft, nl liver, spleen, non-tender, bowel sounds; No mass, No rebound or guarding Musculoskeletal: nl extremities to inspection Extremities: normal pulses; No cyanosis, No clubbing, No edema Neurological: OXYGEN EQUIPMENT AIDE II-XII intact, nl mental status, nl speech, nl strength Additional Comments Bedside Glucose - 72 Hours Test 03/21/19 20:40 03/21/19 22:14 03/22/19 07:38 03/22/19 11:49 Bedside 344 210 94 155 Glucose mg/dL (70-220) mg/dL (70-220) mg/dL (70-220) mg/dL (70-220) H Test 03/22/19 17:19 03/22/19 20:11 03/23/19 02:59 03/23/19 08:03 Bedside 207 195 180 138 Glucose mg/dL (70-220) mg/dL (70-220) mg/dL (70-220) mg/dL (70-220) Test 03/23/19 11:46 03/23/19 17:07 03/23/19 20:09 03/24/19 01:44 Bedside 335 308 324 105 Glucose mg/dL (70-220) mg/dL (70-220) mg/dL (70-220) mg/dL (70-220) H H H Test 03/24/19 07:43 03/24/19 11:46 03/24/19 17:09 Bedside 83 92 97 Glucose mg/dL (70-220) mg/dL (70-220) mg/dL (70-220) Results Result Diagram: 03/22/19 0534 03/23/19 0534 Results 24hrs Laboratory Tests Test 03/23/19 20:09 03/24/19 01:44 03/24/19 07:43 03/24/19 11:46 Bedside Glucose 324 H 105 83 92 Test 03/24/19 17:09 Bedside Glucose 97 Medications Medication Current Medications IV Flush (NS 3 ml) 3 ml PER PROTOCOL IV ; Start 03/21/19 at 20:30 Ondansetron HCl (Zofran Inj) 4 mg Q6H PRN IV NAUSEA/VOMITING; Start 03/21/19 at 20:30 Acetaminophen (Tylenol Tab) 650 mg Q6H PRN PO .PAIN 1-3 OR TEMP; Start 03/21/19 at 20:30 Morphine Sulfate (morphine) 2 mg Q4H PRN IV .PAIN 7-10; Start 03/21/19 at 20:30 Enoxaparin Sodium (Lovenox) 30 mg DAILY SC Last administered on 03/24/19at 09:06; Admin Dose 30 MG; Start 03/22/19 at 09:00 Miscellaneous Information 1 ea NOTE XX ; Start 03/21/19 at 20:30 Glucose (Glutose) 15 gm Q15M PRN PO DECREASED GLUCOSE; Start 03/21/19 at 20:30 Glucose (Glutose) 22.5 gm Q15M PRN PO DECREASED GLUCOSE; Start 03/21/19 at 20:30 Dextrose (D50w Syringe) 25 ml Q15M PRN IV DECREASED GLUCOSE; Start 03/21/19 at 20:30 Dextrose (D50w Syringe) 50 ml Q15M PRN IV DECREASED GLUCOSE; Start 03/21/19 at 20:30 Glucagon (Glucagen) 1 mg Q15M PRN IM DECREASED GLUCOSE; Start 03/21/19 at 20:30 Glucose (Glutose) 15 gm Q15M PRN BUCCAL DECREASED GLUCOSE; Start 03/21/19 at 20:30 Amlodipine Besylate (Norvasc) 10 mg DAILY PO Last administered on 03/24/19at 08:44; Admin Dose 10 MG; Start 03/22/19 at 09:00 Aspirin (Aspirin) 81 mg DAILY PO Last administered on 03/24/19at 08:43; Admin Dose 81 MG; Start 03/22/19 at 09:00 Atorvastatin Calcium (Lipitor) 40 mg HS PO Last administered on 03/23/19at 20:10; Admin Dose 40 MG; Start 03/22/19 at 21:00 Lisinopril (Zestril) 20 mg DAILY PO Last administered on 03/24/19at 08:44; Admin Dose 20 MG; Start 03/22/19 at 09:00 Clopidogrel Bisulfate (plaVIX) 75 mg DAILY PO Last administered on 03/24/19at 08:44; Admin Dose 75 MG; Start 03/22/19 at 11:00 Diagnostic Test (Pha) (Accu-Chek) 1 ea 02 XX Last administered on 03/24/19at 02:35; Admin Dose 1 EA; Start 03/23/19 at 02:00 Insulin Glargine (Lantus) 16 units DAILY@2000 SC Last administered on 03/23/19at 20:15; Admin Dose 16 UNITS; Start 03/22/19 at 20:00 Insulin Aspart (Novolog Insulin Pen) NOVOLOG *MILD* ALGORITHM WITH MEALS BEDTIME SC Last administered on 03/23/19at 20:15; Admin Dose 4 UNIT; Start 03/22/19 at 12:00 Ceftriaxone Sodium 50 ml @ 100 mls/hr Q24H IVPB Last administered on 03/24/19at 11:47; Admin Dose 100 MLS/HR; Start 03/22/19 at 11:30 Famotidine (Pepcid) 20 mg Q12 PO Last administered on 03/24/19at 08:43; Admin Dose 20 MG; Start 03/22/19 at 21:00 Metformin HCl (Glucophage) 500 mg BID WITH MEALS PO Last administered on 03/24/19at 17:17; Admin Dose 500 MG; Start 03/23/19 at 18:00 Linagliptin (Tradjenta) 5 mg DAILY PO Last administered on 03/24/19at 08:43; Admin Dose 5 MG; Start 03/24/19 at 09:00 Empaglifozin (Jardiance) 10 mg DAILY@08 PO Last administered on 03/24/19at 07:46; Admin Dose 10 MG; Start 03/24/19 at 08:00 Insulin Aspart (Novolog Insulin Pen) 8 unit WITH MEALS SC Last administered on 03/24/19at 17:25; Admin Dose 8 UNIT; Start 03/24/19 at 08:00 ADAN PARDO MD March 24, 2019 18:00
[2019-03-24] MEDS ORDERED: INSULIN GLARGINE [LANTus] (100 UNITS/ML) SYG SC SCH (20:00)
[2019-03-24] MEDS: ATORVASTATIN 40 MG TAB PO SCH (20:08)
[2019-03-25] VITALS (9 sets, daily range): BP systolic 97–140; BP diastolic 55–66; PULSE 78–101; RESP 18–20
[2019-03-25] MEDS ORDERED: POTASSIUM CHLORIDE (SR) 20 MEQ TAB PO ONE (01:30)
[2019-03-25] MEDS: ACCU-CHEK XX SCH (01:37)
[2019-03-25] MEDS ORDERED: INSULIN ASPART [NOVOLOG] 3 ML PEN SC SCH (08:00)
[2019-03-25] MEDS: INSULIN ASPART [NOVOLOG] 3 ML PEN SC SCH ×6 (08:00→20:21)
[2019-03-25] MEDS: FAMOTIDINE 20 MG TAB PO SCH ×2 (08:36→20:21)
[2019-03-25] MEDS: LINAGLIPTIN 5 MG TABLET PO SCH (08:36)
[2019-03-25] MEDS: EMPAGLIFLOZIN 10 MG TABLET PO SCH (08:36)
[2019-03-25] MEDS: ASPIRIN 81 MG TAB PO SCH (08:36)
[2019-03-25] MEDS: metFORMIN 500 MG TAB PO SCH ×2 (08:37→17:24)
[2019-03-25] MEDS: AMLODIPINE 10 MG TAB PO SCH (08:37)
[2019-03-25] MEDS: CLOPIDOGREL 75 MG TAB PO SCH (08:37)
[2019-03-25] MEDS: LISINOPRIL 20 MG TAB PO SCH (08:37)
[2019-03-25] MEDS: ENOXAPARIN 30 MG/0.3 ML SYG SC SCH (08:41)
--- NOTE | 2019-03-25 09:42 | CONS ---
Assessment/Plan Assessment/Plan Problems: (1) Diabetes mellitus type 2 in nonobese Status: Chronic Comment: At this time blood sugar control continues to be just a little bit tightly controlled. Given the age and medical infirmities on a loosen this up to avoid significant hypoglycemic reactions. We will continue work with this but the patient is in the facility. Consultation Date/Type/Reason Admit Date/Time March 23, 2019 at 15:18 Initial Consult Date 03/23/19 Type of Consult Endocrinology Reason for Consultation Diabetes mellitus type 2 on oral agents in combination with insulin Requesting Provider: JORGE TABOR Date/Time of Note DATE: 03/25/19 TIME: 09:41 24 HR Interval Summary Free Text/Dictation No complaints no hypoglycemic symptoms Constitutional: no complaints Detailed Summary Endocrine: no complaints Exam/Review of Systems Exam Vitals Vital Signs Date Temp Pulse Resp B/P (MAP) Pulse Ox O2 O2 Flow FiO2 Time Delivery Rate 03/25/19 90 08:01 03/25/19 98.5 20 105/63 96 Room Air 07:34 (77) Intake and Output 03/24/19 03/24/19 03/25/19 1515:00 23:00 07:00 IntakeIntake Total 300 ml 1200 ml 500 ml BalanceBalance 300 ml 1200 ml 500 ml Constitutional: alert, oriented Respiratory: clear to auscultation, normal air movement Cardiovascular: regular rate and rhythm, nl pulses Results Result Diagram: 03/25/19 0503/25/19 0526 Results 24hrs Laboratory Tests Test 03/24/19 11:46 03/24/19 17:09 03/24/19 19:58 03/25/19 01:34 Bedside Glucose 92 97 105 79 Test 03/25/19 05:26 03/25/19 08:30 White Blood Count 5.7 Red Blood Count 3.62 L Hemoglobin 11.3 L Hematocrit 32.3 L Mean Corpuscular 89.2 Volume Mean Corpuscular 31.2 Hemoglobin Mean Corpuscular 35.0 Hemoglobin Concent Red Cell 13.2 Distribution Width Platelet Count 184 Mean Platelet Volume 10.6 H Immature 0.200 Granulocytes % Neutrophils % 54.8 Lymphocytes % 35.6 Monocytes % 7.8 Eosinophils % 1.1 Basophils % 0.5 Nucleated Red Blood 0.0 Cells % Immature 0.010 Granulocytes # Neutrophils # 3.1 Lymphocytes # 2.0 Monocytes # 0.4 Eosinophils # 0.1 Basophils # 0.0 Nucleated Red Blood 0.0 Cells # Sodium Level 139 Potassium Level 4.2 Chloride Level 107 Carbon Dioxide Level 28 Anion Gap 4 L Blood Urea Nitrogen 23 H Creatinine 0.90 Est Glomerular > 60 Filtrat Rate mL/min Glucose Level 72 # Calcium Level 9.3 Bedside Glucose 89 Medications Medication Current Medications IV Flush (NS 3 ml) 3 ml PER PROTOCOL IV ; Start 03/21/19 at 20:30 Ondansetron HCl (Zofran Inj) 4 mg Q6H PRN IV NAUSEA/VOMITING; Start 03/21/19 at 20:30 Acetaminophen (Tylenol Tab) 650 mg Q6H PRN PO .PAIN 1-3 OR TEMP; Start 03/21/19 at 20:30 Morphine Sulfate (morphine) 2 mg Q4H PRN IV .PAIN 7-10; Start 03/21/19 at 20:30 Enoxaparin Sodium (Lovenox) 30 mg DAILY SC Last administered on 03/25/19at 08:41; Admin Dose 30 MG; Start 03/22/19 at 09:00 Miscellaneous Information 1 ea NOTE XX ; Start 03/21/19 at 20:30 Glucose (Glutose) 15 gm Q15M PRN PO DECREASED GLUCOSE; Start 03/21/19 at 20:30 Glucose (Glutose) 22.5 gm Q15M PRN PO DECREASED GLUCOSE; Start 03/21/19 at 20:3 0 Dextrose (D50w Syringe) 25 ml Q15M PRN IV DECREASED GLUCOSE; Start 03/21/19 at 20:30 Dextrose (D50w Syringe) 50 ml Q15M PRN IV DECREASED GLUCOSE; Start 03/21/19 at 20:30 Glucagon (Glucagen) 1 mg Q15M PRN IM DECREASED GLUCOSE; Start 03/21/19 at 20:30 Glucose (Glutose) 15 gm Q15M PRN BUCCAL DECREASED GLUCOSE; Start 03/21/19 at 20:30 Amlodipine Besylate (Norvasc) 10 mg DAILY PO Last administered on 03/25/19at 08:37; Admin Dose 10 MG; Start 03/22/19 at 09:00 Aspirin (Aspirin) 81 mg DAILY PO Last administered on 03/25/19at 08:36; Admin Dose 81 MG; Start 03/22/19 at 09:00 Atorvastatin Calcium (Lipitor) 40 mg HS PO Last administered on 03/24/19 20:08; Admin Dose 40 MG; Start 03/22/19 at 21:00 Lisinopril (Zestril) 20 mg DAILY PO Last administered on 03/25/19 08:37; Admin Dose 20 MG; Start 03/22/19 at 09:00 Clopidogrel Bisulfate (plaVIX) 75 mg DAILY PO Last administered on 03/25/19 08 :37; Admin Dose 75 MG; Start 03/22/19 at 11:00 Diagnostic Test (Pha) (Accu-Chek) 1 ea 02 XX Last administered on 03/25/19 01:37; Admin Dose 1 EA; Start 03/23/19 at 02:00 Insulin Aspart (Novolog Insulin Pen) NOVOLOG *MILD* ALGORITHM WITH MEALS BEDTIME SC Last administered on 03/23/19 20:15; Admin Dose 4 UNIT; Start 03/22/19 at 12:00 Ceftriaxone Sodium 50 ml @ 100 mls/hr Q24H IVPB Last administered on 03/24/19 11:47; Admin Dose 100 MLS/HR; Start 03/22/19 at 11:30 Famotidine (Pepcid) 20 mg Q12 PO Last administered on 03/25/19 08:36; Admin Dose 20 MG; Start 03/22/19 at 21:00 Metformin HCl (Glucophage) 500 mg BID WITH MEALS PO Last administered on 03/25/19 08:37; Admin Dose 500 MG; Start 03/23/19 at 18:00 Linagliptin (Tradjenta) 5 mg DAILY PO Last administered on 03/25/19 08:36; Admin Dose 5 MG; Start 03/24/19 at 09:00 Empaglifozin (Jardiance) 10 mg DAILY@08 PO Last administered on 03/25/19 08:36; Admin Dose 10 MG; Start 03/24/19 at 08:00 Insulin Glargine (Lantus) 14 units DAILY@2000 SC Last administered on 03/24/19 20:12; Admin Dose 14 UNITS; Start 03/24/19 at 20:00 Insulin Aspart (Novolog Insulin Pen) 7 unit WITH MEALS SC Last administered on 03/25/19 08:39; Admin Dose 7 UNIT; Start 03/25/19 at 08:00 EBONY SU MD March 25, 2019 09:42
--- NOTE | 2019-03-25 10:58 | PN ---
Date/Time of Note Date/Time of Note DATE: 03/25/19 TIME: 10:58 Assessment/Plan VTE Prophylaxis Risk score (from Ns)>0 risk: 3 SCD applied (from Ns): Yes Pharmacological prophylaxis: LMWH Lines/Catheters IV Catheter Type (from [facility]): Peripheral IV Urinary Cath still in place: No Assessment/Plan Hospital Course -TIA, ABCD2 score 6. Continue aspirin, Plavix. - is following in neurology consultation. - MRI of the brain 1. Progression of radiographic evolution involving the scattered areas of subacute ischemic infarct in the right middle cerebral artery distribution involving the right echevarria radiata and lentiform nucleus as compared to the study of 02/06/2019 without evidence for mass effect. 2. There is no evidence for new intracranial abnormality or mass effect. 3. Generalized advanced cerebral atrophy for the patient's age. - Continue PT OT. -Hyperglycemia in patient with diabetes mellitus type 2. BS stable now - hemoglobin A1c is 10.3 - continue Lantus and NovoLog. - Diabetic education for diet and compliance. - Dr. Dietz is asked to see patient in endocrinology consultation. -UTI per UA, continue Rocephin, follow-up on urine culture. -History of right RCA stenosis, patient was instructed to follow-up with Dr. Joseph, vascular surgery as an outpatient for follow-up carotid ultrasound in 6 months. -Hypertension Result Diagram: 03/25/19 0526 03/25/19 0526 Results 24hrs Laboratory Tests Test 03/24/19 11:46 03/24/19 17:09 03/24/19 19:58 03/25/19 01:34 Bedside Glucose 92 97 105 79 Test 03/25/19 05:26 03/25/19 08:30 White Blood Count 5.7 Red Blood Count 3.62 L Hemoglobin 11.3 L Hematocrit 32.3 L Mean Corpuscular 89.2 Volume Mean Corpuscular 31.2 Hemoglobin Mean Corpuscular 35.0 Hemoglobin Concent Red Cell 13.2 Distribution Width Platelet Count 184 Mean Platelet Volume 10.6 H Immature 0.200 Granulocytes % Neutrophils % 54.8 Lymphocytes % 35.6 Monocytes % 7.8 Eosinophils % 1.1 Basophils % 0.5 Nucleated Red Blood 0.0 Cells % Immature 0.010 Granulocytes # Neutrophils # 3.1 Lymphocytes # 2.0 Monocytes # 0.4 Eosinophils # 0.1 Basophils # 0.0 Nucleated Red Blood 0.0 Cells # Sodium Level 139 Potassium Level 4.2 Chloride Level 107 Carbon Dioxide Level 28 Anion Gap 4 L Blood Urea Nitrogen 23 H Creatinine 0.90 Est Glomerular > 60 Filtrat Rate mL/min Glucose Level 72 # Calcium Level 9.3 Bedside Glucose 89 Subjective 24 Hr Interval Summary Free Text/Dictation Patient has no complaints Exam/Review of Systems Exam Vitals Vital Signs Date Temp Pulse Resp B/P (MAP) Pulse Ox O2 O2 Flow FiO2 Time Delivery Rate 03/25/19 90 08:01 03/25/19 98.5 20 105/63 96 Room Air 07:34 (77) Intake and Output 03/24/19 03/24/19 03/25/19 1515:00 23:00 07:00 IntakeIntake Total 300 ml 1200 ml 500 ml BalanceBalance 300 ml 1200 ml 500 ml Constitutional: well developed Head: normocephalic, atraumatic Neck: supple Respiratory: diminished breath sounds Cardiovascular: regular rate and rhythm Gastrointestinal: soft, non-tender Extremities: normal pulses Results Results 24hrs Laboratory Tests Test 03/24/19 11:46 03/24/19 17:09 03/24/19 19:58 03/25/19 01:34 Bedside Glucose 92 97 105 79 Test 03/25/19 05:26 03/25/19 08:30 White Blood Count 5.7 Red Blood Count 3.62 L Hemoglobin 11.3 L Hematocrit 32.3 L Mean Corpuscular 89.2 Volume Mean Corpuscular 31.2 Hemoglobin Mean Corpuscular 35.0 Hemoglobin Concent Red Cell 13.2 Distribution Width Platelet Count 184 Mean Platelet Volume 10.6 H Immature 0.200 Granulocytes % Neutrophils % 54.8 Lymphocytes % 35.6 Monocytes % 7.8 Eosinophils % 1.1 Basophils % 0.5 Nucleated Red Blood 0.0 Cells % Immature 0.010 Granulocytes # Neutrophils # 3.1 Lymphocytes # 2.0 Monocytes # 0.4 Eosinophils # 0.1 Basophils # 0.0 Nucleated Red Blood 0.0 Cells # Sodium Level 139 Potassium Level 4.2 Chloride Level 107 Carbon Dioxide Level 28 Anion Gap 4 L Blood Urea Nitrogen 23 H Creatinine 0.90 Est Glomerular > 60 Filtrat Rate mL/min Glucose Level 72 # Calcium Level 9.3 Bedside Glucose 89 Medications Medication Current Medications IV Flush (NS 3 ml) 3 ml PER PROTOCOL IV ; Start 03/21/19 at 20:30 Ondansetron HCl (Zofran Inj) 4 mg Q6H PRN IV NAUSEA/VOMITING; Start 03/21/19 at 20:30 Acetaminophen (Tylenol Tab) 650 mg Q6H PRN PO .PAIN 1-3 OR TEMP; Start 03/21/19 at 20:30 Morphine Sulfate (morphine) 2 mg Q4H PRN IV .PAIN 7-10; Start 03/21/19 at 20:30 Enoxaparin Sodium (Lovenox) 30 mg DAILY SC Last administered on 03/25/19at 08:41; Admin Dose 30 MG; Start 03/22/19 at 09:00 Miscellaneous Information 1 ea NOTE XX ; Start 03/21/19 at 20:30 Glucose (Glutose) 15 gm Q15M PRN PO DECREASED GLUCOSE; Start 03/21/19 at 20:30 Glucose (Glutose) 22.5 gm Q15M PRN PO DECREASED GLUCOSE; Start 03/21/19 at 20:30 Dextrose (D50w Syringe) 25 ml Q15M PRN IV DECREASED GLUCOSE; Start 03/21/19 at 20:30 Dextrose (D50w Syringe) 50 ml Q15M PRN IV DECREASED GLUCOSE; Start 03/21/19 at 20:30 Glucagon (Glucagen) 1 mg Q15M PRN IM DECREASED GLUCOSE; Start 03/21/19 at 20:30 Glucose (Glutose) 15 gm Q15M PRN BUCCAL DECREASED GLUCOSE; Start 03/21/19 at 20:30 Amlodipine Besylate (Norvasc) 10 mg DAILY PO Last administered on 03/25/19at 08:37; Admin Dose 10 MG; Start 03/22/19 at 09:00 Aspirin (Aspirin) 81 mg DAILY PO Last administered on 03/25/19at 08:36; Admin Dose 81 MG; Start 03/22/19 at 09:00 Atorvastatin Calcium (Lipitor) 40 mg HS PO Last administered on 03/24/19at 20:08; Admin Dose 40 MG; Start 03/22/19 at 21:00 Lisinopril (Zestril) 20 mg DAILY PO Last administered on 03/25/19at 08:37; Admin Dose 20 MG; Start 03/22/19 at 09:00 Clopidogrel Bisulfate (plaVIX) 75 mg DAILY PO Last administered on 03/25/19 08:37; Admin Dose 75 MG; Start 03/22/19 at 11:00 Diagnostic Test (Pha) (Accu-Chek) 1 ea 02 XX Last administered on 03/25/19 01:37; Admin Dose 1 EA; Start 03/23/19 at 02:00 Insulin Aspart (Novolog Insulin Pen) NOVOLOG *MILD* ALGORITHM WITH MEALS BEDTIME SC Last administered on 03/23/19 20:15; Admin Dose 4 UNIT; Start 03/22/19 at 12:00 Ceftriaxone Sodium 50 ml @ 100 mls/hr Q24H IVPB Last administered on 03/24/19 11:47; Admin Dose 100 MLS/HR; Start 03/22/19 at 11:30 Famotidine (Pepcid) 20 mg Q12 PO Last administered on 03/25/19 08:36; Admin Dose 20 MG; Start 03/22/19 at 21:00 Metformin HCl (Glucophage) 500 mg BID WITH MEALS PO Last administered on 08:37; Admin Dose 500 MG; Start 03/23/19 at 18:00 Linagliptin (Tradjenta) 5 mg DAILY PO Last administered on 03/25/19 08:36; Admin Dose 5 MG; Start 03/24/19 at 09:00 Empaglifozin (Jardiance) 10 mg DAILY@08 PO Last administered on 03/25/19 08:36; Admin Dose 10 MG; Start 03/24/19 at 08:00 Insulin Aspart (Novolog Insulin Pen) 6 unit WITH MEALS SC ; Start 03/25/19 at 12:00 Insulin Glargine (Lantus) 12 units DAILY@2000 SC ; Start 03/25/19 at 20:00 JULIOCESAR GALLO March 25, 2019 10:58
[2019-03-25] MEDS: CEFTRIAXONE 1 GM/50 ML (PMX) 50 ML IVPB SCH (12:02)
[2019-03-25] MEDS: ATORVASTATIN 40 MG TAB PO SCH (20:21)
[2019-03-25] MEDS: INSULIN GLARGINE [LANTus] (100 UNITS/ML) SYG SC SCH (20:32)
[2019-03-26] VITALS (11 sets, daily range): BP systolic 99–148; BP diastolic 58–71; PULSE 82–101; RESP 17–20
[2019-03-26] MEDS: ACCU-CHEK XX SCH (02:00)
[2019-03-26] MEDS: INSULIN ASPART [NOVOLOG] 3 ML PEN SC SCH ×7 (07:44→20:25)
[2019-03-26] MEDS: metFORMIN 500 MG TAB PO SCH ×2 (08:30→17:08)
[2019-03-26] MEDS: ASPIRIN 81 MG TAB PO SCH (08:31)
[2019-03-26] MEDS: EMPAGLIFLOZIN 10 MG TABLET PO SCH (08:31)
[2019-03-26] MEDS: FAMOTIDINE 20 MG TAB PO SCH ×2 (08:31→20:25)
[2019-03-26] MEDS: LINAGLIPTIN 5 MG TABLET PO SCH (08:31)
[2019-03-26] MEDS: CLOPIDOGREL 75 MG TAB PO SCH (08:31)
[2019-03-26] MEDS: ENOXAPARIN 30 MG/0.3 ML SYG SC SCH (08:37)
[2019-03-26] MEDS: AMLODIPINE 10 MG TAB PO SCH (08:38)
[2019-03-26] MEDS: LISINOPRIL 20 MG TAB PO SCH ×2 (08:38→11:50)
--- NOTE | 2019-03-26 09:57 | CONS ---
Assessment/Plan Assessment/Plan Problems: (1) Diabetes mellitus type 2 in nonobese Status: Chronic Comment: Blood sugar control is now in line with where would like her to be in the setting. Continue with current medication regimen. (2) Essential hypertension Status: Chronic Comment: Patient actually slightly overcontrolled. In the setting would prefer to use less dihydropyridine calcium channel donta more MONIKA inhibitor. Adjustments have been made (3) Grade I diastolic dysfunction Status: Chronic Comment: As above. (4) Hyperlipidemia Status: Chronic Comment: Good response to statin drug therapy Qualifiers: Hyperlipidemia type: pure hypercholesterolemia Qualified Codes: E78.00 - Pure hypercholesterolemia, unspecified (5) Acute CVA (cerebrovascular accident) Onset Date: ~ 02/06/2019 Status: Acute Comment: Remains on antiplatelet therapy and going forward with physical therapy (6) CVA (cerebral vascular accident) Onset Date: ~ 01/15/2019 Status: Chronic Comment: As above Qualifiers: CVA mechanism: embolism Precerebral and cerebral artery: middle cerebral artery Laterality of affected vessel: right Qualified Codes: I63.411 - Cerebral infarction due to embolism of right middle cerebral artery (7) Tobacco abuse Status: Chronic Comment: Counseled Consultation Date/Type/Reason Admit Date/Time March 23, 2019 at 15:18 Initial Consult Date 03/23/19 Type of Consult Endocrinology Reason for Consultation Diabetes mellitus type 2 with inadequate control; status post right middle cerebral artery CVA (possible shower of emboli); hypertension; hyperlipidemia Requesting Provider: JORGE TABOR Date/Time of Note DATE: 03/26/19 TIME: 09:53 24 HR Interval Summary Free Text/Dictation Patient reports that she is stable at this time with no new symptoms or findings complaints Constitutional: no complaints Detailed Summary Respiratory: no complaints Cardiovascular: no complaints Endocrine: no complaints Exam/Review of Systems Exam Vitals Vital Signs Date Temp Pulse Resp B/P (MAP) Pulse Ox O2 O2 Flow FiO2 Time Delivery Rate 03/26/19 91 08:01 03/26/19 98.2 18 99/58 (72) 97 Room Air 07:10 Intake and Output 03/25/19 03/25/19 03/26/19 1515:00 23:00 07:00 IntakeIntake Total 800 ml 500 ml BalanceBalance 800 ml 500 ml Constitutional: alert, oriented Respiratory: clear to auscultation, normal air movement Cardiovascular: regular rate and rhythm, nl pulses Gastrointestinal: soft, nl liver, spleen, non-tender Results Result Diagram: 03/26/19 0520 03/26/19 0520 Results 24hrs Laboratory Tests Test 03/25/19 11:50 03/25/19 12:03 03/25/19 12:14 03/25/19 12:33 Bedside Glucose 65 L 71 69 L 89 Test 03/25/19 12:48 03/25/19 17:23 03/25/19 20:20 03/26/19 05:20 Bedside Glucose 90 125 95 White Blood Count 6.2 Red Blood Count 3.64 L Hemoglobin 11.4 L Hematocrit 32.7 L Mean Corpuscular 89.8 Volume Mean Corpuscular 31.3 Hemoglobin Mean Corpuscular 34.9 Hemoglobin Concent Red Cell 13.2 Distribution Width Platelet Count 172 Mean Platelet Volume 10.4 Immature 0.300 Granulocytes % Neutrophils % 56.9 Lymphocytes % 32.1 Monocytes % 9.1 Eosinophils % 1.0 Basophils % 0.6 Nucleated Red Blood 0.0 Cells % Immature 0.020 Granulocytes # Neutrophils # 3.5 Lymphocytes # 2.0 Monocytes # 0.6 Eosinophils # 0.1 Basophils # 0.0 Nucleated Red Blood 0.0 Cells # Sodium Level 141 Potassium Level 4.2 Chloride Level 107 Carbon Dioxide Level 28 Anion Gap 6 Blood Urea Nitrogen 24 H Creatinine 0.80 Est Glomerular > 60 Filtrat Rate mL/min Glucose Level 104 Calcium Level 9.4 Test 03/26/19 07:43 Bedside Glucose 106 Medications Medication Current Medications IV Flush (NS 3 ml) 3 ml PER PROTOCOL IV ; Start 03/21/19 at 20:30 Ondansetron HCl (Zofran Inj) 4 mg Q6H PRN IV NAUSEA/VOMITING; Start 03/21/19 at 20:30 Acetaminophen (Tylenol Tab) 650 mg Q6H PRN PO .PAIN 1-3 OR TEMP; Start 03/21/19 at 20:30 Morphine Sulfate (morphine) 2 mg Q4H PRN IV .PAIN 7-10; Start 03/21/19 at 20:30 Enoxaparin Sodium (Lovenox) 30 mg DAILY SC Last administered on 03/26/19at 08:37; Admin Dose 30 MG; Start 03/22/19 at 09:00 Miscellaneous Information 1 ea NOTE XX ; Start 03/21/19 at 20:30 Glucose (Glutose) 15 gm Q15M PRN PO DECREASED GLUCOSE; Start 03/21/19 at 20:30 Glucose (Glutose) 22.5 gm Q15M PRN PO DECREASED GLUCOSE; Start 03/21/19 at 20:30 Dextrose (D50w Syringe) 25 ml Q15M PRN IV DECREASED GLUCOSE; Start 03/21/19 at 20:30 Dextrose (D50w Syringe) 50 ml Q15M PRN IV DECREASED GLUCOSE; Start 03/21/19 at 20:30 Glucagon (Glucagen) 1 mg Q15M PRN IM DECREASED GLUCOSE; Start 03/21/19 at 20:30 Glucose (Glutose) 15 gm Q15M PRN BUCCAL DECREASED GLUCOSE Last administered on 03/25/19 12:17; Admin Dose 15 GM; Start 03/21/19 at 20:30 Amlodipine Besylate (Norvasc) 10 mg DAILY PO Last administered on 03/25/19 08:37; Admin Dose 10 MG; Start 03/22/19 at 09:00 Aspirin (Aspirin) 81 mg DAILY PO Last administered on 03/26/19 08:31; Admin Dose 81 MG; Start 03/22/19 at 09:00 Atorvastatin Calcium (Lipitor) 40 mg HS PO Last administered on 03/25/19 20:21; Admin Dose 40 MG; Start 03/22/19 at 21:00 Lisinopril (Zestril) 20 mg DAILY PO Last administered on 03/25/19 08:37; Admin Dose 20 MG; Start 03/22/19 at 09:00 Clopidogrel Bisulfate (plaVIX) 75 mg DAILY PO Last administered on 03/26/19 08:31; Admin Dose 75 MG; Start 03/22/19 at 11:00 Diagnostic Test (Pha) (Accu-Chek) 1 ea 02 XX Last administered on 03/25/19 01:37; Admin Dose 1 EA; Start 03/23/19 at 02:00 Insulin Aspart (Novolog Insulin Pen) NOVOLOG *MILD* ALGORITHM WITH MEALS BEDTIME SC Last administered on 03/23/19 20:15; Admin Dose 4 UNIT; Start 03/22/19 at 12:00 Ceftriaxone Sodium 50 ml @ 100 mls/hr Q24H IVPB Last administered on 03/25/19 12:02; Admin Dose 100 MLS/HR; Start 03/22/19 at 11:30 Famotidine (Pepcid) 20 mg Q12 PO Last administered on 03/26/19 08:31; Admin Dose 20 MG; Start 03/22/19 at 21:00 Metformin HCl (Glucophage) 500 mg BID WITH MEALS PO Last administered on 03/26/19 08:30; Admin Dose 500 MG; Start 03/23/19 at 18:00 Linagliptin (Tradjenta) 5 mg DAILY PO Last administered on 03/26/19 08:31; Admin Dose 5 MG; Start 03/24/19 at 09:00 Empaglifozin (Jardiance) 10 mg DAILY@08 PO Last administered on 03/26/19 08:31; Admin Dose 10 MG; Start 03/24/19 at 08:00 Insulin Aspart (Novolog Insulin Pen) 6 unit WITH MEALS SC Last administered on 03/26/19 07:47; Admin Dose 6 UNIT; Start 03/25/19 at 12:00 Insulin Glargine (Lantus) 12 units DAILY@2000 SC Last administered on 03/25/19 20:32; Admin Dose 12 UNITS; Start 03/25/19 at 20:00 EBONY SU MD March 26, 2019 09:57
[2019-03-26] MEDS: CEFTRIAXONE 1 GM/50 ML (PMX) 50 ML IVPB SCH (11:19)
--- NOTE | 2019-03-26 11:31 | PN ---
Date/Time of Note Date/Time of Note DATE: 03/26/19 TIME: 11:31 Assessment/Plan VTE Prophylaxis Risk score (from Ns)>0 risk: 2 SCD applied (from Ns): Yes Pharmacological prophylaxis: LMWH Lines/Catheters IV Catheter Type (from [facility]): [place] Urinary Cath still in place: No Assessment/Plan Hospital Course -TIA, ABCD2 score 6. Continue aspirin, Plavix. - is following in neurology consultation. - MRI of the brain 1. Progression of radiographic evolution involving the scattered areas of subacute ischemic infarct in the right middle cerebral artery distribution involving the right echevarria radiata and lentiform nucleus as compared to the study of 02/06/2019 without evidence for mass effect. 2. There is no evidence for new intracranial abnormality or mass effect. 3. Generalized advanced cerebral atrophy for the patient's age. - Continue PT OT. -Hyperglycemia in patient with diabetes mellitus type 2. BS stable now - hemoglobin A1c is 10.3 - continue Lantus and NovoLog. - Diabetic education for diet and compliance. - Dr. Dietz is asked to see patient in endocrinology consultation. -UTI per UA, continue Rocephin, follow-up on urine culture. -History of right RCA stenosis, patient was instructed to follow-up with Dr. Joseph, vascular surgery as an outpatient for follow-up carotid ultrasound in 6 months. -Hypertension Result Diagram: 03/26/19 0520 03/26/19 0520 Results 24hrs Laboratory Tests Test 03/25/19 11:50 03/25/19 12:03 03/25/19 12:14 03/25/19 12:33 Bedside Glucose 65 L 71 69 L 89 Test 03/25/19 12:48 03/25/19 17:23 03/25/19 20:20 03/26/19 05:20 Bedside Glucose 90 125 95 White Blood Count 6.2 Red Blood Count 3.64 L Hemoglobin 11.4 L Hematocrit 32.7 L Mean Corpuscular 89.8 Volume Mean Corpuscular 31.3 Hemoglobin Mean Corpuscular 34.9 Hemoglobin Concent Red Cell 13.2 Distribution Width Platelet Count 172 Mean Platelet Volume 10.4 Immature 0.300 Granulocytes % Neutrophils % 56.9 Lymphocytes % 32.1 Monocytes % 9.1 Eosinophils % 1.0 Basophils % 0.6 Nucleated Red Blood 0.0 Cells % Immature 0.020 Granulocytes # Neutrophils # 3.5 Lymphocytes # 2.0 Monocytes # 0.6 Eosinophils # 0.1 Basophils # 0.0 Nucleated Red Blood 0.0 Cells # Sodium Level 141 Potassium Level 4.2 Chloride Level 107 Carbon Dioxide Level 28 Anion Gap 6 Blood Urea Nitrogen 24 H Creatinine 0.80 Est Glomerular > 60 Filtrat Rate mL/min Glucose Level 104 Calcium Level 9.4 Test 03/26/19 07:43 Bedside Glucose 106 Subjective 24 Hr Interval Summary Free Text/Dictation Patient has no complaints Exam/Review of Systems Exam Vitals Vital Signs Date Temp Pulse Resp B/P (MAP) Pulse Ox O2 O2 Flow FiO2 Time Delivery Rate 03/26/19 98.1 95 18 148/66 97 Room Air 11:05 (93) Intake and Output 03/25/19 03/25/19 03/26/19 1414:59 22:59 06:59 IntakeIntake Total 800 ml 500 ml BalanceBalance 800 ml 500 ml Constitutional: well developed Head: normocephalic, atraumatic Neck: supple Respiratory: clear to auscultation Cardiovascular: regular rate and rhythm Gastrointestinal: soft, non-tender Extremities: normal pulses Results Results 24hrs Laboratory Tests Test 03/25/19 11:50 03/25/19 12:03 03/25/19 12:14 03/25/19 12:33 Bedside Glucose 65 L 71 69 L 89 Test 03/25/19 12:48 03/25/19 17:23 03/25/19 20:20 03/26/19 05:20 Bedside Glucose 90 125 95 White Blood Count 6.2 Red Blood Count 3.64 L Hemoglobin 11.4 L Hematocrit 32.7 L Mean Corpuscular 89.8 Volume Mean Corpuscular 31.3 Hemoglobin Mean Corpuscular 34.9 Hemoglobin Concent Red Cell 13.2 Distribution Width Platelet Count 172 Mean Platelet Volume 10.4 Immature 0.300 Granulocytes % Neutrophils % 56.9 Lymphocytes % 32.1 Monocytes % 9.1 Eosinophils % 1.0 Basophils % 0.6 Nucleated Red Blood 0.0 Cells % Immature 0.020 Granulocytes # Neutrophils # 3.5 Lymphocytes # 2.0 Monocytes # 0.6 Eosinophils # 0.1 Basophils # 0.0 Nucleated Red Blood 0.0 Cells # Sodium Level 141 Potassium Level 4.2 Chloride Level 107 Carbon Dioxide Level 28 Anion Gap 6 Blood Urea Nitrogen 24 H Creatinine 0.80 Est Glomerular > 60 Filtrat Rate mL/min Glucose Level 104 Calcium Level 9.4 Test 03/26/19 07:43 Bedside Glucose 106 Medications Medication Current Medications IV Flush (NS 3 ml) 3 ml PER PROTOCOL IV ; Start 03/21/19 at 20:30 Ondansetron HCl (Zofran Inj) 4 mg Q6H PRN IV NAUSEA/VOMITING; Start 03/21/19 at 20:30 Acetaminophen (Tylenol Tab) 650 mg Q6H PRN PO .PAIN 1-3 OR TEMP; Start 03/21/19 at 20:30 Morphine Sulfate (morphine) 2 mg Q4H PRN IV .PAIN 7-10; Start 03/21/19 at 20:30 Enoxaparin Sodium (Lovenox) 30 mg DAILY SC Last administered on 03/26/19at 08:37; Admin Dose 30 MG; Start 03/22/19 at 09:00 Miscellaneous Information 1 ea NOTE XX ; Start 03/21/19 at 20:30 Glucose (Glutose) 15 gm Q15M PRN PO DECREASED GLUCOSE; Start 03/21/19 at 20:30 Glucose (Glutose) 22.5 gm Q15M PRN PO DECREASED GLUCOSE; Start 03/21/19 at 20:30 Dextrose (D50w Syringe) 25 ml Q15M PRN IV DECREASED GLUCOSE; Start 03/21/19 at 20:30 Dextrose (D50w Syringe) 50 ml Q15M PRN IV DECREASED GLUCOSE; Start 03/21/19 at 20:30 Glucagon (Glucagen) 1 mg Q15M PRN IM DECREASED GLUCOSE; Start 03/21/19 at 20:30 Glucose (Glutose) 15 gm Q15M PRN BUCCAL DECREASED GLUCOSE Last administered on 03/25/19at 12:17; Admin Dose 15 GM; Start 03/21/19 at 20:30 Aspirin (Aspirin) 81 mg DAILY PO Last administered on 03/26/19at 08:31; Admin Dose 81 MG; Start 03/22/19 at 09:00 Atorvastatin Calcium (Lipitor) 40 mg HS PO Last administered on 03/25/19at 20:21; Admin Dose 40 MG; Start 03/22/19 at 21:00 Lisinopril (Zestril) 20 mg DAILY PO Last administered on 03/25/19at 08:37; Admin Dose 20 MG; Start 03/22/19 at 09:00 Clopidogrel Bisulfate (plaVIX) 75 mg DAILY PO Last administered on 03/26/19 08:31; Admin Dose 75 MG; Start 03/22/19 at 11:00 Diagnostic Test (Pha) (Accu-Chek) 1 ea 02 XX Last administered on 03/25/19 01:37; Admin Dose 1 EA; Start 03/23/19 at 02:00 Insulin Aspart (Novolog Insulin Pen) NOVOLOG *MILD* ALGORITHM WITH MEALS BEDTIME SC Last administered on 03/23/19 20:15; Admin Dose 4 UNIT; Start 03/22/19 at 12:00 Ceftriaxone Sodium 50 ml @ 100 mls/hr Q24H IVPB Last administered on 03/26/19 11:19; Admin Dose 100 MLS/HR; Start 03/22/19 at 11:30 Famotidine (Pepcid) 20 mg Q12 PO Last administered on 03/26/19 08:31; Admin Dose 20 MG; Start 03/22/19 at 21:00 Metformin HCl (Glucophage) 500 mg BID WITH MEALS PO Last administered on 03/26/19 08:30; Admin Dose 500 MG; Start 03/23/19 at 18:00 Linagliptin (Tradjenta) 5 mg DAILY PO Last administered on 03/26/19 08:31; Admin Dose 5 MG; Start 03/24/19 at 09:00 Empaglifozin (Jardiance) 10 mg DAILY@08 PO Last administered on 03/26/19 08:31; Admin Dose 10 MG; Start 03/24/19 at 08:00 Insulin Aspart (Novolog Insulin Pen) 6 unit WITH MEALS SC Last administered on 03/26/19 07:47; Admin Dose 6 UNIT; Start 03/25/19 at 12:00 Insulin Glargine (Lantus) 12 units DAILY@2000 SC Last administered on 03/25/19 20:32; Admin Dose 12 UNITS; Start 03/25/19 at 20:00 Amlodipine Besylate (Norvasc) 5 mg DAILY PO ; Start 03/27/19 at 09:00 JULIOCESAR GALLO March 26, 2019 11:31
[2019-03-26] MEDS: ATORVASTATIN 40 MG TAB PO SCH (20:25)
[2019-03-26] MEDS: INSULIN GLARGINE [LANTus] (100 UNITS/ML) SYG SC SCH (20:48)
[2019-03-27] VITALS (9 sets, daily range): BP systolic 115–159; BP diastolic 62–72; PULSE 86–95; RESP 17–19
[2019-03-27] MEDS: ACCU-CHEK XX SCH (02:00)
[2019-03-27] MEDS: INSULIN ASPART [NOVOLOG] 3 ML PEN SC SCH ×4 (08:00→12:00)
[2019-03-27] MEDS: EMPAGLIFLOZIN 10 MG TABLET PO SCH (08:11)
[2019-03-27] MEDS: metFORMIN 500 MG TAB PO SCH (08:12)
[2019-03-27] MEDS: FAMOTIDINE 20 MG TAB PO SCH (08:12)
[2019-03-27] MEDS: CLOPIDOGREL 75 MG TAB PO SCH (08:12)
[2019-03-27] MEDS: LINAGLIPTIN 5 MG TABLET PO SCH (08:12)
[2019-03-27] MEDS: LISINOPRIL 20 MG TAB PO SCH (08:13)
[2019-03-27] MEDS: ASPIRIN 81 MG TAB PO SCH (08:13)
[2019-03-27] MEDS: ENOXAPARIN 30 MG/0.3 ML SYG SC SCH (08:22)
[2019-03-27] MEDS ORDERED: AMLODIPINE 10 MG TAB PO SCH (09:00)
[2019-03-27] MEDS: CEFTRIAXONE 1 GM/50 ML (PMX) 50 ML IVPB SCH (11:46)
--- NOTE | 2019-03-27 13:24 | CONS ---
Assessment/Plan Assessment/Plan Problems: (1) Diabetes mellitus type 2 in nonobese Status: Chronic Comment: Excellent glycemic control on current insulin and oral DM med regimen. Insulin doses reduced slightly 2 days ago and BG has remained in goal range since then. Cont. current regimen now and after d/c. Consultation Date/Type/Reason Admit Date/Time March 23, 2019 at 15:18 Initial Consult Date 03/23/19 Type of Consult Endocrinology Reason for Consultation T2DM OOC Requesting Provider: JORGE TABOR Date/Time of Note DATE: 03/27/19 TIME: 13:22 24 HR Interval Summary Constitutional: no complaints, improved Detailed Summary Respiratory: no complaints Cardiovascular: no complaints Gastrointestinal: no complaints Genitourinary: no complaints Musculoskeletal: no complaints Neurologic: no complaints Exam/Review of Systems Exam Vitals VS - Last 72 Hours, by Label Date Temp Pulse Resp B/P (MAP) Pulse Ox O2 O2 Flow FiO2 Time Delivery Rate 03/27/19 98.1 91 17 116/62 98 11:19 (80) 03/27/19 93 08:01 03/27/19 97.8 95 17 137/62 98 07:14 (87) 03/27/19 86 04:00 03/27/19 98.3 87 19 159/72 97 03:45 (101) 03/27/19 90 00:00 03/26/19 98.3 91 17 141/71 96 23:31 (94) 03/26/19 91 20:00 03/26/19 98.1 94 17 148/68 94 19:40 (94) 03/26/19 101 16:01 03/26/19 98.3 95 20 128/60 97 15:05 (82) 03/26/19 95 12:01 03/26/19 98.1 95 18 148/66 97 Room Air 11:05 (93) 03/26/19 91 08:01 03/26/19 98.2 87 18 99/58 (72) 97 Room Air 07:10 03/26/19 82 04:00 03/26/19 97.9 83 20 118/68 98 Room Air 04:00 (85) 03/26/19 98.5 96 18 128/65 97 Room Air 00:00 (86) 03/26/19 85 00:00 03/25/19 98.2 93 18 140/66 96 Room Air 20:00 (90) 03/25/19 89 20:00 03/25/19 97 16:01 03/25/19 98.3 101 18 122/57 97 Room Air 15:42 (78) 03/25/19 98 12:01 03/25/19 97.7 99 18 106/58 99 Room Air 11:51 (74) 03/25/19 90 08:01 03/25/19 98.5 92 20 105/63 96 Room Air 07:34 (77) 03/25/19 98.2 85 19 97/55 (69) 98 04:00 03/25/19 81 04:00 03/25/19 78 00:00 03/24/19 98.1 93 17 131/59 96 23:52 (83) 03/24/19 92 20:00 03/24/19 98.3 91 18 126/58 94 19:37 (80) 03/24/19 92 16:12 03/24/19 98.2 92 18 130/62 99 Room Air 15:20 (84) Vital Signs Date Temp Pulse Resp B/P (MAP) Pulse Ox O2 O2 Flow FiO2 Time Delivery Rate 03/27/19 98.1 91 17 116/62 98 11:19 (80) 03/26/19 Room Air 11:05 Intake and Output 03/26/19 03/26/19 03/27/19 1515:00 23:00 07:00 IntakeIntake Total 1100 ml 600 ml BalanceBalance 1100 ml 600 ml Constitutional: alert, oriented, well developed Psych: no complaints, nl mood/affect Respiratory: clear to auscultation, normal air movement Cardiovascular: regular rate and rhythm, nl pulses; No edema, No murmurs/extra sounds, No rub Gastrointestinal: soft, nl liver, spleen, non-tender, bowel sounds; No mass, No rebound or guarding Musculoskeletal: nl extremities to inspection Extremities: normal pulses; No cyanosis, No clubbing, No edema Neurological: PRESS WRITER II-XII intact, nl mental status, nl speech, nl strength Additional Comments Bedside Glucose - 72 Hours Test 03/24/19 17:09 03/24/19 19:58 03/25/19 01:34 03/25/19 08:30 Bedside 97 105 79 89 Glucose mg/dL (70-220) mg/dL (70-220) mg/dL (70-220) mg/dL (70-220) Test 03/25/19 11:50 03/25/19 12:03 03/25/19 12:14 03/25/19 12:33 Bedside 65 71 69 89 Glucose mg/dL (70-220) mg/dL (70-220) mg/dL (70-220) mg/dL (70-220) L L Test 03/25/19 12:48 03/25/19 17:23 03/25/19 20:20 03/26/19 07:43 Bedside 90 125 95 106 Glucose mg/dL (70-220) mg/dL (70-220) mg/dL (70-220) mg/dL (70-220) Test 03/26/19 11:54 03/26/19 17:06 03/26/19 20:24 03/27/19 08:10 Bedside 94 94 113 98 Glucose mg/dL (70-220) mg/dL (70-220) mg/dL (70-220) mg/dL (70-220) Test 03/27/19 11:45 Bedside 126 Glucose mg/dL (70-220) Results Result Diagram: 03/26/1951903/26/19519 Results 24hrs Laboratory Tests Test 03/26/19 17:06 03/26/19 20:24 03/27/19 08:10 03/27/19 11:45 Bedside Glucose 94 113 98 126 Medications Medication Current Medications IV Flush (NS 3 ml) 3 ml PER PROTOCOL IV ; Start 03/21/19 at 20:30 Ondansetron HCl (Zofran Inj) 4 mg Q6H PRN IV NAUSEA/VOMITING; Start 03/21/19 at 20:30 Acetaminophen (Tylenol Tab) 650 mg Q6H PRN PO .PAIN 1-3 OR TEMP; Start 03/21/19 at 20:30 Morphine Sulfate (morphine) 2 mg Q4H PRN IV .PAIN 7-10; Start 03/21/19 at 20:30 Enoxaparin Sodium (Lovenox) 30 mg DAILY SC Last administered on 03/27/19at 08:22; Admin Dose 30 MG; Start 03/22/19 at 09:00 Miscellaneous Information 1 ea NOTE XX ; Start 03/21/19 at 20:30 Glucose (Glutose) 15 gm Q15M PRN PO DECREASED GLUCOSE; Start 03/21/19 at 20:30 Glucose (Glutose) 22.5 gm Q15M PRN PO DECREASED GLUCOSE; Start 03/21/19 at 20:30 Dextrose (D50w Syringe) 25 ml Q15M PRN IV DECREASED GLUCOSE; Start 03/21/19 at 20:30 Dextrose (D50w Syringe) 50 ml Q15M PRN IV DECREASED GLUCOSE; Start 03/21/19 at 20:30 Glucagon (Glucagen) 1 mg Q15M PRN IM DECREASED GLUCOSE; Start 03/21/19 at 20:30 Glucose (Glutose) 15 gm Q15M PRN BUCCAL DECREASED GLUCOSE Last administered on 03/25/19 12:17; Admin Dose 15 GM; Start 03/21/19 at 20:30 Aspirin (Aspirin) 81 mg DAILY PO Last administered on 03/27/19 08:13; Admin Dose 81 MG; Start 03/22/19 at 09:00 Atorvastatin Calcium (Lipitor) 40 mg HS PO Last administered on 03/26/19 20:25; Admin Dose 40 MG; Start 03/22/19 at 21:00 Lisinopril (Zestril) 20 mg DAILY PO Last administered on 03/27/19 08:13; Admin Dose 20 MG; Start 03/22/19 at 09:00 Clopidogrel Bisulfate (plaVIX) 75 mg DAILY PO Last administered on 03/27/19 08:12; Admin Dose 75 MG; Start 03/22/19 at 11:00 Diagnostic Test (Pha) (Accu-Chek) 1 ea 02 XX Last administered on 03/25/19 01:37; Admin Dose 1 EA; Start 03/23/19 at 02:00 Insulin Aspart (Novolog Insulin Pen) NOVOLOG *MILD* ALGORITHM WITH MEALS BEDTIME SC Last administered on 03/23/19 20:15; Admin Dose 4 UNIT; Start 03/22/19 at 12:00 Ceftriaxone Sodium 50 ml @ 100 mls/hr Q24H IVPB Last administered on 03/27/19 11:46; Admin Dose 100 MLS/HR; Start 03/22/19 at 11:30 Famotidine (Pepcid) 20 mg Q12 PO Last administered on 03/27/19 08:12; Admin Dose 20 MG; Start 03/22/19 at 21:00 Metformin HCl (Glucophage) 500 mg BID WITH MEALS PO Last administered on 03/27/19 08:12; Admin Dose 500 MG; Start 03/23/19 at 18:00 Linagliptin (Tradjenta) 5 mg DAILY PO Last administered on 03/27/19 08:12; Admin Dose 5 MG; Start 03/24/19 at 09:00 Empaglifozin (Jardiance) 10 mg DAILY@08 PO Last administered on 03/27/19 08:11; Admin Dose 10 MG; Start 03/24/19 at 08:00 Insulin Aspart (Novolog Insulin Pen) 6 unit WITH MEALS SC Last administered on 03/27/19 11:57; Admin Dose 6 UNIT; Start 03/25/19 at 12:00 Insulin Glargine (Lantus) 12 units DAILY@2000 SC Last administered on 03/26/19 20:48; Admin Dose 12 UNITS; Start 03/25/19 at 20:00 Amlodipine Besylate (Norvasc) 5 mg DAILY PO Last administered on 03/27/19 08:13; Admin Dose 5 MG; Start 03/27/19 at 09:00 ADAN PARDO MD March 27, 2019 13:24
--- NOTE | 2019-03-27 14:00 | CONS ---
Assessment/Plan Assessment/Plan Hospital Course 64 yo F with hx of stroke and other cerebrovascular risk factors who presents for evaluation of transient dysarthria. UA+ The clinical picture could be consistent with an acute toxic-metabolic encephalopathy. MRI is notable for an evolving R MCA territory infarction.. P: Cont ASA/Plavix per ops for secondary stroke prevention; LDL is at goal PT/OT/ST as necessary Other management and supportive care per primary Will follow clinically Consultation Date/Type/Reason Admit Date/Time March 23, 2019 at 15:18 Type of Consult Neurology Reason for Consultation dysarthria Requesting Provider: JORGE TABOR Date/Time of Note DATE: 03/27/19 TIME: 13:59 24 HR Interval Summary Free Text/Dictation Continues acute care Exam Vital Signs Vitals Vital Signs Date Temp Pulse Resp B/P (MAP) Pulse Ox O2 O2 Flow FiO2 Time Delivery Rate 03/27/19 94 12:01 03/27/19 98.1 17 116/62 98 11:19 (80) 03/26/19 Room Air 11:05 Intake and Output 03/26/19 03/26/19 03/27/19 1414:59 22:59 06:59 IntakeIntake Total 1100 ml 600 ml BalanceBalance 1100 ml 600 ml Exam Comprehensive completed; stable from prior YULI FLORES March 27, 2019 13:59
[2019-03-27] MEDS ORDERED: LINA5TAB PO (16:29)
[2019-03-27] MEDS ORDERED: Insulin Glargine SC (16:29)
[2019-03-27] MEDS ORDERED: NOVO3I SC (16:29)
[2019-03-27] MEDS ORDERED: LISI-471 PO (16:29)
[2019-03-27] MEDS ORDERED: AMLO-147 PO (16:29)
[2019-03-27] MEDS ORDERED: CLOP75TA28 PO (16:29)
[2019-03-27] MEDS ORDERED: ASPI-831 PO (16:29)
[2019-03-27] MEDS ORDERED: EMPA10TA PO (16:29)
[2019-03-27] MEDS ORDERED: METF-849 PO (16:29)
[2019-03-27] MEDS ORDERED: ATOR40TA68 PO (16:29)
--- NOTE | 2019-03-30 22:47 | DS ---
Date/Time of Note Date/Time of Note DATE: 03/30/19 TIME: 22:44 Discharge Summary Admission/Discharge Info Admit Date/Time March 23, 2019 at 15:18 Discharge Date/Time March 27, 2019 at 17:25 Patient Condition: Stable Hx of Present Illness The patient is 64-year-old female with history of stroke 1-1/2-month ago with a residual left upper extremity weakness, insulin-dependent diabetes mellitus, hypertension, and hyperlipidemia. Patient developed an intermittent episode of garbled speech and was brought by family members to the hospital. Her symptoms resolved and patient has no difficulty speaking, however patient has a high risk for recurrence of stroke given recent stroke. Patient is noted to have blood sugar of 430 on admission. Patient stated that she is been compliant with her metformin and Lantus at home. Patient denies any fever chills, denies shortness of breath, denies chest pain denies nausea vomiting diarrhea. CT of the brain does not reveal any acute stroke. Urinalysis was positive for nitrates and leukocyte esterase. Patient will be admitted for further evaluation and management. Hospital Course Patient discharged home with home health PT services -TIA, ABCD2 score 6. Continue aspirin, Plavix. is following in neurology consultation. MRI of the brain is negative for acute stroke. Continue PT OT. - Acute toxic-metabolic encephalopathy. -Hyperglycemia in patient with diabetes mellitus type 2, hemoglobin A1c is 10.3, continue Lantus and NovoLog. Diabetic education for diet and compliance. Dr. Dietz is following in endocrinology consultation. -E. coli UTI, completed treatment with Rocephin. -History of right RCA stenosis, patient was instructed to follow-up with Dr. Joseph, vascular surgery as an outpatient for follow-up carotid ultrasound in 6 months. -Hypertension Plan of care discussed with Dr. Bruner. Home Meds Active Scripts Metformin* (Glucophage*) 500 Mg Tab, 500 MG PO BID WITH MEALS for 30 Days, TAB Prov:JORGE TABOR 03/27/19 Linagliptin (TRADJENTA) 5 Mg Tablet, 5 MG PO DAILY for 30 Days, TAB Prov:RADJORGE KIMBALL 03/27/19 [Insulin Glargine] 100 UNITS/ML SOLN No Conflict Check, 12 UNITS SC DAILY@1999 for 30 Days Prov:JORGE TABOR 03/27/19 Insulin Aspart* (Novolog Insulin Pen*) 100 Unit/Ml Soln, 6 UNIT SC WITH MEALS for 30 Days Prov:JORGE TABOR 03/27/19 Empagliflozin (Jardiance) 10 Mg Tablet, 10 MG PO DAILY@08 for 30 Days, TAB Prov:JORGE TABOR 03/27/19 Aspirin (Aspirin) 81 Mg Chew, 81 MG PO DAILY for 30 Days, TAB Prov:JORGE TABOR 03/27/19 Lisinopril* (Lisinopril*) 20 Mg Tablet, 20 MG PO DAILY for 30 Days, TAB Prov:JORGE TABOR 03/27/19 Atorvastatin* (Atorvastatin*) 40 Mg Tablet, 40 MG PO HS for 30 Days, TAB Prov:JORGE TABOR 03/27/19 Amlodipine Besylate* (Amlodipine Besylate*) 10 Mg Tablet, 10 MG PO DAILY for 30 Days, TAB Prov:JORGE TABOR 03/27/19 Clopidogrel Bisulfate (Clopidogrel) 75 Mg Tablet, 75 MG PO DAILY for 30 Days, TAB Prov:JORGE TABOR 03/27/19 Discontinued Scripts Insulin Aspart* (Novolog Insulin Pen*) 100 Unit/Ml Soln, 0 UNIT SC WITH MEALS BEDTIME for 30 Days Prov:JULIUS HO MD 02/10/19 [Insulin Glargine] 100 UNITS/ML SOLN No Conflict Check, 22 UNITS SC DAILY@2000 for 30 Days Prov:JULIUS HO MD 02/10/19 Follow-up Plan Follow-up with PMD in 2 weeks. Primary Care Provider Di Perze Time spent on discharge: > 30 minutes JORGE TABOR March 30, 2019 22:47
== END 2019-03-27 17:25 | disposition home health service (06) | DRG 637 ==
LOC: E/R 15:47 → 6WM 20:05 → OBSVTOIN 03-23 15:18
PROVIDERS: ADMIT Internal Medicine; ATTEND Internal Medicine
PROC: 4A033R1 Measurement of Arterial Saturation, Peripheral, Percutaneous Approach (ICD-10-PCS; principal; 2019-03-21)
DX: E11.65 Type 2 diabetes mellitus with hyperglycemia (principal); G92 Toxic encephalopathy; N39.0 Urinary tract infection, site not specified; G45.9 Transient cerebral ischemic attack, unspecified; I69.352 Hemiplegia and hemiparesis following cerebral infarction affecting left dominant side; I50.32 Chronic diastolic (congestive) heart failure; B96.20 Unspecified Escherichia coli [E. coli] as the cause of diseases classified elsewhere; I65.21 Occlusion and stenosis of right carotid artery; I11.0 Hypertensive heart disease with heart failure; E78.00 Pure hypercholesterolemia, unspecified; Z87.891 Personal history of nicotine dependence; Z79.4 Long term (current) use of insulin; Z79.82 Long term (current) use of aspirin
CPT/HCPCS: 36415; 70450; 70551; 80048; 80053; 80061; 81001; 82803; 82962; 83036; 83735; 84100; 84484; 85025; 87086; 92523; 92610; 93005; 97110; 97116; 97161; 97165; 97530; 97535; G0378; J0696; J1650; J1815; J7030

== ENCOUNTER 2019-04-10 21:32 | Inpatient (IN) | payer MEDICARE, OTHER ==
[~2019-04-10] VITALS: Ht 154.9 cm; Wt 53.5 kg
[~2019-04-10 21:32] MED LIST changes: +EMPA10TA PO; +LINA5TAB PO; +METF-849 PO
[2019-04-10] MEDS ORDERED: SOD CHLORIDE 0.9% 550 ML IV ONE (22:30)
[2019-04-10] MEDS ORDERED: CEFTRIAXONE 1 GM/50 ML (PMX) 50 ML IVPB ONE (23:00)
[2019-04-10] MEDS ORDERED: INSULIN REGULAR, HUMAN 100 UNIT/1 ML 3ML VIAL SC ONE (23:00)
--- NOTE | 2019-04-11 01:07 | ERD ---
ER Documentation Chief Complaint Chief Complaint elevated Blood sugar >500 today. son gave jackson, Norah at intake HPI Is a 64-year-old female brought in for elevated blood sugar today. Sent here for Lantus but she was noted to be severely elevated over 400 at home. Patient has had a difficult time maintaining her blood sugar and euglycemia since discharge. Denies fevers chills nausea vomiting. Denies polydipsia polyphagia polyuria. ROS All systems reviewed and are negative except as per history of present illness. Medications Home Meds Active Scripts Metformin* (Glucophage*) 500 Mg Tab, 500 MG PO BID WITH MEALS for 30 Days, TAB Prov:JORGE TABOR 03/27/19 Linagliptin (TRADJENTA) 5 Mg Tablet, 5 MG PO DAILY for 30 Days, TAB Prov:JORGE TABOR 03/27/19 [Insulin Glargine] 100 UNITS/ML SOLN No Conflict Check, 12 UNITS SC DAILY@2000 for 30 Days Prov:JORGE TABOR 03/27/19 Insulin Aspart* (Novolog Insulin Pen*) 100 Unit/Ml Soln, 6 UNIT SC WITH MEALS for 30 Days Prov:JORGE TABOR 03/27/19 Empagliflozin (Jardiance) 10 Mg Tablet, 10 MG PO DAILY@08 for 30 Days, TAB Prov:JORGE TABOR 03/27/19 Aspirin (Aspirin) 81 Mg Chew, 81 MG PO DAILY for 30 Days, TAB Prov:JORGE TABOR 03/27/19 Lisinopril* (Lisinopril*) 20 Mg Tablet, 20 MG PO DAILY for 30 Days, TAB Prov:JORGE TABOR 03/27/19 Atorvastatin* (Atorvastatin*) 40 Mg Tablet, 40 MG PO HS for 30 Days, TAB Prov:JORGE TABOR 03/27/19 Amlodipine Besylate* (Amlodipine Besylate*) 10 Mg Tablet, 10 MG PO DAILY for 30 Days, TAB Prov:JORGE TABOR 03/27/19 Clopidogrel Bisulfate (Clopidogrel) 75 Mg Tablet, 75 MG PO DAILY for 30 Days, TAB Prov:JORGE TABOR 03/27/19 Allergies Allergies: Coded Allergies: No Known Allergy (Unverified , 04/10/19) PMhx/Soc Medical and Surgical Hx: pt denies Surgical Hx History of Surgery: No Anesthesia Reaction: No Hx Neurological Disorder: Yes (HX OF CVA WITH LEFT SIDED WEAKNESS) Hx Respiratory Disorders: No Hx Cardiac Disorders: Yes (HTN) Hx Psychiatric Problems: No Hx Miscellaneous Medical Probl: No Hx Alcohol Use: No Hx Substance Use: No Hx Tobacco Use: Yes (QUIT 3 MOS AGO) Smoking Status: Never smoker Physical Exam Vitals Vital Signs Date Temp Pulse Resp B/P (MAP) Pulse Ox O2 O2 Flow FiO2 Time Delivery Rate 04/10/19 97.8 91 20 153/64 96 21:37 (93) Physical Exam Const: No acute distress Head: Atraumatic Eyes: Normal Conjunctiva ENT: Normal External Ears, Nose and Mouth. Neck: Full range of motion. No meningismus. Resp: Clear to auscultation bilaterally Cardio: Regular rate and rhythm, no murmurs Abd: Soft, non tender, non distended. Normal bowel sounds Skin: No petechiae or rashes Back: No midline or flank tenderness Ext: No cyanosis, or edema Neur: Awake and alert Psych: Normal Mood and Affect Result Diagram: 04/10/19223104/10/192231 Results 24 hrs Laboratory Tests Test 04/10/19 22:22 04/10/19 22:29 04/10/19 22:32 04/10/19 23:48 Blood Gas Blood venous Specimen Source Arterial Blood 04/10/2019 10:38:2 Date Drawn 0 PM Arterial Blood VENOUS LINE Gas Puncture Site Tu Test N/A Venous Blood pH 7.371 Venous Blood pCO2 45.5 mmHG (Temp Corrected) Venous Blood pO2 53.2 mmHG (Temp Corrected) Venous Blood HCO3 25.8 mmol/L Venous Blood 85.9 mmHG Oxygen Saturation Venous Blood Base 0.2 mmol/L Excess Venous Blood 12.9 g/dl Total Hemoglobin Venous Blood 85.4 % Oxyhemoglobin Venous Blood 0.3 % Methemoglobin Carboxyhemoglobin 0.3 % Blood Gas 37.0 C Temperature Blood Gas ROOM AIR Modality FiO2 21.0 % Blood Gas MR Notified Whom Blood Gas 04/10/2019 10:43:4 Notified Time 8 PM Bedside Glucose 458 mg/dL 389 mg/dL White Blood Count 6.3 10^3/ul Red Blood Count 4.08 10^6/ul Hemoglobin 12.7 g/dl Hematocrit 36.9 % Mean Corpuscular 90.4 fl Volume Mean Corpuscular 31.1 pg Hemoglobin Mean Corpuscular 34.4 g/dl Hemoglobin Concen t Red Cell 13.4 % Distribution Width Platelet Count 214 10^3/UL Mean Platelet 10.4 fl Volume Immature 0.200 % Granulocytes % Neutrophils % 50.5 % Lymphocytes % 41.3 % Monocytes % 5.7 % Eosinophils % 1.8 % Basophils % 0.5 % Nucleated Red 0.0 /100WBC Blood Cells % Immature 0.010 10^3/ul Granulocytes # Neutrophils # 3.2 10^3/ul Lymphocytes # 2.6 10^3/ul Monocytes # 0.4 10^3/ul Eosinophils # 0.1 10^3/ul Basophils # 0.0 10^3/ul Nucleated Red 0.0 10^3/ul Blood Cells # Urine Color YELLOW Urine Clarity CLOUDY Urine pH 5.0 Urine Specific 1.020 [employer] Urine Ketones NEGATIVE mg/dL Urine Nitrite NEGATIVE mg/dL Urine Bilirubin NEGATIVE mg/dL Urine NEGATIVE mg/dL Urobilinogen Urine Leukocyte 2+ Claude/ul Esterase Urine Microscopic 104 /HPF RBC Urine Microscopic 146 /HPF WBC Urine Squamous FEW /HPF Epithelial Cells Urine Bacteria FEW /HPF Urine Yeast MANY /HPF (Budding) Urine Hemoglobin 1+ mg/dL Urine Glucose 3+ mg/dL Urine Total NEGATIVE mg/dl Protein Sodium Level 136 mmol/L Potassium Level 3.7 mmol/L Chloride Level 100 mmol/L Carbon Dioxide 27 mmol/L Level Anion Gap 9 Blood Urea 23 mg/dl Nitrogen Creatinine 0.73 mg/dl Est Glomerular > 60 mL/min Filtrat Rate mL/min Glucose Level 463 mg/dl Calcium Level 9.4 mg/dl Phosphorus Level 3.5 mg/dl Magnesium Level 1.9 mg/dl Current Medications Medications Dose Sig/Moreno Start Time Status Last (Trade) Ordered Route PRN Stop Time Admin Dose Reason Admin Sodium 550 ml @ ONCE ONCE 04/10/19 DC 04/10/19 Chloride 550 mls/hr IV 22:30 04/10/19 22:26 23:29 Ceftriaxone 50 ml @ ONCE ONCE 04/10/19 DC 04/10/19 Sodium 100 mls/hr IVPB 23:00 04/10/19 23:40 23:29 Insulin 10 unit ONCE ONCE 04/10/19 DC 04/10/19 Human SC 23:00 04/10/19 23:49 Regular 23:01 (Humulin R) Procedures/MDM Emergency department course: Patient seen and evaluated. DKA screen initiated. Given Rocephin and status post urine culture. Insulin given subcutaneous. Fluids given as well. Medical decision making: Is a very pleasant patient has severe hyperglycemia likely secondary urinary tract infection. Patient will be admitted to Dr. Garcia wash kindly accepts patient to his service. Departure Diagnosis: Primary Impression: Hyperglycemia Condition: Stable MEY ARREGUIN Apr 11, 2019 01:07
[2019-04-11 01:50] VITALS: Ht 154.9 cm; Wt 53.5 kg
[2019-04-11 02:06] VITALS: BP 127/75; PULSE 86; RESP 16
[2019-04-11] MEDS ORDERED: ACETAMINOPHEN 325 MG TAB PO PRN (04:00)
[2019-04-11] MEDS ORDERED: HYDROCODONE/APAP (5/325) TAB PO PRN (04:00)
[2019-04-11] MEDS ORDERED: DEXTROSE 50% 50 ML SYRINGE IV PRN ×2 (04:30)
[2019-04-11] MEDS ORDERED: GLUCOSE GEL 15 GRAM TUBE PO PRN ×2 (04:30)
[2019-04-11] MEDS ORDERED: GLUCOSE GEL 15 GRAM TUBE BUCCAL PRN (04:30)
[2019-04-11] MEDS ORDERED: GLUCAGON 1 MG INJ IM PRN (04:30)
[2019-04-11 07:29] VITALS: BP 120/58; PULSE 81; RESP 20
[2019-04-11] MEDS: INSULIN ASPART [NOVOLOG] 3 ML PEN SC SCH ×4 (08:00→20:43)
[2019-04-11] MEDS: ASPIRIN 81 MG TAB PO SCH (08:21)
[2019-04-11] MEDS: CLOPIDOGREL 75 MG TAB PO SCH (08:21)
[2019-04-11] MEDS: metFORMIN 500 MG TAB PO SCH ×2 (08:22→17:31)
[2019-04-11] MEDS: AMLODIPINE 10 MG TAB PO SCH (08:23)
[2019-04-11] MEDS: LINAGLIPTIN 5 MG TABLET PO SCH (08:23)
[2019-04-11] MEDS: LISINOPRIL 20 MG TAB PO SCH (08:24)
--- NOTE | 2019-04-11 12:53 | HP ---
Date/Time of Note Date/Time of Note DATE: 04/11/19 TIME: 12:47 Assessment/Plan VTE Prophylaxis Risk score (from Nsg)>0 risk: 2 SCD applied (from Nsg): Yes Pharmacological prophylaxis: LMWH Lines/Catheters IV Catheter Type (from Nrs): Saline Lock Urinary Cath still in place: No Assessment/Plan Assessment/Plan -Hyperglycemia in patient with diabetes mellitus type 2, Continue Tradjenta, metformin, Lantus and NovoLog. -Poor medical compliance with medication regimen, discussed with case management regarding insurance options. workers compensation claims supervisor consult. -UTI per UA, continue Rocephin and Diflucan, follow-up on urine culture. -Hypertension, continue lisinopril -Hyperlipidemia, continue statin -History of CVA with residual right upper extremity weakness. Continue Plavix. -History of right RCA stenosis, patient was instructed to follow-up with Dr. Joseph, vascular surgery as an outpatient for follow-up carotid ultrasound in 6 months. Further recommendations based on clinical course. Plan of care discussed with Dr. Bruner. Result Diagram: 04/11/19 0446 04/11/19 0446 Results 24hrs Laboratory Tests Test 04/10/19 21:40 04/10/19 22:22 04/10/19 22:29 04/10/19 22:32 Bedside Glucose 486 *H 458 *H Blood Gas Specimen Blood venous Source Arterial Blood 04/10/2019 10:38:20 Date Drawn PM Arterial Blood Gas VENOUS LINE Puncture Site Tu Test N/A Venous Blood pH 7.371 Venous Blood pCO2 45.5 H (Temp Corrected) Venous Blood pO2 53.2 H (Temp Corrected) Venous Blood HCO3 25.8 Venous Blood 85.9 H Oxygen Saturation Venous Blood Base 0.2 Excess Venous Blood Total 12.9 Hemoglobin Venous Blood 85.4 Oxyhemoglobin Venous Blood 0.3 Methemoglobin Carboxyhemoglobin 0.3 Blood Gas 37.0 Temperature Blood Gas Modality ROOM AIR FiO2 21.0 Blood Gas Notified MR Whom Blood Gas Notified 04/10/2019 10:43:48 Time PM White Blood Count 6.3 Red Blood Count 4.08 L Hemoglobin 12.7 Hematocrit 36.9 L Mean Corpuscular 90.4 Volume Mean Corpuscular 31.1 Hemoglobin Mean Corpuscular 34.4 Hemoglobin Concent Red Cell 13.4 Distribution Width Platelet Count 214 # Mean Platelet 10.4 Volume Immature 0.200 Granulocytes % Neutrophils % 50.5 Lymphocytes % 41.3 Monocytes % 5.7 Eosinophils % 1.8 Basophils % 0.5 Nucleated Red 0.0 Blood Cells % Immature 0.010 Granulocytes # Neutrophils # 3.2 Lymphocytes # 2.6 Monocytes # 0.4 Eosinophils # 0.1 Basophils # 0.0 Nucleated Red 0.0 Blood Cells # Urine Color YELLOW Urine Clarity CLOUDY A Urine pH 5.0 Urine Specific 1.020 [place] Urine Ketones NEGATIVE Urine Nitrite NEGATIVE Urine Bilirubin NEGATIVE Urine Urobilinogen NEGATIVE Urine Leukocyte 2+ H Esterase Urine Microscopic 104 H RBC Urine Microscopic 146 H WBC Urine Squamous FEW Epithelial Cells Urine Bacteria FEW A Urine Yeast MANY A (Budding) Urine Hemoglobin 1+ H Urine Glucose 3+ H Urine Total NEGATIVE Protein Sodium Level 136 Potassium Level 3.7 Chloride Level 100 Carbon Dioxide 27 Level Anion Gap 9 Blood Urea 23 H Nitrogen Creatinine 0.73 Est Glomerular > 60 Filtrat Rate mL/min Glucose Level 463 *H Calcium Level 9.4 Phosphorus Level 3.5 Magnesium Level 1.9 Test 04/10/19 23:48 04/11/19 01:38 04/11/19 04:46 04/11/19 07:47 Bedside Glucose 389 H 252 H 66 L White Blood Count 5.3 Red Blood Count 3.38 L Hemoglobin 10.6 L Hematocrit 30.0 L Mean Corpuscular 88.8 Volume Mean Corpuscular 31.4 Hemoglobin Mean Corpuscular 35.3 Hemoglobin Concent Red Cell 13.3 Distribution Width Platelet Count 164 # Mean Platelet 10.6 H Volume Immature 0.200 Granulocytes % Neutrophils % 42.3 Lymphocytes % 48.6 Monocytes % 7.0 Eosinophils % 1.5 Basophils % 0.4 Nucleated Red 0.0 Blood Cells % Immature 0.010 Granulocytes # Neutrophils # 2.2 Lymphocytes # 2.6 Monocytes # 0.4 Eosinophils # 0.1 Basophils # 0.0 Nucleated Red 0.0 Blood Cells # Sodium Level 141 Potassium Level 3.3 L Chloride Level 110 # Carbon Dioxide 26 Level Anion Gap 5 Blood Urea 20 Nitrogen Creatinine 0.60 Est Glomerular > 60 Filtrat Rate mL/min Glucose Level 72 # Hemoglobin A1c 9.7 H Calcium Level 8.9 Test 04/11/19 08:13 04/11/19 08:29 Bedside Glucose 87 119 HPI/ROS Admit Date/Time Admit Date/Time Apr 11, 2019 at 00:28 Hx of Present Illness The patient is 64-year-old female known to me from previous admission. Patient with history of insulin-dependent diabetes mellitus, hypertension, hyperlipidemia and history of stroke couple of months ago with residual left upper extremity weakness. Patient was treated for urinary tract infection during last admission and was discharged home with good blood sugar control and prescriptions for Lantus and NovoLog, patient underwent diabetic education during last admission. Patient was brought to the emergency room by family members for elevated blood sugar over 400 at home. Patient stated that she has hard time to obtaining her medication dilute due to insurance co-pay. Patient stated that she has been using Lantus that she borrowed from her sister. Patient denies any fever chills denies any nausea and vomiting. UA is positive for leukocyte esterase, bacteria and yeast. Patient is admitted for further evaluation and management. ROS 12 point review of system is negative except for what mentioned in HPI PMH/Family/Social Past Medical History Medications Current Medications Clopidogrel Bisulfate (plaVIX) 75 mg DAILY PO Last administered on 04/11/19at 08:21; Admin Dose 75 MG; Start 04/11/19 at 09:00 Amlodipine Besylate (Norvasc) 10 mg DAILY PO Last administered on 04/11/19at 08:23; Admin Dose 10 MG; Start 04/11/19 at 09:00 Atorvastatin Calcium (Lipitor) 40 mg HS PO ; Start 04/11/19 at 21:00 Lisinopril (Zestril) 20 mg DAILY PO Last administered on 04/11/19at 08:24; Admin Dose 20 MG; Start 04/11/19 at 09:00 Aspirin (Aspirin) 81 mg DAILY PO Last administered on 04/11/19at 08:21; Admin Dose 81 MG; Start 04/11/19 at 09:00 Diagnostic Test (Pha) (Accu-Chek) 1 ea 02 XX ; Start 04/12/19 at 02:00 Insulin Glargine (Lantus) 20 units DAILY@2000 SC ; Start 04/11/19 at 20:00 Insulin Aspart (Novolog Insulin Pen) NOVOLOG *MODERATE* ALGORITHM WITH MEALS BEDTIME SC ; Start 04/11/19 at 08:00 Linagliptin (Tradjenta) 5 mg DAILY PO Last administered on 04/11/19at 08:23; Admin Dose 5 MG; Start 04/11/19 at 09:00 Metformin HCl (Glucophage) 500 mg BID WITH MEALS PO Last administered on 04/11/19at 08:22; Admin Dose 500 MG; Start 04/11/19 at 08:00 Miscellaneous Information (* Miscellaneous Pharmacy Order) Empagliflozin ( Jardiance) 10mg P... ONCE XX ; Start 04/11/19 at 04:00 Acetaminophen (Tylenol Tab) 650 mg Q4H PRN PO MILD PAIN(1-3)OR ELEVATED TEMP; Start 04/11/19 at 04:00 Acetaminophen/ Hydrocodone Bitart ([place] (5/325)) 1 tab Q4H PRN PO MODERATE PAIN LEVEL 4-6; Start 04/11/19 at 04:00 Ceftriaxone Sodium 50 ml @ 100 mls/hr Q24H IVPB ; Start 04/11/19 at 23:00 Miscellaneous Information 1 ea NOTE XX ; Start 04/11/19 at 04:30 Glucose (Glutose) 15 gm Q15M PRN PO DECREASED GLUCOSE; Start 04/11/19 at 04:30 Glucose (Glutose) 22.5 gm Q15M PRN PO DECREASED GLUCOSE; Start 04/11/19 at 04:30 Dextrose (D50w Syringe) 25 ml Q15M PRN IV DECREASED GLUCOSE; Start 04/11/19 at 04:30 Dextrose (D50w Syringe) 50 ml Q15M PRN IV DECREASED GLUCOSE; Start 04/11/19 at 04:30 Glucagon (Glucagen) 1 mg Q15M PRN IM DECREASED GLUCOSE; Start 04/11/19 at 04:30 Glucose (Glutose) 15 gm Q15M PRN BUCCAL DECREASED GLUCOSE; Start 04/11/19 at 04:30 Coded Allergies: No Known Allergy (Unverified , 04/10/19) Past Surgical History Past Surgical Hx: other (S/p bilateral cataract surgery 4 years ago) Family History Significant Family History: diabetes, hypertension Social History Alcohol Use: none Smoking Status: Former smoker (History of 18 years of smoking, quit couple of months ago) Drug Use: none Exam/Review of Systems Vital Signs Vitals Vital Signs Date Temp Pulse Resp B/P (MAP) Pulse Ox O2 O2 Flow FiO2 Time Delivery Rate 04/11/19 98.0 81 20 120/58 95 07:29 (78) 04/11/19 Room Air 01:38 Exam Constitutional: alert, oriented Head: normocephalic Respiratory: clear to auscultation Cardiovascular: nl pulses Gastrointestinal: soft, non-tender Musculoskeletal: nl extremities to inspection Neurological: nl mental status JORGE TABOR Apr 11, 2019 12:53
[2019-04-11 14:11] VITALS: BP 155/65; PULSE 95; RESP 20
[2019-04-11] MEDS ORDERED: POTASSIUM CHLORIDE 20 MEQ POWDER FOR ORAL SOLN PO ONE (15:30)
--- NOTE | 2019-04-11 16:36 | QN ---
Documentation Comment As Physician Advisor I have reviewed the chart and have determined that as of today, this patient continues to receive medically necessary care required for the diagnosis and treatment of illness or injury. There has been no unreasonable delay in the rendering of medically necessary services, and this medically necessary care requires a length of stay expected to be greater than two midnights. Additional information gained during the stay now suggests this patient should have been classified as an inpatient at the time of admission, and I will change the status to inpatient to reflect that medical judgment. Besides the notes from the medical providers, the following information was used in this determination: Unexplained drop in hemoglobin > 2 grams Social factors making medications unavailable Requires treatment of UTI. Please call me at [phone] with questions. MELISSA KOCH MD Apr 11, 2019 16:36
[2019-04-11] MEDS: FLUCONAZOLE 100 MG TAB PO SCH (17:31)
[2019-04-11 19:24] VITALS: BP 133/66; PULSE 91; RESP 16
[2019-04-11] MEDS: ATORVASTATIN 40 MG TAB PO SCH (20:43)
[2019-04-11] MEDS: INSULIN GLARGINE [LANTus] (100 UNITS/ML) SYG SC SCH (20:44)
[2019-04-11] MEDS: CEFTRIAXONE 1 GM/50 ML (PMX) 50 ML IVPB SCH (22:39)
[2019-04-12] MEDS: ACCU-CHEK XX SCH (01:55)
[2019-04-12 02:10] VITALS: BP 121/57; PULSE 83; RESP 16
[2019-04-12 07:28] VITALS: BP 135/63; PULSE 86; RESP 20
[2019-04-12] MEDS: INSULIN ASPART [NOVOLOG] 3 ML PEN SC SCH ×4 (08:00→20:42)
[2019-04-12] MEDS: LISINOPRIL 20 MG TAB PO SCH (08:41)
[2019-04-12] MEDS: FLUCONAZOLE 100 MG TAB PO SCH (08:41)
[2019-04-12] MEDS: ASPIRIN 81 MG TAB PO SCH (08:41)
[2019-04-12] MEDS: CLOPIDOGREL 75 MG TAB PO SCH (08:41)
[2019-04-12] MEDS: AMLODIPINE 10 MG TAB PO SCH (08:42)
[2019-04-12] MEDS: LINAGLIPTIN 5 MG TABLET PO SCH (08:42)
[2019-04-12] MEDS: metFORMIN 500 MG TAB PO SCH ×2 (08:42→17:35)
[2019-04-12] MEDS ORDERED: ONDANSETRON 4 MG INJ IV PRN (13:00)
[2019-04-12 14:18] VITALS: BP 109/57; PULSE 83; RESP 20
--- NOTE | 2019-04-12 17:41 | PN ---
Date/Time of Note Date/Time of Note DATE: 04/12/19 TIME: 17:35 Assessment/Plan VTE Prophylaxis Risk score (from Ns)>0 risk: 2 SCD applied (from Ns): Yes Pharmacological prophylaxis: LMWH Lines/Catheters IV Catheter Type (from Nrs): Saline Lock Urinary Cath still in place: No Assessment/Plan Hospital Course Blood sugar is better controlled, continue current regiment, pen[facility]iary facility placement. Assessment/Plan -Hyperglycemia in patient with diabetes mellitus type 2, Continue Tradjenta, metformin, Lantus and NovoLog. -Poor medical compliance with medication regimen due to inability to obtain medication due to high insurance deductible, case management and director social consult. -UTI per UA, continue Rocephin and Diflucan, follow-up on urine culture. -Hypertension, continue lisinopril -Hyperlipidemia, continue statin -History of CVA with residual right upper extremity weakness. Continue Plavix. -History of right RCA stenosis, patient was instructed to follow-up with Dr. Joseph, vascular surgery as an outpatient for follow-up carotid ultrasound in 6 months. Further recommendations based on clinical course. Plan of care discussed with Dr. Bruner. Result Diagram: 04/11/19 0446 04/11/19 0446 Results 24hrs Laboratory Tests Test 04/11/19 20:43 04/12/19 08:09 04/12/19 13:11 04/12/19 17:24 Bedside Glucose 109 109 239 H 116 Exam/Review of Systems Exam Vitals Vital Signs Date Temp Pulse Resp B/P (MAP) Pulse Ox O2 O2 Flow FiO2 Time Delivery Rate 04/12/19 97.7 83 20 109/57 100 14:18 (74) 04/11/19 Room Air 01:38 Intake and Output 04/11/19 04/11/19 04/12/19 1515:00 23:00 07:00 IntakeIntake Total 840 ml 600 ml 650 ml BalanceBalance 840 ml 600 ml 650 ml Exam Constitutional: alert, oriented Head: normocephalic Respiratory: clear to auscultation Cardiovascular: nl pulses Gastrointestinal: soft, non-tender Musculoskeletal: nl extremities to inspection Neurological: nl mental status Results Results 24hrs Laboratory Tests Test 04/11/19 20:43 04/12/19 08:09 04/12/19 13:11 04/12/19 17:24 Bedside Glucose 109 109 239 H 116 Medications Medication Current Medications Clopidogrel Bisulfate (plaVIX) 75 mg DAILY PO Last administered on 04/12/19 08:41; Admin Dose 75 MG; Start 04/11/19 at 09:00 Amlodipine Besylate (Norvasc) 10 mg DAILY PO Last administered on 04/12/19 08:42; Admin Dose 10 MG; Start 04/11/19 at 09:00 Atorvastatin Calcium (Lipitor) 40 mg HS PO Last administered on 04/11/19 20:43; Admin Dose 40 MG; Start 04/11/19 at 21:00 Lisinopril (Zestril) 20 mg DAILY PO Last administered on 04/12/19 08:41; Admin Dose 20 MG; Start 04/11/19 at 09:00 Aspirin (Aspirin) 81 mg DAILY PO Last administered on 04/12/19 08:41; Admin Dose 81 MG; Start 04/11/19 at 09:00 Diagnostic Test (Pha) (Accu-Chek) 1 ea 02 XX ; Start 04/12/19 at 02:00 Insulin Glargine (Lantus) 20 units DAILY@2000 SC Last administered on 04/11/19 20:44; Admin Dose 20 UNITS; Start 04/11/19 at 20:00 Insulin Aspart (Novolog Insulin Pen) NOVOLOG *MODERATE* ALGORITHM WITH MEALS BEDTIME SC Last administered on 04/12/19 13:19; Admin Dose 6 UNIT; Start 04/11/19 at 08:00 Linagliptin (Tradjenta) 5 mg DAILY PO Last administered on 04/12/19 08:42; Admin Dose 5 MG; Start 04/11/19 at 09:00 Metformin HCl (Glucophage) 500 mg BID WITH MEALS PO Last administered on 04/12/19 08:42; Admin Dose 500 MG; Start 04/11/19 at 08:00 Miscellaneous Information (* Miscellaneous Pharmacy Order) Empagliflozin ( Jardiance) 10mg P... ONCE XX ; Start 04/11/19 at 04:00 Acetaminophen (Tylenol Tab) 650 mg Q4H PRN PO MILD PAIN(1-3)OR ELEVATED TEMP; Start 04/11/19 at 04:00 Acetaminophen/ Hydrocodone Bitart ([place] (5/325)) 1 tab Q4H PRN PO MODERATE PAIN LEVEL 4-6; Start 04/11/19 at 04:00 Ceftriaxone Sodium 50 ml @ 100 mls/hr Q24H IVPB Last administered on 04/11/19at 22:39; Admin Dose 100 MLS/HR; Start 04/11/19 at 23:00 Miscellaneous Information 1 ea NOTE XX ; Start 04/11/19 at 04:30 Glucose (Glutose) 15 gm Q15M PRN PO DECREASED GLUCOSE; Start 04/11/19 at 04:30 Glucose (Glutose) 22.5 gm Q15M PRN PO DECREASED GLUCOSE; Start 04/11/19 at 04:30 Dextrose (D50w Syringe) 25 ml Q15M PRN IV DECREASED GLUCOSE; Start 04/11/19 at 04:30 Dextrose (D50w Syringe) 50 ml Q15M PRN IV DECREASED GLUCOSE; Start 04/11/19 at 04:30 Glucagon (Glucagen) 1 mg Q15M PRN IM DECREASED GLUCOSE; Start 04/11/19 at 04:30 Glucose (Glutose) 15 gm Q15M PRN BUCCAL DECREASED GLUCOSE; Start 04/11/19 at 04 :30 Fluconazole (Diflucan) 100 mg DAILY PO Last administered on 04/12/19at 08:41; Admin Dose 100 MG; Start 04/11/19 at 17:30 Ondansetron HCl (Zofran Inj) 4 mg Q6H PRN IV NAUSEA AND/OR VOMITING; Start 04/12/19 at 13:00 JORGE TABOR Apr 12, 2019 17:41
[2019-04-12 19:56] VITALS: BP 99/60; PULSE 63; RESP 18
[2019-04-12 20:00] VITALS: BP 136/61; PULSE 83; RESP 18
[2019-04-12] MEDS: ATORVASTATIN 40 MG TAB PO SCH (20:41)
[2019-04-12] MEDS: INSULIN GLARGINE [LANTus] (100 UNITS/ML) SYG SC SCH (20:42)
[2019-04-12] MEDS: CEFTRIAXONE 1 GM/50 ML (PMX) 50 ML IVPB SCH (23:17)
[2019-04-13 01:19] VITALS: BP 104/52; PULSE 75; RESP 18
[2019-04-13] MEDS: ACCU-CHEK XX SCH (02:00)
[2019-04-13 07:37] VITALS: BP 130/62; PULSE 90; RESP 18
[2019-04-13] MEDS: INSULIN ASPART [NOVOLOG] 3 ML PEN SC SCH ×4 (08:00→20:40)
[2019-04-13] MEDS: LISINOPRIL 20 MG TAB PO SCH (08:33)
[2019-04-13] MEDS: CLOPIDOGREL 75 MG TAB PO SCH (08:33)
[2019-04-13] MEDS: FLUCONAZOLE 100 MG TAB PO SCH (08:33)
[2019-04-13] MEDS: LINAGLIPTIN 5 MG TABLET PO SCH (08:34)
[2019-04-13] MEDS: AMLODIPINE 10 MG TAB PO SCH (08:34)
[2019-04-13] MEDS: metFORMIN 500 MG TAB PO SCH ×2 (08:34→17:27)
[2019-04-13] MEDS: ASPIRIN 81 MG TAB PO SCH (08:34)
[2019-04-13 14:38] VITALS: BP 139/63; PULSE 87; RESP 16
--- NOTE | 2019-04-13 16:42 | PN ---
Date/Time of Note Date/Time of Note DATE: 04/13/19 TIME: 16:37 Assessment/Plan VTE Prophylaxis Risk score (from Ns)>0 risk: 2 SCD applied (from Ns): Yes Pharmacological prophylaxis: other Lines/Catheters [facility]from [facility] Saline Lock Urinary Cath still in place: No Assessment/Plan Hospital Course Patient remains hemodynamically stable, urine culture came back with Ju glabrata, will receive DC Rocephin, continue Diflucan, correction facility placement. Assessment/Plan -Hyperglycemia in patient with diabetes mellitus type 2, Continue Tradjenta, metformin, Lantus and NovoLog. -Poor medical compliance with medication regimen due to inability to obtain medication due to high insurance deductible, case management and manager social consult. -UTI due to Ju glabrata, continue Diflucan. -Hypertension, continue lisinopril -Hyperlipidemia, continue statin -History of CVA with residual right upper extremity weakness. Continue Plavix. -History of right RCA stenosis, patient was instructed to follow-up with Dr. Joseph, vascular surgery as an outpatient for follow-up carotid ultrasound in 6 months. Further recommendations based on clinical course. Plan of care discussed with Dr. Bruner. Result Diagram: 04/11/19 0446 04/13/19 0427 Results 24hrs Laboratory Tests Test 04/12/19 17:24 04/12/19 20:40 04/13/19 04:27 04/13/19 08:28 Bedside Glucose 116 141 110 Sodium Level 140 Potassium Level 3.9 Chloride Level 105 Carbon Dioxide Level 28 Anion Gap 7 Blood Urea Nitrogen 16 Creatinine 0.76 Est Glomerular Filtrat > 60 Rate mL/min Glucose Level 64 L Calcium Level 9.5 Test 04/13/19 12:26 Bedside Glucose 157 Exam/Review of Systems Exam Vitals Vital Signs Date Temp Pulse Resp B/P (MAP) Pulse Ox O2 O2 Flow FiO2 Time Delivery Rate 04/13/19 98.3 87 16 139/63 98 Room Air 14:38 (88) Intake and Output 04/12/19 04/12/19 04/13/19 1515:00 23:00 07:00 IntakeIntake Total 1200 ml 360 ml 350 ml BalanceBalance 1200 ml 360 ml 350 ml Exam Constitutional: alert, oriented Head: normocephalic Respiratory: clear to auscultation Cardiovascular: nl pulses Gastrointestinal: soft, non-tender Musculoskeletal: nl extremities to inspection Neurological: nl mental status Results Results 24hrs Laboratory Tests Test 04/12/19 17:24 04/12/19 20:40 04/13/19 04:27 04/13/19 08:28 Bedside Glucose 116 141 110 Sodium Level 140 Potassium Level 3.9 Chloride Level 105 Carbon Dioxide Level 28 Anion Gap 7 Blood Urea Nitrogen 16 Creatinine 0.76 Est Glomerular Filtrat > 60 Rate mL/min Glucose Level 64 L Calcium Level 9.5 Test 04/13/19 12:26 Bedside Glucose 157 Medications Medication Current Medications Clopidogrel Bisulfate (plaVIX) 75 mg DAILY PO Last administered on 04/13/19 08:33; Admin Dose 75 MG; Start 04/11/19 at 09:00 Amlodipine Besylate (Norvasc) 10 mg DAILY PO Last administered on 04/13/19 08:34; Admin Dose 10 MG; Start 04/11/19 at 09:00 Atorvastatin Calcium (Lipitor) 40 mg HS PO Last administered on 04/12/19 20:41; Admin Dose 40 MG; Start 04/11/19 at 21:00 Lisinopril (Zestril) 20 mg DAILY PO Last administered on 04/13/19 08:33; Admin Dose 20 MG; Start 04/11/19 at 09:00 Aspirin (Aspirin) 81 mg DAILY PO Last administered on 04/13/19 08:34; Admin Dos e 81 MG; Start 04/11/19 at 09:00 Diagnostic Test (Pha) (Accu-Chek) 1 ea 02 XX ; Start 04/12/19 at 02:00 Insulin Glargine (Lantus) 20 units DAILY@2000 SC Last administered on 04/12/19 20:42; Admin Dose 20 UNITS; Start 04/11/19 at 20:00 Insulin Aspart (Novolog Insulin Pen) NOVOLOG *MODERATE* ALGORITHM WITH MEALS BEDTIME SC Last administered on 04/13/19 12:29; Admin Dose 2 UNIT; Start 04/11/19 at 08:00 Linagliptin (Tradjenta) 5 mg DAILY PO Last administered on 04/13/19 08:34; Admin Dose 5 MG; Start 04/11/19 at 09:00 Metformin HCl (Glucophage) 500 mg BID WITH MEALS PO Last administered on 6/6/19at 08:34; Admin Dose 500 MG; Start 04/11/19 at 08:00 Miscellaneous Information (* Miscellaneous Pharmacy Order) Empagliflozin ( Jardiance) 10mg P... ONCE XX ; Start 04/11/19 at 04:00 Acetaminophen (Tylenol Tab) 650 mg Q4H PRN PO MILD PAIN(1-3)OR ELEVATED TEMP; Start 04/11/19 at 04:00 Acetaminophen/ Hydrocodone Bitart ([place] (5/325)) 1 tab Q4H PRN PO MODERATE PAIN LEVEL 4-6; Start 04/11/19 at 04:00 Ceftriaxone Sodium 50 ml @ 100 mls/hr Q24H IVPB Last administered on 04/12/19at 23:17; Admin Dose 100 MLS/HR; Start 04/11/19 at 23:00 Miscellaneous Information 1 ea NOTE XX ; Start 04/11/19 at 04:30 Glucose (Glutose) 15 gm Q15M PRN PO DECREASED GLUCOSE; Start 04/11/19 at 04:30 Glucose (Glutose) 22.5 gm Q15M PRN PO DECREASED GLUCOSE; Start 04/11/19 at 04:30 Dextrose (D50w Syringe) 25 ml Q15M PRN IV DECREASED GLUCOSE; Start 04/11/19 at 04:30 Dextrose (D50w Syringe) 50 ml Q15M PRN IV DECREASED GLUCOSE; Start 04/11/19 at 04:30 Glucagon (Glucagen) 1 mg Q15M PRN IM DECREASED GLUCOSE; Start 04/11/19 at 04:30 Glucose (Glutose) 15 gm Q15M PRN BUCCAL DECREASED GLUCOSE; Start 04/11/19 at 04:30 Fluconazole (Diflucan) 100 mg DAILY PO Last administered on 04/13/19at 08:33; Admin Dose 100 MG; Start 04/11/19 at 17:30 Ondansetron HCl (Zofran Inj) 4 mg Q6H PRN IV NAUSEA AND/OR VOMITING; Start 04/12/19 at 13:00 JORGE TABOR Apr 13, 2019 16:42
--- NOTE | 2019-04-13 17:47 | CONS ---
DATE OF ADMISSION: 04/11/2019 DATE OF CONSULTATION: 04/13/2019 TYPE OF CONSULTATION: Infectious disease. REASON FOR CONSULTATION: Antibiotic management. HISTORY OF PRESENT ILLNESS: Rachel Cuello is a 64-year-old female who comes in with a bloo d sugar of greater than 500 mg percent today, the patient is diabetic. She denies fever or chills. Denies polydipsia, polyphagia, polyuria. PAST MEDICAL HISTORY: Includes history of CVA with left-sided weakness. The patient also has a hist ory of hypertension as well as diabetes. FAMILY HISTORY: Noncontributory. SOCIAL HISTORY: She quit smoking 3 months ago. She does not drink or abuse drugs. ALLERGIES: NONE TO PENICILLIN, SULFA OR FOODS. MEDICATIONS: Per chart. REVIEW OF SYSTEMS: Noncontributory. PHYSICAL EXAMINATION: GENERAL: The patient is a well-developed, well-nourished female who is alert, responsive, in no acut e distress. VITAL SIGNS: Stable. She is afebrile. SKIN: Without generalized rash. HEENT: Within normal limits. NECK: Supple. LYMPH NODES: None palpable. CHEST: Decreased breath sounds at the bases. HEART: Without murmur or gallop. ABDOMEN: Soft, nontender without organosplenomegaly or masses. EXTREMITIES: Without cyanosis, clubbing or edema. RECTAL AND GENITAL: Deferred. NEUROLOGIC: No focal neurological abnormality. HOSPITAL COURSE: White count 6.3, H and H of 12.7 and 36.9, platelet count 214,000. She has 51% asuncion trophils. BUN and creatinine is 23/0.73. Glucose random on admission was 463. Hyperglycemia and th e patient was diabetes, she was on Tradjenta, metformin, Lantus and NovoLog. UA is growing Ju g labrata. The patient is currently on fluconazole, which should be effective against glabrata. The bam dye was also seen by . The patient had an unexplained drop in hemoglobin of more than 2 grams. Currently, she is hemodynamically stable. Rocephin was discontinued. She has a history of C VA with residual right upper extremity weakness on Plavix. She has a history of right coronary carot id stenosis and she was instructed to follow up with Dr. Joseph as an outpatient for carotid ultrasoun d in 6 months. Her blood sugar is under good control. I concur with the use of fluconazole. I will dictate my findings to Dr. Oswald and to nurse practitioner, Samson. Dictated By: NORRIS BOWLES MD, JD/ELISE Conf#: [id number] DID#: [id number] CC: NELY OSWALD MD;*EndCC*
[2019-04-13 19:38] VITALS: BP 144/65; PULSE 86; RESP 17
[2019-04-13] MEDS: ATORVASTATIN 40 MG TAB PO SCH (20:33)
[2019-04-13] MEDS: INSULIN GLARGINE [LANTus] (100 UNITS/ML) SYG SC SCH (20:39)
[2019-04-14 01:28] VITALS: BP 135/64; PULSE 85; RESP 18
[2019-04-14] MEDS: ACCU-CHEK XX SCH (01:44)
--- NOTE | 2019-04-14 05:58 | PN ---
Date/Time of Note Date/Time of Note DATE: 04/14/19 TIME: 05:58 Assessment/Plan VTE Prophylaxis Risk score (from Ns)>0 risk: 2 SCD applied (from Ns): Yes SCD contraindicated: other Pharmacological prophylaxis: other Pharm contraindication: other Lines/Catheters [facility] C[facility] Type (from [facility] Saline Lock Urinary Cath still in place: No Assessment/Plan Assessment/Plan -Hyperglycemia in patient with diabetes mellitus type 2, Continue Tradjenta, metformin, Lantus and NovoLog. -Poor medical compliance with medication regimen due to inability to obtain medication due to high insurance deductible, case management and social services counselor consult. -UTI due to Ju glabrata, continue Diflucan. -Hypertension, continue lisinopril -Hyperlipidemia, continue statin -History of CVA with residual right upper extremity weakness. Continue Plavix. -History of right RCA stenosis, patient was instructed to follow-up with Dr. Joseph, vascular surgery as an outpatient for follow-up carotid ultrasound in 6 months. Further recommendations based on clinical course. Plan of care discussed with Dr. Bruner. Result Diagram: 04/11/19 0446 04/13/19 0427 Results 24hrs Laboratory Tests Test 04/13/19 08:28 04/13/19 12:26 04/13/19 17:25 04/13/19 20:31 Bedside Glucose 110 157 212 212 Test 04/14/19 01:45 Bedside Glucose 89 Subjective 24 Hr Interval Summary Free Text/Dictation nad; vss seems comfortable no events overnight SNF placement when stable Exam/Review of Systems Exam Vitals Vital Signs Date Temp Pulse Resp B/P (MAP) Pulse Ox O2 O2 Flow FiO2 Time Delivery Rate 04/14/19 98.6 85 18 135/64 99 01:28 (87) 04/13/19 Room Air 14:38 Constitutional: alert, well developed Psych: nl mood/affect Eyes: nl lids, nl sclera ENMT: nl external ears & nose Neck: non-tender Respiratory: clear to auscultation Cardiovascular: nl pulses, other (s1s2) Gastrointestinal: soft, non-tender Musculoskeletal: nl extremities to inspection Extremities: normal pulses Skin: nl turgor Lymph: nontender Results Results 24hrs Laboratory Tests Test 04/13/19 08:28 04/13/19 12:26 04/13/19 17:25 04/13/19 20:31 Bedside Glucose 110 157 212 212 Test 04/14/19 01:45 Bedside Glucose 89 Medications Medication Current Medications Clopidogrel Bisulfate (plaVIX) 75 mg DAILY PO Last administered on 04/13/19 08:33; Admin Dose 75 MG; Start 04/11/19 at 09:00 Amlodipine Besylate (Norvasc) 10 mg DAILY PO Last administered on 04/13/19 08:34; Admin Dose 10 MG; Start 04/11/19 at 09:00 Atorvastatin Calcium (Lipitor) 40 mg HS PO Last administered on 04/13/19 20:33; Admin Dose 40 MG; Start 04/11/19 at 21:00 Lisinopril (Zestril) 20 mg DAILY PO Last administered on 04/13/19 08:33; Admin Dose 20 MG; Start 04/11/19 at 09:00 Aspirin (Aspirin) 81 mg DAILY PO Last administered on 04/13/19 08:34; Admin Dos e 81 MG; Start 04/11/19 at 09:00 Diagnostic Test (Pha) (Accu-Chek) 1 ea 02 XX Last administered on 04/14/19 01:44; Admin Dose 1 EA; Start 04/12/19 at 02:00 Insulin Glargine (Lantus) 20 units DAILY@2000 SC Last administered on 04/13/19 20:39; Admin Dose 20 UNITS; Start 04/11/19 at 20:00 Insulin Aspart (Novolog Insulin Pen) NOVOLOG *MODERATE* ALGORITHM WITH MEALS BEDTIME SC Last administered on 04/13/19 20:40; Admin Dose 1 UNIT; Start 04/11/19 at 08:00 Linagliptin (Tradjenta) 5 mg DAILY PO Last administered on 04/13/19 08:34; Admin Dose 5 MG; Start 04/11/19 at 09:00 Metformin HCl (Glucophage) 500 mg BID WITH MEALS PO Last administered on 04/13/19 17:27; Admin Dose 500 MG; Start 04/11/19 at 08:00 Miscellaneous Information (* Miscellaneous Pharmacy Order) Empagliflozin ( Jardiance) 10mg P... ONCE XX ; Start 04/11/19 at 04:00 Acetaminophen (Tylenol Tab) 650 mg Q4H PRN PO MILD PAIN(1-3)OR ELEVATED TEMP; Start 04/11/19 at 04:00 Acetaminophen/ Hydrocodone Bitart ([place] (5/325)) 1 tab Q4H PRN PO MODERATE PAIN LEVEL 4-6; Start 04/11/19 at 04:00 Miscellaneous Information 1 ea NOTE XX ; Start 04/11/19 at 04:30 Glucose (Glutose) 15 gm Q15M PRN PO DECREASED GLUCOSE; Start 04/11/19 at 04:30 Glucose (Glutose) 22.5 gm Q15M PRN PO DECREASED GLUCOSE; Start 04/11/19 at 04:30 Dextrose (D50w Syringe) 25 ml Q15M PRN IV DECREASED GLUCOSE; Start 04/11/19 at 04:30 Dextrose (D50w Syringe) 50 ml Q15M PRN IV DECREASED GLUCOSE; Start 04/11/19 at 04:30 Glucagon (Glucagen) 1 mg Q15M PRN IM DECREASED GLUCOSE; Start 04/11/19 at 04:30 Glucose (Glutose) 15 gm Q15M PRN BUCCAL DECREASED GLUCOSE; Start 04/11/19 at 04:30 Fluconazole (Diflucan) 100 mg DAILY PO Last administered on 04/13/19at 08:33; Admin Dose 100 MG; Start 04/11/19 at 17:30 Ondansetron HCl (Zofran Inj) 4 mg Q6H PRN IV NAUSEA AND/OR VOMITING; Start 04/12/19 at 13:00 REKHA FLOREZ Apr 14, 2019 05:58
[2019-04-14 07:23] VITALS: BP 115/56; PULSE 80
[2019-04-14] MEDS: INSULIN ASPART [NOVOLOG] 3 ML PEN SC SCH ×4 (08:00→20:32)
[2019-04-14] MEDS: FLUCONAZOLE 100 MG TAB PO SCH (08:11)
[2019-04-14] MEDS: ASPIRIN 81 MG TAB PO SCH (08:11)
[2019-04-14] MEDS: AMLODIPINE 10 MG TAB PO SCH (08:12)
[2019-04-14] MEDS: LISINOPRIL 20 MG TAB PO SCH (08:12)
[2019-04-14] MEDS: CLOPIDOGREL 75 MG TAB PO SCH (08:12)
[2019-04-14] MEDS: metFORMIN 500 MG TAB PO SCH ×2 (08:16→17:46)
[2019-04-14] MEDS: LINAGLIPTIN 5 MG TABLET PO SCH (08:16)
[2019-04-14 15:55] VITALS: BP 140/66; PULSE 92; RESP 16
--- NOTE | 2019-04-14 18:13 | CONS ---
Assessment/Plan Assessment/Plan Hospital Course (Demo Recall) 1215 Patient is alert feels good denies pain no fevers overnight no labs this morning Urine culture on admission grew Ju glabrata Patient is on fluconazole Physical examination well-developed well-nourished elderly woman who is in no distress. Head atraumatic normocephalic sclera nonicteric neck is supple chest rise symmetrical breath sounds clear heart: S1-S2 abdomen soft bowel sounds present extremities without cyanosis Assessment: 1. UTI on admission, patient is asymptomatic 2. Diabetes 3. Hypertension 4. History of CVA 5. History of medical noncompliance Plan: Patient remains stable continue present care continue fluconazole for 3 more days Consultation Date/Type/Reason Admit Date/Time Apr 11, 2019 at 16:33 Initial Consult Date Type of Consult id Date/Time of Note DATE: 04/14/19 TIME: 18:13 Exam/Review of Systems Exam Vitals Vital Signs Date Temp Pulse Resp B/P (MAP) Pulse Ox O2 O2 Flow FiO2 Time Delivery Rate 04/14/19 98.6 92 16 140/66 99 Room Air 15:55 (90) Results Result Diagram: 04/11/19 0446 04/13/19 0427 Results 24hrs Laboratory Tests Test 04/13/19 20:31 04/14/19 01:45 04/14/19 08:15 04/14/19 12:29 Bedside Glucose 212 89 70 98 Test 04/14/19 17:45 Bedside Glucose 154 Medications Medication Current Medications Clopidogrel Bisulfate (plaVIX) 75 mg DAILY PO Last administered on 04/14/19at 08:12; Admin Dose 75 MG; Start 04/11/19 at 09:00 Amlodipine Besylate (Norvasc) 10 mg DAILY PO Last administered on 04/14/19 08:12; Admin Dose 10 MG; Start 04/11/19 at 09:00 Atorvastatin Calcium (Lipitor) 40 mg HS PO Last administered on 04/13/19 20:33; Admin Dose 40 MG; Start 04/11/19 at 21:00 Lisinopril (Zestril) 20 mg DAILY PO Last administered on 04/14/19at 08:12; Admin Dose 20 MG; Start 04/11/19 at 09:00 Aspirin (Aspirin) 81 mg DAILY PO Last administered on 04/14/19 08:11; Admin Dose 81 MG; Start 04/11/19 at 09:00 Diagnostic Test (Pha) (Accu-Chek) 1 ea 02 XX Last administered on 04/14/19at 01:44; Admin Dose 1 EA; Start 04/12/19 at 02:00 Insulin Glargine (Lantus) 20 units DAILY@2000 SC Last administered on 04/13/19at 20:39; Admin Dose 20 UNITS; Start 04/11/19 at 20:00 Insulin Aspart (Novolog Insulin Pen) NOVOLOG *MODERATE* ALGORITHM WITH MEALS BEDTIME SC Last administered on 04/14/19at 17:47; Admin Dose 1 UNIT; Start 04/11/19 at 08:00 Linagliptin (Tradjenta) 5 mg DAILY PO Last administered on 04/14/19at 08:16; Admin Dose 5 MG; Start 04/11/19 at 09:00 Metformin HCl (Glucophage) 500 mg BID WITH MEALS PO Last administered on 04/14/19at 17:46; Admin Dose 500 MG; Start 04/11/19 at 08:00 Miscellaneous Information (* Miscellaneous Pharmacy Order) Empagliflozin ( Jardiance) 10mg P... ONCE XX ; Start 04/11/19 at 04:00 Acetaminophen (Tylenol Tab) 650 mg Q4H PRN PO MILD PAIN(1-3)OR ELEVATED TEMP; Start 04/11/19 at 04:00 Acetaminophen/ Hydrocodone Bitart ([place] (5/325)) 1 tab Q4H PRN PO MODERATE PAIN LEVEL 4-6; Start 04/11/19 at 04:00 Miscellaneous Information 1 ea NOTE XX ; Start 04/11/19 at 04:30 Glucose (Glutose) 15 gm Q15M PRN PO DECREASED GLUCOSE; Start 04/11/19 at 04:30 Glucose (Glutose) 22.5 gm Q15M PRN PO DECREASED GLUCOSE; Start 04/11/19 at 04:30 Dextrose (D50w Syringe) 25 ml Q15M PRN IV DECREASED GLUCOSE; Start 04/11/19 at 04:30 Dextrose (D50w Syringe) 50 ml Q15M PRN IV DECREASED GLUCOSE; Start 04/11/19 at 04:30 Glucagon (Glucagen) 1 mg Q15M PRN IM DECREASED GLUCOSE; Start 04/11/19 at 04:30 Glucose (Glutose) 15 gm Q15M PRN BUCCAL DECREASED GLUCOSE; Start 04/11/19 at 04:30 Fluconazole (Diflucan) 100 mg DAILY PO Last administered on 04/14/19at 08:11; Admin Dose 100 MG; Start 04/11/19 at 17:30 Ondansetron HCl (Zofran Inj) 4 mg Q6H PRN IV NAUSEA AND/OR VOMITING; Start 04/12/19 at 13:00 SACHA STODDARD NP Apr 14, 2019 18:13
[2019-04-14 19:52] VITALS: BP 130/62; PULSE 87; RESP 17
[2019-04-14] MEDS: ATORVASTATIN 40 MG TAB PO SCH (20:32)
[2019-04-14] MEDS: INSULIN GLARGINE [LANTus] (100 UNITS/ML) SYG SC SCH (20:37)
[2019-04-15] MEDS: ACCU-CHEK XX SCH (02:00)
[2019-04-15 02:25] VITALS: BP 99/51; PULSE 80; RESP 16
[2019-04-15 07:36] VITALS: BP 118/57; PULSE 83; RESP 16
[2019-04-15] MEDS: INSULIN ASPART [NOVOLOG] 3 ML PEN SC SCH ×4 (08:00→20:56)
[2019-04-15] MEDS: metFORMIN 500 MG TAB PO SCH ×2 (08:47→17:41)
[2019-04-15] MEDS: CLOPIDOGREL 75 MG TAB PO SCH (08:48)
[2019-04-15] MEDS: FLUCONAZOLE 100 MG TAB PO SCH (08:48)
[2019-04-15] MEDS: LINAGLIPTIN 5 MG TABLET PO SCH (08:48)
[2019-04-15] MEDS: AMLODIPINE 10 MG TAB PO SCH (08:48)
[2019-04-15] MEDS: ASPIRIN 81 MG TAB PO SCH (08:48)
[2019-04-15] MEDS: LISINOPRIL 20 MG TAB PO SCH (08:49)
[2019-04-15 14:18] VITALS: BP 120/59; PULSE 89; RESP 17
--- NOTE | 2019-04-15 15:07 | PN ---
Date/Time of Note Date/Time of Note DATE: 04/15/19 TIME: 15:07 Assessment/Plan VTE Prophylaxis Risk score (from Ns)>0 risk: 2 [place] [facility] Yes SCD contraindicated: other Pharmacological prophylaxis: other Pharm contraindication: other Lines/Catheters [facility] Type [facility]from [facility] Saline Lock Urinary Cath still in place: No Assessment/Plan Assessment/Plan -Hyperglycemia in patient with diabetes mellitus type 2, Continue Tradjenta, metformin, Lantus and NovoLog. -Poor medical compliance with medication regimen due to inability to obtain medication due to high insurance deductible, case management and social service manager consult. -UTI due to Ju glabrata, continue Diflucan. -Hypertension, continue lisinopril -Hyperlipidemia, continue statin -History of CVA with residual right upper extremity weakness. Continue Plavix. -History of right RCA stenosis, patient was instructed to follow-up with Dr. Joseph, vascular surgery as an outpatient for follow-up carotid ultrasound in 6 months. Further recommendations based on clinical course. Plan of care discussed with Dr. Bruner. Result Diagram: 04/15/19 0435 04/15/19 0435 Results 24hrs Laboratory Tests Test 04/14/19 17:45 04/14/19 20:31 04/15/19 04:35 04/15/19 08:11 Bedside Glucose 154 116 58 L White Blood Count 5.3 Red Blood Count 3.69 L Hemoglobin 11.6 L Hematocrit 32.9 L Mean Corpuscular Volume 89.2 Mean Corpuscular 31.4 Hemoglobin Mean Corpuscular 35.3 Hemoglobin Concent Red Cell Distribution 13.2 Width Platelet Count 172 Mean Platelet Volume 10.7 H Immature Granulocytes % 0.200 Neutrophils % 45.2 Lymphocytes % 42.6 Monocytes % 10.1 Eosinophils % 1.5 Basophils % 0.4 Nucleated Red Blood 0.0 Cells % Immature Granulocytes # 0.010 Neutrophils # 2.4 Lymphocytes # 2.2 Monocytes # 0.5 Eosinophils # 0.1 Basophils # 0.0 Nucleated Red Blood 0.0 Cells # Sodium Level 140 Potassium Level 4.1 Chloride Level 105 Carbon Dioxide Level 27 Anion Gap 8 Blood Urea Nitrogen 24 H Creatinine 0.75 Est Glomerular Filtrat > 60 Rate mL/min Glucose Level 57 L Calcium Level 9.6 Test 04/15/19 08:44 04/15/19 10:15 6/8/19 12:48 Bedside Glucose 102 185 140 Subjective 24 Hr Interval Summary Free Text/Dictation nad afebrile no events reported last night Exam/Review of Systems Exam Vitals Vital Signs Date Temp Pulse Resp B/P (MAP) Pulse Ox O2 O2 Flow FiO2 Time Delivery Rate 04/15/19 98.5 89 17 120/59 98 Room Air 14:18 (79) Intake and Output 04/14/19 04/14/19 04/15/19 1515:00 23:00 07:00 IntakeIntake Total 240 ml 120 ml BalanceBalance 240 ml 120 ml Psych: nl mood/affect Eyes: nl lids, nl sclera ENMT: nl external ears & nose Neck: non-tender Cardiovascular: nl pulses, other (s1s2) Gastrointestinal: soft, non-tender Musculoskeletal: muscle weakness Extremities: normal pulses Lymph: nontender Results Results 24hrs Laboratory Tests Test 04/14/19 17:45 04/14/19 20:31 04/15/19 04:35 04/15/19 08:11 Bedside Glucose 154 116 58 L White Blood Count 5.3 Red Blood Count 3.69 L Hemoglobin 11.6 L Hematocrit 32.9 L Mean Corpuscular Volume 89.2 Mean Corpuscular 31.4 Hemoglobin Mean Corpuscular 35.3 Hemoglobin Concent Red Cell Distribution 13.2 Width Platelet Count 172 Mean Platelet Volume 10.7 H Immature Granulocytes % 0.200 Neutrophils % 45.2 Lymphocytes % 42.6 Monocytes % 10.1 Eosinophils % 1.5 Basophils % 0.4 Nucleated Red Blood 0.0 Cells % Immature Granulocytes # 0.010 Neutrophils # 2.4 Lymphocytes # 2.2 Monocytes # 0.5 Eosinophils # 0.1 Basophils # 0.0 Nucleated Red Blood 0.0 Cells # Sodium Level 140 Potassium Level 4.1 Chloride Level 105 Carbon Dioxide Level 27 Anion Gap 8 Blood Urea Nitrogen 24 H Creatinine 0.75 Est Glomerular Filtrat > 60 Rate mL/min Glucose Level 57 L Calcium Level 9.6 Test 04/15/19 08:44 04/15/19 10:15 04/15/19 12:48 Bedside Glucose 102 185 140 Medications Medication Current Medications Clopidogrel Bisulfate (plaVIX) 75 mg DAILY PO Last administered on 04/15/19at 08:48; Admin Dose 75 MG; Start 04/11/19 at 09:00 Amlodipine Besylate (Norvasc) 10 mg DAILY PO Last administered on 04/15/19 08:48; Admin Dose 10 MG; Start 04/11/19 at 09:00 Atorvastatin Calcium (Lipitor) 40 mg HS PO Last administered on 04/14/19 20:32; Admin Dose 40 MG; Start 04/11/19 at 21:00 Lisinopril (Zestril) 20 mg DAILY PO Last administered on 04/15/19 08:49; Admin Dose 20 MG; Start 04/11/19 at 09:00 Aspirin (Aspirin) 81 mg DAILY PO Last administered on 04/15/19 08:48; Admin Dose 81 MG; Start 04/11/19 at 09:00 Diagnostic Test (Pha) (Accu-Chek) 1 ea 02 XX Last administered on 04/14/19 01:44; Admin Dose 1 EA; Start 04/12/19 at 02:00 Insulin Aspart (Novolog Insulin Pen) NOVOLOG *MODERATE* ALGORITHM WITH MEALS BEDTIME SC Last administered on 04/14/19 17:47; Admin Dose 1 UNIT; Start 04/11/19 at 08:00 Linagliptin (Tradjenta) 5 mg DAILY PO Last administered on 04/15/19 08:48; Admin Dose 5 MG; Start 04/11/19 at 09:00 Metformin HCl (Glucophage) 500 mg BID WITH MEALS PO Last administered on 04/15/19 08:47; Admin Dose 500 MG; Start 04/11/19 at 08:00 Miscellaneous Information (* Miscellaneous Pharmacy Order) Empagliflozin ( Jardiance) 10mg P... ONCE XX ; Start 04/11/19 at 04:00 Acetaminophen (Tylenol Tab) 650 mg Q4H PRN PO MILD PAIN(1-3)OR ELEVATED TEMP; Start 04/11/19 at 04:00 Acetaminophen/ Hydrocodone Bitart ([place] (5/325)) 1 tab Q4H PRN PO MODERATE PAIN LEVEL 4-6; Start 04/11/19 at 04:00 Miscellaneous Information 1 ea NOTE XX ; Start 04/11/19 at 04:30 Glucose (Glutose) 15 gm Q15M PRN PO DECREASED GLUCOSE; Start 04/11/19 at 04:30 Glucose (Glutose) 22.5 gm Q15M PRN PO DECREASED GLUCOSE; Start 04/11/19 at 04:30 Dextrose (D50w Syringe) 25 ml Q15M PRN IV DECREASED GLUCOSE; Start 04/11/19 at 04:30 Dextrose (D50w Syringe) 50 ml Q15M PRN IV DECREASED GLUCOSE; Start 04/11/19 at 04:30 Glucagon (Glucagen) 1 mg Q15M PRN IM DECREASED GLUCOSE; Start 04/11/19 at 04:30 Glucose (Glutose) 15 gm Q15M PRN BUCCAL DECREASED GLUCOSE; Start 04/11/19 at 04:30 Fluconazole (Diflucan) 100 mg DAILY PO Last administered on 04/15/19at 08:48; Admin Dose 100 MG; Start 04/11/19 at 17:30 Ondansetron HCl (Zofran Inj) 4 mg Q6H PRN IV NAUSEA AND/OR VOMITING; Start 04/12/19 at 13:00 Insulin Glargine (Lantus) 15 units DAILY@2000 SC ; Start 04/15/19 at 20:00 REKHA FLOREZ Apr 15, 2019 15:07
--- NOTE | 2019-04-15 15:10 | CONS ---
Assessment/Plan Assessment/Plan Hospital Course (Demo Recall) ID PROGRESS NOTE CURRENT ABX: DAY # =>Diflucan 24H INTERVAL SUMMARY * Resting in bed, VSS, no fever, NAD, no new issues, nor complaints * DC Planning back to SNF in process -- Chart reviewed MICRO/OTHER * 04/10/19 URINE CX URINE CULTURE Final Organism 1 LANEY GLABRATA COLONY COUNT >100,000 CFU/ml PHYSICAL EXAMINATION: GENERAL: VSS, NAD HEENT: AT, NC, anicteric, NECK: Supple, CHEST: Equal chest rise bilaterally, without dyspnea on observation HEART: Pulse RRR ABDOMEN: Soft : deferred EXTREMITIES: Warm, dry SKIN: No rash, no diaphoresis ID ASSESSMENT 64 yo F admit with: 1. UTI on admission, patient is asymptomatic 2. Diabetes 3. Hypertension 4. History of CVA 5. History of medical noncompliance ABX ALLERGIES: None to ABX INVASIVES: PIV CURRENT ABX: DAY # > Diflucan ID RECOMMENDATIONS/PLAN: 1. Back to SNF on Diflucan x 3 more days Consultation Date/Type/Reason Admit Date/Time Apr 11, 2019 at 16:33 Initial Consult Date Date/Time of Note DATE: 04/15/19 TIME: 15:10 Exam/Review of Systems Exam Vitals Vital Signs Date Temp Pulse Resp B/P (MAP) Pulse Ox O2 O2 Flow FiO2 Time Delivery Rate 04/15/19 98.5 89 17 120/59 98 Room Air 14:18 (79) Intake and Output 04/14/19 04/14/19 04/15/19 1515:00 23:00 07:00 IntakeIntake Total 240 ml 120 ml BalanceBalance 240 ml 120 ml Results Result Diagram: 04/15/19 0435 04/15/19 0435 Results 24hrs Laboratory Tests Test 04/14/19 17:45 04/14/19 20:31 04/15/19 04:35 04/15/19 08:11 Bedside Glucose 154 116 58 L White Blood Count 5.3 Red Blood Count 3.69 L Hemoglobin 11.6 L Hematocrit 32.9 L Mean Corpuscular Volume 89.2 Mean Corpuscular 31.4 Hemoglobin Mean Corpuscular 35.3 Hemoglobin Concent Red Cell Distribution 13.2 Width Platelet Count 172 Mean Platelet Volume 10.7 H Immature Granulocytes % 0.200 Neutrophils % 45.2 Lymphocytes % 42.6 Monocytes % 10.1 Eosinophils % 1.5 Basophils % 0.4 Nucleated Red Blood 0.0 Cells % Immature Granulocytes # 0.010 Neutrophils # 2.4 Lymphocytes # 2.2 Monocytes # 0.5 Eosinophils # 0.1 Basophils # 0.0 Nucleated Red Blood 0.0 Cells # Sodium Level 140 Potassium Level 4.1 Chloride Level 105 Carbon Dioxide Level 27 Anion Gap 8 Blood Urea Nitrogen 24 H Creatinine 0.75 Est Glomerular Filtrat > 60 Rate mL/min Glucose Level 57 L Calcium Level 9.6 Test 04/15/19 08:44 04/15/19 10:15 04/15/19 12:48 Bedside Glucose 102 185 140 Medications Medication Current Medications Clopidogrel Bisulfate (plaVIX) 75 mg DAILY PO Last administered on 04/15/19 08:48; Admin Dose 75 MG; Start 04/11/19 at 09:00 Amlodipine Besylate (Norvasc) 10 mg DAILY PO Last administered on 04/15/19 08:48; Admin Dose 10 MG; Start 04/11/19 at 09:00 Atorvastatin Calcium (Lipitor) 40 mg HS PO Last administered on 04/14/19 20:32; Admin Dose 40 MG; Start 04/11/19 at 21:00 Lisinopril (Zestril) 20 mg DAILY PO Last administered on 04/15/19 08:49; Admin Dose 20 MG; Start 04/11/19 at 09:00 Aspirin (Aspirin) 81 mg DAILY PO Last administered on 04/15/19 08:48; Admin Dose 81 MG; Start 04/11/19 at 09:00 Diagnostic Test (Pha) (Accu-Chek) 1 ea 02 XX Last administered on 04/14/19 01:44; Admin Dose 1 EA; Start 04/12/19 at 02:00 Insulin Aspart (Novolog Insulin Pen) NOVOLOG *MODERATE* ALGORITHM WITH MEALS BEDTIME SC Last administered on 04/14/19 17:47; Admin Dose 1 UNIT; Start 04/11/19 at 08:00 Linagliptin (Tradjenta) 5 mg DAILY PO Last administered on 04/15/19 08:48; Admin Dose 5 MG; Start 04/11/19 at 09:00 Metformin HCl (Glucophage) 500 mg BID WITH MEALS PO Last administered on 04/15/19 08:47; Admin Dose 500 MG; Start 04/11/19 at 08:00 Miscellaneous Information (* Miscellaneous Pharmacy Order) Empagliflozin ( Jardiance) 10mg P... ONCE XX ; Start 04/11/19 at 04:00 Acetaminophen (Tylenol Tab) 650 mg Q4H PRN PO MILD PAIN(1-3)OR ELEVATED TEMP; Start 04/11/19 at 04:00 Acetaminophen/ Hydrocodone Bitart ([place] (5/325)) 1 tab Q4H PRN PO MODERATE PAIN LEVEL 4-6; Start 04/11/19 at 04:00 Miscellaneous Information 1 ea NOTE XX ; Start 04/11/19 at 04:30 Glucose (Glutose) 15 gm Q15M PRN PO DECREASED GLUCOSE; Start 04/11/19 at 04:30 Glucose (Glutose) 22.5 gm Q15M PRN PO DECREASED GLUCOSE; Start 04/11/19 at 04:30 Dextrose (D50w Syringe) 25 ml Q15M PRN IV DECREASED GLUCOSE; Start 04/11/19 at 04:30 Dextrose (D50w Syringe) 50 ml Q15M PRN IV DECREASED GLUCOSE; Start 04/11/19 at 04:30 Glucagon (Glucagen) 1 mg Q15M PRN IM DECREASED GLUCOSE; Start 04/11/19 at 04:30 Glucose (Glutose) 15 gm Q15M PRN BUCCAL DECREASED GLUCOSE; Start 04/11/19 at 04:30 Fluconazole (Diflucan) 100 mg DAILY PO Last administered on 04/15/19at 08:48; Admin Dose 100 MG; Start 04/11/19 at 17:30 Ondansetron HCl (Zofran Inj) 4 mg Q6H PRN IV NAUSEA AND/OR VOMITING; Start 04/12/19 at 13:00 Insulin Glargine (Lantus) 15 units DAILY@2000 SC ; Start 04/15/19 at 20:00 CARLYLE VERDUZCO NP Apr 15, 2019 15:10
[2019-04-15 19:25] VITALS: BP 120/59; PULSE 91; RESP 16
[2019-04-15] MEDS ORDERED: INSULIN GLARGINE [LANTus] (100 UNITS/ML) SYG SC SCH (20:00)
[2019-04-15] MEDS: ATORVASTATIN 40 MG TAB PO SCH (20:41)
[2019-04-15 22:31] VITALS: BP 117/56; PULSE 91; RESP 18
== END 2019-04-15 22:40 | DRG 638 ==
LOC: E/R 21:32 → 2NE 04-11 00:28 → OBSVTOIN 04-11 16:33
PROVIDERS: ADMIT Internal Medicine; ATTEND Internal Medicine
PROC: 4A033R1 Measurement of Arterial Saturation, Peripheral, Percutaneous Approach (ICD-10-PCS; principal; 2019-04-10)
DX: E11.65 Type 2 diabetes mellitus with hyperglycemia (principal); B37.49 Other urogenital candidiasis; I69.331 Monoplegia of upper limb following cerebral infarction affecting right dominant side; I10 Essential (primary) hypertension; I65.21 Occlusion and stenosis of right carotid artery; E78.5 Hyperlipidemia, unspecified; Z91.14 Patient's other noncompliance with medication regimen; Z83.3 Family history of diabetes mellitus; Z82.49 Family history of ischemic heart disease and other diseases of the circulatory system; Z79.82 Long term (current) use of aspirin; Z79.4 Long term (current) use of insulin; Z87.891 Personal history of nicotine dependence
CPT/HCPCS: 36415; 80048; 81001; 82803; 82962; 83036; 83735; 84100; 85025; 87086; 96372; 96374; 97161; G0378; J0696; J1815; J7030